=== PATIENT | male | born 1940 | race Caucasian/White ===

== ENCOUNTER 2021-01-20 10:58 | Emergency (ER) | payer MEDICARE, MEDICAID, SELFPAY ==
[2021-01-20] VITALS (10 sets, daily range): BP systolic 150–178; BP diastolic 65–86; PULSE 60–67; RESP 16–24; TEMP 36.8; O2SAT 95–99; BMI 24.4
--- NOTE | 2021-01-20 11:35 | PC.NURSE ---
pt also has rt back pain.
--- NOTE | 2021-01-20 11:38 | PC.NURSE ---
pt has requested me to wait on lab work until the dr sees him.
--- NOTE | 2021-01-20 13:29 | ED.ABDPAIN ---
HPI - Abdominal Pain General Chief Complaint: Abdominal Pain Stated Complaint: Abd pain and back pain Time Seen by Provider: 01/20/21 13:29 Source: patient and old records reviewed Mode of arrival: Ambulatory Limitations: no limitations History of Present Illness HPI narrative: This is a very pleasant 80-year-old male comes emergency department with complaint of back and right groin pain that occurred over night. Patient states he had a sudden onset of pain in the middle the night sort of in his lower back and radiating to his right groin. He states it lasted most the night stopped about an hour ago. Began about 1:00 a.m. and stopped around 11:00 a.m. noon. Patient states that he has not had similar symptoms in the past he did not appreciate any lumps or bumps in his groin. He states he had a left hernia in the groin in the past which was by his description reduced but did not have surgical repair. He denies any fevers or chills. He denies any nausea or vomiting. He denies any chest pain or shortness of breath. He does not been any pain at this time. He states he has normal bowel movements. He is not appreciate any melena or hematochezia. He has had normal urination without any issues. No dysuria, urgency or sense of frequency. He denies any radiation of pain down his legs. Patient states he has had 2 cardiac stents. He states he had his 1st heart attack at age 44, he does have a pacemaker. He states he is not currently following the primary care physician and has not followed up with cardiology in a long time. Patient states he is allergic to sulfa. He used to smoke tobacco but denies any currently. No regular alcohol, no illicit. Related Data Home Medications Medication Instructions Recorded Confirmed amlodipine-olmesartan [Carlos] #0 01/14/17 lisinopril #0 01/14/17 Previous Rx's Medication Instructions Recorded budesonide-formoterol [Symbicort] 2 inh INH BID #1 inh 01/14/17 amlodipine [Norvasc] 5 mg PO QDAY #90 tab 01/21/17 lisinopril 20 mg PO QDAY #90 tab 01/21/17 indapamide 1.25 mg PO QDAY #30 tab 03/04/17 fluoxetine 20 mg capsule 20 mg PO QDAY #30 cap 12/15/17 albuterol sulfate 90 mcg/actuation 1 puff INHALATION QIDP PRN #2 inh 05/17/18 aerosol inhaler Allergies Allergy/AdvReac Type Severity Reaction Status Date / Time Sulfa (Sulfonamide Allergy Unknown Unverified 11/16/17 12:09 Antibiotics) [SULFA (SULFONAMIDE ANTIBIOTICS)] Review of Systems Review of Systems ROS Unobtainable: All systems reviewed & are unremarkable except as noted in HPI and below Patient History Medical History (Updated 01/20/21 @ 13:58 by Ivett Lopez DO) CAD in [place] artery Surgical History (Updated 01/20/21 @ 13:52 by Ivett Lopez DO) H/O heart artery stent Substance Use Type: does not use Exam Narrative Exam Narrative: GENERAL: Alert and oriented x three, well-nourished elderly male in mild distress. HEENT: Head normocephalic, atraumatic, EOMI, pupils reactive, face symmetric, moist mucous membranes NECK: Supple, full range of motion CARDIOVASCULAR: Regular rate and rhythm without murmurs, rubs or gallops. RESPIRATORY: Breath sounds equal bilaterally, no wheezes rales or rhonchi. ABDOMEN: Soft, nontender. Normoactive bowel sounds all 4 quadrants. No guarding or rebound, rigidity, no mass, no palpable hernia in the right or left groin or inguinal area. : No CVA tenderness. Normal male genitalia. BACK: No cervical, thoracic or lumbar vertebral point tenderness. Patient has normal range of motion. Patient's gait is normal. Muscle strength is 5/5 in lower extremities, DTRs are 2/4 and lower extremities. Dorsalis pedis and tibialis pulses are 2+ and lower extremities. Sensation is intact in the lower extremities. EXTREMITIES: Normal range of motion, no clubbing or edema. Neurovascularly intact NEUROLOGICAL: Cranial nerves II through XII grossly intact. Moving all extremities SKIN: Warm, dry, no petechiae, no rashes or lesions. Initial Vital Signs Initial Vital Signs: Vital Signs Temperature 98.2 F 01/20/21 11:05 Pulse Rate 66 01/20/21 11:05 Respiratory Rate 18 01/20/21 11:05 Blood Pressure 178/86 H 01/20/21 11:05 Pulse Oximetry 96 01/20/21 11:05 Course Vital Signs Vital signs: Vital Signs - 8 hr 01/20/21 11:12 01/20/21 11:13 01/20/21 11:30 Pulse Rate 67 65 60 Respiratory Rate 17 Blood Pressure 178/86 H Pulse Oximetry 95 96 99 01/20/21 11:31 01/20/21 12:00 01/20/21 12:30 Pulse Rate 60 60 60 Respiratory Rate 18 24 24 Blood Pressure 165/74 H 172/74 H Pulse Oximetry 97 97 98 01/20/21 12:31 01/20/21 14:00 01/20/21 14:08 Pulse Rate 61 60 60 Respiratory Rate 16 22 22 Blood Pressure 150/65 H 162/83 H Pulse Oximetry 97 98 98 MDM - Abdominal Pain Lab Data Point of care testing: Urine Dip Bedside Urine Glucose Negative Bedside Urine Bilirubin - Negative Bedside Urine Ketone - Negative Urine Specific [place] 1.010 Bedside Urine Occult Blood - Negative Bedside Urine pH 7.5 Bedside Urine Protein - Negative Bedside Urine Urobilinogen - Negative Bedside Urine Nitrite - Negative Bedside Urine Leukocytes - Negative Esterase ECG Data Attestation: I personally reviewed and interpreted this ECG as follows: Prior ECG tracings: not available for review Interpretation: AV dual paced rhythm. Rate of 60, pr 176 QRS of 2-2 and QTC of 536. Patient does no have prior for review. MDM Narrative Medical decision making narrative: 80-year-old male comes in with complaint of significant right lower back pain radiating to the groin, after discussion patient states his symptoms have resolved and he does not wish further workup. He did give a urine sample which is negative making kidney stone less likely. Not able to palpate hernia at this point and patient has not had any obstructive symptoms. We did discuss that this is the correct area for an appendicitis and there is potential for appendix rupture patient we get significantly sick or potentially this was the case. Also colitis or diverticulitis are all possibilities. Patient was offered workup as well as imaging but he defers he states he is happy to return if he needs to. States he is not taking any medications regularly and with our discussion it is unclear if he has chosen not to take these medications or been told not to take them but I suspect the former. Patient is alert, oriented and appears appropriate to make his own decisions. He is interested in establishing with primary care. And we also discussed it would be appropriate from to follow-up with cardiology as he has not had his pacemaker checked in many years, referral was given for this also. Discharge Plan Departure Patient Disposition: Home Clinical Impression: Abdominal pain, Flank pain Instructions: DI for Abdominal Pain-Adult Activity Restrictions/Additional Instructions: I do recommend that you follow up with a primary care physician in the next several weeks for recheck if you are asymptomatic. Also recommend he follow up with Cardiology to have her pacemaker evaluated to check the batteries. These do have to be replaced intermittently. Referral is given below. Your welcome to return at any time for recheck and evaluation. The exact cause of her symptoms today is unknown but includes appendicitis, colitis, diverticulitis, kidney stones, hernia are all potential causes. Please return if you have fevers greater 100.4 F, new chest pain, shortness of breath, lightheadedness or passing out, repair aunt back, flank or abdominal pain, persistent vomiting, inability to have a bowel movement, black or bloody stools or difficulty with urination. Prescriptions: No Action lisinopril 2.5 mg tablet Qty: 0 RF: 0 amlodipine-olmesartan [Carlos] 5-20 mg tablet Qty: 0 RF: 0 budesonide-formoterol [Symbicort] 80 MCG/4.5 MCG HFA aerosol inhaler 2 inh INH BID Qty: 1 RF: 0 lisinopril 20 MG tablet 20 mg PO QDAY Qty: 90 RF: 3 amlodipine [Norvasc] 5 MG tablet 5 mg PO QDAY Qty: 90 RF: 3 indapamide 1.25 MG tablet 1.25 mg PO QDAY Qty: 30 RF: 0 fluoxetine 20 mg capsule 20 mg PO QDAY Qty: 30 RF: 0 albuterol sulfate [Proventil HFA] 90 mcg/actuation HFA aerosol inhaler 1 puff INHALATION QIDP PRN (Reason: shortness of breath) Qty: 2 RF: 0 Referrals: Lay Victoria ARNP [Primary Care Provider] - John Sheppard MD [Physician] - Nilesh Garcia MD [Physician] -
== END 2021-01-20 14:18 | disposition home or self-care (01) ==
PROVIDERS: Emergency Provider Emergency Medicine; PCP Nurse Practitioner Family
DX: R10.9 Unspecified abdominal pain (principal); M54.5 Low back pain; Z95.0 Presence of cardiac pacemaker
CPT/HCPCS: 81003; 93005; 93010; 99282; 99283

== ENCOUNTER 2021-01-21 11:28 | Emergency (ER) | payer MEDICARE, MEDICAID, SELFPAY ==
[2021-01-21] VITALS (26 sets, daily range): BP systolic 130–193; BP diastolic 70–105; PULSE 60–72; RESP 14–35; O2SAT 74–100; BMI 25.7
--- NOTE | 2021-01-21 11:47 | ED.BACK ---
HPI - Back Pain/Injury General Chief Complaint: Abdominal Pain Stated Complaint: Right groin/flank pain Time Seen by Provider: 01/21/21 11:28 Source: patient and EMS Limitations: no limitations History of Present Illness HPI Narrative: 80-year-old male former smoker with a cardiac history including a few stents earlier in the year presents for the 2nd time with a chief complaint of a sudden onset right flank pain with radiation into his right groin. He states the pain started Tuesday night and he was seen and evaluated yesterday and had a workup that suggested an unknown source of flank pain as the patient became asymptomatic and requested discharge. He was given very appropriate and thorough return precautions. Patient states the pain seems to come and go with a mind of its own, he has no obvious provocation or palliation. He states that when present it is very intense, sharp and stabbing. He denies any fever or chills. He has had no chest pain or shortness of breath. He denies any difficulty with bowel movements or urination. MD Complaint: back pain Onset (ago): day(s) Duration: intermittent Similar Symptoms Previously: No Location: right flank and right lower back Severity: severe Quality: sharp Radiation: flank Severity scale (1-10): 8 Relieving factors: none Exacerbating factors: none Associated symptoms: denies other symptoms Related Data Home Medications Medication Instructions Recorded Confirmed amlodipine-olmesartan [Carlos] #0 01/14/17 lisinopril #0 01/14/17 Previous Rx's Medication Instructions Recorded budesonide-formoterol [Symbicort] 2 inh INH BID #1 inh 01/14/17 amlodipine [Norvasc] 5 mg PO QDAY #90 tab 01/21/17 lisinopril 20 mg PO QDAY #90 tab 01/21/17 indapamide 1.25 mg PO QDAY #30 tab 03/04/17 fluoxetine 20 mg capsule 20 mg PO QDAY #30 cap 12/15/17 albuterol sulfate 90 mcg/actuation 1 puff INHALATION QIDP PRN #2 inh 05/17/18 aerosol inhaler amlodipine 5 mg PO DAILY #30 tab 01/21/21 Allergies Allergy/AdvReac Type Severity Reaction Status Date / Time Sulfa (Sulfonamide Allergy Unknown Verified 01/21/21 11:41 Antibiotics) [SULFA (SULFONAMIDE ANTIBIOTICS)] Review of Systems Constitutional Constitutional: Denies chills, Denies fatigue, Denies fever(s), Denies frequent falls, Denies lethargy and Denies weakness Eyes Eyes: Denies change in vision, Denies eye discharge, Denies irritation and Denies loss of vision ENT Ears, Nose, Mouth, and Throat: Denies change in voice, Denies dizziness, Denies neck pain, Denies sore throat and Denies throat swelling Cardiovascular Cardiovascular: Denies chest pain, Denies irregular heart rhythm, Denies lightheadedness, Denies palpitations, Denies dyspnea, Denies dyspnea on exertion and Denies orthopnea Respiratory Respiratory: Denies cough, Denies dyspnea, Denies dyspnea on exertion and Denies wheezing Gastrointestinal Gastrointestinal: Denies abdominal pain, Denies change in bowel habits, Reports constipation, Denies diarrhea, Denies nausea and Denies vomiting Musculoskeletal Musculoskeletal: Reports back pain, Denies neck pain and Denies numbness Integumentary/Breasts Skin/Breast: Denies pruritus, Denies erythema, Denies rash and Denies wounds Neurologic Neurologic: Denies behavioral changes, Denies confusion, Denies dizziness, Denies frequent falls, Denies loss of vision, Denies numbness and Denies weakness Psychiatric Psychiatric: Denies anxiety, Denies behavioral changes, Denies confusion, Denies depression, Denies homicidal ideation and Denies suicidal ideation Endocrine Endocrine: Denies fatigue, Denies flushing and Denies palpitations Hematologic/Lymphatic Hematologic/Lymphatic: Denies easy bruising Allergic/Immunologic Allergic/Immunologic: Denies urticaria, Denies throat swelling and Denies wheezing Patient History Medical History CAD in [place] artery Surgical History H/O heart artery stent Social History Smoking Status: Former smoker Smoking Status: Former smoker alcohol intake frequency: holidays/special occasions only Substance Use Type: does not use Exam Narrative Exam Narrative: GENERAL: [80] year old patient appears stated age. Well-developed patient, in mild distress. HEAD: Atraumatic. Normocephalic. EYES: Pupils equal round and reactive. Extraocular motions intact. No scleral icterus. No injection or drainage. ENT: Nose without bleeding, purulent drainage. Throat without erythema, tonsillar hypertrophy or exudate. Airway patent. NECK: Trachea midline. Non tender CARDIOVASCULAR: Regular rate and rhythm without murmurs, gallops, or rubs. RESPIRATORY: Clear to auscultation. Breath sounds equal bilaterally. No wheezes, rales, or rhonchi. GASTROINTESTINAL: Abdomen soft, non-tender, nondistended. No pulsatile mass. Pain on palpation of R groin, no erythema, warmth or palpable hernia EXTREMITIES: No edema or joint tenderness. BACK: Nontender without deformity or crepitance. No flank tenderness. NEURO: AOx3. SKIN: No rash or erythema of visible areas Initial Vital Signs Initial Vital Signs: Vital Signs Pulse Rate 62 01/21/21 11:30 Respiratory Rate 18 01/21/21 11:30 Blood Pressure 182/81 H 01/21/21 11:30 Pulse Oximetry 98 01/21/21 11:30 Course Orders Ordered: ED Orders 01/21/21 11:47 Complete Blood Count AUTO DIFF Stat Comprehensive Metabolic Panel Stat 01/21/21 11:50 EKG-12 Lead Stat 01/21/21 11:55 CT kidney ureter bladder (KUB) Stat 01/21/21 12:47 CT angio chest abdomen pelvis Stat Discontinued Medications Amlodipine Besylate (Amlodipine 5 Mg Tablet) 5 mg PO NOW ONE Stop: 01/21/21 17:00 Last Admin: 01/21/21 17:02 Dose: 5 mg Documented by: EBONY Hydralazine HCl (Hydralazine 20 Mg/Ml Vial) 10 mg IV NOW ONE Stop: 01/21/21 16:23 Last Admin: 01/21/21 16:42 Dose: 10 mg Documented by: EBONY Sodium Chloride (Normal Saline 0.9%) 1,000 mls @ 125 mls/hr IV CONT TOMA Last Infusion: 01/21/21 17:51 Dose: 0 mls/hr Documented by: Admin: 01/21/21 12:18 Dose: 125 mls/hr Documented by: LIZBETH Nicardipine HCl 25 mg/ Sodium (Chloride) 250 mls @ 50 mls/hr IV TITRATE TOMA; Protocol Last Admin: 01/21/21 17:50 Dose: Not Given Documented by: AUPDIKE Consultations Consultation #1: upon receipt of CTA, images were pushed to Prov and call to Vascular. The PA has reviewed the case and recommends transfer to Prov ED given size of AAA and no other explanation of flank pain. While on hold for ED provider the Vascular attending called back and suggests there was very little chance that the pain was from the AAA and after discussion suggested patient could go home and follow up Consultation #2: discussed hernia with exchange underwriting consultant general surgery here (Natalio). No ongoing pain, no overlying erythema or palpable mass. No indication for intervention today. Recommend follow up. Vital Signs Vital signs: Vital Signs - 8 hr 01/21/21 11:30 01/21/21 11:34 01/21/21 11:48 Pulse Rate 62 69 60 Respiratory Rate 18 14 21 Blood Pressure 182/81 H 161/72 H Pulse Oximetry 98 98 98 01/21/21 12:09 01/21/21 12:10 01/21/21 12:30 Pulse Rate 60 60 60 Respiratory Rate 20 19 21 Blood Pressure 159/74 H 157/75 H Pulse Oximetry 98 98 97 01/21/21 13:00 01/21/21 13:11 01/21/21 13:30 Pulse Rate 60 61 60 Respiratory Rate 20 15 14 Blood Pressure 163/101 H Pulse Oximetry 99 100 100 01/21/21 13:31 01/21/21 14:00 01/21/21 14:48 Pulse Rate 61 61 64 Respiratory Rate 16 21 Blood Pressure 177/85 H 193/83 H Pulse Oximetry 99 99 98 01/21/21 15:00 01/21/21 15:16 01/21/21 15:30 Pulse Rate 60 60 60 Respiratory Rate 21 18 17 Blood Pressure 130/82 Pulse Oximetry 98 98 98 01/21/21 15:31 01/21/21 16:00 01/21/21 16:01 Pulse Rate 60 62 60 Respiratory Rate 24 21 21 Blood Pressure 164/78 H 176/82 H Pulse Oximetry 97 98 98 01/21/21 16:30 01/21/21 16:31 01/21/21 16:42 Pulse Rate 69 66 66 Respiratory Rate 19 35 H Blood Pressure 157/105 H 157/105 H 157/105 H Pulse Oximetry 99 99 01/21/21 16:50 01/21/21 16:55 01/21/21 17:00 Pulse Rate 64 67 67 Respiratory Rate 25 H 26 H 20 Blood Pressure 170/81 H 171/82 H 156/70 H Pulse Oximetry 99 99 99 01/21/21 17:15 01/21/21 17:20 Pulse Rate 72 69 Respiratory Rate Blood Pressure 163/78 H Pulse Oximetry 74 L 99 MDM - Back Pain/Injury Lab Data Result diagrams: 01/21/21 11:47 01/21/21 11:47 Labs: Lab Results 01/21/21 01/21/21 Range/Units 11:47 11:47 WBC 6.4 (4.5-11.0) X10^3/uL RBC 4.41 L (4.5-5.9) X10^6/uL Hgb 13.4 L (13.5-17.5) g/dL Hct 40.9 L (41-53) % MCV 92.8 (80-100) fL MCH 30.4 (26-34) PG MCHC 32.8 (30-36) % RDW 14.9 H (11.6-14.8) % Plt Count 279 (150-400) X10^3/uL Neut % (Auto) 61.8 (50-75) % Lymph % (Auto) 21.5 L (25-40) % [place] % (Auto) 12.3 (3-14) % Eos % (Auto) 3.7 (2-4) % Baso % (Auto) 0.7 (0-2) % Neut # (Auto) 3900 (1243-0914) /uL Lymph # (Auto) 1400 (0004-1508) /uL [place] # (Auto) 800 (0-900) /uL Eos # (Auto) 200 (0-450) /uL Baso # (Auto) 0 (0-100) /uL Sodium 137 (137-145) mmol/L Potassium 4.2 (3.4-5.1) mmol/L Chloride 104 (98-107) mmol/L Carbon Dioxide 24 (22-32) mmol/L BUN 16 (9-20) mg/dL Creatinine 1.09 (0.66-1.25) mg/dL Estimated GFR > 60.0 (>60) mL/min BUN/Creatinine Ratio 14.7 (6-22) Glucose 106 (80-110) mg/dL Calcium 9.5 (8.4-10.2) mg/dL Total Bilirubin 0.9 (0.2-1.3) mg/dL AST 28 (17-59) IU/L ALT 15 (<50) IU/L Alkaline Phosphatase 75 (38-126) U/L Total Protein 7.5 (6.3-8.2) g/dL Albumin 4.3 (3.5-5.0) g/dL Globulin 3.2 (1.7-4.1) g/dL Albumin/Globulin Ratio 1.3 (1.0-2.8) Urine Dip Bedside Urine Glucose Negative Bedside Urine Bilirubin - Negative Bedside Urine Ketone +/- 5 Urine Specific [place] 1.015 Bedside Urine Occult Blood - Negative Bedside Urine pH 7.0 Bedside Urine Protein - Negative Bedside Urine Urobilinogen - Negative Bedside Urine Nitrite - Negative Bedside Urine Leukocytes - Negative Esterase Imaging Data CT scan - abdomen/pelvis: Radiologist's Impression: Nilesh Alexander 80 M [address] Scan ReportSigned Patient: Nilesh Alexander [facility]#: [id number]: 8Acct:[id number]/Sex: 80 / MDate of Service: 01/21/21Loc: EDAccession Number: [id number] Procedure: CT kidney ureter bladder (KUB) Ordering Provider: Lobito Moya D.O. PROCEDURE: CT KIDNEY URETER BLADDER (KUB) INDICATIONS: severe flank pain with radiation to right groin TECHNIQUE: Axial sections were acquired from the lung bases to the pubic symphysis. Coronal and sagittal reformats were performed. For radiation dose reduction, the following was used: automated exposure control, adjustment of mA and/or kV according to patient size. COMPARISON:None. FINDINGS: Image quality: Excellent. Lung bases: Unremarkable. Heart: No significant findings. URINARY: Right Kidney: No stones. Renal atrophy is present. Renal cysts are noted. Punctate nonobstructing renal calculus is present. Renal cysts are noted, largest measuring 2.9 cm. Right Ureter: No hydroureter. Left Kidney: No stones. Renal atrophy is present. Renal cysts are noted. Punctate nonobstructing renal calculus is present. Renal cysts are noted, largest measuring 6.1 cm. Left Ureter: No hydroureter. Bladder: Normal wall thickness. Calcification is present in the dependent bladder. ABDOMEN: Liver: Unremarkable. Gallbladder: Unremarkable. Biliary ducts: Unremarkable. Pancreas: Unremarkable. Spleen: Unremarkable. Adrenal Glands: Unremarkable. Stomach and Bowel: Stomach, small bowel loops, and colon are unremarkable. Prominent colonic diverticula are present without inflammatory change. Peritoneum: No abnormal intraperitoneal fluid. No free air. Ventral Wall: No hernia. Abdominal Nodes: No enlarged retroperitoneal or mesenteric lymph nodes. Vessels: The inferior vena cava are normal in size. Prominent aneurysmal dilation noted in the infrarenal abdominal aorta measuring 5.7 cm. PELVIS: Pelvic Organs: Unremarkable. Pelvic Nodes: Unremarkable. Miscellaneous: Large fat containing right inguinal hernia with fat stranding. Bones: Unremarkable. IMPRESSION: 1. Large fat containing right inguinal hernia with inflammatory change. 2. Significant colonic diverticulosis. 3. Bladder calcification, possibly related to recently passed stone. No obstruction. 4. Renal cysts. 5. Infrarenal abdominal aortic aneurysm. Dictated by: Dionne Lemus M.D. on 01/21/2021 at 12:21 Approved by: Dionne Lemus M.D. on 01/21/2021 at 12:34 CTA Abd/Pelvis: Radiologist's Impression: [address] [id number] Scan ReportSigned Patient: Nilesh Alexander [facility]#: [id number]: 1940cct:[id number]/Sex: 80 / MDate of Service: 01/21/21Loc: EDAccession Number: [id number] Procedure: CT angio chest abdomen pelvis Ordering Provider: Lobito Moya D.O. PROCEDURE: CT ANGIO CHEST ABDOMEN PELVIS INDICATIONS: large newly discovered AAA, severe flank pain TECHNIQUE: Precontrast 5 mm thick sections acquired from the lung apices to the iliac crests. After the administration of intravenous contrast, 2.5 mm thick sections again acquired from the lung apices to the iliac crests. Maximum intensity projection (MIP) oblique sagittal and coronal reformats were then acquired. For radiation dose reduction, the following was used: automated exposure control. COMPARISON: [facility], CT, CT KIDNEY URETER BLADDER (KUB), 01/21/2021, 12:03. FINDINGS: Image quality: Excellent. AORTA and its attachments: The thoracic aorta is unremarkable without aneurysm or stenosis or significant plaque. The great vessel origins are widely patent. The brachiocephalic artery is markedly tortuous. There is large infrarenal abdominal aortic aneurysm, which on image 131/5 measures 5.7 x 5.1 cm. It has mild thrombus.. It has a reasonable neck below the lowest renal artery and the superior aspect of the aneurysm. On image 115/5, a compliance representative dealer image, the short axis dimension is 2.0 cm. The aneurysm ends at the aortic bifurcation. The right common iliac artery measures 1.9 cm. The left common iliac artery measures 1.4 cm. No iliac stenosis is noted. CHEST: Lungs and pleura: No acute airspace opacities. No pleural effusions or pneumothorax. Central and peripheral airways are patent and normal in caliber. Mediastinum: Heart size is normal. No pericardial effusion. Moderately advanced coronary artery calcifications. No mediastinal or hilar adenopathy by size criteria. Central pulmonary arteries are normal in size. Esophagus is normal in caliber. No hiatal hernias. Bones and chest wall: No axillary adenopathy by size criteria. Thyroid gland is unremarkable as visualized. No suspicious bony lesions. No vertebral body compression fractures. A pacemaker is present. ABDOMEN: Vasculature: Celiac trunk and mesenteric arteries are patent. Renal arteries are also patent. Solid organs: Liver is normal in size and enhancement. Gallbladder is unremarkable. Biliary system is non dilated. Pancreas enhances normally. Spleen is normal in size and enhancement. No adrenal nodules. Both kidneys are normal in size and enhancement, without hydronephrosis. Peritoneum and bowel: No free fluid or air. Bowel loops are normal in caliber and wall thickness. Extensive sigmoid diverticulosis without evidence of diverticulitis. Nodes and vessels: No retroperitoneal or mesenteric adenopathy by size criteria. Inferior vena cava is normal in morphology. Miscellaneous: No ventral hernias. PELVIS: Genitourinary: There is a small calcification in the midline posteriorly in the bladder, measuring approximately 3 mm, possibly representing recent passage of a ureteral stone into the bladder. The bladder wall is thin. The prostate is significantly enlarged. Miscellaneous: There is a sizable right inguinal hernia containing fat. No ventral hernias. Bones: No suspicious bony lesions. No vertebral body compression fractures. IMPRESSION: 1. 5.7 cm maximum diameter infrarenal abdominal aortic aneurysm with a reasonable neck below the lowest renal artery, should endovascular repair be considered. 2. If considering endovascular repair, the presence of a large fat containing right inguinal hernia should be accommodated, as this may potentially interact with attempted femoral access. 3. Enlargement of the prostate. 4. Probable recent passage of a stone into the bladder. 5. Extensive sigmoid diverticulosis. Dictated by: Samuel Martino M.D. on 01/21/2021 at 14:47 Approved by: Samuel Martino M.D. on 01/21/2021 at 14:59 MDM Narrative Medical decision making narrative: 80-year-old male, hemodynamically stable with cardiac history returns for evaluation of right flank pain. He denies any obvious provocation or palliation. There are no clear findings on exam. He does admit to decreased bowel movements which is abnormal for him. He had some brief pain in his right groin on exam but no palpable or non reducible hernia noted. CT KUB originally ordered given concern for possible kidney stone and upon its completion we noted a large infrarenal AAA. After extensive discussion with the patient, he was initially quite reluctant, he agreed to performing angiography. This noted a 5.7 cm AAA without any evidence of rupture. Given its size and no other clear etiology I contacted vascular at [facility]. Initially, the PA recommended transfer to their ER but after the attending reviewed the findings he thought it was very unlikely the symptoms were related to a AAA. There is some evidence of a decent large stool burden and a fat containing right inguinal hernia which could certainly presented with a above-stated symptoms. Patient was given extensive return precautions which she understood clearly and was in agreement with. Discharge Plan Departure Patient Disposition: Home Clinical Impression: AAA (abdominal aortic aneurysm) without rupture, Mild HTN Inguinal hernia Qualifiers: Laterality: unilateral Recurrence: non-recurrent Activity Restrictions/Additional Instructions: *You have been diagnosed with [flank and abdominal pain likely relating to inguinal hernia and large stool burden. Vascular surgery at [facility] has reviewed your case and does not think your large aneurysm is contributing to her symptoms today] *What to do: *Please continue to take your regular medications as directed. [ ] New medication prescriptions sent to your pharmacy: [ ] [x ] New medication written as a paper prescription [ ] No new medications given I have included contact information for our on-call surgeon to discuss options regarding your right inguinal hernia. Please contact [facility] for follow-up. *You have been diagnosed with [ abdominal pain due to constipation ] *What to do: *Take over the counter medications as directed: 1. Metamucil - bulk forming laxative adds fiber 2. Colace - softens your stool 3. Dulcolax Suppository - stimulates your bowels from the bottom I have included contact information for vascular surgery at [facility] [phone]. Please call their office tomorrow to arrange for follow-up regarding your 5.7 cm abdominal aortic aneurysm Prescriptions: New amlodipine 5 mg tablet 5 mg PO DAILY Qty: 30 RF: 0 No Action lisinopril 2.5 mg tablet Qty: 0 RF: 0 amlodipine-olmesartan [Carlos] 5-20 mg tablet Qty: 0 RF: 0 budesonide-formoterol [Symbicort] 80 MCG/4.5 MCG HFA aerosol inhaler 2 inh INH BID Qty: 1 RF: 0 lisinopril 20 MG tablet 20 mg PO QDAY Qty: 90 RF: 3 amlodipine [Norvasc] 5 MG tablet 5 mg PO QDAY Qty: 90 RF: 3 indapamide 1.25 MG tablet 1.25 mg PO QDAY Qty: 30 RF: 0 fluoxetine 20 mg capsule 20 mg PO QDAY Qty: 30 RF: 0 albuterol sulfate [Proventil HFA] 90 mcg/actuation HFA aerosol inhaler 1 puff INHALATION QIDP PRN (Reason: shortness of breath) Qty: 2 RF: 0 Referrals: Bree Lance MD [Physician] - Lay Victoria ARNP [Primary Care Provider] -
--- NOTE | 2021-01-21 11:55 | DI.CT.S_ITS ---
PROCEDURE: CT KIDNEY URETER BLADDER (KUB) INDICATIONS: severe flank pain with radiation to right groin TECHNIQUE: Axial sections were acquired from the lung bases to the pubic symphysis. Coronal and sagittal reformats were performed. For radiation dose reduction, the following was used: automated exposure control, adjustment of mA and/or kV according to patient size. COMPARISON:None. FINDINGS: Image quality: Excellent. Lung bases: Unremarkable. Heart: No significant findings. URINARY: Right Kidney: No stones. Renal atrophy is present. Renal cysts are noted. Punctate nonobstructing renal calculus is present. Renal cysts are noted, largest measuring 2.9 cm. Right Ureter: No hydroureter. Left Kidney: No stones. Renal atrophy is present. Renal cysts are noted. Punctate nonobstructing renal calculus is present. Renal cysts are noted, largest measuring 6.1 cm. Left Ureter: No hydroureter. Bladder: Normal wall thickness. Calcification is present in the dependent bladder. ABDOMEN: Liver: Unremarkable. Gallbladder: Unremarkable. Biliary ducts: Unremarkable. Pancreas: Unremarkable. Spleen: Unremarkable. Adrenal Glands: Unremarkable. Stomach and Bowel: Stomach, small bowel loops, and colon are unremarkable. Prominent colonic diverticula are present without inflammatory change. Peritoneum: No abnormal intraperitoneal fluid. No free air. Ventral Wall: No hernia. Abdominal Nodes: No enlarged retroperitoneal or mesenteric lymph nodes. Vessels: The inferior vena cava are normal in size. Prominent aneurysmal dilation noted in the infrarenal abdominal aorta measuring 5.7 cm. PELVIS: Pelvic Organs: Unremarkable. Pelvic Nodes: Unremarkable. Miscellaneous: Large fat containing right inguinal hernia with fat stranding. Bones: Unremarkable. IMPRESSION: 1. Large fat containing right inguinal hernia with inflammatory change. 2. Significant colonic diverticulosis. 3. Bladder calcification, possibly related to recently passed stone. No obstruction. 4. Renal cysts. 5. Infrarenal abdominal aortic aneurysm. Dictated by: Dionne Lemus M.D. on 01/21/2021 at 12:21 Approved by: Dionne Lemus M.D. on 01/21/2021 at 12:34
[2021-01-21 11:57] LABS: Add Manual Diff / Slide Review NO; Basophils Absolute Auto 0 /uL (0-100); Basophils Percent Auto 0.7 % (0-2); Eosinophils Absolute Auto 200 /uL (0-450); Eosinophils Percent Auto 3.7 % (2-4); Hematocrit 40.9 % (41-53); Hemoglobin 13.4 g/dL (13.5-17.5); Lymphocytes Absolute Auto 1400 /uL (1100-4500); Lymphocytes Percent Auto 21.5 % (25-40); Mean Corpuscular HGB Conc 32.8 % (30-36); Mean Corpuscular Hemoglobin 30.4 PG (26-34); Mean Corpuscular Volume 92.8 fL (80-100); Monocytes Absolute Auto 800 /uL (0-900); Monocytes Percent Auto 12.3 % (3-14); Neutrophils Absolute Auto 3900 /uL (1500-7000); Neutrophils Percent Auto 61.8 % (50-75); Platelet Count 279 X10^3/uL (150-400); Red Blood Cell Count 4.41 X10^6/uL (4.5-5.9); Red Cell Distribution Width 14.9 % (11.6-14.8); White Blood Cell Count 6.4 X10^3/uL (4.5-11.0)
[2021-01-21 12:06] LABS: Alanine Aminotransferase 15 IU/L (<50); Albumin 4.3 g/dL (3.5-5.0); Albumin Globulin Ratio 1.3 (1.0-2.8); Alkaline Phosphatase 75 U/L (38-126); Aspartate Aminotransferase 28 IU/L (17-59); BUN Creatinine Ratio 14.7 (6-22); Bilirubin Total 0.9 mg/dL (0.2-1.3); Blood Urea Nitrogen 16 mg/dL (9-20); Calcium 9.5 mg/dL (8.4-10.2); Carbon Dioxide 24 mmol/L (22-32); Chloride 104 mmol/L (98-107); Estimated Glomerular Filt Rate > 60.0 mL/min (>60); Globulin 3.2 g/dL (1.7-4.1); Glucose 106 mg/dL (80-110); HEMOLYSIS < 15 (0-50); Potassium 4.2 mmol/L (3.4-5.1); Sodium 137 mmol/L (137-145); Total Protein 7.5 g/dL (6.3-8.2)
[2021-01-21] MEDS: SODIUM CHLORIDE 0.9% 1,000 ML 125 ML IV (12:18)
--- NOTE | 2021-01-21 12:47 | DI.CT.S_ITS ---
PROCEDURE: CT ANGIO CHEST ABDOMEN PELVIS INDICATIONS: large newly discovered AAA, severe flank pain TECHNIQUE: Precontrast 5 mm thick sections acquired from the lung apices to the iliac crests. After the administration of intravenous contrast, 2.5 mm thick sections again acquired from the lung apices to the iliac crests. Maximum intensity projection (MIP) oblique sagittal and coronal reformats were then acquired. For radiation dose reduction, the following was used: automated exposure control. COMPARISON: [facility], CT, CT KIDNEY URETER BLADDER (KUB), 01/21/2021, 12:03. FINDINGS: Image quality: Excellent. AORTA and its attachments: The thoracic aorta is unremarkable without aneurysm or stenosis or significant plaque. The great vessel origins are widely patent. The brachiocephalic artery is markedly tortuous. There is large infrarenal abdominal aortic aneurysm, which on image 131/5 measures 5.7 x 5.1 cm. It has mild thrombus.. It has a reasonable neck below the lowest renal artery and the superior aspect of the aneurysm. On image 115/5, a hospital sales representative image, the short axis dimension is 2.0 cm. The aneurysm ends at the aortic bifurcation. The right common iliac artery measures 1.9 cm. The left common iliac artery measures 1.4 cm. No iliac stenosis is noted. CHEST: Lungs and pleura: No acute airspace opacities. No pleural effusions or pneumothorax. Central and peripheral airways are patent and normal in caliber. Mediastinum: Heart size is normal. No pericardial effusion. Moderately advanced coronary artery calcifications. No mediastinal or hilar adenopathy by size criteria. Central pulmonary arteries are normal in size. Esophagus is normal in caliber. No hiatal hernias. Bones and chest wall: No axillary adenopathy by size criteria. Thyroid gland is unremarkable as visualized. No suspicious bony lesions. No vertebral body compression fractures. A pacemaker is present. ABDOMEN: Vasculature: Celiac trunk and mesenteric arteries are patent. Renal arteries are also patent. Solid organs: Liver is normal in size and enhancement. Gallbladder is unremarkable. Biliary system is non dilated. Pancreas enhances normally. Spleen is normal in size and enhancement. No adrenal nodules. Both kidneys are normal in size and enhancement, without hydronephrosis. Peritoneum and bowel: No free fluid or air. Bowel loops are normal in caliber and wall thickness. Extensive sigmoid diverticulosis without evidence of diverticulitis. Nodes and vessels: No retroperitoneal or mesenteric adenopathy by size criteria. Inferior vena cava is normal in morphology. Miscellaneous: No ventral hernias. PELVIS: Genitourinary: There is a small calcification in the midline posteriorly in the bladder, measuring approximately 3 mm, possibly representing recent passage of a ureteral stone into the bladder. The bladder wall is thin. The prostate is significantly enlarged. Miscellaneous: There is a sizable right inguinal hernia containing fat. No ventral hernias. Bones: No suspicious bony lesions. No vertebral body compression fractures. IMPRESSION: 1. 5.7 cm maximum diameter infrarenal abdominal aortic aneurysm with a reasonable neck below the lowest renal artery, should endovascular repair be considered. 2. If considering endovascular repair, the presence of a large fat containing right inguinal hernia should be accommodated, as this may potentially interact with attempted femoral access. 3. Enlargement of the prostate. 4. Probable recent passage of a stone into the bladder. 5. Extensive sigmoid diverticulosis. Dictated by: Samuel Martino M.D. on 01/21/2021 at 14:47 Approved by: Samuel Martino M.D. on 01/21/2021 at 14:59
[2021-01-21] MEDS: HYDRALAZINE 20 MG/ML VIAL 10 MG IV (16:42)
[2021-01-21] MEDS: AMLODIPINE 5 MG TABLET PO (17:02)
--- NOTE | 2021-01-21 17:18 | PC.NURSE ---
pt given po amlodipine, rx for bp control at home. pt has clear instructions to follow up with vascular surgeon for repair of aneurysm. MD and RN's explained need in detail to follow up with vascular surgeion. take stool softner and start new rx med amlodipine.
--- NOTE | 2021-01-21 17:39 | PC.NURSE ---
Before d/c I sat down with the pt and thoroughly educated the pt on what an aneurism is why it is so dangerous and why getting it surgically repaired is not something that can be put off. I had the pt reiterate this information but I was concerned that he still did not fully understand the severity of his condition. He gave me permission to contact his grandson Willard ([phone]) and inform him of all medical information. Willard was a great help and assured this RN that the pt would f/u with appropriate surgeon at [place]. Pt's BP was trending down nicely and Dr. Moya reviewed pt's vitals and okayd for pt to be d/c. Pt ambulated with a steady gait and is calling a cab to get back to [facility]
== END 2021-01-21 17:35 | disposition home or self-care (01) ==
PROVIDERS: Emergency Provider Emergency Medicine; PCP Nurse Practitioner Family
DX: I71.4 Abdominal aortic aneurysm, without rupture (principal); I10 Essential (primary) hypertension; K40.90 Unilateral inguinal hernia, without obstruction or gangrene, not specified as recurrent
CPT/HCPCS: 36415; 71275; 74174; 74176; 80053; 81003; 85025; 93005; 93010; 96361; 96374; 99284; J0360; Q9967

== ENCOUNTER 2021-01-24 11:32 | Emergency (ER) | payer MEDICARE, MEDICAID, SELFPAY ==
[2021-01-24] VITALS (10 sets, daily range): BP systolic 148–172; BP diastolic 66–80; PULSE 59–60; RESP 13–24; TEMP 36.3; O2SAT 97–100; BMI 25.7
--- NOTE | 2021-01-24 11:32 | ED_ITS ---
HPI - General Adult General Chief complaint: Abdominal Pain Stated complaint: LRQ pain Time Seen by Provider: 01/24/21 11:35 History of Present Illness HPI narrative: 80-year-old gentleman with a history of Disease with stent placement, hypertension, right inguinal hernia and AAA presents for the 3rd time in 4 days with complaints of right-sided low back pain radiating into the groin. His initial visit on the , his pain resolved in the emergency department and he declined any additional workup aside from urinalysis which was unremarkable. With 2nd visit on the a CT scan of the abdomen and pelvis was done that revealed fat containing right inguinal hernia with inflammatory changes, infrarenal abdominal aortic aneurysm measuring 5.7 cm. No renal stones and no obvious appendicitis. Follow-up CTA confirms the large infrarenal abdominal AAA with mild thrombus, no leaking appreciated. Noted ?reasonable neck below the lowest renal artery and the superior aspect of the aneurysm. Aneurysm findings were reviewed with vascular surgeon at [facility] and he felt that it was very unlikely that the patient's presenting symptoms were related to the AAA and recommended outpatient follow-up. General surgery was contacted with Discussion of the right inguinal hernia. No ongoing pain no overlying erythema or palpable mass and Dr. Lance did not feel that there is any indication for surgical intervention at this time. Related Data Home Medications Medication Instructions Recorded Confirmed amlodipine-olmesartan [Carlos] #0 01/14/17 lisinopril #0 01/14/17 Previous Rx's Medication Instructions Recorded budesonide-formoterol [Symbicort] 2 inh INH BID #1 inh 01/14/17 amlodipine [Norvasc] 5 mg PO QDAY #90 tab 01/21/17 lisinopril 20 mg PO QDAY #90 tab 01/21/17 indapamide 1.25 mg PO QDAY #30 tab 03/04/17 fluoxetine 20 mg capsule 20 mg PO QDAY #30 cap 12/15/17 albuterol sulfate 90 mcg/actuation 1 puff INHALATION QIDP PRN #2 inh 05/17/18 aerosol inhaler amlodipine 5 mg PO DAILY #30 tab 01/21/21 Allergies Allergy/AdvReac Type Severity Reaction Status Date / Time Sulfa (Sulfonamide Allergy Unknown Verified 01/21/21 11:41 Antibiotics) [SULFA (SULFONAMIDE ANTIBIOTICS)] Review of Systems Review of Systems Narrative: Pertinent positive and negative findings as per HPI Remainder of review of systems is otherwise unremarkable for Constitutional: Fevers, chills, weakness ENT: No sore throat, neck pain, ear pain CV: Chest pain, palpitations, Respiratory: Cough, wheeze, dyspnea GI: Nausea, vomiting, diarrhea, : Dysuria, hematuria, Patient History Medical History CAD in [place] artery Surgical History H/O heart artery stent Social History Smoking Status: Former smoker Smoking Status: Former smoker alcohol intake frequency: holidays/special occasions only Substance Use Type: does not use Exam Narrative Exam Narrative: General: Alert appropriate in no acute distress Respiratory: Able to speak in full sentences, no obvious respiratory distress Abdomen: Soft, obese. 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 Intermittent diffuse right-sided tenderness currently resolved. No rebound or guarding. No flank pain Groin: Moderate size right inguinal hernia that is nontender to palpation. No testicular pain normal external genitalia. Skin: No obvious rashes, warm and dry Neurologic: Grossly intact no obvious asymmetries or abnormalities Psych: appropriate insight and affect, cooperative Initial Vital Signs Initial Vital Signs: Vital Signs Blood Pressure 157/75 H 01/24/21 11:34 Course Orders Ordered: Discontinued Medications Magnesium Citrate (Magnesium Citrate 300 Ml Solution) 300 ml PO NOW ONE Stop: 01/24/21 13:02 Last Admin: 01/24/21 13:07 Dose: 300 ml Documented by: TAMMY Vital Signs Vital signs: Vital Signs - 8 hr 01/24/21 12:30 01/24/21 12:31 01/24/21 13:00 Pulse Rate 60 60 60 Respiratory Rate 17 24 18 Blood Pressure 172/77 H Pulse Oximetry 100 100 100 01/24/21 13:01 Pulse Rate 60 Respiratory Rate 13 Blood Pressure 165/80 H Pulse Oximetry 100 Medical Decision Making Medical Records Medical records reviewed: Yes I reviewed the patient's medical records. Lab Data Lab results reviewed: Yes I reviewed the patient's lab results. Labs: Urine Dip Bedside Urine Glucose Negative Bedside Urine Bilirubin - Negative Bedside Urine Ketone - Negative Urine Specific [place] 1.005 Bedside Urine Occult Blood - Negative Bedside Urine pH 6.5 Bedside Urine Protein - Negative Bedside Urine Urobilinogen - Negative Bedside Urine Nitrite - Negative Bedside Urine Leukocytes - Negative Esterase Point of care testing: Urine Dip Bedside Urine Glucose Negative Bedside Urine Bilirubin - Negative Bedside Urine Ketone - Negative Urine Specific [place] 1.005 Bedside Urine Occult Blood - Negative Bedside Urine pH 6.5 Bedside Urine Protein - Negative Bedside Urine Urobilinogen - Negative Bedside Urine Nitrite - Negative Bedside Urine Leukocytes - Negative Esterase MDM Narrative Medical decision making narrative: 80-year-old gentleman returns for the 3rd time to the emergency department complaining of right-sided abdominal pain. With his initial workup he declined any further findings. With his 2nd presentation he was incidentally found to have a greater than 5 cm abdominal aneurysm and a fat containing right inguinal hernia. Neither of these were felt to be responsible for his pain. He did have quite a bit of stool loading. On today's exam he reports intermittent pain that does not seem to be related to position or exertion. He notes he has not had a bowel movement for number of days and he has never had difficulties with constipation. He has been increasing his water intake, using Metamucil and MiraLax and had ?1 tiny turdleday. We had a long discussion regarding his abdominal aneurysm and inguinal hernia. At this point he is not interested in surgical repair of either of these and understands the dramatic morbidity and mortality associated with a ruptured AAA. His most pressing concern is fixing his constipation to alleviate his abdominal pain and finding some connections with people in [place] to try to add some meaning back to his life. He is not currently depressed nor suicidal but he does note that at the age of 80 he has outlived pretty much everyone in his family, his close circles his medical care providers and has only a 40-year-old grandson still left. We talked about using magnesium citrate to deal with his abdominal pain, suggested some other alternatives to try to make connections with people and to be able to get out more the now that the COVID crisis seems to be subsiding slightly. He seemed quite pleased with all suggestions and encouraged him to turn return if he had additional concerns or problems Discharge Plan Departure Patient Disposition: Home Clinical Impression: Abdominal pain Qualifiers: Abdominal location: right lower quadrant Qualified Code(s): R10.31 - Right lower quadrant pain Constipation Qualifiers: Constipation type: unspecified constipation type Qualified Code(s): K59.00 - Constipation, unspecified Instructions: DI for Constipation Activity Restrictions/Additional Instructions: Thank you for coming in today I suspect that the pain that keeps bothering you in the right lower quadrant is in fact your significant constipation. Do continue the water, the walking a, the stool softener, Metamucil. I am sending you home today with a bottle of magnesium citrate. When you home, please drink the whole bottle. This will h opefully get your bowels to move completely and may even cause a bit of diarrhea. We did also talk about the other possibilities that could be causing this pain. You know about the abdominal aneurysm and we briefly reviewed the consequences of that rupturing (relatively rapid and pain-free ). There is always the possibility of appendicitis however workup over the last week certainly has not indicated that. Does not look like you are having kidney stones. The hernia that you do have on the right side does not have any got in it and it is not a life-threatening emergency. We also talked about some general life issues. I talked about looking into the [employer] as a source of not only academic growth and stimulation but some place to meet like minded friends. Website: [email or web address] Email: [email or web address] At some point, I would recommend that you follow-up with the primary care physician. Reviewing options for keeping you as healthy as possible and avoiding hospitalizations surgery and other complications. I wish you the very best Prescriptions: No Action lisinopril 2.5 mg tablet Qty: 0 RF: 0 amlodipine-olmesartan [Carlos] 5-20 mg tablet Qty: 0 RF: 0 budesonide-formoterol [Symbicort] 80 MCG/4.5 MCG HFA aerosol inhaler 2 inh INH BID Qty: 1 RF: 0 lisinopril 20 MG tablet 20 mg PO QDAY Qty: 90 RF: 3 amlodipine [Norvasc] 5 MG tablet 5 mg PO QDAY Qty: 90 RF: 3 indapamide 1.25 MG tablet 1.25 mg PO QDAY Qty: 30 RF: 0 fluoxetine 20 mg capsule 20 mg PO QDAY Qty: 30 RF: 0 albuterol sulfate [Proventil HFA] 90 mcg/actuation HFA aerosol inhaler 1 puff INHALATION QIDP PRN (Reason: shortness of breath) Qty: 2 RF: 0 amlodipine 5 mg tablet 5 mg PO DAILY Qty: 30 RF: 0 Referrals: Miscellaneous,Doctor, MD [Primary Care Provider] -
[2021-01-24] MEDS: MAGNESIUM CITRATE 300 ML SOLUTION PO (13:07)
== END 2021-01-24 13:16 | disposition home or self-care (01) ==
PROVIDERS: Emergency Provider Emergency Medicine
DX: R10.31 Right lower quadrant pain (principal); K59.00 Constipation, unspecified
CPT/HCPCS: 81003; 99282; 99283

== ENCOUNTER 2021-04-13 22:42 | Emergency (ER) | payer MEDICARE, MEDICAID, SELFPAY ==
[2021-04-13 22:42] VITALS: BP 185/85; PULSE 70; RESP 16; TEMP 36.6; O2SAT 97; BMI 24.4
--- NOTE | 2021-04-13 22:54 | ED.DENTAL ---
HPI - Dental/Oral General Chief complaint: Dental/Oral Stated complaint: Gum pain 05/17 Time Seen by Provider: 04/13/21 22:49 Source: patient and EMS Mode of arrival: EMS History of Present Illness HPI Narrative: This is an 80-year-old male comes with complaint of gum pain 05/17. Patient states he has had 1 episode before the lasted for an hour 2 and then resolved. He had recurrent episode today he states it just in improved. He has not taken anything home. He does wear dentures. He points to an area in the soft tissue that he can localize with his finger. He is not appreciate any warmth, redness or swelling. He has not had any pain on the outer face. He denies dental pain. Patient does state that he recent started fluoxetine for depression secondary to only having 1 living family member. He states all his other family members are . Patient denies any other symptoms or concerns. He lives in [place] but spends a lot of time locally [place]. His primary care is Dr. Laughlin. He does note he has a history of pacemaker, he states it has not been checked about 35 years. He is open to referral back to cardiology to have his battery checked. Related Data Previous Rx's Medication Instructions Recorded albuterol sulfate 90 mcg/actuation 1 puff INHALATION QIDP PRN #2 inh 05/17/18 aerosol inhaler (Proventil HFA) fluoxetine 20 mg capsule 20 mg PO QDAY #90 cap 03/02/21 amlodipine 5 mg tablet 5 mg PO DAILY #90 tab 04/01/21 nystatin 100,000 unit/mL oral 1 ml PO QID 7 Days #28 ml 04/14/21 suspension Allergies Allergy/AdvReac Type Severity Reaction Status Date / Time Sulfa (Sulfonamide Allergy Unknown Verified 03/02/21 13:46 Antibiotics) [SULFA (SULFONAMIDE ANTIBIOTICS)] Review of Systems Review of Systems ROS Unobtainable: All systems reviewed & are unremarkable except as noted in HPI and below Patient History Medical History CAD in [place] artery Cataracts, bilateral (~2019) Dementia (~2018) Myocardial infarction Wears glasses Surgical History Anesthesia H/O heart artery stent (~2018) S/P placement of cardiac pacemaker Family History Family/Other Hemophilia Father No problems noted. Grandfather Hypertension Social History Smoking Status: Former smoker Smoking Status: Former smoker alcohol intake frequency: holidays/special occasions only Substance Use Type: does not use Exam Narrative Exam Narrative: GEN: well nourished, well appearing male, alert and oriented, patient appears to be in mild distress. HEENT: Atraumatic, pupils are equal round reactive to light, extraocular movements are intact, nares are clear, TMs are clear with no fluid, there is no conjunctival pallor. Throat is clear without any exudates, erythema, tonsillar enlargement or uvular deviation, patient has a small are of ulceration into the superficial on the soft tissue the inner gum at the crease on the right lower jaw. There is no warmth, swelling or drainage. I am unable to palpate any abscess or swelling, patient is nontender over the salivary gland or opening of the salivary duct. No purulent drainage expressed. Do not appreciate any other lesions in the mouth. Non-tender on external cheek. HEART: Regular rate and rhythm without murmur, clicks, rubs. Patient does have pacemaker present left upper chest LUNGS:Lungs clear to auscultation, no wheezes, rales, crackles, chest moves symmetrically ABD:bowel sounds normal, soft, non-tender, no guarding, rebound, rigidity, no masses noted, no hepatosplenomegaly MSCL: Non-tender, full range of motion. NEURO:CN 2-12 intact, sensation normal, normal gait. Initial Vital Signs Initial Vital Signs: Vital Signs Temperature 97.8 F 04/13/21 22:42 Pulse Rate 70 04/13/21 22:42 Respiratory Rate 16 04/13/21 22:42 Blood Pressure 185/85 H 04/13/21 22:42 Pulse Oximetry 97 04/13/21 22:42 Course Orders Ordered: Hydrocodone Bitart/Acetaminophen (Hydrocodone/Acet 5/325 Tablet) 2 tab PO PRN PRN PRN Reason: pain Discontinued Medications Acetaminophen (Acetaminophen 325 Mg Tablet) 975 mg PO NOW ONE Stop: 04/13/21 23:59 Last Admin: 04/14/21 00:03 Dose: 975 mg Documented by: CORONA Lidocaine HCl (Lidocaine Viscous 2% 15 Ml Solution) 15 ml PO NOW ONE Stop: 04/13/21 22:50 Last Admin: 04/13/21 23:03 Dose: 15 ml Documented by: CORONA Ondansetron HCl (Ondansetron 4 Mg/2 Ml Inj) 4 mg IV NOW ONE Stop: 04/14/21 02:07 Last Admin: 04/14/21 02:13 Dose: Not Given Documented by: MONICO Vital Signs Vital signs: Vital Signs - 8 hr 04/13/21 22:42 Temperature 97.8 F Pulse Rate 70 Respiratory Rate 16 Blood Pressure 185/85 H Pulse Oximetry 97 MDM - Dental/Oral MDM Narrative Medical decision making narrative: Patient complains of gum pain 05/17. He had some improvement with topical lidocaine but his symptoms do return as that wears off. Patient was offered Tylenol. He initially refused potentially took 2 of the 3 tablets of Tylenol 325 mg offered. Patient was boarded here in the department as he did not have anyone to come get him and he had arrived by EMS there is no other options for transportation. While here in the department I spoke with patient multiple times. He does appear quite uncomfortable especially when he drinks liquids and but then seems to be more improved in between. He was asked to take the full dose of Tylenol before giving him additional medication. Have returned to evaluate the patient several times. He has not had any additional changes on his physical exam we have reviewed my suspicion for his current situation several times, patient has not developed any additional or new symptoms while here in the department. He does continually palpate and touch the area and he was asked not to continue to irritated with direct digital touch. Patient was given a prescription for nystatin uses dentures and could have a component fungal infection. We discussed that if he has a viral infection this will not improve his symptoms. Patient boarded in the department until transportation was available. Ambulated without issue all questions answered. Discharge Plan Departure Patient Disposition: Home Clinical Impression: Mouth sore Instructions: Aphthous Ulcers Activity Restrictions/Additional Instructions: Follow-up with your physician if you are not having improvement. I only see a single sore in your mouth. I would recommend making sure you have good hygiene in terms of her dentures and cleaning them regularly to see if this improves her symptoms. You may use a topical to the affected area such as anbelsol. This is available [id number] at the grocery store or local pharmacy. Use as directed. Prescription for nystatin orally was sent to [facility] in [place]. Use this 1 mL by mouth every 6 hours x7 days. This would be helpful for a fungal infection but will not fix a viral infection. I would recommend you follow-up to have your pacemaker checked if you have not had the battery checked in the past 35 years. Below is included referral to Cardiology or you can discuss with her primary care physician who can help set this up for you. Please return for fevers, worsening swelling of the lips, mouth, drainage, swelling of the face, redness, increasing pain, difficulty with breathing, hoarseness or other new or concerning symptoms. Prescriptions: New nystatin 100,000 unit/mL suspension 1 ml PO QID 7 Days Qty: 28 RF: 0 No Action albuterol sulfate [Proventil HFA] 90 mcg/actuation HFA aerosol inhaler 1 puff INHALATION QIDP PRN (Reason: shortness of breath) Qty: 2 RF: 0 amlodipine 5 mg tablet 5 mg PO DAILY Qty: 90 RF: 3 Hold Instructions: Waiting on home BP meds fluoxetine 20 mg capsule 20 mg PO QDAY Qty: 90 RF: 3 Referrals: Dain Laughlin MD [Primary Care Provider] - Kali Hidalgo MD [Physician] -
[2021-04-13] MEDS: LIDOCAINE VISCOUS 2% 15 ML SOLUTION PO (23:03)
--- NOTE | 2021-04-13 23:06 | PC.NURSE ---
Viscous lidocaine applied to pimple inside R lower gum. Pt reports pain is resolving.
[2021-04-14] MEDS: ACETAMINOPHEN 325 MG TABLET 975 MG PO (00:03)
--- NOTE | 2021-04-14 01:16 | PC.NURSE ---
Pt put call light on to ask to speak to the doctor. C/O pain; still has not taken Tylenol. States he has a question for the doctor, it is not something I can address with him. Dr Lopez notified.
[2021-04-14 07:05] VITALS: BP 172/78; PULSE 71; RESP 16; TEMP 36.5; O2SAT 98
== END 2021-04-14 06:48 | disposition home or self-care (01) ==
PROVIDERS: Emergency Provider Emergency Medicine; PCP Student in an Organized Health Care Education/Training Program
DX: K13.79 Other lesions of oral mucosa (principal)
CPT/HCPCS: 99283

== ENCOUNTER → 2022-05-18 13:59 | Outpatient (CLI) | payer MEDICARE, MEDICAID, SELFPAY ==
[2022-05-18 15:51] LABS: BUN Creatinine Ratio 14.2 (6-22); Blood Urea Nitrogen 15 mg/dL (9-20); Carbon Dioxide 25 mmol/L (22-32); Chloride 99 mmol/L (98-107); Estimated Glomerular Filt Rate > 60 mL/min (>60); Glucose 103 mg/dL (80-110); HEMOLYSIS < 15 (0-50); Potassium 4.1 mmol/L (3.4-5.1); Sodium 136 mmol/L (137-145)
== END ==
PROVIDERS: PCP Student in an Organized Health Care Education/Training Program; Referring Provider Student in an Organized Health Care Education/Training Program; Visit Provider Student in an Organized Health Care Education/Training Program
DX: I10 Essential (primary) hypertension (principal)
CPT/HCPCS: 36415; 80048

== ENCOUNTER 2022-07-21 17:19 | Emergency (ER) | payer MEDICARE, MEDICAID, SELFPAY ==
[2022-07-21 17:24] VITALS: BP 133/67; PULSE 66; RESP 18; TEMP 36.2; O2SAT 97; BMI 23.0
--- NOTE | 2022-07-21 17:32 | DI.CT.S_ITS ---
PROCEDURE: CT CERVICAL SPINE WO CON INDICATIONS: fall/head injury TECHNIQUE: Noncontrast 3 mm thick sections acquired from the skull base to the T4 level. Sagittal and coronal reformats were then constructed. For radiation dose reduction, the following was used: automated exposure control, adjustment of mA and/or kV according to patient size. COMPARISON: None. FINDINGS: Degenerative straightening of the usual cervical lordosis. Approximately 5 mm anterolisthesis of C3 on C4 is likely degenerative. Vertebral body heights maintained. Normal configuration of the craniocervical junction. Intervertebral disc spaces are congruent with no abnormal or asymmetric widening. Facet joints also congruent without asymmetric widening. Extensive degenerative changes worst at C4-C5, C5-C6, and C6-C7. No suspicious lytic or blastic osseous lesion. No acute finding of the regional soft tissues. IMPRESSION: No CT evidence of acute traumatic cervical spine injury. Dictated by: Rolando Sampson M.D. on 07/21/2022 at 18:06 Approved by: Rolando Sampson M.D. on 07/21/2022 at 18:08
--- NOTE | 2022-07-21 17:32 | DI.CT.S_ITS ---
PROCEDURE: CT HEAD/BRAIN WO CON INDICATIONS: fall/head injury TECHNIQUE: Noncontrast 4.5 mm thick angled axial sections acquired from the foramen magnum to the vertex, with coronal and sagittal reformats. For radiation dose reduction, the following was used: automated exposure control, adjustment of mA and/or kV according to patient size. COMPARISON: None. FINDINGS: Image quality: Excellent. CSF spaces: Basal cisterns are patent. No extra-axial fluid collections. The ventricles are symmetric in size and shape. Brain: No intracranial bleeds or masses. There is cerebral volume loss for age, with resultant ventricular and sulcal prominence. There are periventricular and deep white matter chronic small vessel ischemic changes. There is intracranial internal carotid artery atherosclerosis. Skull and face: Calvarium and visualized facial bones appear intact, without suspicious lesions. Sinuses: Visualized sinuses and mastoids are clear. IMPRESSION: Anterior left paramidline frontal scalp contusion. No acute intracranial abnormality demonstrated. A Dictated by: Rolando Sampson M.D. on 07/21/2022 at 18:08 Approved by: Rolando Sampson M.D. on 07/21/2022 at 18:08
--- NOTE | 2022-07-21 18:33 | ED_ITS ---
HPI - Fall <RANDI Gregory - Last Filed: 07/21/22 19:32> General Chief Complaint: Trauma Stated Complaint: LACERATION ABOVE LT. EYE/NOSE PT. FELL Time Seen by Provider: 07/21/22 18:31 Source: patient Mode of arrival: Ambulatory History of Present Illness HPI Narrative: This is an 82-year-old male who presents emergency department after a ground level fall, where he tripped on uneven ground falling forward striking his forehead on concrete. He denies loss of consciousness, nausea or emesis, denies neck pain or difficulty moving his neck. Denies vision changes, altered mental status, weakness, incontinence, shortness of breath, vision changes or other. He complains of pain over his left eye where he has an abrasion and blunt laceration which is irregular and bleeding was controlled with a pressure dressing. Patient states his last tetanus vaccination was 2 or 3 years ago. Nursing staff made him a modified trauma but patient does not meet criteria. He is not anticoagulated, he did not have loss of consciousness, severe mechanism, altered mental status, or vomiting episode. Patient is ambulatory, pleasant, alert and oriented x3, denies vision changes, weakness, or other complaint. His primary care provider is Dr. Laughlin Related Data Previous Rx's Medication Instructions Recorded albuterol sulfate 90 mcg/actuation 1 puff inhalation QIDP PRN 05/18/22 aerosol inhaler (Proventil HFA) shortness of breath #2 inhalations amlodipine 5 mg tablet 5 mg PO DAILY #90 tabs 05/18/22 fluoxetine 20 mg capsule 20 mg PO QDAY #90 caps 05/18/22 acetaminophen 325 mg tablet (Aphen) 650 mg PO Q6H PRN fever or pain 07/21/22 #30 tabs mupirocin 2 % topical ointment 1 applic topical DAILY #22 grams 07/21/22 Allergies Allergy/AdvReac Type Severity Reaction Status Date / Time Sulfa (Sulfonamide Allergy Unknown Verified 05/18/22 13:10 Antibiotics) [SULFA (SULFONAMIDE ANTIBIOTICS)] Review of Systems <RANDI Gregory - Last Filed: 07/21/22 19:32> Review of Systems ROS Unobtainable: All systems reviewed & are unremarkable except as noted in HPI and below Patient History <RANDI Gregory - Last Filed: 07/21/22 19:32> Medical History CAD in [place] artery Cataracts, bilateral (~2019) Dementia (~2018) Myocardial infarction Wears glasses Surgical History Anesthesia H/O heart artery stent (~2017) S/P placement of cardiac pacemaker Family History Family/Other Hemophilia Father No problems noted. Grandfather Hypertension Social History Smoking Status: Former smoker Smoking Status: Former smoker alcohol intake frequency: holidays/special occasions only Substance Use Type: does not use Exam <RANDI Gregory - Last Filed: 07/21/22 19:32> Narrative Exam Narrative: Reviewed vitals signs and nursing notes. General: cooperative, comfortable, in no acute distress, well groomed HEENT: symmetrical facial expressions, moist mucous membranes, blunt injury to the left forehead with abrasion, stellate laceration, with debris, small rock and other debris removed, wound edges were revised, without tenderness over his cervical spine, without benjamin sign or ecchymosis surrounding the ear, nontender over orbital bones, facial bones, patient able to open and close jaw without deficit, EOMI, PERRLA bilaterally, speech is clear, normal phonation Skin: brisk capillary refill, without pallor or erythema Neuro: normal speech and cognition, A&O x3, ambulatory, clear speech Psych: mental status is grossly normal, congruent mood, normal affect, pleasant and cooperative Initial Vital Signs Initial Vital Signs: Vital Signs Temperature 97.2 F L 07/21/22 17:24 Pulse Rate 66 07/21/22 17:24 Respiratory Rate 18 07/21/22 17:24 Blood Pressure 133/67 07/21/22 17:24 Pulse Oximetry 97 07/21/22 17:24 Oxygen Delivery Method 07/21/22 17:24 <Lobito Moya DO - Last Filed: 07/21/22 20:04> Initial Vital Signs Initial Vital Signs: Vital Signs Temperature 97.2 F L 07/21/22 17:24 Pulse Rate 66 07/21/22 17:24 Respiratory Rate 18 07/21/22 17:24 Blood Pressure 133/67 07/21/22 17:24 Pulse Oximetry 97 07/21/22 17:24 Oxygen Delivery Method 07/21/22 17:24 Procedures <RANDI Gregory - Last Filed: 07/21/22 19:32> Laceration Repair Laceration 1: Site: face Side (If applicable): left Size (cm): 3 Description: stellate, flap, irregular and contaminated Depth: simple, single layer Local Anesthetic: lidocaine 2% Amount of anesthesia used (mL): 2 Pre-repair: wound explored, irrigated extensively, deep structures intact and wound margins revised Skin layer closed with: nylon Skin layer suture size: 6-0 Number of sutures: 8 Technique: simple, interrupted Scores <RANDI Gregory - Last Filed: 07/21/22 19:32> [place] CT Head Rule Age <16 years old: No Patient on blood thinners: No Seizure after injury: No Exclusion: Patient NOT Excluded, Proceed to next steps GCS < 15 at 2 hr post trauma: No Suspected open or depressed skull fracture: No Any sign of basilar skull fracture (hemotympanum, raccoon eyes, Benjamin's sign, CSF theresa-/rhinorrhea): No Two or more episodes of vomiting: No Age greater or equal to 65 years: Yes Retrograde amnesia to the event greater or equal to 30 min: No Dangerous Mechanism (pedestrian vs. mv, occupant ejected from mv, fall from >3 ft or > 5 stairs): No Recommendation: Consider CT. The [place] Head CT Rule cannot rule out need for Imaging. <Lobito Moya DO - Last Filed: 07/21/22 20:04> [place] CT Head Rule Exclusion: Patient NOT Excluded, Proceed to next steps Recommendation: Consider CT. The [place] Head CT Rule cannot rule out need for Imaging. Course <RANDI Gregory - Last Filed: 07/21/22 19:32> Orders Ordered: ED Orders 07/21/22 17:32 CT cervical spine wo con Stat CT head/brain wo con Stat Discontinued Medications Acetaminophen (Acetaminophen 325 Mg Tablet) 650 mg PO NOW ONE Stop: 07/21/22 19:07 Last Admin: 07/21/22 19:09 Dose: 650 mg Documented By: MATY Bacitracin (Bacitracin Oint 0.9 Gm Pckt) 2 applic TOP NOW ONE Stop: 07/21/22 19:07 Last Admin: 07/21/22 19:10 Dose: 2 applic Documented By: MATY Lidocaine HCl (Lidocaine 2% (Pf) 2 Ml) 2 ml INJ INTRA-OP ONE Stop: 07/21/22 18:32 Last Admin: 07/21/22 18:38 Dose: 2 ml Documented By: MATY Lidocaine HCl (Lidocaine 2% Inj Mdv 10ml) 10 mg INJ INTRA-OP ONE Stop: 07/21/22 18:32 Last Admin: 07/21/22 18:39 Dose: Not Given Documented By: MATY Vital Signs Vital signs: Vital Signs - 8 hr 07/21/22 17:24 07/21/22 19:22 Temperature 97.2 F L Pulse Rate 66 60 Respiratory Rate 18 16 Blood Pressure 133/67 131/61 Pulse Oximetry 97 99 Oxygen Delivery Method Room Air Room Air <Lobito Moya DO - Last Filed: 07/21/22 20:04> Orders Ordered: ED Orders 07/21/22 17:32 CT cervical spine wo con Stat CT head/brain wo con Stat Discontinued Medications Acetaminophen (Acetaminophen 325 Mg Tablet) 650 mg PO NOW ONE Stop: 07/21/22 19:07 Last Admin: 07/21/22 19:09 Dose: 650 mg Documented By: MATY Bacitracin (Bacitracin Oint 0.9 Gm Pckt) 2 applic TOP NOW ONE Stop: 07/21/22 19:07 Last Admin: 07/21/22 19:10 Dose: 2 applic Documented By: MATY Lidocaine HCl (Lidocaine 2% (Pf) 2 Ml) 2 ml INJ INTRA-OP ONE Stop: 07/21/22 18:32 Last Admin: 07/21/22 18:38 Dose: 2 ml Documented By: MATY Lidocaine HCl (Lidocaine 2% Inj Mdv 10ml) 10 mg INJ INTRA-OP ONE Stop: 07/21/22 18:32 Last Admin: 07/21/22 18:39 Dose: Not Given Documented By: MATY Vital Signs Vital signs: Vital Signs - 8 hr 07/21/22 17:24 07/21/22 19:22 Temperature 97.2 F L Pulse Rate 66 60 Respiratory Rate 18 16 Blood Pressure 133/67 131/61 Pulse Oximetry 97 99 Oxygen Delivery Method Room Air Room Air MDM - Fall <Sahra Jimenez Lexusdoreen, [facility] - Last Filed: 07/21/22 19:32> Imaging Data CT scan - head: Radiologist's Impression: PROCEDURE:? CT HEAD/BRAIN WO CON ? INDICATIONS:? fall/head injury ? TECHNIQUE:? Noncontrast 4.5 mm thick angled axial sections acquired from the foramen magnum to the vertex, with coronal and sagittal reformats.? For radiation dose reduction, the following was used:? automated exposure control, adjustment of mA and/or kV according to patient size.? ? COMPARISON:? None. ? FINDINGS:? Image quality:? Excellent.? ? CSF spaces:? Basal cisterns are patent.? No extra-axial fluid collections.? The ventricles are symmetric in size and shape.? ? Brain:? No intracranial bleeds or masses.? There is cerebral volume loss for age, with resultant ventricular and sulcal prominence.? There are periventricular and deep white matter chronic small vessel ischemic changes.? There is intracranial internal carotid artery atherosclerosis.? ? Skull and face:? Calvarium and visualized facial bones appear intact, without suspicious lesions.? ? Sinuses:? Visualized sinuses and mastoids are clear.? ? IMPRESSION:? Anterior left paramidline frontal scalp contusion.? No acute intracranial abnormality demonstrated.? A ? ? Dictated by: Rolando Sampson M.D. on 07/21/2022 at 18:08 ? ? Approved by: Rolando Sampson M.D. on 07/21/2022 at 18:08 ? CT - cervical spine: Radiologist's Impression: PROCEDURE:? CT CERVICAL SPINE WO CON ? INDICATIONS:? fall/head injury ? TECHNIQUE:? Noncontrast 3 mm thick sections acquired from the skull base to the T4 level.? Sagittal and coronal reformats were then constructed.? For radiation dose reduction, the following was used:? automated exposure control, adjustment of mA and/or kV according to patient size.? ? COMPARISON:? None. ? FINDINGS:? Degenerative straightening of the usual cervical lordosis.? Approximately 5 mm anterolisthesis of C3 on C4 is likely degenerative.? Vertebral body heights maintained.? Normal configuration of the craniocervical junction.? Intervertebral disc spaces are congruent with no abnormal or asymmetric widening.? Facet joints also congruent without asymmetric widening.? Extensive degenerative changes worst at C4-C5, C5-C6, and C6-C7.? No suspicious lytic or blastic osseous lesion.? No acute finding of the regional soft tissues. ? ? IMPRESSION:? No CT evidence of acute traumatic cervical spine injury. ? Dictated by: Rolando Sampson M.D. on 07/21/2022 at 18:06 ? ? Approved by: Rolando Sampson M.D. on 07/21/2022 at 18:08 ? [facility] Narrative Medical decision making narrative: This is an 82-year-old gentleman presents emergency department after mechanical fall where he tripped on uneven ground falling forward striking his left forehead on concrete without loss of consciousness, vomiting episodes, weakness, neck pain or other symptom afterwards. Patient denies having a headache, is not anticoagulated, takes amlodipine for his blood pressure, wound was contaminated with dirt and debris, this was irrigated, removed, and wound edges were revised as superficial tissue was macerated. Cervical spine without evidence of acute traumatic cervical spine injury, head CT shows an anterior left paramidline frontal scalp contusion without acute intracranial abnormality. No bleeding or hematoma, no palpable skull depression fracture, EOMI bilaterally without vision changes, headache, neck pain, nausea, vomiting, or weakness. Patient was incorrectly made a modified trauma, he was not anticoagulated, he is A&O x3 and ambulatory without deficit. He is pleasant, making jokes, comfortable, has a friend who will drive him home. He was given Tylenol, mupirocin ointment for topical application, 8 sutures were placed without difficulty or complication, he understands to have his sutures removed in 5-7 days, will return to the emergency department or the walk-in clinic for this. Patient states that his last tetanus vaccination was 3 years ago. He was given strict return precautions for head injury symptoms, discussed concussion symptoms, other abnormal findings, recommend that he follow-up with his PCP and or return to the emergency department for new changes. Patient is appropriate and amenable to discharge home. Vital signs are stable on repeat examination is unremarkable. Patient has been informed of results. Patient has been given strict return to ER precautions for any new or worsening symptoms. Patient understands to follow up closely with outpatient providers as instructed. Patient understands plan and agrees to discharge home. All questions and concerns answered at this time. Discharge Plan Departure Patient Disposition: Home Clinical Impression: Fall Qualifiers: Encounter type: initial encounter Qualified Code(s): W19.XXXA - Unspecified fall, initial encounter Head injury due to trauma Qualifiers: Encounter type: initial encounter Qualified Code(s): S09.90XA - Unspecified injury of head, initial encounter Laceration of face Qualifiers: Encounter type: initial encounter Qualified Code(s): S01.81XA - Laceration without foreign body of other part of head, initial encounter Instructions: DI for Concussion, DI for Laceration Repair -- Complex Suture, DI for Closed Head Injury Activity Restrictions/Additional Instructions: *You have been diagnosed with a fall with a blunt injury to your forehead causing laceration and abrasion. Your CT of your head and cervical spine do not show any acute changes, bleeding, or dangerous findings. Please have your sutures removed in 6-7 days when wound is scabbed and starting to heal. Please wet the wound prior to having sutures removed so that the scabs do not pull out good tissue. Please apply topical antibiotic ointment and dab to clean with a warm washcloth morning and night. Please cover your wounds with a Band-Aid, try to avoid getting your left pinky wet so the Steri-Strips will continue to stick. You may have a concussion, for headache, take 650 mg of Tylenol every 6 hours as needed, apply topical antibiotic ointment once or twice a day after cleaning. You may come back to the emergency department or go to the walk-in clinic as needed for suture removal. It was a pleasure to meet you, please reduce your activity level over the next few days especially if you have a headache, you might have a concussion. Take it easy, schedule follow-up with Dr. Laughlin as needed and return for any new or worsening condition, weakness, tripping and falling at inappropriate times or altered mental status. *What to do: *Please continue to take your regular medications as directed. [ x] New medication prescriptions sent to your pharmacy: [ [facility]] [ ] New medication written as a paper prescription [ ] No new medications given *Please follow up with your primary care provider in 2-3 days, call for an appointment. Let them know you were seen in the Emergency Department and that we asked that you be seen for follow-up. We will electronically transmit a record of today's note if your PCP is in our system *If you do not have a primary care provider please contact [phone] to establish care with one of the [facility] primary care providers. *Return to Emergency Department if you should have any new, worsening, or concerning symptoms, such as [fever greater than 101F, chills, worsening pain, persistent vomiting or other bothersome symptoms]. Prescriptions: New acetaminophen [Aphen] 325 mg tablet 650 mg PO Q6H PRN (Reason: fever or pain) Qty: 30 0RF mupirocin 2 % ointment 1 applic topical DAILY Qty: 22 0RF No Action albuterol sulfate [Proventil HFA] 90 mcg/actuation HFA aerosol inhaler 1 puff INHALATION QIDP PRN (Reason: shortness of breath) Qty: 2 5RF Rx Instructions: Inhale one puff by mouth up to four times as needed for shortness of breath. amlodipine 5 mg tablet 5 mg PO DAILY Qty: 90 3RF Hold Instructions: Waiting on home BP meds fluoxetine 20 mg capsule 20 mg PO QDAY Qty: 90 1RF Referrals: Dain Laughlin MD [Primary Care Provider] - Visit Report Forms: Patient Portal/API <Lobito Moya DO - Last Filed: 07/21/22 20:04> [facility] Att[facility]: I was immediately available in the department for consultation. This documentation has been reviewed and I agree with assessment and plan. Supervised by Lobito Moya DO
[2022-07-21] MEDS: LIDOCAINE 2% INJ (18:38)
[2022-07-21] MEDS: ACETAMINOPHEN 325 MG TABLET 650 MG PO (19:09)
[2022-07-21] MEDS: BACITRACIN OINT 0.9 GM PCKT 2 APPLIC TOP (19:10)
[2022-07-21 19:22] VITALS: BP 131/61; PULSE 60; RESP 16; O2SAT 99
== END 2022-07-21 19:32 | disposition home or self-care (01) ==
PROVIDERS: Emergency Provider Nurse Practitioner Critical Care Medicine; PCP Student in an Organized Health Care Education/Training Program
DX: S09.90XA Unspecified injury of head, initial encounter (principal); S01.81XA Laceration without foreign body of other part of head, initial encounter; W18.30XA Fall on same level, unspecified, initial encounter
CPT/HCPCS: 12013; 70450; 72125; 99284

== ENCOUNTER 2022-07-30 16:39 | Emergency (ER) | payer MEDICARE, MEDICAID, SELFPAY ==
[2022-07-30 16:50] VITALS: BP 146/106; PULSE 67; RESP 15; TEMP 36.6; O2SAT 100
== END 2022-07-30 17:05 | disposition home or self-care (01) ==
PROVIDERS: Emergency Provider Student in an Organized Health Care Education/Training Program; PCP Student in an Organized Health Care Education/Training Program
CPT/HCPCS: 99281

== ENCOUNTER 2022-11-23 00:17 | Inpatient (IN) | payer MEDICARE, MEDICAID, SELFPAY ==
[2022-11-23] VITALS (117 sets, daily range): BP systolic 48–192; BP diastolic 31–96; PULSE 59–100; RESP 12–43; TEMP 34.3–36.9; O2SAT 67–100; BMI 31.7
--- NOTE | 2022-11-23 00:15 | PC.NURSE ---
pt arrived awake, in severe resp distress, pale, cool, clammy diaphoretic, with Cpap in progess and attempting to pull mask off, taken to Rm 1 Dr Sierra, RT, and operations staff specialist security in room
[2022-11-23] MEDS: ROCURONIUM 100 MG/10 ML VIAL IV (00:30)
[2022-11-23] MEDS: KETAMINE 500 MG/10 ML INJ 400 MG IV (00:30)
[2022-11-23] MEDS: NOREPINEPHRINE BITARTRATE/D5W 4 MG/250 ML PLAST..BAG 30 MG IV (00:38)
--- NOTE | 2022-11-23 00:42 | DI.RAD.S_ITS ---
PROCEDURE: XR CHEST 1V INDICATIONS: chest pain/tube placement TECHNIQUE: One view of the chest was acquired. COMPARISON: None. FINDINGS: Surgical changes and devices: Enteric tube terminates in the stomach. ET tube is in the trachea. Right central line terminates in the SVC. Left chest wall pulse generator with electrode leads in place. Lungs and pleura: There is [id number] diffuse lung disease. No pleural effusions. Mediastinum: Heart size is at the upper limit of normal Bones and chest wall: No suspicious bony lesions. Overlying soft tissues appear unremarkable. IMPRESSION: Appropriate positioning of life support lines. Ba[place]-op-[place] diffuse lung disease. Consider future imaging surveillance to assess for resolution. Dictated by: Enoch Haywood M.D. on 11/23/2022 at 1:32 Approved by: Enoch Haywood M.D. on 11/23/2022 at 1:33
--- NOTE | 2022-11-23 00:52 | PC.NURSE ---
0030- ketamine 400mg given] 0030-100 rocuronium given 0031 - intubated with size 8 et tube at 26 at the lip. 0038- norepi started at 8mcg/min 0040-norepi increased per Dr. sierra to 12mcg/min 0049-central line placed by Dr. Sierra 0056- propofol started at 5mcg/kg/min 0100-walters catheter placed. 16french temp sensing
[2022-11-23] MEDS: propofoL 1,000 MG/100 ML VIAL 3.062 MG IV (00:56)
[2022-11-23 01:00] LABS: INR 1.1 (0.9-1.3); Prothrombin Time 12.6 SECONDS (10.1-12.7)
[2022-11-23 01:03] LABS: Add Manual Diff / Slide Review NO; Alanine Aminotransferase 20 IU/L (<50); Albumin 3.9 g/dL (3.5-5.0); Albumin Globulin Ratio 1.2 (1.0-2.8); Alkaline Phosphatase 105 U/L (38-126); Aspartate Aminotransferase 25 IU/L (17-59); BUN Creatinine Ratio 17.3 (6-22); Basophils Absolute Auto 0 /uL (0-100); Basophils Percent Auto 0.4 % (0-2); Bilirubin Total 0.5 mg/dL (0.2-1.3); Blood Urea Nitrogen 19 mg/dL (9-20); Calcium 8.2 mg/dL (8.4-10.2); Carbon Dioxide 19 mmol/L (22-32); Chloride 102 mmol/L (98-107); Creatine Kinase 86 U/L (55-170); Eosinophils Absolute Auto 300 /uL (0-450); Eosinophils Percent Auto 2.7 % (2-4); Estimated Glomerular Filt Rate > 60 mL/min (>60); Globulin 3.3 g/dL (1.7-4.1); Glucose 196 mg/dL (80-110); HEMOLYSIS < 15 (0-50); Lipase 123 U/L (23-300); Lymphocytes Absolute Auto 1700 /uL (1100-4500); Lymphocytes Percent Auto 14.2 % (25-40); Magnesium 1.9 mg/dL (1.6-2.3); Mean Corpuscular HGB Conc 30.4 % (30-36); Mean Corpuscular Hemoglobin 21.2 PG (26-34); Mean Corpuscular Volume 69.6 fL (80-100); Monocytes Absolute Auto 500 /uL (0-900); Monocytes Percent Auto 4.4 % (3-14); Neutrophils Absolute Auto 9600 /uL (1500-7000); Neutrophils Percent Auto 78.3 % (50-75); PTT Partial Thromboplastin Tim 29 SECONDS (26-36); Platelet Count 329 X10^3/uL (150-400); Potassium 3.6 mmol/L (3.4-5.1); Red Blood Cell Count 3.07 X10^6/uL (4.5-5.9); Red Cell Distribution Width 20.5 % (11.6-14.8); Sodium 135 mmol/L (137-145); Total Protein 7.2 g/dL (6.3-8.2); White Blood Cell Count 12.2 X10^3/uL (4.5-11.0)
[2022-11-23 01:06] LABS: Hematocrit 21.4 % (41-53)
[2022-11-23 01:07] LABS: Hemoglobin 6.5 g/dL (13.5-17.5)
[2022-11-23 01:15] LABS: NT-proBNP (BNP-Adult 18+) 1730 pg/mL (<450); Troponin I 0.015 ng/mL (0.01-0.034)
[2022-11-23] MEDS: FUROSEMIDE 60 MG in SODIUM CHLORIDE 0.9% 50 ML 112 MG IV (01:18)
[2022-11-23] MEDS: PANTOPRAZOLE 40 MG VIAL 80 MG IV (01:19)
--- NOTE | 2022-11-23 01:32 | ED_ITS ---
HPI - General Adult General Chief complaint: Shortness of Breath/Dyspnea Stated complaint: resp. distress. Time Seen by Provider: 11/23/22 00:17 Source: patient and EMS Mode of arrival: EMS History of Present Illness HPI narrative: 82-year-old gentleman presents in acute respiratory distress by ambulance reportedly awoke from sleep severely dyspneic. He is agitated significantly tachypneic having difficulty keeping on the BiPAP. Medics report sats at 80 on initial arrival and in the low 90s on BiPAP with 100% oxygen. Medics state he lives independently in an apartment type facility. Gentleman is pale, significantly tachypneic using accessory muscles to breathe and obviously agitated. As were preparing for intubation he is able to nod yes and no to specific questions. He states that he has not had a fever recently. Has not been vomiting or having diarrhea. Has had a cough. He has chest tightness over his entire chest. He says he is not been sick recently. Related Data Previous Rx's Medication Instructions Recorded albuterol sulfate 90 mcg/actuation 1 puff inhalation QIDP PRN 05/18/22 aerosol inhaler (Proventil HFA) shortness of breath #2 inhalations amlodipine 5 mg tablet 5 mg PO DAILY #90 tabs 05/18/22 acetaminophen 325 mg tablet (Aphen) 650 mg PO Q6H PRN fever or pain 07/21/22 #30 tabs mupirocin 2 % topical ointment 1 applic topical DAILY #22 grams 07/21/22 fluoxetine 20 mg capsule 20 mg PO QDAY #90 caps 11/09/22 Allergies Allergy/AdvReac Type Severity Reaction Status Date / Time Sulfa (Sulfonamide Allergy Unknown Verified 07/30/22 16:50 Antibiotics) [SULFA (SULFONAMIDE ANTIBIOTICS)] Review of Systems Review of Systems Narrative: Pertinent positive and negative findings as per HPI Patient History Medical History CAD in [place] artery Cataracts, bilateral (~2019) Dementia (~2018) Myocardial infarction Wears glasses Surgical History Anesthesia H/O heart artery stent (~2017) S/P placement of cardiac pacemaker Family History Family/Other Hemophilia Father No problems noted. Grandfather Hypertension Social History Smoking Status: Former smoker Smoking Status: Former smoker alcohol intake frequency: holidays/special occasions only Substance Use Type: does not use Exam Initial Vital Signs Initial Vital Signs: Vital Signs Pulse Rate 83 11/23/22 00:17 Respiratory Rate 40 H 11/23/22 00:17 Blood Pressure 192/89 H 11/23/22 00:17 Pulse Oximetry 87 L 11/23/22 00:17 Oxygen Delivery Method CPAP 11/23/22 00:17 General: Severe respiratory distress unable to speak, obviously agitated with his hypoxia pulling out his mask using accessory muscles HEENT: Moist mucous membranes, normal sclera with reactive pupils, Neck: No JVD, supple Respiratory: Lungs with significant wheeze in all lung martinez but air movement in all lung martinez. He is using accessory muscles to maintain his level of tachypnea Cardiac: Tachycardic with overriding pulmonary noises unable to assess for murmurs Abdomen: Soft, no pain behaviors with palpation. Skin: Pale, no obvious breakdown or abnormalities Neurologic: Moving all extremities Extremities: No trauma, well perfused, 1 to 2+ bilateral pitting edema without chronic venous stasis changes Psych: Agitation secondary to hypoxia and acute illness Procedures Central Line Placement Right IJ: Time of procedure: 02:40 Time Out Performed: Yes Patient Placed on Monitor/Pulse Ox: Yes MD Prep: mask, gown and gloves Central Line Prep: Povidone-Iodine 1% Ultrasound Used for Placement: Yes Central Line Lumen Inserted: triple Post Procedure: sutured in place, good blood return, all ports aspirated, flushed, capped, sterile dressing applied and line stabilization device Post Procedure X-Ray: tip of catheter in good position and no pneumothorax seen Patient Tolerated Procedure: Well Complications: none Intubation Time of Intubation: 02:40 Time out performed: Yes sedative: Ketamine Mg Given: 400 paralytic: Rocuronium Mg Given: 100 Assist Device Used: fiber optic device ET Tube Size: 8 ET Tube Uncuffed: No Tube Secured Location: lips Tube Placement Confirmation: Visualized tube passing through cords, Equal breath sounds bilaterally, No breath sounds over epigastrium, Confirmation by capnometry and Chest Xray Patient Tolerated Procedure: Well Intubation Complications: none Course Orders Ordered: ED Orders 11/23/22 00:41 Complete Blood Count AUTO DIFF Stat Comprehensive Metabolic Panel Stat Lipase Stat Magnesium Stat NT-proBNP (BNP-Adult 18+) Stat PTT Partial Thromboplastin Kal Stat Prothrombin Time INR Stat Troponin & CK Cardiac Panel Stat 11/23/22 00:42 XR chest 1V Stat EKG-12 Lead Stat 11/23/22 00:50 Blood Culture Stat 11/23/22 01:08 Respiratory Panel (Film Array) Stat 11/23/22 01:40 Type and Screen Stat transfuse [Packed Cells] Stat 11/23/22 02:58 Hemoglobin and Hematocrit Stat Trop I [Troponin I] Stat Chlorhexidine Gluconate (Chlorhexidine Gluconate 15 Ml Cup) 15 ml PO Q6HR TOMA Last Admin: 11/23/22 06:01 Dose: 15 ml Documented By: KAREN Hydrocortisone (Hydrocortisone 100 Mg/2 Ml Vial) 50 mg IV Q6HR TOMA Last Admin: 11/23/22 06:01 Dose: 50 mg Documented By: KAREN Propofol (Propofol) 1,000 mg in 100 mls @ 3.062 mls/hr IV TITRATE TOMA; Protocol Last Titration: 11/23/22 01:40 Dose: 20 mcg/kg/min, 12.247 mls/hr Documented By: Titration: 11/23/22 01:30 Dose: 15 mcg/kg/min, 9.185 mls/hr Documented By: Titration: 11/23/22 01:20 Dose: 10 mcg/kg/min, 6.123 mls/hr Documented By: Admin: 11/23/22 00:56 Dose: 5 mcg/kg/min, 3.062 mls/hr Documented By: CAROL Fentanyl 1,000 mcg/ Dextrose 250 mls @ 17.86 mls/hr IV TITRATE TOMA; Protocol Last Admin: 11/23/22 04:40 Dose: 0.7 mcg/kg/hr, 17.86 mls/hr Documented By: KAREN NOREPINEPHRINE BITARTRATE/D5W (Levophed) 4 mg in 250 mls @ 30 mls/hr IV TITRATE TOMA; Protocol Last Admin: 11/23/22 05:51 Dose: 11 mcg/min, 41.25 mls/hr Documented By: Titration: 11/23/22 05:51 Dose: 11 mcg/min, 41.25 mls/hr Documented By: Titration: 11/23/22 05:36 Dose: 11 mcg/min, 41.25 mls/hr Documented By: Titration: 11/23/22 04:21 Dose: 12 mcg/min, 45 mls/hr Documented By: Titration: 11/23/22 03:52 Dose: 0 mcg/min, 0 mls/hr Documented By: Titration: 11/23/22 00:40 Dose: 12 mcg/min, 45 mls/hr Documented By: Admin: 11/23/22 00:38 Dose: 8 mcg/min, 30 mls/hr Documented By: CAROL Piperacillin Sod/Tazobactam (Sod 3.375 gm/ Sodium Chloride) 100 mls @ 25 mls/hr IV Q8H TOMA Linezolid (Zyvox) 600 mg in 300 mls @ 600 mls/hr IV Q12H TOMA Last Infusion: 11/23/22 06:41 Dose: 0 mls/hr Documented By: Admin: 11/23/22 06:11 Dose: 600 mls/hr Documented By: KAREN Vasopressin 40 unit/ Sodium (Chloride) 102 mls @ 4.5 mls/hr IV CONT TOMA Last Admin: 11/23/22 06:20 Dose: Not Given Documented By: KAREN Naloxone HCl (Naloxone 0.4 Mg/Ml Vial) 0.2 mg IV Q2MIN PRN PRN Reason: Opiate Reversal Ondansetron HCl (Ondansetron 4 Mg/2 Ml Inj) 4 mg IV Q8HR PRN PRN Reason: Nausea And Vomiting Pantoprazole Sodium (Pantoprazole Dr 40 Mg Tablet) 40 mg PO 0700,2100 [facility] Discontinued Medications Albuterol/Ipratropium (Albuterol/Ipratropium 3 Ml Ampul) 3 ml INH NOW ONE Stop: 11/23/22 01:48 Last Admin: 11/23/22 02:05 Dose: 3 ml Documented By: DUANE Dobutamine HCl/Dextrose (Dobutamine 250 Mg In D5w) 250 mg in 250 mls @ 15.309 mls/hr IV TITRATE TOMA; Protocol Last Admin: 11/23/22 01:55 Dose: Not Given Documented By: ANUSHA Epinephrine HCl 4 mg/ Dextrose 250 mls @ 3.75 mls/hr IV TITRATE TOMA; Protocol Last Admin: 11/23/22 04:56 Dose: Not Given Documented By: KAREN Furosemide 60 mg/ Sodium (Chloride) 56 mls @ 112 mls/hr IV NOW ONE Stop: 11/23/22 00:55 Last Infusion: 11/23/22 01:50 Dose: 0 mls/hr Documented By: Admin: 11/23/22 01:18 Dose: 112 mls/hr Documented By: CAROL Piperacillin Sod/Tazobactam (Sod 4.5 gm/ Sodium Chloride) 100 mls @ 200 mls/hr IV NOW ONE Stop: 11/23/22 04:21 Last Infusion: 11/23/22 05:32 Dose: 0 mls/hr Documented By: Admin: 11/23/22 05:02 Dose: 200 mls/hr Documented By: KAREN Ketamine HCl (Ketamine 500 Mg/10 Ml Inj) 400 mg IV NOW ONE Stop: 11/23/22 00:21 Last Admin: 11/23/22 00:30 Dose: 400 mg Documented By: CAROL Pantoprazole Sodium (Pantoprazole 40 Mg Vial) 80 mg IV NOW ONE Stop: 11/23/22 01:12 Last Admin: 11/23/22 01:19 Dose: 80 mg Documented By: CAROL Rocuronium [place] (Rocuronium 100 Mg/10 Ml Vial) 100 mg IV NOW ONE Stop: 11/23/22 00:31 Last Admin: 11/23/22 00:30 Dose: 100 mg Documented By: CAROL Vital Signs Vital signs: Vital Signs - 8 hr 11/23/22 00:17 11/23/22 00:21 11/23/22 00:22 Temperature Pulse Rate 83 100 H Respiratory Rate 40 H 43 H Blood Pressure 192/89 H 192/89 H Pulse Oximetry 87 L 84 L Oxygen Delivery Method CPAP 11/23/22 00:22 11/23/22 00:29 11/23/22 00:29 Temperature Pulse Rate 100 H 91 H Respiratory Rate 43 H 35 H Blood Pressure 146/71 H Pulse Oximetry 86 L Oxygen Delivery Method 11/23/22 00:30 11/23/22 00:31 11/23/22 00:31 Temperature Pulse Rate 86 62 Respiratory Rate 25 H Blood Pressure 99/49 L Pulse Oximetry 75 L Oxygen Delivery Method 11/23/22 00:32 11/23/22 00:32 11/23/22 00:33 Temperature Pulse Rate 76 80 Respiratory Rate 21 Blood Pressure 63/35 L Pulse Oximetry 67 L 86 L Oxygen Delivery Method 11/23/22 00:33 11/23/22 00:36 11/23/22 00:36 Temperature Pulse Rate 77 Respiratory Rate Blood Pressure 65/37 L 48/31 L Pulse Oximetry 94 Oxygen Delivery Method 11/23/22 00:39 11/23/22 00:39 11/23/22 00:40 Temperature Pulse Rate 79 Respiratory Rate 27 H Blood Pressure 72/43 L 84/49 L Pulse Oximetry 99 Oxygen Delivery Method 11/23/22 00:40 11/23/22 00:44 11/23/22 00:44 Temperature Pulse Rate 78 85 Respiratory Rate 31 H 12 Blood Pressure 122/86 Pulse Oximetry 99 99 Oxygen Delivery Method 11/23/22 00:46 11/23/22 00:46 11/23/22 00:50 Temperature Pulse Rate 84 79 Respiratory Rate 18 27 H Blood Pressure 143/67 H Pulse Oximetry 99 98 Oxygen Delivery Method 11/23/22 00:50 11/23/22 00:55 11/23/22 00:55 Temperature Pulse Rate 75 Respiratory Rate Blood Pressure 145/66 H 143/65 H Pulse Oximetry 98 Oxygen Delivery Method 11/23/22 01:00 11/23/22 01:00 11/23/22 01:05 Temperature 93.9 F L 95.4 F L Pulse Rate 73 71 Respiratory Rate Blood Pressure 141/65 H Pulse Oximetry 99 100 Oxygen Delivery Method 11/23/22 01:05 11/23/22 01:10 11/23/22 01:10 Temperature 95.5 F L Pulse Rate 73 Respiratory Rate 18 Blood Pressure 140/65 138/65 Pulse Oximetry 100 Oxygen Delivery Method 11/23/22 01:15 11/23/22 01:15 11/23/22 01:20 Temperature 95.4 F L 95.0 F L Pulse Rate 66 62 Respiratory Rate 18 19 Blood Pressure 138/65 Pulse Oximetry 100 100 Oxygen Delivery Method 11/23/22 01:20 11/23/22 01:25 11/23/22 01:25 Temperature 94.8 F L Pulse Rate 63 Respiratory Rate 18 Blood Pressure 141/56 H 147/67 H Pulse Oximetry 99 Oxygen Delivery Method 11/23/22 01:30 11/23/22 01:30 11/23/22 01:35 Temperature 94.5 F L 94.3 F L Pulse Rate 68 68 Respiratory Rate 18 18 Blood Pressure 141/69 H Pulse Oximetry 100 100 Oxygen Delivery Method 11/23/22 01:35 11/23/22 01:40 11/23/22 01:40 Temperature 94.1 F L Pulse Rate 64 Respiratory Rate 18 Blood Pressure 150/67 H 150/70 H Pulse Oximetry 100 Oxygen Delivery Method 11/23/22 01:45 11/23/22 01:45 11/23/22 01:50 Temperature 93.9 F L Pulse Rate 60 Respiratory Rate 19 Blood Pressure 135/58 L 139/66 Pulse Oximetry 99 Oxygen Delivery Method 11/23/22 01:50 11/23/22 01:55 11/23/22 01:55 Temperature 93.9 F L 93.9 F L Pulse Rate 60 61 Respiratory Rate 18 18 Blood Pressure 137/64 Pulse Oximetry 99 99 Oxygen Delivery Method 11/23/22 02:00 11/23/22 02:00 11/23/22 02:05 Temperature 93.9 F L 93.7 F L Pulse Rate 60 60 Respiratory Rate 18 18 Blood Pressure 146/67 H Pulse Oximetry 99 100 Oxygen Delivery Method 11/23/22 02:05 11/23/22 02:10 11/23/22 02:10 Temperature 93.7 F L Pulse Rate 60 Respiratory Rate 18 Blood Pressure 143/66 H 129/60 Pulse Oximetry 99 Oxygen Delivery Method 11/23/22 02:15 11/23/22 02:15 11/23/22 02:20 Temperature 93.7 F L Pulse Rate 60 Respiratory Rate 18 Blood Pressure 151/67 H 141/66 H Pulse Oximetry 100 Oxygen Delivery Method 11/23/22 02:20 11/23/22 02:25 11/23/22 02:25 Temperature 93.7 F L 93.7 F L Pulse Rate 60 60 Respiratory Rate 18 18 Blood Pressure 138/65 Pulse Oximetry 100 99 Oxygen Delivery Method 11/23/22 02:30 11/23/22 02:30 11/23/22 02:35 Temperature 93.7 F L 93.7 F L Pulse Rate 60 60 Respiratory Rate 18 18 Blood Pressure 128/60 Pulse Oximetry 100 100 Oxygen Delivery Method 11/23/22 02:35 11/23/22 02:40 11/23/22 02:40 Temperature 93.7 F L Pulse Rate 62 Respiratory Rate 18 Blood Pressure 130/59 L 136/56 L Pulse Oximetry 100 Oxygen Delivery Method Medical Decision Making Lab Data 11/23/22 02:58 11/23/22 00:41 Labs: Lab Results 11/23/22 11/23/22 11/23/22 Range/Units 00:41 00:41 00:41 WBC 12.2 H (4.5-11.0) X10^3/uL RBC 3.07 L (4.5-5.9) X10^6/uL Hgb 6.5 L* (13.5-17.5) g/dL Hct 21.4 L (41-53) % MCV 69.6 L (80-100) fL MCH 21.2 L (26-34) PG MCHC 30.4 (30-36) % RDW 20.5 H (11.6-14.8) % Plt Count 329 (150-400) X10^3/uL Neut % (Auto) 78.3 H (50-75) % Lymph % (Auto) 14.2 L (25-40) % [place] % (Auto) 4.4 (3-14) % Eos % (Auto) 2.7 (2-4) % Baso % (Auto) 0.4 (0-2) % Neut # (Auto) 9600 H (8510-1526) /uL Lymph # (Auto) 1700 (9345-1963) /uL [place] # (Auto) 500 (0-900) /uL Eos # (Auto) 300 (0-450) /uL Baso # (Auto) 0 (0-100) /uL RBC Morphology See below Polychromasia 1+ H Hypochromasia 1+ H Poikilocytosis 1+ H Anisocytosis 2+ H Microcytosis 2+ H PT 12.6 (10.1-12.7) SECONDS INR 1.1 (0.9-1.3) APTT 29 (26-36) SECONDS ABG pH (7.35-7.45) ABG pCO2 (35-45) mmHg ABG pO2 (80-100) mmHg ABG HCO3 (23-27) mmol/L ABG Total CO2 (23-27) mmol/L ABG O2 Saturation (95-100) % ABG Base Excess (-2-3) mmol/L FiO2 Sodium 135 L (137-145) mmol/L Potassium 3.6 (3.4-5.1) mmol/L Chloride 102 (98-107) mmol/L Carbon Dioxide 19 L (22-32) mmol/L BUN 19 (9-20) mg/dL Creatinine 1.10 (0.66-1.25) mg/dL Estimated GFR > 60 (>60) mL/min BUN/Creatinine Ratio 17.3 (6-22) Glucose 196 H (80-110) mg/dL Calcium 8.2 L (8.4-10.2) mg/dL Magnesium 1.9 (1.6-2.3) mg/dL Total Bilirubin 0.5 (0.2-1.3) mg/dL AST 25 (17-59) IU/L ALT 20 (<50) IU/L Alkaline Phosphatase 105 (38-126) U/L Total Creatine Kinase 86 (55-170) U/L CK-MB (CK-2) TNP CK-MB (CK-2) Rel Index TNP Troponin I 0.015 (0.01-0.034) ng/mL NT-Pro-B Natriuret Pep 1730 H (<450) pg/mL Total Protein 7.2 (6.3-8.2) g/dL Albumin 3.9 (3.5-5.0) g/dL Globulin 3.3 (1.7-4.1) g/dL Albumin/Globulin Ratio 1.2 (1.0-2.8) Lipase 123 (23-300) U/L Chlamy pneumoniae PCR (Not Detect) Adenovirus (PCR) (Not Detect) B. pertussis DNA (PCR) (Not Detecte) B.parapertussis DNA PCR (Not Detecte) Coronavirus OC43 (PCR) (Not Detect) Coronavirus HKU1 (PCR) (Not Detect) Coronavirus 229E (PCR) (Not Detect) SARS-CoV-2 (PCR) (Not Detecte) Coronavirus NL63 (PCR) (Not Detect) Human Metapneumovir PCR (Not Detect) Influenza Type A (PCR) (Not Detect) Influenza Type B (PCR) (Not Detect) M. pneumoniae (PCR) (Not Detect) Parainfluenza 1 (PCR) (Not Detect) Parainfluenza 2 (PCR) (Not Detect) Parainfluenza 3 (PCR) (Not Detect) Parainfluenza 4 (PCR) (Not Detect) RSV (PCR) (Not Detect) Entero/Rhino (PCR) (Not Detect) Blood Type Antibody Screen Crossmatch 11/23/22 11/23/22 11/23/22 Range/Units 01:08 01:31 01:40 WBC (4.5-11.0) X10^3/uL RBC (4.5-5.9) X10^6/uL Hgb (13.5-17.5) g/dL Hct (41-53) % MCV (80-100) fL MCH (26-34) PG MCHC (30-36) % RDW (11.6-14.8) % Plt Count (150-400) X10^3/uL Neut % (Auto) (50-75) % Lymph % (Auto) (25-40) % [place] % (Auto) (3-14) % Eos % (Auto) (2-4) % Baso % (Auto) (0-2) % Neut # (Auto) (7059-2287) /uL Lymph # (Auto) (4621-6867) /uL [place] # (Auto) (0-900) /uL Eos # (Auto) (0-450) /uL Baso # (Auto) (0-100) /uL RBC Morphology Polychromasia Hypochromasia Poikilocytosis Anisocytosis Microcytosis PT (10.1-12.7) SECONDS INR (0.9-1.3) APTT (26-36) SECONDS ABG pH 7.33 L (7.35-7.45) ABG pCO2 35.9 (35-45) mmHg ABG pO2 114 H (80-100) mmHg ABG HCO3 19 L (23-27) mmol/L ABG Total CO2 36 H (23-27) mmol/L ABG O2 Saturation 98 (95-100) % ABG Base Excess -7.0 L (-2-3) mmol/L FiO2 100 Sodium (137-145) mmol/L Potassium (3.4-5.1) mmol/L Chloride (98-107) mmol/L Carbon Dioxide (22-32) mmol/L BUN (9-20) mg/dL Creatinine (0.66-1.25) mg/dL Estimated GFR (>60) mL/min BUN/Creatinine Ratio (6-22) Glucose (80-110) mg/dL Calcium (8.4-10.2) mg/dL Magnesium (1.6-2.3) mg/dL Total Bilirubin (0.2-1.3) mg/dL AST (17-59) IU/L ALT (<50) IU/L Alkaline Phosphatase (38-126) U/L Total Creatine Kinase (55-170) U/L CK-MB (CK-2) CK-MB (CK-2) Rel Index Troponin I (0.01-0.034) ng/mL NT-Pro-B Natriuret Pep (<450) pg/mL Total Protein (6.3-8.2) g/dL Albumin (3.5-5.0) g/dL Globulin (1.7-4.1) g/dL Albumin/Globulin Ratio (1.0-2.8) Lipase (23-300) U/L Chlamy pneumoniae PCR Not detected (Not Detect) Adenovirus (PCR) Not detected (Not Detect) B. pertussis DNA (PCR) Not detected (Not Detecte) B.parapertussis DNA PCR Not detected (Not Detecte) Coronavirus OC43 (PCR) Not detected (Not Detect) Coronavirus HKU1 (PCR) Not detected (Not Detect) Coronavirus 229E (PCR) Not detected (Not Detect) SARS-CoV-2 (PCR) Not detected (Not Detecte) Coronavirus NL63 (PCR) Not detected (Not Detect) Human Metapneumovir PCR Not detected (Not Detect) Influenza Type A (PCR) Not detected (Not Detect) Influenza Type B (PCR) Not detected (Not Detect) M. pneumoniae (PCR) Not detected (Not Detect) Parainfluenza 1 (PCR) Not detected (Not Detect) Parainfluenza 2 (PCR) Not detected (Not Detect) Parainfluenza 3 (PCR) Not detected (Not Detect) Parainfluenza 4 (PCR) Not detected (Not Detect) RSV (PCR) Not detected (Not Detect) Entero/Rhino (PCR) Not detected (Not Detect) Blood Type O Positive Antibody Screen Negative Crossmatch See Detail 11/23/22 Range/Units 02:18 WBC (4.5-11.0) X10^3/uL RBC (4.5-5.9) X10^6/uL Hgb (13.5-17.5) g/dL Hct (41-53) % MCV (80-100) fL MCH (26-34) PG MCHC (30-36) % RDW (11.6-14.8) % Plt Count (150-400) X10^3/uL Neut % (Auto) (50-75) % Lymph % (Auto) (25-40) % [place] % (Auto) (3-14) % Eos % (Auto) (2-4) % Baso % (Auto) (0-2) % Neut # (Auto) (9442-2031) /uL Lymph # (Auto) (2770-1815) /uL [place] # (Auto) (0-900) /uL Eos # (Auto) (0-450) /uL Baso # (Auto) (0-100) /uL RBC Morphology Polychromasia Hypochromasia Poikilocytosis Anisocytosis Microcytosis PT (10.1-12.7) SECONDS INR (0.9-1.3) APTT (26-36) SECONDS ABG pH (7.35-7.45) ABG pCO2 (35-45) mmHg ABG pO2 (80-100) mmHg ABG HCO3 (23-27) mmol/L ABG Total CO2 (23-27) mmol/L ABG O2 Saturation (95-100) % ABG Base Excess (-2-3) mmol/L FiO2 Sodium (137-145) mmol/L Potassium (3.4-5.1) mmol/L Chloride (98-107) mmol/L Carbon Dioxide (22-32) mmol/L BUN (9-20) mg/dL Creatinine (0.66-1.25) mg/dL Estimated GFR (>60) mL/min BUN/Creatinine Ratio (6-22) Glucose (80-110) mg/dL Calcium (8.4-10.2) mg/dL Magnesium (1.6-2.3) mg/dL Total Bilirubin (0.2-1.3) mg/dL AST (17-59) IU/L ALT (<50) IU/L Alkaline Phosphatase (38-126) U/L Total Creatine Kinase (55-170) U/L CK-MB (CK-2) CK-MB (CK-2) Rel Index Troponin I (0.01-0.034) ng/mL NT-Pro-B Natriuret Pep (<450) pg/mL Total Protein (6.3-8.2) g/dL Albumin (3.5-5.0) g/dL Globulin (1.7-4.1) g/dL Albumin/Globulin Ratio (1.0-2.8) Lipase (23-300) U/L Chlamy pneumoniae PCR (Not Detect) Adenovirus (PCR) (Not Detect) B. pertussis DNA (PCR) (Not Detecte) B.parapertussis DNA PCR (Not Detecte) Coronavirus OC43 (PCR) (Not Detect) Coronavirus HKU1 (PCR) (Not Detect) Coronavirus 229E (PCR) (Not Detect) SARS-CoV-2 (PCR) Cancelled (Not Detecte) Coronavirus NL63 (PCR) (Not Detect) Human Metapneumovir PCR (Not Detect) Influenza Type A (PCR) (Not Detect) Influenza Type B (PCR) (Not Detect) M. pneumoniae (PCR) (Not Detect) Parainfluenza 1 (PCR) (Not Detect) Parainfluenza 2 (PCR) (Not Detect) Parainfluenza 3 (PCR) (Not Detect) Parainfluenza 4 (PCR) (Not Detect) RSV (PCR) (Not Detect) Entero/Rhino (PCR) (Not Detect) Blood Type Antibody Screen Crossmatch MDM Narrative Medical decision making narrative: CC: Severe acute respiratory distress intubated shortly after arrival Complicating co-morbidities: Difficult to obtain more thorough history, hypertension, prior asthma. Pacemaker with presumed coronary artery disease Data collected from: patient, medics Social determinants of health that may influence the patients condition: Age, independent living, notes in the chart of some mild cognitive deficits. Medical records indicate that he is living in a hotel who is proprietor is allowing him to stay there, eating continental breakfast and otherwise fast food for nutrition with no additional family for help. Medical records reviewed: Primary care note from May of 2022 was reviewed Differential considered: Acute coronary syndrome, he is fully paced so STEMI is difficult to assess, flash pulmonary edema, pneumothorax, pneumonia, pulmonary embolism, Exam documented above, pertinent findings include: Pale, able to nod yes and no to limited questions only. Severe respiratory distress with dramatic wheeze and tachypnea. Lab Test results independently reviewed as above. Pertinent findings: CBC indicates mild leukocytosis with only mild left shift. He has a fairly dramatic anemia with hemoglobin at 6.5 and hematocrit at 21.4. Of note once he was intubated and OG tube was placed he does appear to have coffee-ground emesis coming out. Comparison H&H is from January of 2021 and 13.4 and 40.9 Chemistries show hyperglycemia with normal renal function, potassium of 3.6 Troponin initially is 0.015 BNP is 1730 Independently reviewed EKG ventricular paced rhythm only Imaging studies independently reviewed: Initial chest x-ray suggests flash pulmonary edema without pneumothorax Second chest x-ray shows central line ET tube and OG tube are appropriately placed Consultations: Treatments: BiPAP trial, quickly moving to intubation, significant hypotension following intubation with Levophed immediately started. Ultrasound evaluation of internal jugular suggest that he is volume overloaded so additional large volumes of fluid are not given. He is given a 500 cc bolus. Concern for ongoing upper GI bleed given the dramatic drop in H&H and gastric contents. He is given IV Protonix and will be transfused 2 units of packed red blood cells. Re-evaluations: He is responding nicely to Levophed with propofol drip for sedation while intubated. 145am breathing much more comfortably. ABG is reassuring still moderate wheezing in all lung martinez will add DuoNeb. Beginning to wean oxygen down currently at 80%. Currently comfortable with sedation level. Beginning to put out fluid after the initial Lasix. Discussion: In summary 82-year-old gentleman presents with acute respiratory distress what appears to be GI bleeding with acute anemia flash pulmonary edema without infectious etiology. It is unclear whether there is a significant cardiac component yet. With his paced EKG I am not able to evaluate for acute ischemia, his initial troponin is negative 2nd troponin will be drawn and 30 minutes. He will need a cardiac echo but with a concern for GI bleeding heparin is not going to be an option for this gentleman. At this time without any obvious infectious etiology concerns I have not started any antibiotics. Currently doing well with Levophed for pressure support and propofol for sedation while he is intubated. He is somewhat cold with core temperature at 93?. He is currently under a warming blanket. With his GI blood loss he is given a dose of 80 mg of Protonix and will be transfused 2 units of packed red blood cells with additional Lasix associated with those units. He is responding nicely so far with quite a bit of urine output and decreasing oxygen needs. Care is reviewed with Dr. Murphy, hospitalist and will be admitted to our in tensive care unit. Critical Care Time Critical Care Time Critical Care Time: Yes Total Critical Care Time: 37 Attestation: Critical care time is separate from other billable procedures. There is a high probability of a significant, sudden or life-threatening deterioration that requires my full and direct attention, intervention and personal management. This critical care time includes consultation with family and other consulting doctors, review of records, and interpretation of data from labs, EKGs and imaging as well as managements of acute respiratory failure and circulatory failure along with GI bleeding. Discharge Plan Departure Patient Disposition: Admitted As Inpatient Clinical Impression: Respiratory failure, Flash pulmonary edema, Acute upper gastrointestinal bleeding Acute asthma exacerbation Qualifiers: Asthma severity: unspecified severity Asthma persistence: unspecified Qualified Code(s): J45.901 - Unspecified asthma with (acute) exacerbation Acute CHF (congestive heart failure) Qualifiers: Heart failure type: unspecified Qualified Code(s): I50.9 - Heart failure, unspecified Hypothermia Qualifiers: Encounter type: initial encounter Qualified Code(s): T68.XXXA - Hypothermia, initial encounter Admit Date/Time: 11/23/22 02:40 Admit Provider: Kenan Murphy
[2022-11-23 01:42] LABS: Hypochromasia 1+; Microcytosis 2+; Polychromasia 1+
[2022-11-23 01:44] LABS: Anisocytosis 2+; Poikilocytosis 1+
[2022-11-23 02:00] LABS: Adenovirus Not Detected (Not Detect); B. parapertussis Not Detected (Not Detecte); Bordetella pertussis Not Detected (Not Detecte); Coronavirus 229E Not Detected (Not Detect); Coronavirus HKU1 Not Detected (Not Detect); Coronavirus NL 63 Not Detected (Not Detect); Coronavirus OC43 Not Detected (Not Detect); Human Metapneumovirus Not Detected (Not Detect); Human Rhinovirus/Enterovirus Not Detected (Not Detect); Influenza A Not Detected (Not Detect); Influenza B Not Detected (Not Detect); Parainfluenza Virus 1 Not Detected (Not Detect); Parainfluenza Virus 2 Not Detected (Not Detect); Parainfluenza Virus 3 Not Detected (Not Detect); Parainfluenza Virus 4 Not Detected (Not Detect); Respiratory Syncytial Virus Not Detected (Not Detect); SARS- CoV-2 Not Detected (Not Detecte)
[2022-11-23 02:01] LABS: Chlamydophila pneumoniae Not Detected (Not Detect); Mycoplasma pneumoniae Not Detected (Not Detect)
[2022-11-23] MEDS: ALBUTEROL/IPRATROPIUM 3 ML AMPUL INH (02:05)
--- NOTE | 2022-11-23 02:17 | PC.NURSE ---
Chevy rowan applied d/t core temp of 37.7, attempted warm blankets without success
[2022-11-23 03:11] LABS: Hematocrit 22.4 % (41-53)
[2022-11-23 03:13] LABS: PCO2 ABG 35.9 mmHg (35-45); PO2 ABG 114 mmHg (80-100); pH ABG 7.33 (7.35-7.45)
[2022-11-23 03:14] LABS: Fractionated Inspired Oxygen 100; HCO3 ABG 19 mmol/L (23-27); Oxygen Saturation ABG 98 % (95-100)
[2022-11-23 03:14] LABS: Hemoglobin 6.9 g/dL (13.5-17.5)
--- NOTE | 2022-11-23 03:51 | PC.NURSE ---
pt transferred to ICU Levophed and propofol continue to infuse along with 1st unit of blood
[2022-11-23 04:17] LABS: Procalcitonin 0.11 ng/mL (<0.5)
--- NOTE | 2022-11-23 04:23 | P.HP_ITS ---
History of Present Illness History of Present Illness Date Patient Seen: 11/23/22 Time Patient Seen: 04:00 Chief complaint: resp. distress. Narrative: Mr. Alexander is an 82M with PMH CAD s/p stents, s/p PPM, aortic aneurysm, dementia who presents to the hospital with sudden onset shortness of breath. History is unable to be obtained from patient as he is intubated when I examine him. From previous medical records he has a long period time with no PCP, has been setup only within the last couple years and has had limited visits with the PCP. He has been noted to have dementia, and it appears to be living in a hotel. He has limited family. He has no documented POLST, advanced directive. EMS was called as he woke up severely short of breath. EMS found him with sats in the 80s, tachypneic and agitated. He was not able to provide much history. En route he was placed on NIPPV and continued to have significant work of breathing and low sats in the low 90s. Upon arrival it was decided to intubated him. Prior to intubation per ED physician he was responding by nodding his head to certain questions which included that he felt fever, cough, and had chest tightness. In the ED workup was done, vitals notable for afebrile, respiratory rate in 40s, blood pressure 190s/80s, sats in the 80s on NIPPV. Labs notable for WBC 12.2. hgb 6.5, plts 329. Na 135, cl 19, creatinine 1.10. LFTS normal. Trop 0.01->0.06. BNP 1730. He was intubated and placed on propofol. Once this happened his blood pressure dropped to systolic 80s. Central line right IJ placed and he was st arted on pressors. OG tube placed with return of coffee ground appearing fluid. He was ordered for protonix, and transfusion. He had walters placed, ordered for lasix and was admitted for further treatment. [facility] Medical History CAD in [place] artery Cataracts, bilateral (~2019) Dementia (~2018) Myocardial infarction Wears glasses Surgical History Anesthesia H/O heart artery stent (~2018) S/P placement of cardiac pacemaker Family History Family/Other Hemophilia Father No problems noted. Grandfather Hypertension Social History Smoking Status: Former smoker Meds Home Medications and Allergies Home Medications Medication Instructions Recorded Confirmed Type albuterol sulfate 90 mcg/actuation 1 puff inhalation QIDP PRN 05/18/22 Rx aerosol inhaler (Proventil HFA) shortness of breath #2 inhalations amlodipine 5 mg tablet 5 mg PO DAILY #90 tabs 05/18/22 Rx acetaminophen 325 mg tablet (Aphen) 650 mg PO Q6H PRN fever or pain 07/21/22 Rx #30 tabs mupirocin 2 % topical ointment 1 applic topical DAILY #22 grams 07/21/22 Rx fluoxetine 20 mg capsule 20 mg PO QDAY #90 caps 11/09/22 Rx Allergies Allergy/AdvReac Type Severity Reaction Status Date / Time Sulfa (Sulfonamide Allergy Unknown Verified 07/30/22 16:50 Antibiotics) [SULFA (SULFONAMIDE ANTIBIOTICS)] Review of Systems Review of Systems Narrative: unable to obtain, intubated and sedated Exam Vital Signs (past 8 hours): - 11/23/22 00:17 11/23/22 00:21 11/23/22 00:22 Temperature Pulse Rate 83 100 H Respiratory Rate 40 H 43 H Blood Pressure 192/89 H 192/89 H Pulse Oximetry 87 L 84 L Oxygen Delivery Method CPAP 11/23/22 00:22 11/23/22 00:29 11/23/22 00:29 Temperature Pulse Rate 100 H 91 H Respiratory Rate 43 H 35 H Blood Pressure 146/71 H Pulse Oximetry 86 L Oxygen Delivery Method 11/23/22 00:30 11/23/22 00:31 11/23/22 00:31 Temperature Pulse Rate 86 62 Respiratory Rate 25 H Blood Pressure 99/49 L Pulse Oximetry 75 L Oxygen Delivery Method 11/23/22 00:32 11/23/22 00:32 11/23/22 00:33 Temperature Pulse Rate 76 80 Respiratory Rate 21 Blood Pressure 63/35 L Pulse Oximetry 67 L 86 L Oxygen Delivery Method 11/23/22 00:33 11/23/22 00:36 11/23/22 00:36 Temperature Pulse Rate 77 Respiratory Rate Blood Pressure 65/37 L 48/31 L Pulse Oximetry 94 Oxygen Delivery Method 11/23/22 00:39 11/23/22 00:39 11/23/22 00:40 Temperature Pulse Rate 79 Respiratory Rate 27 H Blood Pressure 72/43 L 84/49 L Pulse Oximetry 99 Oxygen Delivery Method 11/23/22 00:40 11/23/22 00:44 11/23/22 00:44 Temperature Pulse Rate 78 85 Respiratory Rate 31 H 12 Blood Pressure 122/86 Pulse Oximetry 99 99 Oxygen Delivery Method 11/23/22 00:46 11/23/22 00:46 11/23/22 00:50 Temperature Pulse Rate 84 79 Respiratory Rate 18 27 H Blood Pressure 143/67 H Pulse Oximetry 99 98 Oxygen Delivery Method 11/23/22 00:50 11/23/22 00:55 11/23/22 00:55 Temperature Pulse Rate 75 Respiratory Rate Blood Pressure 145/66 H 143/65 H Pulse Oximetry 98 Oxygen Delivery Method 11/23/22 01:00 11/23/22 01:00 11/23/22 01:05 Temperature 93.9 F L 95.4 F L Pulse Rate 73 71 Respiratory Rate Blood Pressure 141/65 H Pulse Oximetry 99 100 Oxygen Delivery Method 11/23/22 01:05 11/23/22 01:10 11/23/22 01:10 Temperature 95.5 F L Pulse Rate 73 Respiratory Rate 18 Blood Pressure 140/65 138/65 Pulse Oximetry 100 Oxygen Delivery Method 11/23/22 01:15 11/23/22 01:15 11/23/22 01:20 Temperature 95.4 F L 95.0 F L Pulse Rate 66 62 Respiratory Rate 18 19 Blood Pressure 138/65 Pulse Oximetry 100 100 Oxygen Delivery Method 11/23/22 01:20 11/23/22 01:25 11/23/22 01:25 Temperature 94.8 F L Pulse Rate 63 Respiratory Rate 18 Blood Pressure 141/56 H 147/67 H Pulse Oximetry 99 Oxygen Delivery Method 11/23/22 01:30 11/23/22 01:30 11/23/22 01:35 Temperature 94.5 F L 94.3 F L Pulse Rate 68 68 Respiratory Rate 18 18 Blood Pressure 141/69 H Pulse Oximetry 100 100 Oxygen Delivery Method 11/23/22 01:35 11/23/22 01:40 11/23/22 01:40 Temperature 94.1 F L Pulse Rate 64 Respiratory Rate 18 Blood Pressure 150/67 H 150/70 H Pulse Oximetry 100 Oxygen Delivery Method 11/23/22 01:45 11/23/22 01:45 11/23/22 02:41 Temperature 93.9 F L 93.7 F L Pulse Rate 60 60 Respiratory Rate 19 18 Blood Pressure 135/58 L 136/56 L Pulse Oximetry 99 Oxygen Delivery Method 11/23/22 01:50 11/23/22 01:50 11/23/22 01:55 Temperature 93.9 F L 93.9 F L Pulse Rate 60 61 Respiratory Rate 18 18 Blood Pressure 139/66 Pulse Oximetry 99 99 Oxygen Delivery Method 11/23/22 01:55 11/23/22 02:00 11/23/22 02:00 Temperature 93.9 F L Pulse Rate 60 Respiratory Rate 18 Blood Pressure 137/64 146/67 H Pulse Oximetry 99 Oxygen Delivery Method 11/23/22 02:05 11/23/22 02:05 11/23/22 02:10 Temperature 93.7 F L 93.7 F L Pulse Rate 60 60 Respiratory Rate 18 18 Blood Pressure 143/66 H Pulse Oximetry 100 99 Oxygen Delivery Method 11/23/22 02:10 11/23/22 02:15 11/23/22 02:15 Temperature 93.7 F L Pulse Rate 60 Respiratory Rate 18 Blood Pressure 129/60 151/67 H Pulse Oximetry 100 Oxygen Delivery Method 11/23/22 02:20 11/23/22 02:20 11/23/22 02:25 Temperature 93.7 F L 93.7 F L Pulse Rate 60 60 Respiratory Rate 18 18 Blood Pressure 141/66 H Pulse Oximetry 100 99 Oxygen Delivery Method 11/23/22 02:25 11/23/22 02:30 11/23/22 02:30 Temperature 93.7 F L Pulse Rate 60 Respiratory Rate 18 Blood Pressure 138/65 128/60 Pulse Oximetry 100 Oxygen Delivery Method 11/23/22 02:35 11/23/22 02:35 11/23/22 02:40 Temperature 93.7 F L 93.7 F L Pulse Rate 60 62 Respiratory Rate 18 18 Blood Pressure 130/59 L Pulse Oximetry 100 100 Oxygen Delivery Method 11/23/22 02:40 11/23/22 02:46 11/23/22 02:46 Temperature 93.7 F L Pulse Rate 60 Respiratory Rate 18 Blood Pressure 136/56 L 141/65 H Pulse Oximetry 100 Oxygen Delivery Method 11/23/22 02:50 11/23/22 02:50 11/23/22 02:55 Temperature 93.7 F L 93.9 F L Pulse Rate 63 59 L Respiratory Rate 18 18 Blood Pressure 142/66 H Pulse Oximetry 99 100 Oxygen Delivery Method 11/23/22 02:55 11/23/22 03:00 11/23/22 03:00 Temperature 93.9 F L Pulse Rate 60 Respiratory Rate 18 Blood Pressure 138/64 126/59 L Pulse Oximetry 100 Oxygen Delivery Method 11/23/22 03:05 11/23/22 03:05 11/23/22 03:10 Temperature 94.1 F L 94.1 F L Pulse Rate 60 60 Respiratory Rate 18 18 Blood Pressure 118/70 Pulse Oximetry 100 100 Oxygen Delivery Method 11/23/22 03:10 11/23/22 03:15 11/23/22 03:15 Temperature 94.3 F L Pulse Rate 60 Respiratory Rate 18 Blood Pressure 119/58 L 117/58 L Pulse Oximetry 100 Oxygen Delivery Method Oxygen Delivery Method CPAP Narrative Exam Narrative: GEN: intubated and sedated HEENT: moist mucous membranes, PERRL NECK: trachea midline, no JVD PULM: intubated, coarse breath sounds CV: regular rate and rhythm, no murmurs ABD: soft, nontender, nondistended, no organomegaly EXT: warm and well perfused with no edema NEURO: intubated, sedated Objective Labs 11/23/22 02:58 11/23/22 00:41 Labs: Laboratory Results - last 24 hr 11/23/22 11/23/22 11/23/22 00:41 00:41 00:41 WBC 12.2 H RBC 3.07 L Hgb 6.5 L* Hct 21.4 L MCV 69.6 L MCH 21.2 L MCHC 30.4 RDW 20.5 H Plt Count 329 Neut % (Auto) 78.3 H Lymph % (Auto) 14.2 L Kimble % (Auto) 4.4 Eos % (Auto) 2.7 Baso % (Auto) 0.4 Neut # (Auto) 9600 H Lymph # (Auto) 1700 Kimble # (Auto) 500 Eos # (Auto) 300 Baso # (Auto) 0 RBC Morphology See below Polychromasia 1+ H Hypochromasia 1+ H Poikilocytosis 1+ H Anisocytosis 2+ H Microcytosis 2+ H PT 12.6 INR 1.1 APTT 29 ABG pH ABG pCO2 ABG pO2 ABG HCO3 ABG Total CO2 ABG O2 Saturation ABG Base Excess FiO2 Sodium 135 L Potassium 3.6 Chloride 102 Carbon Dioxide 19 L BUN 19 Creatinine 1.10 Estimated GFR > 60 BUN/Creatinine Ratio 17.3 Glucose 196 H Calcium 8.2 L Magnesium 1.9 Total Bilirubin 0.5 AST 25 ALT 20 Alkaline Phosphatase 105 Total Creatine Kinase 86 CK-MB (CK-2) TNP CK-MB (CK-2) Rel Index TNP Troponin I 0.015 NT-Pro-B Natriuret Pep 1730 H Total Protein 7.2 Albumin 3.9 Globulin 3.3 Albumin/Globulin Ratio 1.2 Lipase 123 Procalcitonin Chlamy pneumoniae PCR Adenovirus (PCR) B. pertussis DNA (PCR) B.parapertussis DNA PCR Coronavirus OC43 (PCR) Coronavirus HKU1 (PCR) Coronavirus 229E (PCR) SARS-CoV-2 (PCR) Coronavirus NL63 (PCR) Human Metapneumovir PCR Influenza Type A (PCR) Influenza Type B (PCR) M. pneumoniae (PCR) Parainfluenza 1 (PCR) Parainfluenza 2 (PCR) Parainfluenza 3 (PCR) Parainfluenza 4 (PCR) RSV (PCR) Entero/Rhino (PCR) Blood Type Antibody Screen Crossmatch 11/23/22 11/23/22 11/23/22 01:08 01:31 01:40 WBC RBC Hgb Hct MCV MCH MCHC RDW Plt Count Neut % (Auto) Lymph % (Auto) Kimble % (Auto) Eos % (Auto) Baso % (Auto) Neut # (Auto) Lymph # (Auto) Kimble # (Auto) Eos # (Auto) Baso # (Auto) RBC Morphology Polychromasia Hypochromasia Poikilocytosis Anisocytosis Microcytosis PT INR APTT ABG pH 7.33 L ABG pCO2 35.9 ABG pO2 114 H ABG HCO3 19 L ABG Total CO2 36 H ABG O2 Saturation 98 ABG Base Excess -7.0 L FiO2 100 Sodium Potassium Chloride Carbon Dioxide BUN Creatinine Estimated GFR BUN/Creatinine Ratio Glucose Calcium Magnesium Total Bilirubin AST ALT Alkaline Phosphatase Total Creatine Kinase CK-MB (CK-2) CK-MB (CK-2) Rel Index Troponin I NT-Pro-B Natriuret Pep Total Protein Albumin Globulin Albumin/Globulin Ratio Lipase Procalcitonin Chlamy pneumoniae PCR Not detected Adenovirus (PCR) Not detected B. pertussis DNA (PCR) Not detected B.parapertussis DNA PCR Not detected Coronavirus OC43 (PCR) Not detected Coronavirus HKU1 (PCR) Not detected Coronavirus 229E (PCR) Not detected SARS-CoV-2 (PCR) Not detected Coronavirus NL63 (PCR) Not detected Human Metapneumovir PCR Not detected Influenza Type A (PCR) Not detected Influenza Type B (PCR) Not detected M. pneumoniae (PCR) Not detected Parainfluenza 1 (PCR) Not detected Parainfluenza 2 (PCR) Not detected Parainfluenza 3 (PCR) Not detected Parainfluenza 4 (PCR) Not detected RSV (PCR) Not detected Entero/Rhino (PCR) Not detected Blood Type O Positive Antibody Screen Negative Crossmatch See Detail 11/23/22 11/23/22 11/23/22 02:18 02:58 02:58 WBC RBC Hgb 6.9 L* Hct 22.4 L MCV MCH MCHC RDW Plt Count Neut % (Auto) Lymph % (Auto) Kimble % (Auto) Eos % (Auto) Baso % (Auto) Neut # (Auto) Lymph # (Auto) Kimble # (Auto) Eos # (Auto) Baso # (Auto) RBC Morphology Polychromasia Hypochromasia Poikilocytosis Anisocytosis Microcytosis PT INR APTT ABG pH ABG pCO2 ABG pO2 ABG HCO3 ABG Total CO2 ABG O2 Saturation ABG Base Excess FiO2 Sodium Potassium Chloride Carbon Dioxide BUN Creatinine Estimated GFR BUN/Creatinine Ratio Glucose Calcium Magnesium Total Bilirubin AST ALT Alkaline Phosphatase Total Creatine Kinase CK-MB (CK-2) CK-MB (CK-2) Rel Index Troponin I 0.060 H NT-Pro-B Natriuret Pep Total Protein Albumin Globulin Albumin/Globulin Ratio Lipase Procalcitonin Chlamy pneumoniae PCR Adenovirus (PCR) B. pertussis DNA (PCR) B.parapertussis DNA PCR Coronavirus OC43 (PCR) Coronavirus HKU1 (PCR) Coronavirus 229E (PCR) SARS-CoV-2 (PCR) Cancelled Coronavirus NL63 (PCR) Human Metapneumovir PCR Influenza Type A (PCR) Influenza Type B (PCR) M. pneumoniae (PCR) Parainfluenza 1 (PCR) Parainfluenza 2 (PCR) Parainfluenza 3 (PCR) Parainfluenza 4 (PCR) RSV (PCR) Entero/Rhino (PCR) Blood Type Antibody Screen Crossmatch 11/23/22 02:58 WBC RBC Hgb Hct MCV MCH MCHC RDW Plt Count Neut % (Auto) Lymph % (Auto) Kimble % (Auto) Eos % (Auto) Baso % (Auto) Neut # (Auto) Lymph # (Auto) Kimble # (Auto) Eos # (Auto) Baso # (Auto) RBC Morphology Polychromasia Hypochromasia Poikilocytosis Anisocytosis Microcytosis PT INR APTT ABG pH ABG pCO2 ABG pO2 ABG HCO3 ABG Total CO2 ABG O2 Saturation ABG Base Excess FiO2 Sodium Potassium Chloride Carbon Dioxide BUN Creatinine Estimated GFR BUN/Creatinine Ratio Glucose Calcium Magnesium Total Bilirubin AST ALT Alkaline Phosphatase Total Creatine Kinase CK-MB (CK-2) CK-MB (CK-2) Rel Index Troponin I NT-Pro-B Natriuret Pep Total Protein Albumin Globulin Albumin/Globulin Ratio Lipase Procalcitonin 0.11 Chlamy pneumoniae PCR Adenovirus (PCR) B. pertussis DNA (PCR) B.parapertussis DNA PCR Coronavirus OC43 (PCR) Coronavirus HKU1 (PCR) Coronavirus 229E (PCR) SARS-CoV-2 (PCR) Coronavirus NL63 (PCR) Human Metapneumovir PCR Influenza Type A (PCR) Influenza Type B (PCR) M. pneumoniae (PCR) Parainfluenza 1 (PCR) Parainfluenza 2 (PCR) Parainfluenza 3 (PCR) Parainfluenza 4 (PCR) RSV (PCR) Entero/Rhino (PCR) Blood Type Antibody Screen Crossmatch Assessment & Plan Assessment & Plan narrative: 1. Acute hypoxemic respiratory failure -suspect secondary to flash pulmonary edema -also rule out pneumonia -started on lasix in the ED -ordered for zosyn -initial troponins equivocal, continue to trend -ordered echo -sbt daily -security tech consulted 2. Shock -required levophed after intubation and starting propofol -likely combination of medication and anemia -goal MAP >65 -transfusion goal hgb >7 -on antibiotics as above 3. Anemia -suspect secondary to GI bleed -ordered for PPI BID -once stabilized will consider egd/colonoscopy -trend hemoglobin closely 4. CAD s/p stenets s/p pacemaker -no antiplatelets for now given bleed 5. Dementia -will need supplemental information from family/friends if able I have acquired all information from previous medical notes and the ED staff. I have discussed plan of care with ED physician, ICU physician and bedside nurse. I have reviewed labs, EKG, chest xray. I have called a phone number for possible family, but there is no answer and voicemail is stated as full. CODE: unknown Proxy: unknown [facility] - Meds 'Current medications' to include all prescriptions, [id number] products, herbals, cannabis/cannabidiol products, and vitamin/mineral/dietary (nutritional) supplements. I have utilized all available resources to obtain, update, or review the patient?s current medications. [If Yes, STOP here]: Yes
[2022-11-23] MEDS: fentaNYL 1,000 MCG in DEXTROSE 5% IN WATER 230 ML 17.86 MCG IV ×2 (04:40→18:24)
[2022-11-23] MEDS: PIPERACILLIN/TAZO 4.5 GM in SODIUM CHLORIDE 0.9% 100 ML IV (05:02)
--- NOTE | 2022-11-23 05:03 | P.TELICUCN_ITS ---
History of Present Illness Consult details IF CAMERA ACTIVATED, patient seen via real-time interactive audiovisual communication: Camera activated Date Patient Seen: 11/23/22 Chief complaint: resp. distress. Reason for consult: Acute hypoxemia respiratory failure Requesting provider: Kenan Murphy Consent obtained for tele-save all operator care: Yes Patient Location: ICU Provider location (State): [place] Other participants/roles: Bedside RN and Heber Narrative: Patient is a 82 year old male with history of CAD, dementia, and aortic aneyrsym who was brought in by EMS for shortness of breath evaluation. By report patient woke up feeling short of breath and EMS called to the hotel. He was placed on NIVVP but remains hypoxemia on arrival to ER which he was emergently intubated. CXR showed bilateral central hazy opacities. SBP on presentation was in the 190s. Sedated with propofol and fentanyl. Started on lasix and zosyn. Admitted to ICU for further management. [facility] Medical History CAD in [place] artery Cataracts, bilateral (~2019) Dementia (~2018) Myocardial infarction Wears glasses Surgical History Anesthesia H/O heart artery stent (~2017) S/P placement of cardiac pacemaker Family History Family/Other Hemophilia Father No problems noted. Grandfather Hypertension Social History Smoking Status: Former smoker Current Medications Current Medications Medications: Home Medications albuterol sulfate 90 mcg/actuation aerosol inhaler (Proventil HFA) 1 puff inhalation QIDP PRN shortness of breath #2 inhalations 05/18/22 [Rx] amlodipine 5 mg tablet 5 mg PO DAILY #90 tabs 05/18/22 [Rx] acetaminophen 325 mg tablet (Aphen) 650 mg PO Q6H PRN fever or pain #30 tabs 07/21/22 [Rx] mupirocin 2 % topical ointment 1 applic topical DAILY #22 grams 07/21/22 [Rx] fluoxetine 20 mg capsule 20 mg PO QDAY #90 caps 11/09/22 [Rx] Visit Medications (administered) Generic Name Dose Route Start Last Admin Trade Name Donna PRN Reason Stop Dose Admin Propofol 1,000 mg in 100 mls @ 3.062 mls/hr 11/23/22 00:30 11/23/22 01:40 Propofol IV 20 mcg/kg/min TITRATE TOMA 12.247 mls/hr Titration Protocol 5 MCG/KG/MIN Fentanyl 1,000 mcg/ Dextrose 250 mls @ 17.86 mls/hr 11/23/22 01:00 11/23/22 04:40 IV 0.7 mcg/kg/hr TITRATE TOMA 17.86 mls/hr Administration Protocol 0.7 MCG/KG/HR NOREPINEPHRINE BITARTRATE/D5W 4 mg in 250 mls @ 30 mls/hr 11/23/22 00:38 11/23/22 04:21 Levophed IV 12 mcg/min TITRATE TOMA 45 mls/hr Titration Protocol 8 MCG/MIN Exam Vital Signs (past 8 hours): - 11/23/22 00:17 11/23/22 00:21 11/23/22 00:22 Temperature Pulse Rate 83 100 H Respiratory Rate 40 H 43 H Blood Pressure 192/89 H 192/89 H Pulse Oximetry 87 L 84 L Oxygen Delivery Method CPAP 11/23/22 00:22 11/23/22 00:29 11/23/22 00:29 Temperature Pulse Rate 100 H 91 H Respiratory Rate 43 H 35 H Blood Pressure 146/71 H Pulse Oximetry 86 L Oxygen Delivery Method 11/23/22 00:30 11/23/22 00:31 11/23/22 00:31 Temperature Pulse Rate 86 62 Respiratory Rate 25 H Blood Pressure 99/49 L Pulse Oximetry 75 L Oxygen Delivery Method 11/23/22 00:32 11/23/22 00:32 11/23/22 00:33 Temperature Pulse Rate 76 80 Respiratory Rate 21 Blood Pressure 63/35 L Pulse Oximetry 67 L 86 L Oxygen Delivery Method 11/23/22 00:33 11/23/22 00:36 11/23/22 00:36 Temperature Pulse Rate 77 Respiratory Rate Blood Pressure 65/37 L 48/31 L Pulse Oximetry 94 Oxygen Delivery Method 11/23/22 00:39 11/23/22 00:39 11/23/22 00:40 Temperature Pulse Rate 79 Respiratory Rate 27 H Blood Pressure 72/43 L 84/49 L Pulse Oximetry 99 Oxygen Delivery Method 11/23/22 00:40 11/23/22 00:44 11/23/22 00:44 Temperature Pulse Rate 78 85 Respiratory Rate 31 H 12 Blood Pressure 122/86 Pulse Oximetry 99 99 Oxygen Delivery Method 11/23/22 00:46 11/23/22 00:46 11/23/22 00:50 Temperature Pulse Rate 84 79 Respiratory Rate 18 27 H Blood Pressure 143/67 H Pulse Oximetry 99 98 Oxygen Delivery Method 11/23/22 00:50 11/23/22 00:55 11/23/22 00:55 Temperature Pulse Rate 75 Respiratory Rate Blood Pressure 145/66 H 143/65 H Pulse Oximetry 98 Oxygen Delivery Method 11/23/22 01:00 11/23/22 01:00 11/23/22 01:05 Temperature 93.9 F L 95.4 F L Pulse Rate 73 71 Respiratory Rate Blood Pressure 141/65 H Pulse Oximetry 99 100 Oxygen Delivery Method 11/23/22 01:05 11/23/22 01:10 11/23/22 01:10 Temperature 95.5 F L Pulse Rate 73 Respiratory Rate 18 Blood Pressure 140/65 138/65 Pulse Oximetry 100 Oxygen Delivery Method 11/23/22 01:15 11/23/22 01:15 11/23/22 01:20 Temperature 95.4 F L 95.0 F L Pulse Rate 66 62 Respiratory Rate 18 19 Blood Pressure 138/65 Pulse Oximetry 100 100 Oxygen Delivery Method 11/23/22 01:20 11/23/22 01:25 11/23/22 01:25 Temperature 94.8 F L Pulse Rate 63 Respiratory Rate 18 Blood Pressure 141/56 H 147/67 H Pulse Oximetry 99 Oxygen Delivery Method 11/23/22 01:30 11/23/22 01:30 11/23/22 01:35 Temperature 94.5 F L 94.3 F L Pulse Rate 68 68 Respiratory Rate 18 18 Blood Pressure 141/69 H Pulse Oximetry 100 100 Oxygen Delivery Method 11/23/22 01:35 11/23/22 01:40 11/23/22 01:40 Temperature 94.1 F L Pulse Rate 64 Respiratory Rate 18 Blood Pressure 150/67 H 150/70 H Pulse Oximetry 100 Oxygen Delivery Method 11/23/22 01:45 11/23/22 01:45 11/23/22 02:41 Temperature 93.9 F L 93.7 F L Pulse Rate 60 60 Respiratory Rate 19 18 Blood Pressure 135/58 L 136/56 L Pulse Oximetry 99 Oxygen Delivery Method 11/23/22 01:50 11/23/22 01:50 11/23/22 01:55 Temperature 93.9 F L 93.9 F L Pulse Rate 60 61 Respiratory Rate 18 18 Blood Pressure 139/66 Pulse Oximetry 99 99 Oxygen Delivery Method 11/23/22 01:55 11/23/22 02:00 11/23/22 02:00 Temperature 93.9 F L Pulse Rate 60 Respiratory Rate 18 Blood Pressure 137/64 146/67 H Pulse Oximetry 99 Oxygen Delivery Method 11/23/22 02:05 11/23/22 02:05 11/23/22 02:10 Temperature 93.7 F L 93.7 F L Pulse Rate 60 60 Respiratory Rate 18 18 Blood Pressure 143/66 H Pulse Oximetry 100 99 Oxygen Delivery Method 11/23/22 02:10 11/23/22 02:15 11/23/22 02:15 Temperature 93.7 F L Pulse Rate 60 Respiratory Rate 18 Blood Pressure 129/60 151/67 H Pulse Oximetry 100 Oxygen Delivery Method 11/23/22 02:20 11/23/22 02:20 11/23/22 02:25 Temperature 93.7 F L 93.7 F L Pulse Rate 60 60 Respiratory Rate 18 18 Blood Pressure 141/66 H Pulse Oximetry 100 99 Oxygen Delivery Method 11/23/22 02:25 11/23/22 02:30 11/23/22 02:30 Temperature 93.7 F L Pulse Rate 60 Respiratory Rate 18 Blood Pressure 138/65 128/60 Pulse Oximetry 100 Oxygen Delivery Method 11/23/22 02:35 11/23/22 02:35 11/23/22 02:40 Temperature 93.7 F L 93.7 F L Pulse Rate 60 62 Respiratory Rate 18 18 Blood Pressure 130/59 L Pulse Oximetry 100 100 Oxygen Delivery Method 11/23/22 02:40 11/23/22 02:46 11/23/22 02:46 Temperature 93.7 F L Pulse Rate 60 Respiratory Rate 18 Blood Pressure 136/56 L 141/65 H Pulse Oximetry 100 Oxygen Delivery Method 11/23/22 02:50 11/23/22 02:50 11/23/22 02:55 Temperature 93.7 F L 93.9 F L Pulse Rate 63 59 L Respiratory Rate 18 18 Blood Pressure 142/66 H Pulse Oximetry 99 100 Oxygen Delivery Method 11/23/22 02:55 11/23/22 03:00 11/23/22 03:00 Temperature 93.9 F L Pulse Rate 60 Respiratory Rate 18 Blood Pressure 138/64 126/59 L Pulse Oximetry 100 Oxygen Delivery Method 11/23/22 03:05 11/23/22 03:05 11/23/22 03:10 Temperature 94.1 F L 94.1 F L Pulse Rate 60 60 Respiratory Rate 18 18 Blood Pressure 118/70 Pulse Oximetry 100 100 Oxygen Delivery Method 11/23/22 03:10 11/23/22 03:15 11/23/22 03:15 Temperature 94.3 F L Pulse Rate 60 Respiratory Rate 18 Blood Pressure 119/58 L 117/58 L Pulse Oximetry 100 Oxygen Delivery Method 11/23/22 03:20 11/23/22 03:20 11/23/22 03:25 Temperature 94.5 F L 94.6 F L Pulse Rate 60 60 Respiratory Rate 18 18 Blood Pressure 115/56 L Pulse Oximetry 100 100 Oxygen Delivery Method 11/23/22 03:25 11/23/22 03:30 11/23/22 03:30 Temperature 94.6 F L Pulse Rate 60 Respiratory Rate 18 Blood Pressure 115/57 L 117/56 L Pulse Oximetry 100 Oxygen Delivery Method 11/23/22 03:35 11/23/22 03:35 11/23/22 03:40 Temperature 94.8 F L Pulse Rate 61 Respiratory Rate 18 Blood Pressure 131/64 142/66 H Pulse Oximetry 100 Oxygen Delivery Method 11/23/22 03:40 11/23/22 03:45 11/23/22 03:45 Temperature 95.0 F L 95.2 F L Pulse Rate 61 60 Respiratory Rate 18 18 Blood Pressure 127/61 Pulse Oximetry 99 100 Oxygen Delivery Method 11/23/22 03:50 11/23/22 03:50 11/23/22 03:55 Temperature 95.2 F L 95.4 F L Pulse Rate 60 60 Respiratory Rate 18 14 Blood Pressure 121/57 L Pulse Oximetry 100 99 Oxygen Delivery Method 11/23/22 03:55 11/23/22 04:36 11/23/22 04:23 Temperature 95.9 F L 95.7 F L Pulse Rate 64 79 Respiratory Rate 20 26 H Blood Pressure 125/62 154/96 H Pulse Oximetry 99 95 Oxygen Delivery Method 11/23/22 04:30 11/23/22 04:45 11/23/22 04:45 Temperature 95.9 F L 95.9 F L Pulse Rate 69 62 Respiratory Rate 24 20 Blood Pressure 145/86 H 130/60 Pulse Oximetry 100 99 Oxygen Delivery Method 11/23/22 04:54 11/23/22 04:54 11/23/22 05:00 Temperature 95.9 F L Pulse Rate 60 Respiratory Rate 18 Blood Pressure 118/58 L 114/57 L Pulse Oximetry 100 Oxygen Delivery Method 11/23/22 05:00 Temperature 96.1 F L Pulse Rate 60 Respiratory Rate 18 Blood Pressure Pulse Oximetry 99 Oxygen Delivery Method Oxygen Delivery Method CPAP Narrative Exam Narrative: Intubated and sedated Objective Labs 11/23/22 02:58 11/23/22 00:41 Labs: Laboratory Results - last 24 hr 11/23/22 11/23/22 11/23/22 00:41 00:41 00:41 WBC 12.2 H RBC 3.07 L Hgb 6.5 L* Hct 21.4 L MCV 69.6 L MCH 21.2 L MCHC 30.4 RDW 20.5 H Plt Count 329 Neut % (Auto) 78.3 H Lymph % (Auto) 14.2 L [place] % (Auto) 4.4 Eos % (Auto) 2.7 Baso % (Auto) 0.4 Neut # (Auto) 9600 H Lymph # (Auto) 1700 [place] # (Auto) 500 Eos # (Auto) 300 Baso # (Auto) 0 RBC Morphology See below Polychromasia 1+ H Hypochromasia 1+ H Poikilocytosis 1+ H Anisocytosis 2+ H Microcytosis 2+ H PT 12.6 INR 1.1 APTT 29 ABG pH ABG pCO2 ABG pO2 ABG HCO3 ABG Total CO2 ABG O2 Saturation ABG Base Excess FiO2 Sodium 135 L Potassium 3.6 Chloride 102 Carbon Dioxide 19 L BUN 19 Creatinine 1.10 Estimated GFR > 60 BUN/Creatinine Ratio 17.3 Glucose 196 H Calcium 8.2 L Magnesium 1.9 Total Bilirubin 0.5 AST 25 ALT 20 Alkaline Phosphatase 105 Total Creatine Kinase 86 CK-MB (CK-2) TNP CK-MB (CK-2) Rel Index TNP Troponin I 0.015 NT-Pro-B Natriuret Pep 1730 H Total Protein 7.2 Albumin 3.9 Globulin 3.3 Albumin/Globulin Ratio 1.2 Lipase 123 Procalcitonin Chlamy pneumoniae PCR Adenovirus (PCR) B. pertussis DNA (PCR) B.parapertussis DNA PCR Coronavirus OC43 (PCR) Coronavirus HKU1 (PCR) Coronavirus 229E (PCR) SARS-CoV-2 (PCR) Coronavirus NL63 (PCR) Human Metapneumovir PCR Influenza Type A (PCR) Influenza Type B (PCR) M. pneumoniae (PCR) Parainfluenza 1 (PCR) Parainfluenza 2 (PCR) Parainfluenza 3 (PCR) Parainfluenza 4 (PCR) RSV (PCR) Entero/Rhino (PCR) Blood Type Antibody Screen Crossmatch 11/23/22 11/23/22 11/23/22 01:08 01:31 01:40 WBC RBC Hgb Hct MCV MCH MCHC RDW Plt Count Neut % (Auto) Lymph % (Auto) [place] % (Auto) Eos % (Auto) Baso % (Auto) Neut # (Auto) Lymph # (Auto) [place] # (Auto) Eos # (Auto) Baso # (Auto) RBC Morphology Polychromasia Hypochromasia Poikilocytosis Anisocytosis Microcytosis PT INR APTT ABG pH 7.33 L ABG pCO2 35.9 ABG pO2 114 H ABG HCO3 19 L ABG Total CO2 36 H ABG O2 Saturation 98 ABG Base Excess -7.0 L FiO2 100 Sodium Potassium Chloride Carbon Dioxide BUN Creatinine Estimated GFR BUN/Creatinine Ratio Glucose Calcium Magnesium Total Bilirubin AST ALT Alkaline Phosphatase Total Creatine Kinase CK-MB (CK-2) CK-MB (CK-2) Rel Index Troponin I NT-Pro-B Natriuret Pep Total Protein Albumin Globulin Albumin/Globulin Ratio Lipase Procalcitonin Chlamy pneumoniae PCR Not detected Adenovirus (PCR) Not detected B. pertussis DNA (PCR) Not detected B.parapertussis DNA PCR Not detected Coronavirus OC43 (PCR) Not detected Coronavirus HKU1 (PCR) Not detected Coronavirus 229E (PCR) Not detected SARS-CoV-2 (PCR) Not detected Coronavirus NL63 (PCR) Not detected Human Metapneumovir PCR Not detected Influenza Type A (PCR) Not detected Influenza Type B (PCR) Not detected M. pneumoniae (PCR) Not detected Parainfluenza 1 (PCR) Not detected Parainfluenza 2 (PCR) Not detected Parainfluenza 3 (PCR) Not detected Parainfluenza 4 (PCR) Not detected RSV (PCR) Not detected Entero/Rhino (PCR) Not detected Blood Type O Positive Antibody Screen Negative Crossmatch See Detail 11/23/22 11/23/22 11/23/22 02:18 02:58 02:58 WBC RBC Hgb 6.9 L* Hct 22.4 L MCV MCH MCHC RDW Plt Count Neut % (Auto) Lymph % (Auto) [place] % (Auto) Eos % (Auto) Baso % (Auto) Neut # (Auto) Lymph # (Auto) [place] # (Auto) Eos # (Auto) Baso # (Auto) RBC Morphology Polychromasia Hypochromasia Poikilocytosis Anisocytosis Microcytosis PT INR APTT ABG pH ABG pCO2 ABG pO2 ABG HCO3 ABG Total CO2 ABG O2 Saturation ABG Base Excess FiO2 Sodium Potassium Chloride Carbon Dioxide BUN Creatinine Estimated GFR BUN/Creatinine Ratio Glucose Calcium Magnesium Total Bilirubin AST ALT Alkaline Phosphatase Total Creatine Kinase CK-MB (CK-2) CK-MB (CK-2) Rel Index Troponin I 0.060 H NT-Pro-B Natriuret Pep Total Protein Albumin Globulin Albumin/Globulin Ratio Lipase Procalcitonin Chlamy pneumoniae PCR Adenovirus (PCR) B. pertussis DNA (PCR) B.parapertussis DNA PCR Coronavirus OC43 (PCR) Coronavirus HKU1 (PCR) Coronavirus 229E (PCR) SARS-CoV-2 (PCR) Cancelled Coronavirus NL63 (PCR) Human Metapneumovir PCR Influenza Type A (PCR) Influenza Type B (PCR) M. pneumoniae (PCR) Parainfluenza 1 (PCR) Parainfluenza 2 (PCR) Parainfluenza 3 (PCR) Parainfluenza 4 (PCR) RSV (PCR) Entero/Rhino (PCR) Blood Type Antibody Screen Crossmatch 11/23/22 02:58 WBC RBC Hgb Hct MCV MCH MCHC RDW Plt Count Neut % (Auto) Lymph % (Auto) [place] % (Auto) Eos % (Auto) Baso % (Auto) Neut # (Auto) Lymph # (Auto) [place] # (Auto) Eos # (Auto) Baso # (Auto) RBC Morphology Polychromasia Hypochromasia Poikilocytosis Anisocytosis Microcytosis PT INR APTT ABG pH ABG pCO2 ABG pO2 ABG HCO3 ABG Total CO2 ABG O2 Saturation ABG Base Excess FiO2 Sodium Potassium Chloride Carbon Dioxide BUN Creatinine Estimated GFR BUN/Creatinine Ratio Glucose Calcium Magnesium Total Bilirubin AST ALT Alkaline Phosphatase Total Creatine Kinase CK-MB (CK-2) CK-MB (CK-2) Rel Index Troponin I NT-Pro-B Natriuret Pep Total Protein Albumin Globulin Albumin/Globulin Ratio Lipase Procalcitonin 0.11 Chlamy pneumoniae PCR Adenovirus (PCR) B. pertussis DNA (PCR) B.parapertussis DNA PCR Coronavirus OC43 (PCR) Coronavirus HKU1 (PCR) Coronavirus 229E (PCR) SARS-CoV-2 (PCR) Coronavirus NL63 (PCR) Human Metapneumovir PCR Influenza Type A (PCR) Influenza Type B (PCR) M. pneumoniae (PCR) Parainfluenza 1 (PCR) Parainfluenza 2 (PCR) Parainfluenza 3 (PCR) Parainfluenza 4 (PCR) RSV (PCR) Entero/Rhino (PCR) Blood Type Antibody Screen Crossmatch Assessment & Plan Assessment & Plan narrative: NEURO: # Acute encephalopathy -- Secondary to sedation -- On propofol and fentanyl -- RASS goal -1 to 0 -- Daily SAT -- Seek early mobility RESP: # Acute hypoxemia respiratory failure -- Secondary to pulmonary edema w/ possible aspiration. Other ddx includes acute PE given sudden onset. -- Check CTA PE study -- Cont zosyn -- Follow cx -- HOB elevation -- Aspiration precaution -- Goal SpO2 > 88% CVS: # Shock -- Secondary to sepsis vs positive pressure vs sedatives -- Added stress dose steroids -- Sepsis [place] as below -- MAP goal > 65 ID: # SEpsis -- Check blood, UA, and resp cx -- On zosyn -- Added linezolid -- Check MRSA swab -- Follow up cx HEME: # Anemia -- No overt sign of bleed -- Transfuse 1 U PRBC -- Trend CBC -- Goal Hb > 7 ENDO: -- Goal BS < 180 D/w bedside RN Time Spent With Patient Time with patient: 30 to 49 minutes with 50% spent counseling/coordinating care
[2022-11-23] MEDS: NOREPINEPHRINE BITARTRATE/D5W 4 MG/250 ML PLAST..BAG 41.25 MG IV ×2 (05:51→11:14)
[2022-11-23] MEDS: CHLORHEXIDINE GLUCONATE 15 ML CUP PO ×4 (06:01→23:20)
[2022-11-23] MEDS: HYDROCORTISONE 100 MG/2 ML VIAL 50 MG IV ×4 (06:01→23:20)
[2022-11-23] MEDS: LINEZOLID 600 MG/300 ML IV.SOLN IV (06:11)
--- NOTE | 2022-11-23 06:47 | PC.NURSE ---
at 0640 a lady by the name of Maren Carmen came asking to see the patient, Maren stated that the patient had a boat but is unable to live on the boat, and that is why he has been living at the [facility] and a lady name Serena has been letting him stay there. When asked if she knew if he had other family members, she stated he has a son who is a twecker. She stated that he also goes by Calvin, this information was pasted along to MILKA Mar
--- NOTE | 2022-11-23 06:59 | DI.ECHO.S_ITS ---
:Name: JACOBY APONTE Study Date: 11/23/2022 Height: 69 in : :[place] [employer] ReadingLocation: Weight: 225 lb : : Gender: Male BSA: 2.2 m2 : :: 1940 Age: 82 yrs BP: 113/57 mmHg: :Reason For Study: CORONARY ARTERY DISEASE, ELEVATED TROPONIN,, : :CONGESTIVE HEAR FAILURE : :Ordering Physician: DONNA, : :KEENAN Performed By: Charissa Christianson : :Referring: KEENAN THOMPSON : + + Interpretation Summary The left ventricle is mildly dilated. Left ventricular systolic function is mildly reduced. The ejection fraction is estimated to be 45-50%. There is hypokinesis to akinesis along the inferior and inferolaterlal segments. No prior echo for comparison. Diastolic parameters suggest a relaxation abnormality of the left ventricle, consistent with probable normal filling pressures. The right ventricle is normal size. There is a pacemaker lead in the right ventricle. Right ventricular systolic function is at the lower limits of normal. Right ventricular systolic pressure is estimated to be 26 mmHg plus the clinically estimated CVP which cannot be estimated on this exam. The left atrium is mildly dilated. Right atrial size is normal. There is mild to moderate mitral regurgitation. There is mild to moderate tricuspid regurgitation. There is no other significant valvular heart disease. The aortic root is borderline dilated. The ascending aorta is mildly enlarged. Procedure: A two-dimensional transthoracic echocardiogram with color flow and Doppler was performed. The study quality was technically adequate. There is no prior echocardiogram noted for this patient. Patient was scanned and a mostly supine and slightly tilted left sided position. Patient was on vent for exam. The heart rate ranged between 64-71 bpm during the study. Left Ventricle: The left ventricle is mildly dilated. The estimated left ventricular end diastolic volume is 142 ml. Left ventricular systolic function is mildly reduced. The ejection fraction is estimated to be 45-50%. There is hypokinesis to akinesis along the inferior and inferolaterlal segments. No prior echo for comparison. Diastolic parameters suggest a relaxation abnormality of the left ventricle, consistent with probable normal filling pressures. Right Ventricle: The right ventricle is normal size. There is a pacemaker lead in the right ventricle. Right ventricular systolic function is at the lower limits of normal. Atria: The left atrium is mildly dilated. Right atrial size is normal. There is a catheter/pacemaker lead seen in the right atrium. There is no Doppler evidence for an interatrial shunt. Mitral Valve: There is mild mitral annular calcification. There is mild to moderate mitral regurgitation. Aortic Valve: The aortic valve is mildly calcified. There is no aortic valve stenosis. There is trace aortic regurgitation. Tricuspid Valve: The tricuspid valve leaflets are thin and pliable. There is mild to moderate tricuspid regurgitation. Right ventricular systolic pressure is estimated to be 26 mmHg plus the clinically estimated CVP which cannot be estimated on this exam. Pulmonic Valve: The pulmonic valve is not well seen, but is grossly normal. There is mild pulmonic regurgitation. There is no other significant valvular heart disease. Great Vessels: The aortic root is borderline dilated. The ascending aorta is mildly enlarged. Inspiratory collapse cannot be assessed because of mechanical ventilation, thus CVP cannot be estimated.. Pericardium/ Pleura There is no pericardial effusion. There is no pleural effusion. MMode/2D Measurements & Calculations LVIDd: 6.3 cm LVOT diam: 2.3 cm LVIDs: 4.8 cm Ao root diam: 4.1 cm FS: 23.2 % asc Aorta Diam: 4.0 cm EPSS: 1.4 cm IVSd: 1.0 cm LVPWd: 0.81 cm LV osman. diameter/BSA (cm/m^2): 2.9 LV sys. diameter/BSA (cm/m^2): 2.2 LA A2 area: 23.3 cm2 RA long axis: 5.3 cm LA A4 area: 26.1 cm2 RA area: 15.4 cm2 LA length (vol): 5.7 cm RA vol: 37.8 ml LA vol: 90.0 ml RA : 17.4 ml/m2 LA vol index: 41.4 ml/m2 IVC diam: 2.1 cm RVD1 (basal): 3.5 cm RVD2 (mid): 2.7 cm TAPSE: 1.6 cm Doppler Measurements & Calculations Ao V2 max: 151.1 cm/sec LVOT Max Valentín: 107.9 cm/sec Ao V2 mean: 106.3 cm/sec LV V1 max P.7 mmHg Ao max P.1 mmHg LV V1 VTI: 23.2 cm Ao mean P.0 mmHg ABBEY(I,D): 3.4 cm2 Ao V2 VTI: 28.7 cm ABBEY(V,D): 3.0 cm2 sev ratio: 0.81 ABBEY indexed to BSA (cm^2/m^2): 1.6 MV E max valentín: 70.9 cm/sec TR max valentín: 259.2 cm/sec MV A max valentín: 82.0 cm/sec TR max P.9 mmHg MV E/A: 0.86 PA V2 max: 110.2 cm/sec Med Peak E' Valentín: 3.5 cm/sec PA V2 mean: 77.4 cm/sec E/E' med: 20.4 PA mean P.6 mmHg Lat Peak E' Valentín: 11.7 cm/sec PA pr(Accel): 39.6 mmHg E/E' lat: 6.0 E/e' average: 13.2 MV dec time: 0.24 sec SV(LVOT): 98.6 ml Reading Physician:08:39 AM
[2022-11-23] MEDS: propofoL 1,000 MG/100 ML VIAL 12.247 MG IV ×3 (07:53→23:19)
[2022-11-23] MEDS: PIPERACILLIN/TAZO 3.375 GM in SODIUM CHLORIDE 0.9% 100 ML IV ×3 (08:21→23:42)
[2022-11-23] MEDS: PANTOPRAZOLE 40 MG VIAL IV ×2 (08:33→20:47)
[2022-11-23 09:25] LABS: Basophils Absolute Auto 0 /uL (0-100); Basophils Percent Auto 0.1 % (0-2); Eosinophils Absolute Auto 100 /uL (0-450); Eosinophils Percent Auto 0.5 % (2-4); Hematocrit 26.3 % (41-53); Hemoglobin 8.3 g/dL (13.5-17.5); Lymphocytes Absolute Auto 600 /uL (1100-4500); Lymphocytes Percent Auto 3.4 % (25-40); Mean Corpuscular HGB Conc 31.6 % (30-36); Mean Corpuscular Hemoglobin 22.6 PG (26-34); Mean Corpuscular Volume 71.6 fL (80-100); Monocytes Absolute Auto 1200 /uL (0-900); Monocytes Percent Auto 6.7 % (3-14); Neutrophils Absolute Auto 16600 /uL (1500-7000); Neutrophils Percent Auto 89.3 % (50-75); Platelet Count 306 X10^3/uL (150-400); Red Blood Cell Count 3.67 X10^6/uL (4.5-5.9); Red Cell Distribution Width 21.3 % (11.6-14.8); White Blood Cell Count 18.6 X10^3/uL (4.5-11.0)
[2022-11-23 09:26] LABS: Add Manual Diff / Slide Review SLIDE REVIEW
--- NOTE | 2022-11-23 09:41 | DI.US.S_ITS ---
PROCEDURE: US PERIPH VENOUS LOW EXTREM BI INDICATIONS: LE swelling, r/o DVT TECHNIQUE: Real-time imaging, as well as color and pulse Doppler interrogation, were performed of the deep veins of both legs from the inguinal ligament to the popliteal fossa. COMPARISON: None. FINDINGS: Right: The common femoral, femoral and popliteal veins are normally compressible, and free of intraluminal thrombus. Color and pulse Doppler demonstrate normal phasic intravascular flow. There is normal augmentation response to distal compression maneuver. Left: The common femoral, femoral and popliteal veins are normally compressible, and free of intraluminal thrombus. Color and pulse Doppler demonstrate normal phasic intravascular flow. There is normal augmentation response to distal compression maneuver. IMPRESSION: No evidence of DVT in visualized bilateral lower extremity veins. Dictated by: Frank Barnes M.D. on 11/23/2022 at 11:22 Approved by: Frank Barnes M.D. on 11/23/2022 at 11:23
[2022-11-23 09:42] LABS: Anisocytosis 2+; Hypochromasia 2+; Microcytosis 1+; Poikilocytosis 1+; RBC Morphology See
[2022-11-23 09:45] LABS: BUN Creatinine Ratio 16.5 (6-22); Blood Urea Nitrogen 18 mg/dL (9-20); Carbon Dioxide 20 mmol/L (22-32); Chloride 101 mmol/L (98-107); Estimated Glomerular Filt Rate > 60 mL/min (>60); Glucose 199 mg/dL (80-110); HEMOLYSIS < 15 (0-50); Potassium 3.7 mmol/L (3.4-5.1); Sodium 132 mmol/L (137-145)
[2022-11-23 09:45] LABS: HCO3 ABG 19 mmol/L (23-27); Oxygen Saturation ABG 98 % (95-100); PCO2 ABG 25.3 mmHg (35-45); PO2 ABG 92 mmHg (80-100); TCO2 ABG 20 mmol/L (23-27); pH ABG 7.49 (7.35-7.45)
[2022-11-23 09:46] LABS: Fractionated Inspired Oxygen 35
--- NOTE | 2022-11-23 09:57 | PM.PN.EICU ---
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 Initial CXR notable for bilateral hazy opacities.?Labs notable for WBC 12.2. hgb 6.5, plts 329. Na 135, cl 19, creatinine 1.10. LFTS normal. Trop 0.01->0.06. BNP 1730. He was intubated and placed on propofol and Fentanyl gtt and admitted to ICU for further management. Course complicated by?hypotension,?required to be initiated on vasopressors to maintain MAP >65, started on empiric IV antibiotics due to concern for sepsis 2/2 to presumed aspiration PNA, received total 2 unit of PRBC for drop in Hb of 6.3. This morning, still remains intubated, sedated with Propofol gtt and Fentanyl gtt. During SAT, mental status intact, follows commands. On FiO2 35%, PEEP of 5. Afebrile. SBT on hold since still requiring significant amount of vasopressors and some concern re: GI bleed. Current Medications Current Medications Medications: Home Medications albuterol sulfate 90 mcg/actuation aerosol inhaler (Proventil HFA) 1 puff inhalation QIDP PRN shortness of breath #2 inhalations 05/18/22 [Rx Confirmed 11/23/22] amlodipine 5 mg tablet 5 mg PO DAILY #90 tabs 05/18/22 [Rx Confirmed 11/23/22] acetaminophen 325 mg tablet (Aphen) 650 mg PO Q6H PRN fever or pain #30 tabs 07/21/22 [Rx Confirmed 11/23/22] mupirocin 2 % topical ointment 1 applic topical DAILY #22 grams 07/21/22 [Rx Confirmed 11/23/22] fluoxetine 20 mg capsule 20 mg PO QDAY #90 caps 11/09/22 [Rx Confirmed 11/23/22] latanoprost 0.005 % eye drops 1 drp EYE-BOTH ONCE HS 11/23/22 [History Confirmed 11/23/22] lidocaine HCl 2 % mucosal solution (Lidocaine Viscous) 1 applic mucous membrane DAILY 11/23/22 [History Confirmed 11/23/22] Visit Medications (administered) Generic Name Dose Route Start Last Admin Trade Name Freq PRN Reason Stop Dose Admin Chlorhexidine Gluconate 15 ml 11/23/22 06:00 11/23/22 06:01 Chlorhexidine Gluconate 15 Ml Cup PO 15 ml Q6HR TOMA Administration Hydrocortisone 50 mg 11/23/22 06:00 11/23/22 06:01 Hydrocortisone 100 Mg/2 Ml Vial IV 50 mg Q6HR TOMA Administration Propofol 1,000 mg in 100 mls @ 3.062 mls/hr 11/23/22 00:30 11/23/22 07:53 Propofol IV 20 mcg/kg/min TITRATE TOMA 12.247 mls/hr Administration Protocol 5 MCG/KG/MIN Fentanyl 1,000 mcg/ Dextrose 250 mls @ 17.86 mls/hr 11/23/22 01:00 11/23/22 04:40 IV 0.7 mcg/kg/hr TITRATE TOMA 17.86 mls/hr Administration Protocol 0.7 MCG/KG/HR NOREPINEPHRINE BITARTRATE/D5W 4 mg in 250 mls @ 30 mls/hr 11/23/22 00:38 11/23/22 05:51 Levophed IV 11 mcg/min TITRATE TOMA 41.25 mls/hr Administration Protocol 8 MCG/MIN Piperacillin Sod/Tazobactam 100 mls @ 25 mls/hr 11/23/22 08:30 11/23/22 08:21 Sod 3.375 gm/ Sodium Chloride IV 25 mls/hr Q8H TOMA Administration Linezolid 600 mg in 300 mls @ 600 mls/hr 11/23/22 05:19 11/23/22 06:41 Zyvox IV Infused Q12H TOMA Infusion Vasopressin 40 unit/ Sodium 102 mls @ 4.5 mls/hr 11/23/22 05:22 11/23/22 06:20 Chloride IV Not Given CONT TOMA Pantoprazole Sodium 40 mg 11/23/22 09:00 11/23/22 08:33 Pantoprazole 40 Mg Vial IV 40 mg BID TOMA Administration Objective Ventilator Parameters: Ventilator Settings FiO2 40 RT Vent Frequency 18 Ventilator Tidal Volume 500 Exhaled Positive End Expiratory 5 Pressure Inspiratory Phase Time 0.9 Patient Position HOB >= 30 degrees Labs 11/23/22 09:13 11/23/22 09:13 Labs: Laboratory Results - last 24 hr 11/23/22 11/23/22 11/23/22 00:41 00:41 00:41 WBC 12.2 H RBC 3.07 L Hgb 6.5 L* Hct 21.4 L MCV 69.6 L MCH 21.2 L MCHC 30.4 RDW 20.5 H Plt Count 329 Neut % (Auto) 78.3 H Lymph % (Auto) 14.2 L [place] % (Auto) 4.4 Eos % (Auto) 2.7 Baso % (Auto) 0.4 Neut # (Auto) 9600 H Lymph # (Auto) 1700 [place] # (Auto) 500 Eos # (Auto) 300 Baso # (Auto) 0 RBC Morphology See below Polychromasia 1+ H Hypochromasia 1+ H Poikilocytosis 1+ H Anisocytosis 2+ H Microcytosis 2+ H PT 12.6 INR 1.1 APTT 29 ABG pH ABG pCO2 ABG pO2 ABG HCO3 ABG Total CO2 ABG O2 Saturation ABG Base Excess FiO2 Sodium 135 L Potassium 3.6 Chloride 102 Carbon Dioxide 19 L BUN 19 Creatinine 1.10 Estimated GFR > 60 BUN/Creatinine Ratio 17.3 Glucose 196 H Calcium 8.2 L Magnesium 1.9 Total Bilirubin 0.5 AST 25 ALT 20 Alkaline Phosphatase 105 Total Creatine Kinase 86 CK-MB (CK-2) TNP CK-MB (CK-2) Rel Index TNP Troponin I 0.015 NT-Pro-B Natriuret Pep 1730 H Total Protein 7.2 Albumin 3.9 Globulin 3.3 Albumin/Globulin Ratio 1.2 Lipase 123 Procalcitonin Chlamy pneumoniae PCR Adenovirus (PCR) B. pertussis DNA (PCR) B.parapertussis DNA PCR Coronavirus OC43 (PCR) Coronavirus HKU1 (PCR) Coronavirus 229E (PCR) SARS-CoV-2 (PCR) Coronavirus NL63 (PCR) Human Metapneumovir PCR Influenza Type A (PCR) Influenza Type B (PCR) M. pneumoniae (PCR) Parainfluenza 1 (PCR) Parainfluenza 2 (PCR) Parainfluenza 3 (PCR) Parainfluenza 4 (PCR) RSV (PCR) Entero/Rhino (PCR) Blood Type Antibody Screen Crossmatch 11/23/22 11/23/22 11/23/22 01:08 01:31 01:40 WBC RBC Hgb Hct MCV MCH MCHC RDW Plt Count Neut % (Auto) Lymph % (Auto) [place] % (Auto) Eos % (Auto) Baso % (Auto) Neut # (Auto) Lymph # (Auto) [place] # (Auto) Eos # (Auto) Baso # (Auto) RBC Morphology Polychromasia Hypochromasia Poikilocytosis Anisocytosis Microcytosis PT INR APTT ABG pH 7.33 L ABG pCO2 35.9 ABG pO2 114 H ABG HCO3 19 L ABG Total CO2 36 H ABG O2 Saturation 98 ABG Base Excess -7.0 L FiO2 100 Sodium Potassium Chloride Carbon Dioxide BUN Creatinine Estimated GFR BUN/Creatinine Ratio Glucose Calcium Magnesium Total Bilirubin AST ALT Alkaline Phosphatase Total Creatine Kinase CK-MB (CK-2) CK-MB (CK-2) Rel Index Troponin I NT-Pro-B Natriuret Pep Total Protein Albumin Globulin Albumin/Globulin Ratio Lipase Procalcitonin Chlamy pneumoniae PCR Not detected Adenovirus (PCR) Not detected B. pertussis DNA (PCR) Not detected B.parapertussis DNA PCR Not detected Coronavirus OC43 (PCR) Not detected Coronavirus HKU1 (PCR) Not detected Coronavirus 229E (PCR) Not detected SARS-CoV-2 (PCR) Not detected Coronavirus NL63 (PCR) Not detected Human Metapneumovir PCR Not detected Influenza Type A (PCR) Not detected Influenza Type B (PCR) Not detected M. pneumoniae (PCR) Not detected Parainfluenza 1 (PCR) Not detected Parainfluenza 2 (PCR) Not detected Parainfluenza 3 (PCR) Not detected Parainfluenza 4 (PCR) Not detected RSV (PCR) Not detected Entero/Rhino (PCR) Not detected Blood Type O Positive Antibody Screen Negative Crossmatch See Detail 11/23/22 11/23/22 11/23/22 02:18 02:58 02:58 WBC RBC Hgb 6.9 L* Hct 22.4 L MCV MCH MCHC RDW Plt Count Neut % (Auto) Lymph % (Auto) [place] % (Auto) Eos % (Auto) Baso % (Auto) Neut # (Auto) Lymph # (Auto) [place] # (Auto) Eos # (Auto) Baso # (Auto) RBC Morphology Polychromasia Hypochromasia Poikilocytosis Anisocytosis Microcytosis PT INR APTT ABG pH ABG pCO2 ABG pO2 ABG HCO3 ABG Total CO2 ABG O2 Saturation ABG Base Excess FiO2 Sodium Potassium Chloride Carbon Dioxide BUN Creatinine Estimated GFR BUN/Creatinine Ratio Glucose Calcium Magnesium Total Bilirubin AST ALT Alkaline Phosphatase Total Creatine Kinase CK-MB (CK-2) CK-MB (CK-2) Rel Index Troponin I 0.060 H NT-Pro-B Natriuret Pep Total Protein Albumin Globulin Albumin/Globulin Ratio Lipase Procalcitonin Chlamy pneumoniae PCR Adenovirus (PCR) B. pertussis DNA (PCR) B.parapertussis DNA PCR Coronavirus OC43 (PCR) Coronavirus HKU1 (PCR) Coronavirus 229E (PCR) SARS-CoV-2 (PCR) Cancelled Coronavirus NL63 (PCR) Human Metapneumovir PCR Influenza Type A (PCR) Influenza Type B (PCR) M. pneumoniae (PCR) Parainfluenza 1 (PCR) Parainfluenza 2 (PCR) Parainfluenza 3 (PCR) Parainfluenza 4 (PCR) RSV (PCR) Entero/Rhino (PCR) Blood Type Antibody Screen Crossmatch 11/23/22 11/23/22 11/23/22 02:58 09:13 09:13 WBC 18.6 H D RBC 3.67 L Hgb 8.3 L Hct 26.3 L MCV 71.6 L MCH 22.6 L MCHC 31.6 RDW 21.3 H Plt Count 306 Neut % (Auto) 89.3 H Lymph % (Auto) 3.4 L [place] % (Auto) 6.7 Eos % (Auto) 0.5 L Baso % (Auto) 0.1 Neut # (Auto) 76267 H Lymph # (Auto) 600 L [place] # (Auto) 1200 H Eos # (Auto) 100 Baso # (Auto) 0 RBC Morphology See Polychromasia Hypochromasia 2+ H Poikilocytosis 1+ H Anisocytosis 2+ H Microcytosis 1+ H PT INR APTT ABG pH ABG pCO2 ABG pO2 ABG HCO3 ABG Total CO2 ABG O2 Saturation ABG Base Excess FiO2 Sodium 132 L Potassium 3.7 Chloride 101 Carbon Dioxide 20 L BUN 18 Creatinine 1.09 Estimated GFR > 60 BUN/Creatinine Ratio 16.5 Glucose 199 H Calcium 8.0 L Magnesium Total Bilirubin AST ALT Alkaline Phosphatase Total Creatine Kinase CK-MB (CK-2) CK-MB (CK-2) Rel Index Troponin I NT-Pro-B Natriuret Pep Total Protein Albumin Globulin Albumin/Globulin Ratio Lipase Procalcitonin 0.11 Chlamy pneumoniae PCR Adenovirus (PCR) B. pertussis DNA (PCR) B.parapertussis DNA PCR Coronavirus OC43 (PCR) Coronavirus HKU1 (PCR) Coronavirus 229E (PCR) SARS-CoV-2 (PCR) Coronavirus NL63 (PCR) Human Metapneumovir PCR Influenza Type A (PCR) Influenza Type B (PCR) M. pneumoniae (PCR) Parainfluenza 1 (PCR) Parainfluenza 2 (PCR) Parainfluenza 3 (PCR) Parainfluenza 4 (PCR) RSV (PCR) Entero/Rhino (PCR) Blood Type Antibody Screen Crossmatch 11/23/22 09:25 WBC RBC Hgb Hct MCV MCH MCHC RDW Plt Count Neut % (Auto) Lymph % (Auto) [place] % (Auto) Eos % (Auto) Baso % (Auto) Neut # (Auto) Lymph # (Auto) [place] # (Auto) Eos # (Auto) Baso # (Auto) RBC Morphology Polychromasia Hypochromasia Poikilocytosis Anisocytosis Microcytosis PT INR APTT ABG pH 7.49 H ABG pCO2 25.3 L ABG pO2 92 ABG HCO3 19 L ABG Total CO2 20 L ABG O2 Saturation 98 ABG Base Excess -4.0 L FiO2 35 Sodium Potassium Chloride Carbon Dioxide BUN Creatinine Estimated GFR BUN/Creatinine Ratio Glucose Calcium Magnesium Total Bilirubin AST ALT Alkaline Phosphatase Total Creatine Kinase CK-MB (CK-2) CK-MB (CK-2) Rel Index Troponin I NT-Pro-B Natriuret Pep Total Protein Albumin Globulin Albumin/Globulin Ratio Lipase Procalcitonin Chlamy pneumoniae PCR Adenovirus (PCR) B. pertussis DNA (PCR) B.parapertussis DNA PCR Coronavirus OC43 (PCR) Coronavirus HKU1 (PCR) Coronavirus 229E (PCR) SARS-CoV-2 (PCR) Coronavirus NL63 (PCR) Human Metapneumovir PCR Influenza Type A (PCR) Influenza Type B (PCR) M. pneumoniae (PCR) Parainfluenza 1 (PCR) Parainfluenza 2 (PCR) Parainfluenza 3 (PCR) Parainfluenza 4 (PCR) RSV (PCR) Entero/Rhino (PCR) Blood Type Antibody Screen Crossmatch Exam Vital Signs (past 8 hours): - 11/23/22 02:41 11/23/22 02:00 11/23/22 02:00 Temperature 93.7 F L 93.9 F L Pulse Rate 60 60 Respiratory Rate 18 18 Blood Pressure 136/56 L 146/67 H Pulse Oximetry 99 Oxygen Delivery Method 11/23/22 02:05 11/23/22 02:05 11/23/22 02:10 Temperature 93.7 F L 93.7 F L Pulse Rate 60 60 Respiratory Rate 18 18 Blood Pressure 143/66 H Pulse Oximetry 100 99 Oxygen Delivery Method 11/23/22 02:10 11/23/22 02:15 11/23/22 02:15 Temperature 93.7 F L Pulse Rate 60 Respiratory Rate 18 Blood Pressure 129/60 151/67 H Pulse Oximetry 100 Oxygen Delivery Method 11/23/22 02:20 11/23/22 02:20 11/23/22 02:25 Temperature 93.7 F L 93.7 F L Pulse Rate 60 60 Respiratory Rate 18 18 Blood Pressure 141/66 H Pulse Oximetry 100 99 Oxygen Delivery Method 11/23/22 02:25 11/23/22 02:30 11/23/22 02:30 Temperature 93.7 F L Pulse Rate 60 Respiratory Rate 18 Blood Pressure 138/65 128/60 Pulse Oximetry 100 Oxygen Delivery Method 11/23/22 02:35 11/23/22 02:35 11/23/22 02:40 Temperature 93.7 F L 93.7 F L Pulse Rate 60 62 Respiratory Rate 18 18 Blood Pressure 130/59 L Pulse Oximetry 100 100 Oxygen Delivery Method 11/23/22 02:40 11/23/22 02:46 11/23/22 02:46 Temperature 93.7 F L Pulse Rate 60 Respiratory Rate 18 Blood Pressure 136/56 L 141/65 H Pulse Oximetry 100 Oxygen Delivery Method 11/23/22 02:50 11/23/22 02:50 11/23/22 02:55 Temperature 93.7 F L 93.9 F L Pulse Rate 63 59 L Respiratory Rate 18 18 Blood Pressure 142/66 H Pulse Oximetry 99 100 Oxygen Delivery Method 11/23/22 02:55 11/23/22 03:00 11/23/22 03:00 Temperature 93.9 F L Pulse Rate 60 Respiratory Rate 18 Blood Pressure 138/64 126/59 L Pulse Oximetry 100 Oxygen Delivery Method 11/23/22 03:05 11/23/22 03:05 11/23/22 03:10 Temperature 94.1 F L 94.1 F L Pulse Rate 60 60 Respiratory Rate 18 18 Blood Pressure 118/70 Pulse Oximetry 100 100 Oxygen Delivery Method 11/23/22 03:10 11/23/22 03:15 11/23/22 03:15 Temperature 94.3 F L Pulse Rate 60 Respiratory Rate 18 Blood Pressure 119/58 L 117/58 L Pulse Oximetry 100 Oxygen Delivery Method 11/23/22 03:20 11/23/22 03:20 11/23/22 03:25 Temperature 94.5 F L 94.6 F L Pulse Rate 60 60 Respiratory Rate 18 18 Blood Pressure 115/56 L Pulse Oximetry 100 100 Oxygen Delivery Method 11/23/22 03:25 11/23/22 03:30 11/23/22 03:30 Temperature 94.6 F L Pulse Rate 60 Respiratory Rate 18 Blood Pressure 115/57 L 117/56 L Pulse Oximetry 100 Oxygen Delivery Method 11/23/22 03:35 11/23/22 03:35 11/23/22 03:40 Temperature 94.8 F L Pulse Rate 61 Respiratory Rate 18 Blood Pressure 131/64 142/66 H Pulse Oximetry 100 Oxygen Delivery Method 11/23/22 03:40 11/23/22 03:45 11/23/22 03:45 Temperature 95.0 F L 95.2 F L Pulse Rate 61 60 Respiratory Rate 18 18 Blood Pressure 127/61 Pulse Oximetry 99 100 Oxygen Delivery Method 11/23/22 03:50 11/23/22 03:50 11/23/22 03:55 Temperature 95.2 F L 95.4 F L Pulse Rate 60 60 Respiratory Rate 18 14 Blood Pressure 121/57 L Pulse Oximetry 100 99 Oxygen Delivery Method 11/23/22 03:55 11/23/22 04:36 11/23/22 04:23 Temperature 95.9 F L 95.7 F L Pulse Rate 64 79 Respiratory Rate 20 26 H Blood Pressure 125/62 154/96 H Pulse Oximetry 99 95 Oxygen Delivery Method 11/23/22 04:30 11/23/22 04:45 11/23/22 04:45 Temperature 95.9 F L 95.9 F L Pulse Rate 69 62 Respiratory Rate 24 20 Blood Pressure 145/86 H 130/60 Pulse Oximetry 100 99 Oxygen Delivery Method 11/23/22 04:54 11/23/22 04:54 11/23/22 05:00 Temperature 95.9 F L Pulse Rate 60 Respiratory Rate 18 Blood Pressure 118/58 L 114/57 L Pulse Oximetry 100 Oxygen Delivery Method 11/23/22 05:00 11/23/22 05:00 11/23/22 05:30 Temperature 96.1 F L 96.4 F L Pulse Rate 60 62 Respiratory Rate 18 17 Blood Pressure 110/54 L Pulse Oximetry 99 Oxygen Delivery Method Mechanical Ventilation 11/23/22 05:43 11/23/22 05:15 11/23/22 05:15 Temperature 96.4 F L 96.1 F L Pulse Rate 60 62 Respiratory Rate 19 18 Blood Pressure 113/57 L 123/60 Pulse Oximetry 99 Oxygen Delivery Method 11/23/22 05:30 11/23/22 05:30 11/23/22 05:37 Temperature 96.3 F L Pulse Rate 66 Respiratory Rate 17 Blood Pressure 126/60 110/54 L Pulse Oximetry 98 Oxygen Delivery Method 11/23/22 05:37 11/23/22 05:44 11/23/22 05:44 Temperature 96.4 F L 96.4 F L Pulse Rate 60 60 Respiratory Rate 16 18 Blood Pressure 113/57 L Pulse Oximetry 98 99 Oxygen Delivery Method 11/23/22 05:45 11/23/22 05:45 11/23/22 06:00 Temperature 96.4 F L Pulse Rate 60 Respiratory Rate 17 Blood Pressure 112/56 L 121/59 L Pulse Oximetry 98 Oxygen Delivery Method 11/23/22 06:00 11/23/22 05:59 11/23/22 08:21 Temperature 96.6 F L 96.6 F L 98.1 F Pulse Rate 63 63 62 Respiratory Rate 22 22 23 Blood Pressure 121/59 L 126/61 Pulse Oximetry 98 Oxygen Delivery Method 11/23/22 06:15 11/23/22 06:15 11/23/22 06:30 Temperature 97.0 F L Pulse Rate 61 Respiratory Rate 18 Blood Pressure 109/53 L 107/53 L Pulse Oximetry 98 Oxygen Delivery Method 11/23/22 06:30 11/23/22 06:45 11/23/22 06:45 Temperature 97.2 F L 97.3 F L Pulse Rate 60 60 Respiratory Rate 24 29 H Blood Pressure 112/56 L Pulse Oximetry 97 98 Oxygen Delivery Method 11/23/22 07:00 11/23/22 07:00 11/23/22 07:15 Temperature 97.5 F L 97.7 F Pulse Rate 67 64 Respiratory Rate 19 19 Blood Pressure 143/64 H Pulse Oximetry 97 98 Oxygen Delivery Method 11/23/22 07:15 11/23/22 07:30 11/23/22 07:30 Temperature 97.7 F Pulse Rate 63 Respiratory Rate 18 Blood Pressure 128/62 125/60 Pulse Oximetry 97 Oxygen Delivery Method 11/23/22 07:45 11/23/22 07:45 11/23/22 08:00 Temperature 97.9 F Pulse Rate 66 Respiratory Rate 19 Blood Pressure 139/68 130/63 Pulse Oximetry 97 Oxygen Delivery Method 11/23/22 08:00 11/23/22 08:15 11/23/22 08:15 Temperature 97.9 F 98.1 F Pulse Rate 65 63 Respiratory Rate 18 18 Blood Pressure 126/61 Pulse Oximetry 96 96 Oxygen Delivery Method 11/23/22 08:30 11/23/22 08:30 11/23/22 08:45 Temperature 98.1 F Pulse Rate 61 Respiratory Rate 18 Blood Pressure 128/66 125/62 Pulse Oximetry 96 Oxygen Delivery Method 11/23/22 08:45 11/23/22 08:00 11/23/22 09:00 Temperature 98.1 F Pulse Rate 60 Respiratory Rate 19 Blood Pressure 124/61 Pulse Oximetry 97 Oxygen Delivery Method Mechanical Ventilation 11/23/22 09:00 Temperature 98.2 F Pulse Rate 60 Respiratory Rate 18 Blood Pressure Pulse Oximetry 97 Oxygen Delivery Method Oxygen Delivery Method Mechanical Ventilation Narrative Exam Narrative: Intubated, sedated, comfortable on the vent. CHEST: equal rise of chest.? HEART: Sinus tachycardia on tele ABD: Non distended CN: Moving all extremities spontaneously Quality TeleICU VTE Deep Vein Thrombosis/Pulmonary Embolism Present on Admission: No Stress Ulcer Stress ulcer prophylaxis: yes and on full treatment dose Assessment & Plan Assessment & Plan narrative: # Acute Hypoxic Respiratory failure / CHF exacerbation / ?Aspiration PNA: - Most likely from CHF exacerbation/pulmonary edema (BNP 1730, CXR with B/L diffuse opacities) but can't rule out early PNA (WBC 18, concern for aspiration per clinical history). - PE is less likely given significant improvement in oxygenation (FiO2 down to 35% in the absence of anticoagulation). Per nursing staff, the patient is not stable enough to go for CT. Will hold off on CT chest for now. F/up on venous duplex of both legs to r/o DVT - Continue to wean the vent as tolerated. Passed SAT. SBT is on hold currently as a patient still requiring a significant amount of vasopressors and has concern for GI bleed. - Continue to diurese as hydrodynamics allow. Goal to seek net negative daily fluid balance of -500cc to -1 L/day.??F/up on TTE. F/up progress with repeat CXR.? - Reviewed vent settings and most recent ABG (pH 7.48, PCO2 25, PaO2 90, bicarb 19) on FiO2 35%, PEEP 5, tv 500 (too high), RR 18. Adjust settings, decrease tv to 6cc/kg IBW (450cc).?F/up with ABG in a couple of hours. - C/w vent support per lung protective strategy (TV 6cc/kg by IBW, plat pressure < 30, PaO2 60-80 mm Hg, SaO2 > 92%) and c/w ABCDE bundle while intubated. - On Propofol gtt and Fentanyl gtt for sedation/pain control. Goal to keep RAAS 0 to -1. - C/w daily sedation vacation (SAT) and vent weaning as tolerated. - Evaluate tomorrow with SAT and SBT. When hemodynamically more stable, passed SBT with good mentation, and has adequate airway protective reflexes - will consider extubation. Shock / Aspiration PNA: - Can't rule out sepsis due to uptrending WBC, and concern for aspiration PNA on presentation. - Afebrile but has worsening leukocytosis (could be contributed by steroids started on admission). F/up on blood cultures X 2, UA with urine culture, sputum cultures. Add Procalcitonin. - Monitor markers of tissue perfusion (lactate clearance, base deficit, ScvO2, mental status, urine out). - Cover with empiric antibiotics (Linezolid Zosyn) pending cultures. D/c linezolid if MRSA screen negative. - Titrate?pressors (Norepinephrine) to keep MAP > 65. Add vasopressin if necessary. On stress dose steroids. - De-escalate?antibiotics in the next 24-48 hours if cultures remain negative and Procalcitonin wnl. Acute on chronic anemia / GI bleed: - Per RN, still has intermittent coffee ground output from OG. Required 2 units of PRBC overnight. F/up on post-transfusion CBC, transfuse for Hb <7.0. - C/w PPI BID. Recommend formal GI consultation to evaluate for EGD prior to extubation. ICU Core bundle / Best practices: # FEN: NPO due to concern for GI bleed. Minimize IVF since has CHF exacerbation. # Glucose: fairly controlled. C/w accu checks q6 hours and SSI. BG goal 140-180 # Prophylaxis: SCDs for DVT prophylaxis, PPI for stress ulcer prophylaxis # Lines/tubes: PIV, Damian, ET tube, OG tube, RI IJ CVC # CODE STATUS: Full code # Disposition: Remains in ICU Above plan was discussed with rounding team including hospitalist, bedside RN, respiratory therapist, and pharmacist during tele-ICU multidisciplinary rounds this morning. We will continue to follow. Please call us if any additional questions
[2022-11-23 10:01] LABS: Procalcitonin 0.43 ng/mL (<0.5)
[2022-11-23 10:23] LABS: Troponin I 0.249 ng/mL (0.01-0.034)
[2022-11-23 10:52] LABS: MRSA (Nasal) PCR Not Detected (Not Detect)
--- NOTE | 2022-11-23 11:57 | DIET.CONS2 ---
Dietary Inpatient Consultation Note Admission Date: 11/23/2022 02:40 RD consulted for NPO on vent status. Pt with coffee ground fluids returning from OG. Pt with hgb 6.8 receiving 2U prbc's. Pt on pressors to maintain MAP >65. Pt not appropriate for artificial nutrition today. Will review with medical team tomorrow. Diet: 11/23/22 00:42 NPO Diet Diet Modifications: NPO Type: NPO except for Meds Electronically Signed by: Lara Dixon 11/23/22 11:57 Clinical Dietitian [address] [id number]
--- NOTE | 2022-11-23 12:40 | CM.DANOTE ---
Patient is an 82 yo male who was admitted on 11/23/22 for SOB/Resp Distress. Pt has [facility] M[facility] and [facility] for insurance and his PCP is Dr. Dain Laughlin. EMR was reviewed. Per MD, pt with hx of dementia, aneurysm, SOB and was admitted for acute resp failure, shock, anemia with poss GI Bleed. Pt currently intubated and no plan for extubation today at this time. SW met bedside with pt's grandson Willard ([phone]) and pt's ex-Dtr claudy (Willard's mom) Lakeisha and pt's friend/community support person Pedro Joy ([phone]). They confirm they are not aware of any formal DPOA as pt had previously assigned his son (pt only has one child and not ) but then went to court and revoked as pt and son are estranged and per family and friend they hate each other and son reportedly has hx of BARBARA. They confirm that pt has dementia with some memory issues but is fairly independent with ADLs. Pt uses a walking stick for ambulation, feeds himself, does not drive and relies on others, completes his own hygiene care and can use the microwave for other meals. Pt has been residing at [facility] in [place] for the past 9 months and the End Frazer Serena ([phone]) and Pedro have been pt's primary supports and pt has breakfast provided by [facility] and Pedro transports pt to his appointments and to eat sometimes. Pt has started being somewhat more forgetful. Bri and ex-Dtr claudy state that they have worked with [facility] multiple times in attempts to get pt into Assisted Living or Adult Family Home but at the last min pt would refuse. Grandreilly and Lakeisha confirm they have not had much contact with the pt in the past few months but that Grandson is his closest relative and they historically have had a great relationship together. Grandreilly has a disability of some kind as he has a Service Dog but is supportive and willing to be involved. Plan: SW to follow closely for eventual attempts at weaning trials and extubation towards determining d/c planning needs of return to [facility] with local community supports vs SNF. Pt's [facility] auth would be needed if SNF. RILEY Munoz Discharge Planning/Care Management CM Discharge Assessment Start: 11/23/22 12:38 Freq: Status: Active Protocol: Document 11/23/22 12:38 BF (Rec: 11/23/22 12:40 BF [id number]) Discharge Planning Assessment Assigned Slurry Control Tender RILEY Manning DPOA/Assigned Designee Name none Advance Directives? No Advance Directives on File No History Provided By Family Member,Friend,Medical Record Has Patient been admitted in last 30 No days? Prior Living Arrangements Other Comment Living at [facility] Household Members none Type of transporation used prior to Relies on Others admit Comment local community members provide transport Independent with ADL's Yes: somewhat, friends keep an eye on him Is patient alert and oriented? No: some dementia memory issues Needs Assistance With Meal Prep,Managing Medications ,Home Chores / Shopping Caregiver for Another No DME Already Rented / Owned Cane Patient/Family Preference Nursing Home Facility,Home with Home Health Comment Pending pt's progress after extubation Barriers to Discharge Yes Discharge Plan Nursing Home Facility Transportation Arrangement Pending progress, local friends can transport or SNF facility van Additional Comment Pending exutbation and needs Whiteboard Updated in Patient Room with Yes name and ext. # of Slurry Control Tender Review Status In Process Please Provide Date Initial DC 11/23/22 Assessment Was Performed Next Review Type Continued Stay Review
--- NOTE | 2022-11-23 17:22 | P.PN_ITS ---
Subjective Subjective Interval history: 82 M admitted early this morning with shock, respiratory failure. Remains intubated and sedated this morning, unable to add history. Patient's grandson and daughter in law at bedside today, along with a friend of the patient whom has more recent contact. Please see social work note for more in-depth details. Over the course of the day, his pressor requirements are a bit improved. He was started on stress dose steroids by tele-conference translator. H/h responded to 2 U PRBC. Troponin did bump to 0.249 but improved on repeat. TTE pending. CTA deferred given low probability for PE, DVT study was negative. Exam Vital Signs (past 8 hours): - 11/23/22 09:30 11/23/22 09:47 11/23/22 09:47 Temperature 98.2 F 98.2 F Pulse Rate 60 60 Respiratory Rate 18 19 Blood Pressure 130/60 Pulse Oximetry 98 98 Oxygen Delivery Method 11/23/22 10:00 11/23/22 10:00 11/23/22 10:30 Temperature 98.2 F Pulse Rate 60 Respiratory Rate 18 Blood Pressure 119/56 L 124/58 L Pulse Oximetry 97 Oxygen Delivery Method 11/23/22 10:30 11/23/22 11:00 11/23/22 11:00 Temperature 98.4 F 98.4 F Pulse Rate 60 60 Respiratory Rate 18 18 Blood Pressure 123/57 L Pulse Oximetry 97 97 Oxygen Delivery Method 11/23/22 11:30 11/23/22 11:30 11/23/22 12:00 Temperature 98.4 F Pulse Rate 65 Respiratory Rate 23 Blood Pressure 138/66 124/58 L Pulse Oximetry 96 Oxygen Delivery Method 11/23/22 12:00 11/23/22 12:08 11/23/22 12:30 Temperature 98.4 F Pulse Rate 60 Respiratory Rate 18 Blood Pressure 136/60 Pulse Oximetry 95 Oxygen Delivery Method Mechanical Ventilation 11/23/22 12:30 11/23/22 13:00 11/23/22 13:00 Temperature 98.2 F 98.2 F Pulse Rate 60 66 Respiratory Rate 18 18 Blood Pressure 127/70 Pulse Oximetry 95 95 Oxygen Delivery Method 11/23/22 13:30 11/23/22 13:30 11/23/22 14:00 Temperature 98.2 F Pulse Rate 64 Respiratory Rate 18 Blood Pressure 135/62 133/63 Pulse Oximetry 95 Oxygen Delivery Method 11/23/22 14:00 11/23/22 14:30 11/23/22 14:30 Temperature 98.2 F 98.2 F Pulse Rate 69 71 Respiratory Rate 18 18 Blood Pressure 132/64 Pulse Oximetry 95 95 Oxygen Delivery Method 11/23/22 15:00 11/23/22 15:00 11/23/22 16:00 Temperature 98.2 F Pulse Rate 67 Respiratory Rate 18 Blood Pressure 127/62 Pulse Oximetry 95 Oxygen Delivery Method Mechanical Ventilation 11/23/22 15:30 11/23/22 15:30 11/23/22 16:00 Temperature 98.2 F Pulse Rate 61 Respiratory Rate 18 Blood Pressure 127/64 133/63 Pulse Oximetry 96 Oxygen Delivery Method 11/23/22 16:00 11/23/22 16:30 11/23/22 16:30 Temperature 98.2 F 98.1 F Pulse Rate 60 61 Respiratory Rate 18 18 Blood Pressure 130/62 Pulse Oximetry 95 95 Oxygen Delivery Method 11/23/22 17:00 11/23/22 17:00 Temperature 98.1 F Pulse Rate 60 Respiratory Rate 18 Blood Pressure 117/58 L Pulse Oximetry 96 Oxygen Delivery Method Oxygen Delivery Method Mechanical Ventilation Narrative Exam Narrative: GEN: intubated and sedated HEENT: moist mucous membranes, PERRL NECK: trachea midline, no JVD PULM: intubated, coarse breath sounds CV: regular rate and rhythm, no murmurs ABD: soft, nontender, nondistended, no organomegaly EXT: warm and well perfused with no edema NEURO: intubated, sedated Objective Labs 11/23/22 09:13 11/23/22 09:13 Labs: Laboratory Results - last 24 hr 11/23/22 11/23/22 11/23/22 00:41 00:41 00:41 WBC 12.2 H RBC 3.07 L Hgb 6.5 L* Hct 21.4 L MCV 69.6 L MCH 21.2 L MCHC 30.4 RDW 20.5 H Plt Count 329 Neut % (Auto) 78.3 H Lymph % (Auto) 14.2 L Mclean % (Auto) 4.4 Eos % (Auto) 2.7 Baso % (Auto) 0.4 Neut # (Auto) 9600 H Lymph # (Auto) 1700 Mclean # (Auto) 500 Eos # (Auto) 300 Baso # (Auto) 0 RBC Morphology See below Polychromasia 1+ H Hypochromasia 1+ H Poikilocytosis 1+ H Anisocytosis 2+ H Microcytosis 2+ H PT 12.6 INR 1.1 APTT 29 ABG pH ABG pCO2 ABG pO2 ABG HCO3 ABG Total CO2 ABG O2 Saturation ABG Base Excess FiO2 Sodium 135 L Potassium 3.6 Chloride 102 Carbon Dioxide 19 L BUN 19 Creatinine 1.10 Estimated GFR > 60 BUN/Creatinine Ratio 17.3 Glucose 196 H Calcium 8.2 L Magnesium 1.9 Total Bilirubin 0.5 AST 25 ALT 20 Alkaline Phosphatase 105 Total Creatine Kinase 86 CK-MB (CK-2) TNP CK-MB (CK-2) Rel Index TNP Troponin I 0.015 NT-Pro-B Natriuret Pep 1730 H Total Protein 7.2 Albumin 3.9 Globulin 3.3 Albumin/Globulin Ratio 1.2 Lipase 123 Procalcitonin Nasal Screen MRSA (PCR) Chlamy pneumoniae PCR Adenovirus (PCR) B. pertussis DNA (PCR) B.parapertussis DNA PCR Coronavirus OC43 (PCR) Coronavirus HKU1 (PCR) Coronavirus 229E (PCR) SARS-CoV-2 (PCR) Coronavirus NL63 (PCR) Human Metapneumovir PCR Influenza Type A (PCR) Influenza Type B (PCR) M. pneumoniae (PCR) Parainfluenza 1 (PCR) Parainfluenza 2 (PCR) Parainfluenza 3 (PCR) Parainfluenza 4 (PCR) RSV (PCR) Entero/Rhino (PCR) Blood Type Antibody Screen Crossmatch 11/23/22 11/23/22 11/23/22 01:08 01:31 01:40 WBC RBC Hgb Hct MCV MCH MCHC RDW Plt Count Neut % (Auto) Lymph % (Auto) Mclean % (Auto) Eos % (Auto) Baso % (Auto) Neut # (Auto) Lymph # (Auto) Mclean # (Auto) Eos # (Auto) Baso # (Auto) RBC Morphology Polychromasia Hypochromasia Poikilocytosis Anisocytosis Microcytosis PT INR APTT ABG pH 7.33 L ABG pCO2 35.9 ABG pO2 114 H ABG HCO3 19 L ABG Total CO2 36 H ABG O2 Saturation 98 ABG Base Excess -7.0 L FiO2 100 Sodium Potassium Chloride Carbon Dioxide BUN Creatinine Estimated GFR BUN/Creatinine Ratio Glucose Calcium Magnesium Total Bilirubin AST ALT Alkaline Phosphatase Total Creatine Kinase CK-MB (CK-2) CK-MB (CK-2) Rel Index Troponin I NT-Pro-B Natriuret Pep Total Protein Albumin Globulin Albumin/Globulin Ratio Lipase Procalcitonin Nasal Screen MRSA (PCR) Chlamy pneumoniae PCR Not detected Adenovirus (PCR) Not detected B. pertussis DNA (PCR) Not detected B.parapertussis DNA PCR Not detected Coronavirus OC43 (PCR) Not detected Coronavirus HKU1 (PCR) Not detected Coronavirus 229E (PCR) Not detected SARS-CoV-2 (PCR) Not detected Coronavirus NL63 (PCR) Not detected Human Metapneumovir PCR Not detected Influenza Type A (PCR) Not detected Influenza Type B (PCR) Not detected M. pneumoniae (PCR) Not detected Parainfluenza 1 (PCR) Not detected Parainfluenza 2 (PCR) Not detected Parainfluenza 3 (PCR) Not detected Parainfluenza 4 (PCR) Not detected RSV (PCR) Not detected Entero/Rhino (PCR) Not detected Blood Type O Positive Antibody Screen Negative Crossmatch See Detail 11/23/22 11/23/22 11/23/22 02:18 02:58 02:58 WBC RBC Hgb 6.9 L* Hct 22.4 L MCV MCH MCHC RDW Plt Count Neut % (Auto) Lymph % (Auto) Mclean % (Auto) Eos % (Auto) Baso % (Auto) Neut # (Auto) Lymph # (Auto) Mclean # (Auto) Eos # (Auto) Baso # (Auto) RBC Morphology Polychromasia Hypochromasia Poikilocytosis Anisocytosis Microcytosis PT INR APTT ABG pH ABG pCO2 ABG pO2 ABG HCO3 ABG Total CO2 ABG O2 Saturation ABG Base Excess FiO2 Sodium Potassium Chloride Carbon Dioxide BUN Creatinine Estimated GFR BUN/Creatinine Ratio Glucose Calcium Magnesium Total Bilirubin AST ALT Alkaline Phosphatase Total Creatine Kinase CK-MB (CK-2) CK-MB (CK-2) Rel Index Troponin I 0.060 H NT-Pro-B Natriuret Pep Total Protein Albumin Globulin Albumin/Globulin Ratio Lipase Procalcitonin Nasal Screen MRSA (PCR) Chlamy pneumoniae PCR Adenovirus (PCR) B. pertussis DNA (PCR) B.parapertussis DNA PCR Coronavirus OC43 (PCR) Coronavirus HKU1 (PCR) Coronavirus 229E (PCR) SARS-CoV-2 (PCR) Cancelled Coronavirus NL63 (PCR) Human Metapneumovir PCR Influenza Type A (PCR) Influenza Type B (PCR) M. pneumoniae (PCR) Parainfluenza 1 (PCR) Parainfluenza 2 (PCR) Parainfluenza 3 (PCR) Parainfluenza 4 (PCR) RSV (PCR) Entero/Rhino (PCR) Blood Type Antibody Screen Crossmatch 11/23/22 11/23/22 11/23/22 02:58 08:49 09:13 WBC 18.6 H D RBC 3.67 L Hgb 8.3 L Hct 26.3 L MCV 71.6 L MCH 22.6 L MCHC 31.6 RDW 21.3 H Plt Count 306 Neut % (Auto) 89.3 H Lymph % (Auto) 3.4 L Mclean % (Auto) 6.7 Eos % (Auto) 0.5 L Baso % (Auto) 0.1 Neut # (Auto) 36150 H Lymph # (Auto) 600 L Mclean # (Auto) 1200 H Eos # (Auto) 100 Baso # (Auto) 0 RBC Morphology See Polychromasia Hypochromasia 2+ H Poikilocytosis 1+ H Anisocytosis 2+ H Microcytosis 1+ H PT INR APTT ABG pH ABG pCO2 ABG pO2 ABG HCO3 ABG Total CO2 ABG O2 Saturation ABG Base Excess FiO2 Sodium Potassium Chloride Carbon Dioxide BUN Creatinine Estimated GFR BUN/Creatinine Ratio Glucose Calcium Magnesium Total Bilirubin AST ALT Alkaline Phosphatase Total Creatine Kinase CK-MB (CK-2) CK-MB (CK-2) Rel Index Troponin I NT-Pro-B Natriuret Pep Total Protein Albumin Globulin Albumin/Globulin Ratio Lipase Procalcitonin 0.11 Nasal Screen MRSA (PCR) Not detected Chlamy pneumoniae PCR Adenovirus (PCR) B. pertussis DNA (PCR) B.parapertussis DNA PCR Coronavirus OC43 (PCR) Coronavirus HKU1 (PCR) Coronavirus 229E (PCR) SARS-CoV-2 (PCR) Coronavirus NL63 (PCR) Human Metapneumovir PCR Influenza Type A (PCR) Influenza Type B (PCR) M. pneumoniae (PCR) Parainfluenza 1 (PCR) Parainfluenza 2 (PCR) Parainfluenza 3 (PCR) Parainfluenza 4 (PCR) RSV (PCR) Entero/Rhino (PCR) Blood Type Antibody Screen Crossmatch 11/23/22 11/23/22 11/23/22 09:13 09:13 09:25 WBC RBC Hgb Hct MCV MCH MCHC RDW Plt Count Neut % (Auto) Lymph % (Auto) Mclean % (Auto) Eos % (Auto) Baso % (Auto) Neut # (Auto) Lymph # (Auto) Mclean # (Auto) Eos # (Auto) Baso # (Auto) RBC Morphology Polychromasia Hypochromasia Poikilocytosis Anisocytosis Microcytosis PT INR APTT ABG pH 7.49 H ABG pCO2 25.3 L ABG pO2 92 ABG HCO3 19 L ABG Total CO2 20 L ABG O2 Saturation 98 ABG Base Excess -4.0 L FiO2 35 Sodium 132 L Potassium 3.7 Chloride 101 Carbon Dioxide 20 L BUN 18 Creatinine 1.09 Estimated GFR > 60 BUN/Creatinine Ratio 16.5 Glucose 199 H Calcium 8.0 L Magnesium Total Bilirubin AST ALT Alkaline Phosphatase Total Creatine Kinase CK-MB (CK-2) CK-MB (CK-2) Rel Index Troponin I 0.249 H* NT-Pro-B Natriuret Pep Total Protein Albumin Globulin Albumin/Globulin Ratio Lipase Procalcitonin 0.43 Nasal Screen MRSA (PCR) Chlamy pneumoniae PCR Adenovirus (PCR) B. pertussis DNA (PCR) B.parapertussis DNA PCR Coronavirus OC43 (PCR) Coronavirus HKU1 (PCR) Coronavirus 229E (PCR) SARS-CoV-2 (PCR) Coronavirus NL63 (PCR) Human Metapneumovir PCR Influenza Type A (PCR) Influenza Type B (PCR) M. pneumoniae (PCR) Parainfluenza 1 (PCR) Parainfluenza 2 (PCR) Parainfluenza 3 (PCR) Parainfluenza 4 (PCR) RSV (PCR) Entero/Rhino (PCR) Blood Type Antibody Screen Crossmatch [facility] Medical History CAD in [place] artery Cataracts, bilateral (~2019) Dementia (~2019) Myocardial infarction Wears glasses Surgical History Anesthesia H/O heart artery stent (~2018) S/P placement of cardiac pacemaker Family History Family/Other Hemophilia Father No problems noted. Grandfather Hypertension Social History household members: none Smoking Status: Former smoker Assessment & Plan Assessment & Plan narrative: 1. Acute hypoxemic respiratory failure - likely secondary to acute on chronic diastolic heart failure with flash pulmonary edema - low suspicion for PE, DVT study negative today. - continue diuretic therapy. TTE performed, pending read. - continue empiric antibiotics for possible pneumonia, MRSA swab negative can stop linezolid but continue zosyn. 2. Shock, likely hypovolemic - likely hypovolemia with anemia along with sedation - continue to wean from levophed as tolerated, improved from 11 to 8 this afternoon - continue antibiotics, follow up cultures. - appreciate tele-conference translator consultation - s/p 2 U PRBC transfusion, continue to trend h/h. - hold home antihypertensives. 3. Anemia, micorcytic, unknown chronicity, probable acute blood loss anemia -suspect secondary to GI bleed, unknown chronicity -ordered for PPI BID -once stabilized will consider egd/colonoscopy -trend hemoglobin closely 4. CAD s/p stents and s/p pacemaker -no antiplatelets for now given bleed 5. Dementia -patient has been declining cognitively for quite some time. He has moved into a house of his son's but then moved. He does have some paranoid behavior or beliefs based on discussion with family. Per grandson he was admitted to [facility] about 4 years ago, unclear circumstances but was there for ? 1 month. Will obtain formal cognitive testing after extubation. 6. Myocardial injury, improved - troponin increased to 0.249, then downtrended this afternoon. EKG without acute ischemia. Likely in setting of respiratory failure and shock. Discussed and obtained further history from patient's grandson at bedside. Discussed with tele-conference translator, bedside RN. Code: Full, surrogate is patient's Grandson at this time. Patient's son is reportedly not involved with patient's care per grandson. I spent 35 minutes providing critical care management this patient. This excludes time spent in performing separately billed procedures. Quality VTE Deep Vein Thrombosis/Pulmonary Embolism Present on Admission: No
[2022-11-23 17:24] LABS: Troponin I 0.233 ng/mL (0.01-0.034)
--- NOTE | 2022-11-23 17:30 | PC.NURSE ---
Addendum entered by Lena Paul R.N. 11/23/22 18:32: Troponin trending down from 0.249 to 0.233 provider aware, will continue to monitor Original Note: Pt resting in bed, sedated and vented, currently on propofol, fentanyl, norepi, and abx (see emar for rates) vent settings: TV 420, FiO2 30%, RR 18, PEEP 5, sat 97%. Norepi titrated to MAP <65. Q2H turns pt bridged with pillows using bed to turn pt , restraints in place with no signs of injury. Bed low and locked, bed rails up for safety, will continue to monitor
[2022-11-23] MEDS: NOREPINEPHRINE BITARTRATE/D5W 4 MG/250 ML PLAST..BAG 26.25 MG IV (18:22)
--- NOTE | 2022-11-23 20:22 | PM.ICURNDS ---
- Date Patient Seen: 11/23/22 Time Patient Seen: 20:22 :: This patient was seen via real time interactive two-way audiovisual telecommunication. Note: No acute issues during the day. On propofol 20 mcg and fentanyl 0.7. Levophed down to 12 mcg. Venous duplex negative for DVT. Patient is awake and follow simple commands. ABG reviewed and will decrease RR to 14. Repeat ABG in the morning. D/w RN at bedside.
[2022-11-23 20:45] LABS: TCO2 ABG 20 mmol/L (23-27)
[2022-11-23] MEDS: LATANOPROST 0.005% OPHTH 2.5 ML 1 DROPS EYE-BOTH (20:47)
[2022-11-23 22:02] LABS: Acinetobacter calcoa-baumannii Not Detected (Not Detect); Bacteroides fragilis Not Detected (Not Detect); Candida albicans Not Detected (Not Detect); Candida auris Not Detected (Not Detect); Candida glabrata Not Detected (Not Detect); Candida krusei Not Detected (Not Detect); Candida parapsilosis Not Detected (Not Detect); Candida tropicalis Not Detected (Not Detect); Cryptococcus neoformans/gatti Not Detected (Not Detect); Enterobacter cloacae complex Not Detected (Not Detect); Enterobacterales Not Detected (Not Detect); Enterococcus faecalis Not Detected (Not Detect); Enterococcus faecium Not Detected (Not Detect); Haemophilus influenzae Not Detected (Not Detect); Klebsiella aerogenes Not Detected (Not Detect); Listeria monocytogenes Not Detected (Not Detect); Neisseria meningitidis Not Detected (Not Detect); Proteus species Not Detected (Not Detect); Pseudomonas aeruginosa Not Detected (Not Detect); Salmonella species Not Detected (Not Detect); Serratia marcescens Not Detected (Not Detect); Staphylococcus epidermidis DETECTED (Not Detect); Staphylococcus lugdunensis Not Detected (Not Detect); Staphylococcus species DETECTED (Not Detect); Stenotrophomonas maltophilia Not Detected (Not Detect); Streptococcus agalactiae (Gr B Not Detected (Not Detect); Streptococcus pneumonia Not Detected (Not Detect); Streptococcus pyogenes (Gr A) Not Detected (Not Detect); Streptococcus species Not Detected (Not Detect)
[2022-11-24] VITALS (125 sets, daily range): BP systolic 78–151; BP diastolic 38–77; PULSE 60–76; RESP 9–22; TEMP 36–36.9; O2SAT 90–100
[2022-11-24 04:42] LABS: Add Manual Diff / Slide Review NO; Basophils Absolute Auto 100 /uL (0-100); Basophils Percent Auto 0.6 % (0-2); Eosinophils Absolute Auto 0 /uL (0-450); Hematocrit 24.3 % (41-53); Hemoglobin 7.7 g/dL (13.5-17.5); Lymphocytes Absolute Auto 700 /uL (1100-4500); Lymphocytes Percent Auto 3.8 % (25-40); Mean Corpuscular HGB Conc 31.9 % (30-36); Mean Corpuscular Hemoglobin 22.5 PG (26-34); Mean Corpuscular Volume 70.7 fL (80-100); Monocytes Absolute Auto 1300 /uL (0-900); Monocytes Percent Auto 6.6 % (3-14); Neutrophils Absolute Auto 17200 /uL (1500-7000); Platelet Count 281 X10^3/uL (150-400); Red Blood Cell Count 3.43 X10^6/uL (4.5-5.9); Red Cell Distribution Width 21.4 % (11.6-14.8); White Blood Cell Count 19.4 X10^3/uL (4.5-11.0)
[2022-11-24 04:56] LABS: Alanine Aminotransferase 16 IU/L (<50); Albumin 3.4 g/dL (3.5-5.0); Albumin Globulin Ratio 1.2 (1.0-2.8); Alkaline Phosphatase 76 U/L (38-126); Aspartate Aminotransferase 17 IU/L (17-59); BUN Creatinine Ratio 13.8 (6-22); Bilirubin Total 0.9 mg/dL (0.2-1.3); Blood Urea Nitrogen 15 mg/dL (9-20); Calcium 7.9 mg/dL (8.4-10.2); Carbon Dioxide 22 mmol/L (22-32); Chloride 103 mmol/L (98-107); Estimated Glomerular Filt Rate > 60 mL/min (>60); Globulin 2.9 g/dL (1.7-4.1); Glucose 141 mg/dL (80-110); HEMOLYSIS < 15 (0-50); Potassium 3.6 mmol/L (3.4-5.1); Sodium 133 mmol/L (137-145); Total Protein 6.3 g/dL (6.3-8.2)
[2022-11-24 05:22] LABS: HCO3 ABG 23 mmol/L (23-27); Oxygen Saturation ABG 94 % (95-100); PCO2 ABG 38.5 mmHg (35-45); PO2 ABG 71 mmHg (80-100); TCO2 ABG 24 mmol/L (23-27); pH ABG 7.38 (7.35-7.45)
[2022-11-24 05:23] LABS: Fractionated Inspired Oxygen 25
[2022-11-24] MEDS: CHLORHEXIDINE GLUCONATE 15 ML CUP PO ×3 (05:36→17:44)
[2022-11-24] MEDS: HYDROCORTISONE 100 MG/2 ML VIAL 50 MG IV (05:37)
[2022-11-24] MEDS: propofoL 1,000 MG/100 ML VIAL 12.247 MG IV ×3 (05:38→23:38)
[2022-11-24 05:41] LABS: Anisocytosis 2+; Hypochromasia 1+; Microcytosis 2+; Poikilocytosis 1+
[2022-11-24] MEDS: PIPERACILLIN/TAZO 3.375 GM in SODIUM CHLORIDE 0.9% 100 ML IV (07:41)
[2022-11-24] MEDS: NOREPINEPHRINE BITARTRATE/D5W 4 MG/250 ML PLAST..BAG 11.25 MG IV (07:42)
[2022-11-24] MEDS: fentaNYL 1,000 MCG in DEXTROSE 5% IN WATER 230 ML 17.86 MCG IV ×2 (07:42→23:55)
[2022-11-24] MEDS: PANTOPRAZOLE 40 MG VIAL IV ×2 (08:17→21:20)
--- NOTE | 2022-11-24 08:22 | PC.NURSE ---
Addendum entered by Lena Paul R.N. 11/24/22 18:48: Pt remains sedated and on vent with settings TV 420 FiO2 25% PEEP 5 RR 14, scant to moderate amounts of thick/wahl sputum suctioned from ET. O2 sat 99%, Q2H turns with arms and legs bridged on pillows, using bed to turn pt. Will attempt SBT again tomorrow. Bed low and locked, will continue to monitor. Addendum entered by Lena Paul R.N. 11/24/22 12:22: 1145 Pt became extremely agitated, removed R hand IV, kept trying to remove ETT, Dr Carlson notified, recommended to restart sedation at previous settings for Propofol and Fentanyl, discontinuing Precedex. Pt is currently sedated with Norepi infusing at 2mcg. Will continue to monitor Addendum entered by Lena Paul R.N. 11/24/22 08:32: 0830 sedation meds put on hold Original Note: 0816 turned down sedation medications by 1/2 to begin SBT Prop at 10mcg, Fent at 0.3 mcg. Pt is awake and responsive, able to nod head, indicating that he understands the plan.
--- NOTE | 2022-11-24 08:24 | P.TELICUPN_ITS ---
Subjective Subjective IF CAMERA ACTIVATED, patient seen via real-time interactive audiovisual communication: Camera activated Consent obtained for tele-commanding officer homicide squad care: Yes Patient Location: ICU Provider location (State): [place] Other participants/roles: RN, Pharmacist, Respiratory therapist, Hospitalist Interval history: Briefly, is an 82 y/o male with h/o CAD s/p stents, s/p PPM, aortic aneurysm, dementia who presented with acute SOB and hypoxia, noted to have increased work of breathing, failed NIPPV, and required endotracheal intubation on arrival to ED.? Initial CXR notable for bilateral hazy opacities.?Labs notable for WBC 12.2. hgb 6.5, plts 329. Na 135, cl 19, creatinine 1.10. LFTS normal. Trop 0.01->0.06. BNP 1730. He was intubated and placed on propofol and Fentanyl gtt and admitted to ICU for further management. Course complicated by?hypotension,?required to be initiated on vasopressors to maintain MAP >65, started on empiric IV antibiotics due to concern for sepsis 2/2 to presumed aspiration PNA, received total 2 unit of PRBC for drop in Hb of 6.3. This morning, still remains intubated, currently off sedation for SAT, mental status intact, follows commands. Currently tolerating PS trial on minimal vent settings with FiO2 25%, PS of 8, PEEP of 5. Afebrile. Hemodynamically more stable, now norepi down to 3 mcg/min and off vasopressin. Per RN, still has i ntermittent coffee ground output from OG tube. Most recent Hb 7.7, and has not required blood transfusion last night. Current Medications Current Medications Medications: Home Medications albuterol sulfate 90 mcg/actuation aerosol inhaler (Proventil HFA) 1 puff inhalation QIDP PRN shortness of breath #2 inhalations 05/18/22 [Rx Confirmed 11/23/22] amlodipine 5 mg tablet 5 mg PO DAILY #90 tabs 05/18/22 [Rx Confirmed 11/23/22] acetaminophen 325 mg tablet (Aphen) 650 mg PO Q6H PRN fever or pain #30 tabs 07/21/22 [Rx Confirmed 11/23/22] mupirocin 2 % topical ointment 1 applic topical DAILY #22 grams 07/21/22 [Rx Confirmed 11/23/22] fluoxetine 20 mg capsule 20 mg PO QDAY #90 caps 11/09/22 [Rx Confirmed 11/23/22] latanoprost 0.005 % eye drops 1 drp EYE-BOTH ONCE HS 11/23/22 [History Confirmed 11/23/22] lidocaine HCl 2 % mucosal solution (Lidocaine Viscous) 1 applic mucous membrane DAILY 11/23/22 [History Confirmed 11/23/22] Visit Medications (administered) Generic Name Dose Route Start Last Admin Trade Name Juliánq PRN Reason Stop Dose Admin Chlorhexidine Gluconate 15 ml 11/23/22 06:00 11/24/22 05:36 Chlorhexidine Gluconate 15 Ml Cup PO 15 ml Q6HR TOMA Administration Hydrocortisone 50 mg 11/23/22 06:00 11/24/22 05:37 Hydrocortisone 100 Mg/2 Ml Vial IV 50 mg Q6HR TOMA Administration Propofol 1,000 mg in 100 mls @ 3.062 mls/hr 11/23/22 00:30 11/24/22 05:38 Propofol IV 20 mcg/kg/min TITRATE TOMA 12.247 mls/hr Administration Protocol 5 MCG/KG/MIN Fentanyl 1,000 mcg/ Dextrose 250 mls @ 17.86 mls/hr 11/23/22 01:00 11/24/22 07:42 IV 0.7 mcg/kg/hr TITRATE TOMA 17.86 mls/hr Administration Protocol 0.7 MCG/KG/HR NOREPINEPHRINE BITARTRATE/D5W 4 mg in 250 mls @ 30 mls/hr 11/23/22 00:38 11/24/22 07:42 Levophed IV 3 mcg/min TITRATE TOMA 11.25 mls/hr Administration Protocol 8 MCG/MIN Piperacillin Sod/Tazobactam 100 mls @ 25 mls/hr 11/23/22 08:30 11/24/22 07:41 Sod 3.375 gm/ Sodium Chloride IV 25 mls/hr Q8H TOMA Administration Vasopressin 40 unit/ Sodium 102 mls @ 4.5 mls/hr 11/23/22 05:22 11/23/22 06 :20 Chloride IV Not Given CONT TOMA Insulin Human Lispro 0 unit 11/23/22 12:00 11/24/22 05:37 Insulin Lispro 100 Unit/Ml 3ml Vial SUBCUT Not Given Q6H [facility] Protocol Latanoprost 1 drops 11/23/22 21:00 11/23/22 20:47 Latanoprost 0.005% Ophth 2.5 Ml EYE-BOTH 1 drops BEDTIME TOMA Administration Pantoprazole Sodium 40 mg 11/23/22 09:00 11/24/22 08:17 Pantoprazole 40 Mg Vial IV 40 mg BID TOMA Administration Objective Ventilator Parameters: Ventilator Settings FiO2 25 RT Vent Frequency 14 Ventilator Tidal Volume 420 Exhaled Positive End Expiratory 5 Pressure Inspiratory Phase Time 0.9 Patient Position HOB >= 30 degrees Labs 11/24/22 04:25 11/24/22 04:25 Labs: Laboratory Results - last 24 hr 11/23/22 11/23/22 11/23/22 00:50 01:31 08:49 WBC RBC Hgb Hct MCV MCH MCHC RDW Plt Count Neut % (Auto) Lymph % (Auto) Yates % (Auto) Eos % (Auto) Baso % (Auto) Neut # (Auto) Lymph # (Auto) Yates # (Auto) Eos # (Auto) Baso # (Auto) RBC Morphology Hypochromasia Poikilocytosis Anisocytosis Microcytosis ABG pH ABG pCO2 ABG pO2 ABG HCO3 ABG Total CO2 20 L ABG O2 Saturation ABG Base Excess FiO2 Sodium Potassium Chloride Carbon Dioxide BUN Creatinine Estimated GFR BUN/Creatinine Ratio Glucose Hemoglobin A1c Calcium Total Bilirubin AST ALT Alkaline Phosphatase Troponin I Total Protein Albumin Globulin Albumin/Globulin Ratio Procalcitonin Nasal Screen MRSA (PCR) Not detected A.calcoaceticus-baumannii cmplx PCR Not detected Bacteroides fragilis Not detected Violeta albicans (PCR) Not detected Violeta auris (PCR) Not detected C. glabrata (PCR) Not detected C. krusei (PCR) Not detected C. parapsilosis (PCR) Not detected C. tropicalis (PCR) Not detected C. neoform/gattii (PCR) Not detected Enterobacterales (PCR) Not detected E. cloacae complex PCR Not detected Enterococc faecalis PCR Not detected Enterococc faecium PCR Not detected E. coli (PCR) Not detected H. influenzae (PCR) Not detected Klebsiella aerogenes (PCR) Not detected Klebsiella oxytoca PCR Not detected Klebsiella pneumoniae Not detected List. monocytogenes PCR Not detected N. meningitidis (PCR) Not detected Proteus species (PCR) Not detected Salmonella spp. (PCR) Not detected Serratia marcescens PCR Not detected Staphylococcus sp PCR Detected H Staph aureus (PCR) Not detected Staph epidermidis (PCR) Detected H Staph lugdunensis PCR Not detected S. maltophilia (PCR) Not detected Streptococcus sp PCR Not detected Group A Strep (PCR) Not detected Strep agalactiae (PCR) Not detected Strep pneumoniae (PCR) Not detected P. aeruginosa (PCR) Not detected 11/23/22 11/23/22 11/23/22 09:13 09:13 09:13 WBC 18.6 H D RBC 3.67 L Hgb 8.3 L Hct 26.3 L MCV 71.6 L MCH 22.6 L MCHC 31.6 RDW 21.3 H Plt Count 306 Neut % (Auto) 89.3 H Lymph % (Auto) 3.4 L Yates % (Auto) 6.7 Eos % (Auto) 0.5 L Baso % (Auto) 0.1 Neut # (Auto) 38247 H Lymph # (Auto) 600 L Yates # (Auto) 1200 H Eos # (Auto) 100 Baso # (Auto) 0 RBC Morphology See Hypochromasia 2+ H Poikilocytosis 1+ H Anisocytosis 2+ H Microcytosis 1+ H ABG pH ABG pCO2 ABG pO2 ABG HCO3 ABG Total CO2 ABG O2 Saturation ABG Base Excess FiO2 Sodium 132 L Potassium 3.7 Chloride 101 Carbon Dioxide 20 L BUN 18 Creatinine 1.09 Estimated GFR > 60 BUN/Creatinine Ratio 16.5 Glucose 199 H Hemoglobin A1c Calcium 8.0 L Total Bilirubin AST ALT Alkaline Phosphatase Troponin I 0.249 H* Total Protein Albumin Globulin Albumin/Globulin Ratio Procalcitonin 0.43 Nasal Screen MRSA (PCR) A.calcoaceticus-baumannii cmplx PCR Bacteroides fragilis Violeta albicans (PCR) Violeta auris (PCR) C. glabrata (PCR) C. krusei (PCR) C. parapsilosis (PCR) C. tropicalis (PCR) C. neoform/gattii (PCR) Enterobacterales (PCR) E. cloacae complex PCR Enterococc faecalis PCR Enterococc faecium PCR E. coli (PCR) H. influenzae (PCR) Klebsiella aerogenes (PCR) Klebsiella oxytoca PCR Klebsiella pneumoniae List. monocytogenes PCR N. meningitidis (PCR) Proteus species (PCR) Salmonella spp. (PCR) Serratia marcescens PCR Staphylococcus sp PCR Staph aureus (PCR) Staph epidermidis (PCR) Staph lugdunensis PCR S. maltophilia (PCR) Streptococcus sp PCR Group A Strep (PCR) Strep agalactiae (PCR) Strep pneumoniae (PCR) P. aeruginosa (PCR) 11/23/22 11/23/22 11/24/22 09:25 16:45 04:25 WBC 19.4 H RBC 3.43 L Hgb 7.7 L Hct 24.3 L MCV 70.7 L MCH 22.5 L MCHC 31.9 RDW 21.4 H Plt Count 281 Neut % (Auto) 89.0 H Lymph % (Auto) 3.8 L Yates % (Auto) 6.6 Eos % (Auto) 0.0 L Baso % (Auto) 0.6 Neut # (Auto) 92370 H Lymph # (Auto) 700 L Yates # (Auto) 1300 H Eos # (Auto) 0 Baso # (Auto) 100 RBC Morphology See below Hypochromasia 1+ H Poikilocytosis 1+ H Anisocytosis 2+ H Microcytosis 2+ H ABG pH 7.49 H ABG pCO2 25.3 L ABG pO2 92 ABG HCO3 19 L ABG Total CO2 20 L ABG O2 Saturation 98 ABG Base Excess -4.0 L FiO2 35 Sodium Potassium Chloride Carbon Dioxide BUN Creatinine Estimated GFR BUN/Creatinine Ratio Glucose Hemoglobin A1c Calcium Total Bilirubin AST ALT Alkaline Phosphatase Troponin I 0.233 H* Total Protein Albumin Globulin Albumin/Globulin Ratio Procalcitonin Nasal Screen MRSA (PCR) A.calcoaceticus-baumannii cmplx PCR Bacteroides fragilis Violeta albicans (PCR) Violeta auris (PCR) C. glabrata (PCR) C. krusei (PCR) C. parapsilosis (PCR) C. tropicalis (PCR) C. neoform/gattii (PCR) Enterobacterales (PCR) E. cloacae complex PCR Enterococc faecalis PCR Enterococc faecium PCR E. coli (PCR) H. influenzae (PCR) Klebsiella aerogenes (PCR) Klebsiella oxytoca PCR Klebsiella pneumoniae List. monocytogenes PCR N. meningitidis (PCR) Proteus species (PCR) Salmonella spp. (PCR) Serratia marcescens PCR Staphylococcus sp PCR Staph aureus (PCR) Staph epidermidis (PCR) Staph lugdunensis PCR S. maltophilia (PCR) Streptococcus sp PCR Group A Strep (PCR) Strep agalactiae (PCR) Strep pneumoniae (PCR) P. aeruginosa (PCR) 11/24/22 11/24/22 11/24/22 04:25 04:25 04:52 WBC RBC Hgb Hct MCV MCH MCHC RDW Plt Count Neut % (Auto) Lymph % (Auto) Yates % (Auto) Eos % (Auto) Baso % (Auto) Neut # (Auto) Lymph # (Auto) Yates # (Auto) Eos # (Auto) Baso # (Auto) RBC Morphology Hypochromasia Poikilocytosis Anisocytosis Microcytosis ABG pH 7.38 ABG pCO2 38.5 ABG pO2 71 L ABG HCO3 23 ABG Total CO2 24 ABG O2 Saturation 94 L ABG Base Excess -2.0 FiO2 25 Sodium 133 L Potassium 3.6 Chloride 103 Carbon Dioxide 22 BUN 15 Creatinine 1.09 Estimated GFR > 60 BUN/Creatinine Ratio 13.8 Glucose 141 H Hemoglobin A1c Cancelled Calcium 7.9 L Total Bilirubin 0.9 AST 17 ALT 16 Alkaline Phosphatase 76 Troponin I Total Protein 6.3 Albumin 3.4 L Globulin 2.9 Albumin/Globulin Ratio 1.2 Procalcitonin Nasal Screen MRSA (PCR) A.calcoaceticus-baumannii cmplx PCR Bacteroides fragilis Violeta albicans (PCR) Violeta auris (PCR) C. glabrata (PCR) C. krusei (PCR) C. parapsilosis (PCR) C. tropicalis (PCR) C. neoform/gattii (PCR) Enterobacterales (PCR) E. cloacae complex PCR Enterococc faecalis PCR Enterococc faecium PCR E. coli (PCR) H. influenzae (PCR) Klebsiella aerogenes (PCR) Klebsiella oxytoca PCR Klebsiella pneumoniae List. monocytogenes PCR N. meningitidis (PCR) Proteus species (PCR) Salmonella spp. (PCR) Serratia marcescens PCR Staphylococcus sp PCR Staph aureus (PCR) Staph epidermidis (PCR) Staph lugdunensis PCR S. maltophilia (PCR) Streptococcus sp PCR Group A Strep (PCR) Strep agalactiae (PCR) Strep pneumoniae (PCR) P. aeruginosa (PCR) Exam Vital Signs (past 8 hours): - 11/24/22 00:30 11/24/22 00:30 11/24/22 01:00 Temperature 97.2 F L Pulse Rate 61 Respiratory Rate 14 Blood Pressure 115/58 L 107/58 L Pulse Oximetry 95 Oxygen Delivery Method 11/24/22 01:00 11/24/22 01:30 11/24/22 01:30 Temperature 97.0 F L 96.8 F L Pulse Rate 61 60 Respiratory Rate 14 14 Blood Pressure 113/56 L Pulse Oximetry 95 95 Oxygen Delivery Method 11/24/22 02:00 11/24/22 02:00 11/24/22 02:30 Temperature 96.8 F L Pulse Rate 61 Respiratory Rate 14 Blood Pressure 116/56 L 107/55 L Pulse Oximetry 95 Oxygen Delivery Method 11/24/22 02:30 11/24/22 03:00 11/24/22 03:00 Temperature 97.0 F L 97.2 F L Pulse Rate 60 60 Respiratory Rate 14 14 Blood Pressure 106/58 L Pulse Oximetry 95 95 Oxygen Delivery Method 11/24/22 03:30 11/24/22 03:30 11/24/22 04:00 Temperature 97.3 F L Pulse Rate 60 Respiratory Rate 14 Blood Pressure 104/55 L Pulse Oximetry 95 Oxygen Delivery Method Mechanical Ventilation 11/24/22 04:00 11/24/22 04:00 11/24/22 04:30 Temperature 97.7 F Pulse Rate 60 Respiratory Rate 14 Blood Pressure 102/52 L 103/55 L Pulse Oximetry 94 Oxygen Delivery Method 11/24/22 04:30 11/24/22 05:00 11/24/22 05:00 Temperature 97.7 F 97.9 F Pulse Rate 60 61 Respiratory Rate 18 14 Blood Pressure 103/57 L Pulse Oximetry 94 95 Oxygen Delivery Method 11/24/22 05:30 11/24/22 05:30 11/24/22 06:00 Temperature 97.9 F Pulse Rate 62 Respiratory Rate 14 Blood Pressure 106/55 L 103/54 L Pulse Oximetry 95 Oxygen Delivery Method 11/24/22 06:00 Temperature 97.7 F Pulse Rate 60 Respiratory Rate 14 Blood Pressure Pulse Oximetry 96 Oxygen Delivery Method Oxygen Delivery Method Mechanical Ventilation Narrative Exam Narrative: GEN: Intubated, currently off sedation, on SBT, in no acute distress. HEENT: Endotracheal tube in place. PULM: No use of accessory muscles. Bilaterally symmetrical chest rise. CV: Sinus tachycardia on monitor ABD: Nondistended. NEURO: intubated, moving all 4 extremities spontaneously Quality TeleICU VTE Deep Vein Thrombosis/Pulmonary Embolism Present on Admission: No Stress Ulcer Stress ulcer prophylaxis: yes and on full treatment dose Assessment & Plan Assessment & Plan narrative: # Acute Hypoxic Respiratory failure / CHF exacerbation / ?Aspiration PNA: - Most likely from CHF exacerbation/pulmonary edema (BNP 1730, CXR with B/L diffuse opacities). Pneumonia less likely at this point. CXR with no focal infiltrates to suggest Pneumonia clinically. Leukocytosis likely steroid- induced. - Low probability of PE given significant improvement in oxygenation (FiO2 down to 25% in the absence of anticoagulation). Venous duplex of both legs negative for DVT. Will hold off on CT chest for now. - Continue to wean the vent as tolerated. Evaluate today with SAT/SBT. When hemodynamically more stable, passed SBT with good mentation, and has adequate airway protective reflexes - will consider extubation. - Continue to diurese as hydrodynamics allow. Goal to seek net negative daily fluid balance of -500cc to -1 L/day.??F/up on TTE. F/up progress with repeat CXR.? - Reviewed vent settings and most recent ABG (pH 7.38, PCO2 38, PaO2 71, bicarb 23). Continue with current vent settings. - C/w vent support per lung protective strategy (TV 6cc/kg by IBW, plat pressure < 30, PaO2 60-80 mm Hg, SaO2 > 92%) and c/w ABCDE bundle while intubated. - On Propofol gtt and Fentanyl gtt for sedation/pain control. Goal to keep RAAS 0 to -1. Switch to Precedex gtt to prepare for extubation. - C/w daily sedation vacation (SAT) and vent weaning as tolerated. ?# Shock / Aspiration PNA: - Sepsis less likely at this point. One bottle of blood culture + for staph epidermidis, likely contamination. Leukocytosis likely steroid induced - Initially concern for aspiration PNA on presentation. However remains afebrile, oxygenation improved. CXR with no focal infiltrates. - F/up on final blood cultures X 2, UA with urine culture, sputum cultures. F/up on Procalcitonin. - Monitor markers of tissue perfusion (lactate clearance, base deficit, ScvO2, mental status, urine out). - On empiric antibiotics (Zosyn) pending cultures. D/kylie linezolid since MRSA screen negative. - Titrate?pressors (Norepinephrine) to keep MAP > 65. Add vasopressin if necessary. On stress dose steroids, would d/c now given improvement in vasopressors requirement. - De-escalate?antibiotics in the next 24 hours if cultures remain negative and Procalcitonin wnl. # Acute on chronic anemia / GI bleed: - Per RN, Noted to have coffee ground output from OG tube on admission. Required 2 units of PRBC since admission. Most recent post-transfusion CBC with Hb of 7.7, Transfuse for Hb <7.0. - C/w PPI BID. Given continued coffee ground output from OG tube, consider GI consultation to evaluate for EGD prior to extubating him. ICU Core bundle / Best practices: ?# FEN: NPO due to GI bleed. Minimize IVF since has CHF exacerbation. ?# Glucose: fairly controlled. C/w accu checks q6 hours and SSI. BG goal 140-180 ?# Prophylaxis: SCDs for DVT prophylaxis, PPI for stress ulcer prophylaxis ?# Lines/tubes: PIV, Damian, ET tube, OG tube, RI IJ CVC ?# CODE STATUS: Full code ?# Disposition: Remains in ICU Above plan was discussed with rounding team including hospitalist, bedside RN, respiratory therapist, and pharmacist during tele-ICU multidisciplinary rounds this morning. We will continue to follow. Please call us if any additional questions
[2022-11-24 10:19] LABS: mecA/C Resistance DETECTED (Not Detect)
[2022-11-24] MEDS: dexmedeTOMIDine in 0.9 % NaCL 400 MCG/100 ML PLAST..BAG IV (10:31)
--- NOTE | 2022-11-24 11:17 | CM.DPC ---
Addendum entered by RILEY Munoz 11/24/22 13:13: ADD: Per RN, pt became agitated and pulling on lines with reduced sedation and not yet appropriate for extubation at this time. [facility] Doctor Of Naprapathic Medicine Dio arrived bedside to check in on pt and also updated SW that he checked on pt's financial coverage at the hotel and he is paid up until December and then has motel voucher to cover until the end of December. Unclear if pt goes to SNF at d/c if his hotel payment could be held until pt discharges from SNF. BF Original Note: DCP Cont: Per , pt with heart failure and still seems to have an ongoing GI bleed and will consult Surgeon about possible EGD while pt intubated. Pt making some slight improvements but now some tremors after reducing his sedation and unclear if pt will be able to tolerate extubation attempts today. SW called Dio Rosario, [facility] Doctor Of Naprapathic Medicine [phone], and he is aware of pt and met with him last in October 2022 this year and knew that pt was admitted to the hospital. Dio confirms that pt has been safely supported in the community by Serena and Pedro at [facility] and a few amish members who have helped to pay for pt's room at [facility]. Dio confirms that he has attempted to make referrals for [facility] for assistance with housing and support and completed housing applications and pt currently has only been interested in an apartment but not Assistance of any formal kind like Assisted living. Dio will continue to follow and help however he can. Plan: SW to follow for likely need of scope to determine if any active GI bleed and attempts at sedation vacation to see if pt can be successfully extubated today or tomorrow. PT/OT likely needed when pt more medically appropriate to determine if SNF needed and then would need insurance auth for SNF. RILEY Munoz
--- NOTE | 2022-11-24 16:17 | P.PN_ITS ---
Subjective Subjective Interval history: 82 M admitted with initial flash pulmonary edema, likely hypovolemic shock. He is slowly improving today, with sedation vacation he was on minimal pressor requirements and did quite well with breathing trials though he did fall asleep easily. Attempted precedex, however patient became more agitated, pulling at lines and more confused. He was also noted to have a resting tremor on his Left side. He would follow commands and tremor improved with motion. With his agitation he was placed back on fentanyl and propfol. His WBC slightly worsened today to 19.4, probably due to steroids. H/h downtrended slightly to 7.7 though no active bleeding. Surgery defers endoscopy until patient is off pressors and off the ventilator after discussion with them today. Antibiotics were stopped, along with stress dose steroids. Main issue at this time continues to be his anemia and encephalopathy. Exam Vital Signs (past 8 hours): - 11/24/22 08:30 11/24/22 08:30 11/24/22 08:40 Temperature 97.5 F L Pulse Rate 61 Respiratory Rate 15 Blood Pressure 116/58 L 116/60 Pulse Oximetry 94 Oxygen Delivery Method 11/24/22 08:40 11/24/22 08:50 11/24/22 08:50 Temperature 97.7 F 97.9 F Pulse Rate 60 60 Respiratory Rate 9 L 9 L Blood Pressure 128/67 Pulse Oximetry 94 94 Oxygen Delivery Method 11/24/22 08:33 11/24/22 09:00 11/24/22 09:00 Temperature 97.9 F Pulse Rate 60 Respiratory Rate 9 L Blood Pressure 134/73 Pulse Oximetry 93 93 Oxygen Delivery Method 11/24/22 09:10 11/24/22 09:10 11/24/22 09:39 Temperature 98.1 F Pulse Rate 60 Respiratory Rate 10 L Blood Pressure 135/71 Pulse Oximetry 93 93 Oxygen Delivery Method 11/24/22 09:20 11/24/22 09:20 11/24/22 09:30 Temperature 98.1 F Pulse Rate 69 Respiratory Rate 11 L Blood Pressure 133/63 132/68 Pulse Oximetry 93 Oxygen Delivery Method 11/24/22 09:30 11/24/22 09:41 11/24/22 09:41 Temperature 98.1 F 98.1 F Pulse Rate 61 63 Respiratory Rate 11 L 16 Blood Pressure 141/63 H Pulse Oximetry 93 93 Oxygen Delivery Method 11/24/22 09:50 11/24/22 09:50 11/24/22 10:00 Temperature 98.2 F Pulse Rate 62 Respiratory Rate 13 Blood Pressure 138/62 127/61 Pulse Oximetry 96 Oxygen Delivery Method 11/24/22 10:00 11/24/22 10:10 11/24/22 10:10 Temperature 98.2 F 98.2 F Pulse Rate 61 60 Respiratory Rate 12 16 Blood Pressure 127/62 Pulse Oximetry 90 L 92 Oxygen Delivery Method 11/24/22 10:20 11/24/22 10:20 11/24/22 10:30 Temperature 98.2 F Pulse Rate 61 Respiratory Rate 15 Blood Pressure 121/57 L 127/61 Pulse Oximetry 92 Oxygen Delivery Method 11/24/22 10:30 11/24/22 10:40 11/24/22 10:40 Temperature 98.2 F 98.1 F Pulse Rate 61 66 Respiratory Rate 16 22 Blood Pressure 128/62 Pulse Oximetry 91 93 Oxygen Delivery Method 11/24/22 10:50 11/24/22 10:50 11/24/22 11:00 Temperature 98.2 F Pulse Rate 61 Respiratory Rate 16 Blood Pressure 123/58 L 114/60 Pulse Oximetry 93 Oxygen Delivery Method 11/24/22 11:00 11/24/22 12:00 11/24/22 11:10 Temperature 98.2 F Pulse Rate 62 Respiratory Rate 15 Blood Pressure 120/62 Pulse Oximetry 91 Oxygen Delivery Method Mechanical Ventilation 11/24/22 11:10 11/24/22 11:20 11/24/22 11:20 Temperature 98.2 F 98.2 F Pulse Rate 74 60 Respiratory Rate 18 12 Blood Pressure 119/58 L Pulse Oximetry 100 95 Oxygen Delivery Method 11/24/22 11:30 11/24/22 11:30 11/24/22 11:40 Temperature 98.2 F 98.2 F Pulse Rate 60 60 Respiratory Rate 14 17 Blood Pressure 109/57 L Pulse Oximetry 94 94 Oxygen Delivery Method 11/24/22 11:40 11/24/22 11:51 11/24/22 11:51 Temperature 98.2 F Pulse Rate 76 Respiratory Rate 21 Blood Pressure 107/59 L 151/77 H Pulse Oximetry 95 Oxygen Delivery Method 11/24/22 12:00 11/24/22 12:01 11/24/22 12:01 Temperature 98.4 F 98.4 F Pulse Rate 67 65 Respiratory Rate 15 18 Blood Pressure 151/67 H Pulse Oximetry 93 93 Oxygen Delivery Method 11/24/22 12:11 11/24/22 12:11 11/24/22 12:20 Temperature 98.2 F Pulse Rate 60 Respiratory Rate 17 Blood Pressure 118/56 L 104/53 L Pulse Oximetry 91 Oxygen Delivery Method 11/24/22 12:20 11/24/22 12:30 11/24/22 12:30 Temperature 98.2 F 98.1 F Pulse Rate 62 60 Respiratory Rate 15 14 Blood Pressure 102/54 L Pulse Oximetry 91 92 Oxygen Delivery Method 11/24/22 12:40 11/24/22 12:40 11/24/22 12:50 Temperature 97.9 F Pulse Rate 60 Respiratory Rate 15 Blood Pressure 101/54 L 101/54 L Pulse Oximetry 93 Oxygen Delivery Method 11/24/22 12:50 11/24/22 13:00 11/24/22 13:00 Temperature 97.9 F 97.7 F Pulse Rate 60 60 Respiratory Rate 14 14 Blood Pressure 104/56 L Pulse Oximetry 93 94 Oxygen Delivery Method 11/24/22 13:09 11/24/22 13:10 11/24/22 13:10 Temperature 97.7 F 97.7 F Pulse Rate 60 60 Respiratory Rate 14 15 Blood Pressure 102/55 L Pulse Oximetry 94 94 Oxygen Delivery Method 11/24/22 13:20 11/24/22 13:20 11/24/22 13:30 Temperature 97.7 F Pulse Rate 60 Respiratory Rate 15 Blood Pressure 112/56 L 101/55 L Pulse Oximetry 100 Oxygen Delivery Method 11/24/22 13:30 11/24/22 13:40 11/24/22 13:40 Temperature 97.5 F L 97.5 F L Pulse Rate 60 60 Respiratory Rate 14 14 Blood Pressure 102/59 L Pulse Oximetry 94 95 Oxygen Delivery Method 11/24/22 13:50 11/24/22 13:50 11/24/22 14:00 Temperature 97.5 F L Pulse Rate 60 Respiratory Rate 14 Blood Pressure 103/58 L 106/58 L Pulse Oximetry 95 Oxygen Delivery Method 11/24/22 14:00 11/24/22 14:10 11/24/22 14:10 Temperature 97.5 F L 97.3 F L Pulse Rate 60 60 Respiratory Rate 14 14 Blood Pressure 107/55 L Pulse Oximetry 95 95 Oxygen Delivery Method Oxygen Delivery Method Mechanical Ventilation Narrative Exam Narrative: GEN: intubated and sedated, during sedation vacation patient was alert in no acute distress initially and followed commands, but more agitated later on. HEENT: moist mucous membranes, PERRL NECK: trachea midline, no JVD PULM: intubated, no wheezing rhonchi or obvious rales. CV: regular rate and rhythm, no murmurs ABD: soft, nontender, nondistended, no organomegaly EXT: warm and well perfused with no edema NEURO: as noted above in general. Moves all extremities, left sided resting tremor during sedation vacation. Objective Labs 11/24/22 04:25 11/24/22 04:25 Labs: Laboratory Results - last 24 hr 11/23/22 11/23/22 11/23/22 00:50 01:31 16:45 WBC RBC Hgb Hct MCV MCH MCHC RDW Plt Count Neut % (Auto) Lymph % (Auto) [place] % (Auto) Eos % (Auto) Baso % (Auto) Neut # (Auto) Lymph # (Auto) [place] # (Auto) Eos # (Auto) Baso # (Auto) RBC Morphology Hypochromasia Poikilocytosis Anisocytosis Microcytosis ABG pH ABG pCO2 ABG pO2 ABG HCO3 ABG Total CO2 20 L ABG O2 Saturation ABG Base Excess FiO2 Sodium Potassium Chloride Carbon Dioxide BUN Creatinine Estimated GFR BUN/Creatinine Ratio Glucose Hemoglobin A1c Calcium Total Bilirubin AST ALT Alkaline Phosphatase Troponin I 0.233 H* Total Protein Albumin Globulin Albumin/Globulin Ratio A.calcoaceticus-baumannii cmplx PCR Not detected Bacteroides fragilis Not detected Violeta albicans (PCR) Not detected Violeta auris (PCR) Not detected C. glabrata (PCR) Not detected C. krusei (PCR) Not detected C. parapsilosis (PCR) Not detected C. tropicalis (PCR) Not detected C. neoform/gattii (PCR) Not detected Enterobacterales (PCR) Not detected E. cloacae complex PCR Not detected Enterococc faecalis PCR Not detected Enterococc faecium PCR Not detected E. coli (PCR) Not detected H. influenzae (PCR) Not detected Klebsiella aerogenes (PCR) Not detected Klebsiella oxytoca PCR Not detected Klebsiella pneumoniae Not detected List. monocytogenes PCR Not detected N. meningitidis (PCR) Not detected Proteus species (PCR) Not detected Salmonella spp. (PCR) Not detected Serratia marcescens PCR Not detected Staphylococcus sp PCR Detected H Staph aureus (PCR) Not detected mecA/C-Methicil Resis Gene Detected H Staph epidermidis (PCR) Detected H Staph lugdunensis PCR Not detected S. maltophilia (PCR) Not detected Streptococcus sp PCR Not detected Group A Strep (PCR) Not detected Strep agalactiae (PCR) Not detected Strep pneumoniae (PCR) Not detected P. aeruginosa (PCR) Not detected 11/24/22 11/24/22 11/24/22 04:25 04:25 04:25 WBC 19.4 H RBC 3.43 L Hgb 7.7 L Hct 24.3 L MCV 70.7 L MCH 22.5 L MCHC 31.9 RDW 21.4 H Plt Count 281 Neut % (Auto) 89.0 H Lymph % (Auto) 3.8 L [place] % (Auto) 6.6 Eos % (Auto) 0.0 L Baso % (Auto) 0.6 Neut # (Auto) 36287 H Lymph # (Auto) 700 L [place] # (Auto) 1300 H Eos # (Auto) 0 Baso # (Auto) 100 RBC Morphology See below Hypochromasia 1+ H Poikilocytosis 1+ H Anisocytosis 2+ H Microcytosis 2+ H ABG pH ABG pCO2 ABG pO2 ABG HCO3 ABG Total CO2 ABG O2 Saturation ABG Base Excess FiO2 Sodium 133 L Potassium 3.6 Chloride 103 Carbon Dioxide 22 BUN 15 Creatinine 1.09 Estimated GFR > 60 BUN/Creatinine Ratio 13.8 Glucose 141 H Hemoglobin A1c Cancelled Calcium 7.9 L Total Bilirubin 0.9 AST 17 ALT 16 Alkaline Phosphatase 76 Troponin I Total Protein 6.3 Albumin 3.4 L Globulin 2.9 Albumin/Globulin Ratio 1.2 A.calcoaceticus-baumannii cmplx PCR Bacteroides fragilis Violeta albicans (PCR) Violeta auris (PCR) C. glabrata (PCR) C. krusei (PCR) C. parapsilosis (PCR) C. tropicalis (PCR) C. neoform/gattii (PCR) Enterobacterales (PCR) E. cloacae complex PCR Enterococc faecalis PCR Enterococc faecium PCR E. coli (PCR) H. influenzae (PCR) Klebsiella aerogenes (PCR) Klebsiella oxytoca PCR Klebsiella pneumoniae List. monocytogenes PCR N. meningitidis (PCR) Proteus species (PCR) Salmonella spp. (PCR) Serratia marcescens PCR Staphylococcus sp PCR Staph aureus (PCR) mecA/C-Methicil Resis Gene Staph epidermidis (PCR) Staph lugdunensis PCR S. maltophilia (PCR) Streptococcus sp PCR Group A Strep (PCR) Strep agalactiae (PCR) Strep pneumoniae (PCR) P. aeruginosa (PCR) 11/24/22 04:52 WBC RBC Hgb Hct MCV MCH MCHC RDW Plt Count Neut % (Auto) Lymph % (Auto) [place] % (Auto) Eos % (Auto) Baso % (Auto) Neut # (Auto) Lymph # (Auto) [place] # (Auto) Eos # (Auto) Baso # (Auto) RBC Morphology Hypochromasia Poikilocytosis Anisocytosis Microcytosis ABG pH 7.38 ABG pCO2 38.5 ABG pO2 71 L ABG HCO3 23 ABG Total CO2 24 ABG O2 Saturation 94 L ABG Base Excess -2.0 FiO2 25 Sodium Potassium Chloride Carbon Dioxide BUN Creatinine Estimated GFR BUN/Creatinine Ratio Glucose Hemoglobin A1c Calcium Total Bilirubin AST ALT Alkaline Phosphatase Troponin I Total Protein Albumin Globulin Albumin/Globulin Ratio A.calcoaceticus-baumannii cmplx PCR Bacteroides fragilis Violeta albicans (PCR) Violeta auris (PCR) C. glabrata (PCR) C. krusei (PCR) C. parapsilosis (PCR) C. tropicalis (PCR) C. neoform/gattii (PCR) Enterobacterales (PCR) E. cloacae complex PCR Enterococc faecalis PCR Enterococc faecium PCR E. coli (PCR) H. influenzae (PCR) Klebsiella aerogenes (PCR) Klebsiella oxytoca PCR Klebsiella pneumoniae List. monocytogenes PCR N. meningitidis (PCR) Proteus species (PCR) Salmonella spp. (PCR) Serratia marcescens PCR Staphylococcus sp PCR Staph aureus (PCR) mecA/C-Methicil Resis Gene Staph epidermidis (PCR) Staph lugdunensis PCR S. maltophilia (PCR) Streptococcus sp PCR Group A Strep (PCR) Strep agalactiae (PCR) Strep pneumoniae (PCR) P. aeruginosa (PCR) [facility] Medical History CAD in [place] artery Cataracts, bilateral (~2019) Dementia (~2019) Myocardial infarction Wears glasses Surgical History Anesthesia H/O heart artery stent (~2017) S/P placement of cardiac pacemaker Family History Family/Other Hemophilia Father No problems noted. Grandfather Hypertension Social History household members: none Smoking Status: Former smoker Assessment & Plan Assessment & Plan narrative: 1. Acute hypoxemic respiratory failure - likely secondary to acute on chronic diastolic heart failure with flash pulmonary edema, hypoxia has resolved essential given vent settings currently but not extubated today given encephalopathy and agitation. - low suspicion for PE, DVT study negative - echocardiogram with EF of 50-55%, with hypokinesis of anterobasilar and basilar eldr[place]. - continued empiric antibiotics for possible pneumonia, stopped all today. Blood culture positive but only 1/4 bottles and likely contaminant. 2. Shock, likely hypovolemic - likely hypovolemia with anemia along with sedation - continue to wean from levophed as tolerated - appreciate tele-framing machine tender consultation - s/p 2 U PRBC transfusion, continue to trend h/h. Hg 7.7 today slight decrease from 8 yesterday. - hold home antihypertensives. - discussed with general surgery, reconsult after extubation and off pressor support. 3. Anemia, micorcytic, unknown chronicity, probable acute blood loss anemia -suspect secondary to GI bleed, unknown chronicity -ordered for PPI BID -once stabilized consult general surgery as noted above, unless anemia precludes extubation -trend hemoglobin closely 4. CAD s/p stents and s/p pacemaker -no antiplatelets for now given bleed 5. Dementia -patient has been declining cognitively for quite some time. He has moved into a house of his son's but then moved. He does have some paranoid behavior or beliefs based on discussion with family, but circumstances are not entirely clear. Per grandson he was admitted to [facility] about 4 years ago, unclear circumstances but was there for ? 1 month. Consider formal cognitive testing after extubation. According to friends near to the patient, he has been decisional and functioning quite well recently. 6. Possible NSTEMI, improved - troponin increased to 0.249, then downtrended. EKG without acute ischemia. Suspect this was related to demand given his prior CAD history, likely in setting of respiratory failure and shock. - However, given wall motion abnormalities on TTE, may represent NSTEMI, yet unable to anticoagulate at this time given GI bleeding. 7. Acute metabolic or toxic encephalopathy with underlying chronic dementia - unclear if agitation is due to withdrawal from sedatives today, abnormal reac tion to precedex, possible ischemic infarct, or hypovolemic shock. Suspect medication related at this time, CVA much less likely as he had no focal deficits when alert today. - will continue to monitor, placed back on fentanyl and propofol with good response. Code: Full, surrogate is patient's Grandson at this time. Patient's son is reportedly not involved with patient's care per grandson. I spent 45 minutes providing critical care management this patient. This excludes time spent in performing separately billed procedures. Quality VTE Deep Vein Thrombosis/Pulmonary Embolism Present on Admission: No
[2022-11-24] MEDS: LATANOPROST 0.005% OPHTH 2.5 ML 1 DROPS EYE-BOTH (21:15)
[2022-11-24 22:09] LABS: Hematocrit 22.8 % (41-53); Hemoglobin 7.3 g/dL (13.5-17.5); Mean Corpuscular HGB Conc 32.2 % (30-36); Mean Corpuscular Hemoglobin 22.9 PG (26-34); Mean Corpuscular Volume 71.2 fL (80-100); Platelet Count 252 X10^3/uL (150-400); Red Blood Cell Count 3.21 X10^6/uL (4.5-5.9); Red Cell Distribution Width 22.2 % (11.6-14.8); White Blood Cell Count 13.1 X10^3/uL (4.5-11.0)
--- NOTE | 2022-11-24 23:03 | PC.NURSE ---
2300- Attempted to wean norepinepherine but patient did not tolerate having the gtt off. Restarted per orders.
[2022-11-25] VITALS (108 sets, daily range): BP systolic 92–150; BP diastolic 50–70; PULSE 53–75; RESP 12–24; TEMP 36.4–37.9; O2SAT 88–100; BMI 31.7
[2022-11-25] MEDS: CHLORHEXIDINE GLUCONATE 15 ML CUP PO ×4 (01:27→18:43)
[2022-11-25 04:57] LABS: Add Manual Diff / Slide Review NO; Basophils Absolute Auto 100 /uL (0-100); Basophils Percent Auto 0.5 % (0-2); Eosinophils Absolute Auto 100 /uL (0-450); Eosinophils Percent Auto 0.5 % (2-4); Hematocrit 23.4 % (41-53); Hemoglobin 7.4 g/dL (13.5-17.5); Lymphocytes Absolute Auto 1200 /uL (1100-4500); Lymphocytes Percent Auto 10.2 % (25-40); Mean Corpuscular HGB Conc 31.8 % (30-36); Mean Corpuscular Hemoglobin 22.7 PG (26-34); Mean Corpuscular Volume 71.3 fL (80-100); Monocytes Absolute Auto 1500 /uL (0-900); Monocytes Percent Auto 12.9 % (3-14); Neutrophils Absolute Auto 8900 /uL (1500-7000); Neutrophils Percent Auto 75.9 % (50-75); Platelet Count 247 X10^3/uL (150-400); Red Blood Cell Count 3.28 X10^6/uL (4.5-5.9); Red Cell Distribution Width 21.6 % (11.6-14.8); White Blood Cell Count 11.7 X10^3/uL (4.5-11.0)
[2022-11-25 04:59] LABS: Alanine Aminotransferase 14 IU/L (<50); Albumin 3.2 g/dL (3.5-5.0); Albumin Globulin Ratio 1.1 (1.0-2.8); Alkaline Phosphatase 71 U/L (38-126); Aspartate Aminotransferase 15 IU/L (17-59); BUN Creatinine Ratio 16.5 (6-22); Bilirubin Total 0.3 mg/dL (0.2-1.3); Blood Urea Nitrogen 20 mg/dL (9-20); Calcium 7.8 mg/dL (8.4-10.2); Carbon Dioxide 26 mmol/L (22-32); Chloride 102 mmol/L (98-107); Estimated Glomerular Filt Rate 59 mL/min (>60); Globulin 2.8 g/dL (1.7-4.1); Glucose 97 mg/dL (80-110); HEMOLYSIS < 15 (0-50); Potassium 3.2 mmol/L (3.4-5.1); Sodium 133 mmol/L (137-145)
[2022-11-25 05:35] LABS: Anisocytosis 2+; Hypochromasia 1+; Microcytosis 2+
[2022-11-25] MEDS: propofoL 1,000 MG/100 ML VIAL 12.247 MG IV ×2 (07:01→15:30)
--- NOTE | 2022-11-25 08:07 | PC.NURSE ---
Addendum entered by Lena Paul R.N. 11/25/22 18:23: Sourav Lamar arrived and met with Dr Carlson (please refer to his event note), request was made for a chief digital media officer by the grandson, line dancer came to provide bedside prayers, sourav left satisfied with care, asked to be updated on pt progress. Will continue to treat and monitor as ordered. Addendum entered by Lena Paul R.N. 11/25/22 13:59: medication off at 0830, pt not rousing to sternal rub, or other noxious stimulation, unable to squeeze hands, open eyes or move extremities. Dr Carlson and tele molded candles wicker notified, CT of head, chest and abdomen ordered. Vent setting TV 420 FiO2 35% PEEP 5 RR 14, sedation turned back on with Propofol, Fentanyl infusing as documented in emar. Pt received an additional unit of PRBC (for a total of 3 during this hospitalization). Pt started on Rocephin abx and K+ replacement (40meq) as ordered. Friends Serena and Gavino at bedside, concerned that pt would not have wanted any of these interventions, commented that they would contact DPOA grandreilly Alexander to discuss pt wishes and their concerns. Willard Alexander called this nurse asking for an update on his grandfather, I explained that pt is not rousing when sedation is turned off and is less responsive than yesterday. He remains intubated with no improvement at this time. Willard stated that he would like to come to see his grandfather and at that time withdraw care making the pt as comfortable as possible. Updated Dr Carlson on family wishes, he will be available for when the family arrives at approximately 1530. Pt is resting quietly at this time, will continue to monitor Original Note: 0800 Pt resting in bed with eyes closed, sedation halved in anticipation of the SBT at 0900. Will titrate medication off at 0845
[2022-11-25] MEDS: PANTOPRAZOLE 40 MG VIAL IV ×2 (08:19→20:54)
[2022-11-25] MEDS: cefTRIAXone 2,000 MG in SODIUM CHLORIDE 0.9% 100 ML 200 MG IV (08:19)
--- NOTE | 2022-11-25 08:32 | DI.RAD.S_ITS ---
PROCEDURE: XR CHEST 1V INDICATIONS: increasing secretions from ETT TECHNIQUE: One view of the chest was acquired. COMPARISON: [facility], , XR CHEST 1V, 11/23/2022, 0:15. FINDINGS: Surgical changes and devices: Endotracheal tube, nasogastric tube, and left chest wall pacer are well position. A right IJ catheter is well positioned. Lungs and pleura: Lung volumes are low. No focal consolidation, mass, pneumothorax, or pleural effusion is identified. Mediastinum: Mediastinal contours appear normal. Heart size is normal. Bones and chest wall: No suspicious bony lesions. Overlying soft tissues appear unremarkable. IMPRESSION: 1. Endotracheal tube, nasogastric tube, and right IJ central line are well position. 2. No acute lung disease is seen, however lung volumes are low. Dictated by: Wesly Murdock M.D. on 11/25/2022 at 8:47 Approved by: Wesly Murdock M.D. on 11/25/2022 at 8:48
[2022-11-25 08:36] LABS: Fractionated Inspired Oxygen 25; HCO3 ABG 24 mmol/L (23-27); Oxygen Saturation ABG 88 % (95-100); PCO2 ABG 38.5 mmHg (35-45); PO2 ABG 55 mmHg (80-100); TCO2 ABG 25 mmol/L (23-27)
--- NOTE | 2022-11-25 09:06 | PM.PN.1 ---
Subjective Subjective Interval history: worsening secretions this morning, cultures with Branhamella catarrhalis (Moraxella). Started on ceftriaxone this AM after discontinuing antibiotics yesterday given clinical picture. Did not arouse with sedation vacation even after 1 hour. Will transfuse 1 U PRBC, antibiotics started as noted above, jason CT for possible septic source or evidence of cause of GI bleeding, also head CT given mental status change from yesterday. Exam Vital Signs (past 8 hours): - 11/25/22 01:10 11/25/22 01:10 11/25/22 01:21 Temperature Pulse Rate 60 Respiratory Rate Blood Pressure 119/67 96/55 L Pulse Oximetry 96 Oxygen Delivery Method 11/25/22 01:21 11/25/22 01:31 11/25/22 01:31 Temperature 97.9 F Pulse Rate 60 61 Respiratory Rate 18 16 Blood Pressure 113/58 L Pulse Oximetry 88 L 90 L Oxygen Delivery Method 11/25/22 01:40 11/25/22 01:40 11/25/22 01:50 Temperature 98.1 F Pulse Rate 60 Respiratory Rate 16 Blood Pressure 103/54 L 100/54 L Pulse Oximetry 90 L Oxygen Delivery Method 11/25/22 01:50 11/25/22 02:00 11/25/22 02:00 Temperature 98.1 F 98.1 F Pulse Rate 60 60 Respiratory Rate 14 16 Blood Pressure 100/54 L Pulse Oximetry 91 92 Oxygen Delivery Method 11/25/22 02:10 11/25/22 02:10 11/25/22 02:20 Temperature 98.1 F 98.1 F Pulse Rate 61 62 Respiratory Rate 14 15 Blood Pressure 101/54 L Pulse Oximetry 93 92 Oxygen Delivery Method 11/25/22 02:20 11/25/22 02:30 11/25/22 02:30 Temperature 98.1 F Pulse Rate 60 Respiratory Rate 14 Blood Pressure 102/53 L 101/55 L Pulse Oximetry 91 Oxygen Delivery Method 11/25/22 02:40 11/25/22 02:40 11/25/22 02:50 Temperature 98.1 F Pulse Rate 61 Respiratory Rate 15 Blood Pressure 101/54 L 102/55 L Pulse Oximetry 92 Oxygen Delivery Method 11/25/22 02:50 11/25/22 03:00 11/25/22 03:00 Temperature 98.1 F 98.1 F Pulse Rate 60 60 Respiratory Rate 14 14 Blood Pressure 100/54 L Pulse Oximetry 92 92 Oxygen Delivery Method 11/25/22 04:00 11/25/22 03:10 11/25/22 03:10 Temperature 98.1 F Pulse Rate 60 Respiratory Rate 14 Blood Pressure 101/54 L Pulse Oximetry 92 Oxygen Delivery Method Mechanical Ventilation 11/25/22 03:20 11/25/22 03:20 11/25/22 03:31 Temperature 98.1 F Pulse Rate 60 Respiratory Rate 14 Blood Pressure 102/53 L 100/50 L Pulse Oximetry 94 Oxygen Delivery Method 11/25/22 03:31 11/25/22 03:40 11/25/22 03:40 Temperature 98.1 F 98.1 F Pulse Rate 60 60 Respiratory Rate 14 14 Blood Pressure 105/52 L Pulse Oximetry 94 95 Oxygen Delivery Method 11/25/22 03:50 11/25/22 03:50 11/25/22 04:00 Temperature 98.2 F Pulse Rate 60 Respiratory Rate 14 Blood Pressure 102/55 L 98/52 L Pulse Oximetry 94 Oxygen Delivery Method 11/25/22 04:00 11/25/22 04:10 11/25/22 04:10 Temperature 98.2 F 98.2 F Pulse Rate 60 60 Respiratory Rate 14 14 Blood Pressure 100/52 L Pulse Oximetry 95 95 Oxygen Delivery Method 11/25/22 04:20 11/25/22 04:20 11/25/22 04:30 Temperature 98.2 F 98.2 F Pulse Rate 60 60 Respiratory Rate 14 14 Blood Pressure 93/50 L Pulse Oximetry 95 95 Oxygen Delivery Method 11/25/22 04:30 11/25/22 04:40 11/25/22 04:40 Temperature 98.4 F Pulse Rate 60 Respiratory Rate 14 Blood Pressure 104/59 L 103/55 L Pulse Oximetry 95 Oxygen Delivery Method 11/25/22 04:50 11/25/22 04:50 11/25/22 05:00 Temperature 98.4 F Pulse Rate 60 Respiratory Rate 14 Blood Pressure 100/53 L 104/54 L Pulse Oximetry 95 Oxygen Delivery Method 11/25/22 05:00 11/25/22 05:10 11/25/22 05:10 Temperature 98.6 F 98.6 F Pulse Rate 60 60 Respiratory Rate 14 14 Blood Pressure 104/54 L Pulse Oximetry 95 94 Oxygen Delivery Method 11/25/22 05:20 11/25/22 05:20 11/25/22 05:30 Temperature 98.6 F 98.6 F Pulse Rate 60 60 Respiratory Rate 14 15 Blood Pressure 108/58 L Pulse Oximetry 94 93 Oxygen Delivery Method 11/25/22 05:30 11/25/22 05:40 11/25/22 05:40 Temperature 98.8 F Pulse Rate 60 Respiratory Rate 14 Blood Pressure 111/58 L 103/54 L Pulse Oximetry 93 Oxygen Delivery Method 11/25/22 05:50 11/25/22 05:50 11/25/22 06:00 Temperature 98.8 F Pulse Rate 60 Respiratory Rate 14 Blood Pressure 100/51 L 100/54 L Pulse Oximetry 92 Oxygen Delivery Method 11/25/22 06:00 11/25/22 06:10 11/25/22 06:10 Temperature 98.8 F 99.0 F Pulse Rate 60 60 Respiratory Rate 14 14 Blood Pressure 103/52 L Pulse Oximetry 94 93 Oxygen Delivery Method 11/25/22 06:20 11/25/22 06:20 11/25/22 06:30 Temperature 99.0 F 99.0 F Pulse Rate 60 60 Respiratory Rate 14 14 Blood Pressure 102/53 L Pulse Oximetry 93 94 Oxygen Delivery Method 11/25/22 06:30 11/25/22 06:40 11/25/22 06:40 Temperature 99.0 F Pulse Rate 60 Respiratory Rate 14 Blood Pressure 104/54 L 103/54 L Pulse Oximetry 93 Oxygen Delivery Method 11/25/22 06:50 11/25/22 06:50 11/25/22 07:00 Temperature 99.1 F 99.1 F Pulse Rate 60 60 Respiratory Rate 14 14 Blood Pressure 102/53 L Pulse Oximetry 94 92 Oxygen Delivery Method 11/25/22 07:00 11/25/22 07:10 11/25/22 07:10 Temperature 99.1 F Pulse Rate 60 Respiratory Rate 14 Blood Pressure 92/55 L 99/51 L Pulse Oximetry 93 Oxygen Delivery Method 11/25/22 07:20 11/25/22 07:20 11/25/22 07:30 Temperature 99.1 F 99.1 F Pulse Rate 60 60 Respiratory Rate 14 14 Blood Pressure 104/56 L Pulse Oximetry 93 94 Oxygen Delivery Method 11/25/22 07:30 11/25/22 07:40 11/25/22 07:40 Temperature 99.1 F Pulse Rate 60 Respiratory Rate 14 Blood Pressure 108/56 L 103/54 L Pulse Oximetry 94 Oxygen Delivery Method 11/25/22 07:50 11/25/22 07:50 11/25/22 08:00 Temperature 99.1 F Pulse Rate 60 Respiratory Rate 14 Blood Pressure 104/54 L 103/53 L Pulse Oximetry 94 Oxygen Delivery Method 11/25/22 08:00 11/25/22 08:10 11/25/22 08:10 Temperature 99.1 F 99.1 F Pulse Rate 60 60 Respiratory Rate 14 14 Blood Pressure 104/54 L Pulse Oximetry 94 93 Oxygen Delivery Method 11/25/22 08:20 11/25/22 08:20 11/25/22 08:30 Temperature 99.3 F Pulse Rate 60 Respiratory Rate 14 Blood Pressure 112/57 L 110/56 L Pulse Oximetry 94 Oxygen Delivery Method 11/25/22 08:30 11/25/22 08:31 Temperature 99.3 F 99.3 F Pulse Rate 61 60 Respiratory Rate 14 14 Blood Pressure Pulse Oximetry 98 96 Oxygen Delivery Method Oxygen Delivery Method Mechanical Ventilation Narrative Exam Narrative: GEN: intubated and sedated, HEENT: moist mucous membranes, PERRL NECK: trachea midline, no JVD PULM: intubated, no wheezing rhonchi or obvious rales. CV: regular rate and rhythm, no murmurs ABD: soft, nontender, nondistended, no organomegaly EXT: warm and well perfused with no edema NEURO: sedated Objective Labs 11/25/22 04:30 11/25/22 04:30 Labs: Laboratory Results - last 24 hr 11/23/22 11/24/22 11/24/22 00:50 04:25 21:45 WBC 13.1 H RBC 3.21 L Hgb 7.3 L Hct 22.8 L MCV 71.2 L MCH 22.9 L MCHC 32.2 RDW 22.2 H Plt Count 252 Neut % (Auto) Lymph % (Auto) [place] % (Auto) Eos % (Auto) Baso % (Auto) Neut # (Auto) Lymph # (Auto) [place] # (Auto) Eos # (Auto) Baso # (Auto) RBC Morphology Hypochromasia Anisocytosis Microcytosis ABG pH ABG pCO2 ABG pO2 ABG HCO3 ABG Total CO2 ABG O2 Saturation ABG Base Excess FiO2 Sodium Potassium Chloride Carbon Dioxide BUN Creatinine Estimated GFR BUN/Creatinine Ratio Glucose Hgb A1c (Ref Lab) 6.0 H Calcium Total Bilirubin AST ALT Alkaline Phosphatase Total Protein Albumin Globulin Albumin/Globulin Ratio mecA/C-Methicil Resis Gene Detected H 11/25/22 11/25/22 11/25/22 04:30 04:30 08:21 WBC 11.7 H RBC 3.28 L Hgb 7.4 L Hct 23.4 L MCV 71.3 L MCH 22.7 L MCHC 31.8 RDW 21.6 H Plt Count 247 Neut % (Auto) 75.9 H Lymph % (Auto) 10.2 L [place]once % (Auto) 12.9 Eos % (Auto) 0.5 L Baso % (Auto) 0.5 Neut # (Auto) 8900 H Lymph # (Auto) 1200 Ponce # (Auto) 1500 H Eos # (Auto) 100 Baso # (Auto) 100 RBC Morphology See below Hypochromasia 1+ H Anisocytosis 2+ H Microcytosis 2+ H ABG pH 7.40 ABG pCO2 38.5 ABG pO2 55 L ABG HCO3 24 ABG Total CO2 25 ABG O2 Saturation 88 L ABG Base Excess -1.0 FiO2 25 Sodium 133 L Potassium 3.2 L Chloride 102 Carbon Dioxide 26 BUN 20 Creatinine 1.21 Estimated GFR 59 L BUN/Creatinine Ratio 16.5 Glucose 97 Hgb A1c (Ref Lab) Calcium 7.8 L Total Bilirubin 0.3 AST 15 L ALT 14 Alkaline Phosphatase 71 Total Protein 6.0 L Albumin 3.2 L Globulin 2.8 Albumin/Globulin Ratio 1.1 mecA/C-Methicil Resis Gene [facility] Medical History CAD in [place] artery Cataracts, bilateral (~2019) Dementia (~2018) Myocardial infarction Wears glasses Surgical History Anesthesia H/O heart artery stent (~2017) S/P placement of cardiac pacemaker Family History Family/Other Hemophilia Father No problems noted. Grandfather Hypertension Social History household members: none Smoking Status: Former smoker Assessment & Plan Assessment & Plan narrative: 1. Acute hypoxemic respiratory failure with pneumonia secondary to Branhamella catarrhalis - likely secondary to acute on chronic diastolic heart failure with flash pulmonary edema, hypoxia has resolved essentialy given vent settings currently but not extubated yesterday given encephalopathy. He was worse today, did not arouse despite sedation vacation of >1 hour. - low suspicion for PE, DVT study negative - echocardiogram with EF of 50-55%, with hypokinesis of anterobasilar and basilar eldridge. - continued empiric antibiotics for possible pneumonia, stopped all on 11/25. Blood culture positive but only 1/4 bottles and likely contaminant. However sputum cultures with Branhamella (Moraxella) catarrhalis and worsening secretions from ETT on 11/24PM, 11/25 AM. Started on ceftriaxone for presumed pnuemonia given cultures. - CT chest ordered today, suspect pneumonia. 2. Shock, likely hypovolemic, possibly septic - likely hypovolemia with anemia along with sedation, possibly septic given pneumonia noted above. - continue to wean from levophed as tolerated, requirements slowly improving. 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 Hg 7.3 today with continued slow decline. Will transfuse 1U PRBC, goal will now be 8 given concern for possible NSTEMI. - hold home antihypertensives. - discussed with general surgery, reconsult after extubation and off pressor support. 3. Anemia, micorcytic, unknown chronicity, probable acute blood loss anemia -suspect secondary to GI bleed, unknown chronicity -ordered for PPI BID -once stabilized consult general surgery as noted above, unless anemia precludes extubation -trend hemoglobin closely, goal >8 -CT abdomen ordered today. 4. CAD s/p stents and s/p pacemaker -no antiplatelets for now given bleed 5. Dementia -patient has been declining cognitively for quite some time. He has moved into a house of his son's but then moved. He does have some paranoid behavior or beliefs based on discussion with family, but circumstances are not entirely clear. Per grandson he was admitted to [facility] about 4 years ago, unclear circumstances but was there for ? 1 month. Consider formal cognitive testing after extubation. According to friends near to the patient, he has been decisional and functioning quite well recently. 6. Possible NSTEMI, improved - troponin increased to 0.249, then downtrended. EKG without acute ischemia. Suspect this was related to demand given his prior CAD history, likely in setting of respiratory failure and shock. - However, given wall motion abnormalities on TTE, may represent NSTEMI, yet unable to anticoagulate at this time given GI bleeding. Will increase Hg goal to 8. 7. Acute metabolic or toxic encephalopathy with underlying chronic dementia - unclear if agitation is due to withdrawal from sedatives today, abnormal reaction to precedex, possible ischemic infarct, or hypovolemic shock. Suspect medication related at this time, CVA much less likely as he had no focal deficits when alert today. - will continue to monitor, placed back on fentanyl and propofol with good response. - CT head, chest, abdomen ordered today. Code: Full, surrogate is patient's Grandson at this time. Patient's son is reportedly not involved with patient's care per grandson. I spent 40 minutes providing critical care management this patient. This excludes time spent in performing separately billed procedures. Quality VTE Deep Vein Thrombosis/Pulmonary Embolism Present on Admission: No
--- NOTE | 2022-11-25 09:45 | DI.CT.S_ITS ---
PROCEDURE: CT HEAD/BRAIN WO CON INDICATIONS: mental status change, not responsive TECHNIQUE: Noncontrast 4.5 mm thick angled axial sections acquired from the foramen magnum to the vertex, with coronal and sagittal reformats. For radiation dose reduction, the following was used: automated exposure control, adjustment of mA and/or kV according to patient size. COMPARISON: [facility], CT, CT HEAD/BRAIN WO CON, 07/21/2022, 17:42. FINDINGS: Image quality: Excellent. CSF spaces: Basal cisterns are patent. No extra-axial fluid collections. The ventricles are symmetric in size and shape. Brain: No intracranial bleeds or masses. There is cerebral volume loss for age, with resultant ventricular and sulcal prominence. There are periventricular and deep white matter chronic small vessel ischemic changes. There is intracranial internal carotid artery atherosclerosis. Skull and face: Calvarium and visualized facial bones appear intact, without suspicious lesions. Sinuses: Visualized sinuses and mastoids are clear. IMPRESSION: 1. No acute intracranial abnormality. 2. Cerebral volume loss and small vessel ischemic changes. Dictated by: Wesly Murdock M.D. on 11/25/2022 at 11:09 Approved by: Wesly Murdock M.D. on 11/25/2022 at 11:11
--- NOTE | 2022-11-25 09:45 | DI.CT.S_ITS ---
PROCEDURE: CT CHEST ABD PEL W CON INDICATIONS: septic shock, unclear source, GI bleeding TECHNIQUE: After the administration of intravenous contrast, 5 mm thick sections acquired from the lung apices to the symphysis. 2.5 mm thick coronal and sagittal reformats were acquired. Additional 7 mm thick coronal maximum intensity projection (MIP) reformats acquired through the lungs. Optional 10-minute delayed imaging may be performed from the kidneys to the bladder. For radiation dose reduction, the following was used: automated exposure control, adjustment of mA and/or kV according to patient size. COMPARISON: None. FINDINGS: Image quality: Excellent. CHEST: Lungs and pleura: Bibasilar consolidative atelectasis and small pleural effusions. No pneumothorax. Endotracheal tube is well positioned above the adrianne. Nasogastric tube extends to the stomach. Mediastinum: Heart size is normal. The coronary arteries have atherosclerotic calcifications. No pericardial effusion. No mediastinal adenopathy by size criteria. The aorta has atherosclerosis with no aneurysmal dilatation. Esophagus is normal in caliber. No hiatal hernia. Chest wall: No axillary or supraclavicular adenopathy by size criteria. Thyroid gland is normal . ABDOMEN: Liver: The liver has no mass or intrahepatic biliary ductal dilatation. Biliary: The gallbladder has no gallstones, pericholecystic fluid, gallbladder wall thickening, or surrounding inflammatory change. Pancreas: The pancreas has no mass or ductal dilatation. There is no surrounding inflammation. Spleen: Normal size. There are no masses. Adrenals: No hypertrophy or nodules. Kidneys: No obstructive calculus or hydronephrosis. No solid mass. Simple cysts of both kidneys. Bowel: The distal esophagus and stomach are normal. The small bowel has a normal caliber and appearance. The terminal ileum is normal. The large bowel has diverticulosis. No free fluid or air. Nodes and vessels: No retroperitoneal or mesenteric adenopathy by size criteria. The aorta has an infrarenal aneurysm which extends to the bifurcation and measures 5.9 x 5.5 cm in maximal axial dimension and measures 7.9 cm in length. The aneurysm begins approximately 2 cm below the left renal artery. Abdominal wall: No abdominal wall mass or hernia. PELVIS: Genitourinary: The bladder has no wall thickening or mass. The bladder is decompressed with a Damian catheter peer Bone: No suspicious bony lesions. Multilevel degenerative changes. No vertebral body compression fractures. IMPRESSION: 1. Bibasilar consolidative atelectasis and small pleural effusions. 2. No acute abnormality of the chest, abdomen, or pelvis. 3. Infrarenal abdominal aortic aneurysm as detailed above. 4. Diverticulosis without evidence of diverticulitis 5. Large right inguinal hernia containing fat. Dictated by: Wesly Murdock M.D. on 11/25/2022 at 11:17 Approved by: Wesly Murdock M.D. on 11/25/2022 at 11:26
--- NOTE | 2022-11-25 10:00 | PM.PN.EICU ---
Subjective Subjective IF CAMERA ACTIVATED, patient seen via real-time interactive audiovisual communication: Camera activated Consent obtained for tele-occupational health nursing director care: Yes Patient Location: ICU Provider location (State): [place] Other participants/roles: RN, RT, Pharmacy, Hospitalist Interval history: Continues on Levophed, down to 2. On Sedation holiday (off Prop/Fent) but not waking up this morning. Continues to have some coffee ground output from OGT. Moraxella growing from tracheal aspirates, started on Ceftriaxone. Current Medications Current Medications Medications: Home Medications albuterol sulfate 90 mcg/actuation aerosol inhaler (Proventil HFA) 1 puff inhalation QIDP PRN shortness of breath #2 inhalations 05/18/22 [Rx Confirmed 11/23/22] amlodipine 5 mg tablet 5 mg PO DAILY #90 tabs 05/18/22 [Rx Confirmed 11/23/22] acetaminophen 325 mg tablet (Aphen) 650 mg PO Q6H PRN fever or pain #30 tabs 07/21/22 [Rx Confirmed 11/23/22] mupirocin 2 % topical ointment 1 applic topical DAILY #22 grams 07/21/22 [Rx Confirmed 11/23/22] fluoxetine 20 mg capsule 20 mg PO QDAY #90 caps 11/09/22 [Rx Confirmed 11/23/22] latanoprost 0.005 % eye drops 1 drp EYE-BOTH ONCE HS 11/23/22 [History Confirmed 11/23/22] lidocaine HCl 2 % mucosal solution (Lidocaine Viscous) 1 applic mucous membrane DAILY 11/23/22 [History Confirmed 11/23/22] Visit Medications (administered) Generic Name Dose Route Start Last Admin Trade Name Freq PRN Reason Stop Dose Admin Chlorhexidine Gluconate 15 ml 11/23/22 06:00 11/25/22 06:04 Chlorhexidine Gluconate 15 Ml Cup PO 15 ml Q6HR TOMA Administration Propofol 1,000 mg in 100 mls @ 3.062 mls/hr 11/23/22 00:30 11/25/22 08:33 Propofol IV 0 mcg/kg/min TITRATE TOMA 0 mls/hr Titration Protocol 5 MCG/KG/MIN Fentanyl 1,000 mcg/ Dextrose 250 mls @ 17.86 mls/hr 11/23/22 01:00 11/25/22 08:30 IV 0 mcg/kg/hr TITRATE TOMA 0 mls/hr Titration Protocol 0.7 MCG/KG/HR NOREPINEPHRINE BITARTRATE/D5W 4 mg in 250 mls @ 30 mls/hr 11/23/22 00:38 11/24/22 23:15 Levophed IV 2 mcg/min TITRATE TOMA 7.5 mls/hr Titration Protocol 8 MCG/MIN Vasopressin 40 unit/ Sodium 102 mls @ 4.5 mls/hr 11/23/22 05:22 11/23/22 06:20 Chloride IV Not Given CONT TOMA dexmedeTOMIDine in 0.9 % NaCL 400 mcg in 100 mls @ 4.87 mls/hr 11/24/22 09:45 11/24/22 12:03 Precedex IV 0 mcg/kg/hr TITRATE TOMA 0 mls/hr Titration Protocol 0.2 MCG/KG/HR Ceftriaxone Sodium 2,000 mg/ 100 mls @ 200 mls/hr 11/25/22 08:15 11/25/22 08:19 Sodium Chloride IV 200 mls/hr Q24H TOMA Administration Insulin Human Lispro 0 unit 11/23/22 12:00 11/25/22 06:04 Insulin Lispro 100 Unit/Ml 3ml Vial SUBCUT Not Given Q6H TOMA Protocol Latanoprost 1 drops 11/23/22 21:00 11/24/22 21:15 Latanoprost 0.005% Ophth 2.5 Ml EYE-BOTH 1 drops BEDTIME TOMA Administration Pantoprazole Sodium 40 mg 11/23/22 09:00 11/25/22 08:19 Pantoprazole 40 Mg Vial IV 40 mg BID TOMA Administration Objective Ventilator Parameters: Ventilator Settings FiO2 0.25 RT Vent Frequency 14 Ventilator Tidal Volume 420 Exhaled Vt/kg IBW 6 Positive End Expiratory 5 Pressure Ventilator Pressure Support 8 Inspiratory Phase Time 0.9 I:E Ratio 1:3.8 Patient Position HOB >= 30 degrees Labs 11/25/22 04:30 11/25/22 04:30 Labs: Laboratory Results - last 24 hr 11/23/22 11/24/22 11/24/22 00:50 04:25 21:45 WBC 13.1 H RBC 3.21 L Hgb 7.3 L Hct 22.8 L MCV 71.2 L MCH 22.9 L MCHC 32.2 RDW 22.2 H Plt Count 252 Neut % (Auto) Lymph % (Auto) [place] % (Auto) Eos % (Auto) Baso % (Auto) Neut # (Auto) Lymph # (Auto) [place] # (Auto) Eos # (Auto) Baso # (Auto) RBC Morphology Hypochromasia Anisocytosis Microcytosis ABG pH ABG pCO2 ABG pO2 ABG HCO3 ABG Total CO2 ABG O2 Saturation ABG Base Excess FiO2 Sodium Potassium Chloride Carbon Dioxide BUN Creatinine Estimated GFR BUN/Creatinine Ratio Glucose Hgb A1c (Ref Lab) 6.0 H Calcium Total Bilirubin AST ALT Alkaline Phosphatase Total Protein Albumin Globulin Albumin/Globulin Ratio mecA/C-Methicil Resis Gene Detected H 11/25/22 11/25/22 11/25/22 04:30 04:30 08:21 WBC 11.7 H RBC 3.28 L Hgb 7.4 L Hct 23.4 L MCV 71.3 L MCH 22.7 L MCHC 31.8 RDW 21.6 H Plt Count 247 Neut % (Auto) 75.9 H Lymph % (Auto) 10.2 L [place] % (Auto) 12.9 Eos % (Auto) 0.5 L Baso % (Auto) 0.5 Neut # (Auto) 8900 H Lymph # (Auto) 1200 [place] # (Auto) 1500 H Eos # (Auto) 100 Baso # (Auto) 100 RBC Morphology See below Hypochromasia 1+ H Anisocytosis 2+ H Microcytosis 2+ H ABG pH 7.40 ABG pCO2 38.5 ABG pO2 55 L ABG HCO3 24 ABG Total CO2 25 ABG O2 Saturation 88 L ABG Base Excess -1.0 FiO2 25 Sodium 133 L Potassium 3.2 L Chloride 102 Carbon Dioxide 26 BUN 20 Creatinine 1.21 Estimated GFR 59 L BUN/Creatinine Ratio 16.5 Glucose 97 Hgb A1c (Ref Lab) Calcium 7.8 L Total Bilirubin 0.3 AST 15 L ALT 14 Alkaline Phosphatase 71 Total Protein 6.0 L Albumin 3.2 L Globulin 2.8 Albumin/Globulin Ratio 1.1 mecA/C-Methicil Resis Gene Exam Vital Signs (past 8 hours): - 11/25/22 02:10 11/25/22 02:10 11/25/22 02:20 Temperature 98.1 F 98.1 F Pulse Rate 61 62 Respiratory Rate 14 15 Blood Pressure 101/54 L Pulse Oximetry 93 92 Oxygen Delivery Method 11/25/22 02:20 11/25/22 02:30 11/25/22 02:30 Temperature 98.1 F Pulse Rate 60 Respiratory Rate 14 Blood Pressure 102/53 L 101/55 L Pulse Oximetry 91 Oxygen Delivery Method 11/25/22 02:40 11/25/22 02:40 11/25/22 02:50 Temperature 98.1 F Pulse Rate 61 Respiratory Rate 15 Blood Pressure 101/54 L 102/55 L Pulse Oximetry 92 Oxygen Delivery Method 11/25/22 02:50 11/25/22 03:00 11/25/22 03:00 Temperature 98.1 F 98.1 F Pulse Rate 60 60 Respiratory Rate 14 14 Blood Pressure 100/54 L Pulse Oximetry 92 92 Oxygen Delivery Method 11/25/22 04:00 11/25/22 03:10 11/25/22 03:10 Temperature 98.1 F Pulse Rate 60 Respiratory Rate 14 Blood Pressure 101/54 L Pulse Oximetry 92 Oxygen Delivery Method Mechanical Ventilation 11/25/22 03:20 11/25/22 03:20 11/25/22 03:31 Temperature 98.1 F Pulse Rate 60 Respiratory Rate 14 Blood Pressure 102/53 L 100/50 L Pulse Oximetry 94 Oxygen Delivery Method 11/25/22 03:31 11/25/22 03:40 11/25/22 03:40 Temperature 98.1 F 98.1 F Pulse Rate 60 60 Respiratory Rate 14 14 Blood Pressure 105/52 L Pulse Oximetry 94 95 Oxygen Delivery Method 11/25/22 03:50 11/25/22 03:50 11/25/22 04:00 Temperature 98.2 F Pulse Rate 60 Respiratory Rate 14 Blood Pressure 102/55 L 98/52 L Pulse Oximetry 94 Oxygen Delivery Method 11/25/22 04:00 11/25/22 04:10 11/25/22 04:10 Temperature 98.2 F 98.2 F Pulse Rate 60 60 Respiratory Rate 14 14 Blood Pressure 100/52 L Pulse Oximetry 95 95 Oxygen Delivery Method 11/25/22 04:20 11/25/22 04:20 11/25/22 04:30 Temperature 98.2 F 98.2 F Pulse Rate 60 60 Respiratory Rate 14 14 Blood Pressure 93/50 L Pulse Oximetry 95 95 Oxygen Delivery Method 11/25/22 04:30 11/25/22 04:40 11/25/22 04:40 Temperature 98.4 F Pulse Rate 60 Respiratory Rate 14 Blood Pressure 104/59 L 103/55 L Pulse Oximetry 95 Oxygen Delivery Method 11/25/22 04:50 11/25/22 04:50 11/25/22 05:00 Temperature 98.4 F Pulse Rate 60 Respiratory Rate 14 Blood Pressure 100/53 L 104/54 L Pulse Oximetry 95 Oxygen Delivery Method 11/25/22 05:00 11/25/22 05:10 11/25/22 05:10 Temperature 98.6 F 98.6 F Pulse Rate 60 60 Respiratory Rate 14 14 Blood Pressure 104/54 L Pulse Oximetry 95 94 Oxygen Delivery Method 11/25/22 05:20 11/25/22 05:20 11/25/22 05:30 Temperature 98.6 F 98.6 F Pulse Rate 60 60 Respiratory Rate 14 15 Blood Pressure 108/58 L Pulse Oximetry 94 93 Oxygen Delivery Method 11/25/22 05:30 11/25/22 05:40 11/25/22 05:40 Temperature 98.8 F Pulse Rate 60 Respiratory Rate 14 Blood Pressure 111/58 L 103/54 L Pulse Oximetry 93 Oxygen Delivery Method 11/25/22 05:50 11/25/22 05:50 11/25/22 06:00 Temperature 98.8 F Pulse Rate 60 Respiratory Rate 14 Blood Pressure 100/51 L 100/54 L Pulse Oximetry 92 Oxygen Delivery Method 11/25/22 06:00 11/25/22 06:10 11/25/22 06:10 Temperature 98.8 F 99.0 F Pulse Rate 60 60 Respiratory Rate 14 14 Blood Pressure 103/52 L Pulse Oximetry 94 93 Oxygen Delivery Method 11/25/22 06:20 11/25/22 06:20 11/25/22 06:30 Temperature 99.0 F 99.0 F Pulse Rate 60 60 Respiratory Rate 14 14 Blood Pressure 102/53 L Pulse Oximetry 93 94 Oxygen Delivery Method 11/25/22 06:30 11/25/22 06:40 11/25/22 06:40 Temperature 99.0 F Pulse Rate 60 Respiratory Rate 14 Blood Pressure 104/54 L 103/54 L Pulse Oximetry 93 Oxygen Delivery Method 11/25/22 06:50 11/25/22 06:50 11/25/22 07:00 Temperature 99.1 F 99.1 F Pulse Rate 60 60 Respiratory Rate 14 14 Blood Pressure 102/53 L Pulse Oximetry 94 92 Oxygen Delivery Method 11/25/22 07:00 11/25/22 07:10 11/25/22 07:10 Temperature 99.1 F Pulse Rate 60 Respiratory Rate 14 Blood Pressure 92/55 L 99/51 L Pulse Oximetry 93 Oxygen Delivery Method 11/25/22 07:20 11/25/22 07:20 11/25/22 07:30 Temperature 99.1 F 99.1 F Pulse Rate 60 60 Respiratory Rate 14 14 Blood Pressure 104/56 L Pulse Oximetry 93 94 Oxygen Delivery Method 11/25/22 07:30 11/25/22 07:40 11/25/22 07:40 Temperature 99.1 F Pulse Rate 60 Respiratory Rate 14 Blood Pressure 108/56 L 103/54 L Pulse Oximetry 94 Oxygen Delivery Method 11/25/22 07:50 11/25/22 07:50 11/25/22 08:00 Temperature 99.1 F Pulse Rate 60 Respiratory Rate 14 Blood Pressure 104/54 L 103/53 L Pulse Oximetry 94 Oxygen Delivery Method 11/25/22 08:00 11/25/22 08:10 11/25/22 08:10 Temperature 99.1 F 99.1 F Pulse Rate 60 60 Respiratory Rate 14 14 Blood Pressure 104/54 L Pulse Oximetry 94 93 Oxygen Delivery Method 11/25/22 08:20 11/25/22 08:20 11/25/22 08:30 Temperature 99.3 F Pulse Rate 60 Respiratory Rate 14 Blood Pressure 112/57 L 110/56 L Pulse Oximetry 94 Oxygen Delivery Method 11/25/22 08:30 11/25/22 08:31 11/25/22 08:40 Temperature 99.3 F 99.3 F Pulse Rate 61 60 Respiratory Rate 14 14 Blood Pressure 121/67 Pulse Oximetry 98 96 Oxygen Delivery Method 11/25/22 08:40 11/25/22 08:51 11/25/22 08:51 Temperature 99.3 F 99.5 F Pulse Rate 70 71 Respiratory Rate 15 20 Blood Pressure 148/68 H Pulse Oximetry 100 92 Oxygen Delivery Method 11/25/22 09:00 11/25/22 09:00 11/25/22 09:11 Temperature 99.5 F 99.7 F H Pulse Rate 68 66 Respiratory Rate 16 17 Blood Pressure 150/63 H Pulse Oximetry 93 92 Oxygen Delivery Method 11/25/22 09:11 11/25/22 09:20 11/25/22 09:20 Temperature 99.9 F H Pulse Rate 65 Respiratory Rate 16 Blood Pressure 148/70 H 148/63 H Pulse Oximetry 92 Oxygen Delivery Method 11/25/22 09:30 11/25/22 09:30 11/25/22 09:40 Temperature 99.9 F H 99.9 F H Pulse Rate 68 63 Respiratory Rate 16 16 Blood Pressure 150/69 H Pulse Oximetry 91 89 L Oxygen Delivery Method 11/25/22 09:40 11/25/22 09:50 11/25/22 09:50 Temperature 99.1 F Pulse Rate 69 Respiratory Rate 24 Blood Pressure 135/61 125/57 L Pulse Oximetry 99 Oxygen Delivery Method Oxygen Delivery Method Mechanical Ventilation Narrative Exam Narrative: Intubated, not currently sedated. Not arousable. On Levop 2, otherwise VS are WNL. Quality TeleICU VTE Deep Vein Thrombosis/Pulmonary Embolism Present on Admission: No Assessment & Plan Assessment & Plan narrative: # Acute Hypoxic Respiratory failure - on ETT. Failed SAT this morning, increased secretions. Plan for jason scan for further evaluation. # Shock - Suspect due to sepsis v hypovolemia # Acute Blood Loss Anemia - suspect due to GI bleeding # GI Bleed, unclear source # Pneumonia - Moraxella growing # AMS - not awakening during sedation holidays as expected. # NSTEMI suspected, EKG w/o acute changes per bedside team N: Hold Prop/Fentanyl for sedation holiday. Stat CT Head. If CT negative and not awakening, will need to broaden AMS workup C: Continue Levophed, goal MAP > 65. Hold DAPT given acute GI bleed P: Continue current vent settings, target SpO2 is 88-92%. If falling, increase FiO2 (only at 25%) and we can repeat ABG. Follow up CT GI: Continue PPI BID, OGT to LIS. CT A/P to be performed to evaluate for possible source of bleed. If negative, start trickle tube feeds. Scope when patient extubated and off pressors per surgery consultation. R: Avoid nephrotoxins. Monitor UOP, goal >0.5 cc/kg/hour H/O: 1u RBC now for a goal Hgb >8 in setting of NSTEMI. Hold VTE PPx ID: Continue Ceftriaxone - follow up sensitivities on Moraxella. If worsening secretions, e/o infection may need to extend for VAP coverage E: SSI. BG goal is 120-180 VTE: SCDs Lines: RIJ CVC, PIV, Damian, OGT
--- NOTE | 2022-11-25 11:51 | DIET.CONS2 ---
Dietary Inpatient Consultation Note Admission Date: 11/23/2022 02:40 Pt remains intubated. Refuse Collector Supervisor requests initiation of trickle feeds if CT A/P negative. Recc initiation of enteral nutrition trickle feed via OG tube of Pivot 1.5 running at 10mL/h. Will revisit feeding rate depending on tolerance and MAP. Diet: 11/23/22 00:42 NPO Diet Diet Modifications: NPO Type: NPO except for Meds Electronically Signed by: Lara Dixon 11/25/22 11:51 Clinical Dietitian [address] [address]
--- NOTE | 2022-11-25 12:06 | CM.DPC ---
DCP Cont: Dio Rosario, community fish hatchery assistant, came by the office. Serena, patient's friend, who has the motel that patient has been staying at is at bedside. Nurse, Lena, had indicated that grandson has been continuing to be updated on condition. Today, there was difficulty arousing patient. Grandson has continued to state, 'all should be done for patient, to continue to have him be a full code. Concerns are also grandson is autistic, unclear as to how much he understands. Dio was in patient's room, and indicated that patient's friend, will contact grandson, for she feels that patient would not want CPR, was difficult even getting him into an assisted living facility. If patient does improve, the barrier to discharge will be securing a skilled facility, should patient consent to go, but patient is technically homeless, as his room expires on 12-06, and would need motel voucher after that. P: DCP to continue to follow closely for needs. Shani Mayer RN/Spike Machine Operator
[2022-11-25] MEDS: POTASSIUM CHLORIDE IN WATER 10 MEQ/100 ML PIGGYBACK 100 MEQ IV ×4 (12:45→15:30)
[2022-11-25] MEDS: fentaNYL 1,000 MCG in DEXTROSE 5% IN WATER 230 ML 17.86 MCG IV (15:30)
--- NOTE | 2022-11-25 15:30 | PM.EVENT ---
Event Note Date Patient Seen: 11/25/22 Event Note (Rapid Response, Code, or fall): Had discussion with patient's grandson at bedside. I discussed the patient's current situation and updated him on the results of the patient's imaging today, which was largely unremarkable. Also that the patient is being treated for a pneumonia but remains stable, though he did not really wake up during the sedation vacation this morning. He wished to make the patient fully comfortable at this time. In trying to discuss the intricacies of this case, and the possible outcome he again reiterated the desire to make him comfortable. Friends whom have known the patient more recently have also expressed that he would not want any support at all. There have also been some issues with paranoia with his dementia recently, and distrust of the medical system and it is not entirely clear that he would have the capacity to make that informed decision at the time. There is also additional difficulty and confusion as noted below from the care management team from today. Dio Ponce, community director network development, came by the office. Serena, patient's friend, who has the motel that patient has been staying at is at bedside. Nurse, Lena, had indicated that grandson has been continuing to be updated on condition. Today, there was difficulty arousing patient. Grandson has continued to state, 'all should be done for patient, to continue to have him be a full code. Concerns are also grandson is autistic, unclear as to how much he understands. Dio was in patient's room, and indicated that patient's friend, will contact grandson, for she feels that patient would not want CPR, was difficult even getting him into an assisted living facility. If patient does improve, the barrier to discharge will be securing a skilled facility, should patient consent to go, but patient is technically homeless, as his room expires on 12-06, and would need motel voucher after that. Will try to seek recommendations from the ethics committee. Will continue with full care for now. I do anticipate he may be able to be extubated in the next 1-2 days, if mental status improves. I spent an additional 25 minutes involved in the advanced care planning of this patient summarized above.
[2022-11-25 16:46] LABS: Hemoglobin 8.3 g/dL (13.5-17.5)
--- NOTE | 2022-11-25 20:39 | PM.ICURNDS ---
- Date Patient Seen: 11/25/22 Time Patient Seen: 20:39 :: This patient was seen via real time interactive two-way audiovisual telecommunication. Note: No acute issues during the day. Patient failed SAT today. CTH negative. FiO2 up to 35%. Will continue supportive and titrate propofol and fentany to seek RASS goal -1 to 0. D/w bedside RN.
[2022-11-25] MEDS: NOREPINEPHRINE BITARTRATE/D5W 4 MG/250 ML PLAST..BAG 7.5 MG IV (20:53)
[2022-11-25] MEDS: LATANOPROST 0.005% OPHTH 2.5 ML 1 DROPS EYE-BOTH (20:55)
--- NOTE | 2022-11-25 23:13 | PC.NURSE ---
2300- Patient propofol titrated to 15mcg/kg/min. Patient nodding to questions appropriately but does not open his eyes or track. Levophed off to see if BP will remain at target with less propofol. Will monitor.
[2022-11-26] VITALS (67 sets, daily range): BP systolic 99–174; BP diastolic 53–84; PULSE 59–80; RESP 13–23; TEMP 36.3–37.8; O2SAT 91–100
[2022-11-26] MEDS: propofoL 1,000 MG/100 ML VIAL 12.247 MG IV (00:41)
[2022-11-26 05:14] LABS: Add Manual Diff / Slide Review NO; Basophils Absolute Auto 0 /uL (0-100); Basophils Percent Auto 0.6 % (0-2); Eosinophils Absolute Auto 100 /uL (0-450); Eosinophils Percent Auto 1.1 % (2-4); Hematocrit 25.5 % (41-53); Hemoglobin 8.2 g/dL (13.5-17.5); Lymphocytes Absolute Auto 1000 /uL (1100-4500); Lymphocytes Percent Auto 13.1 % (25-40); Mean Corpuscular Hemoglobin 23.4 PG (26-34); Mean Corpuscular Volume 73.3 fL (80-100); Monocytes Absolute Auto 1200 /uL (0-900); Monocytes Percent Auto 15.4 % (3-14); Neutrophils Absolute Auto 5300 /uL (1500-7000); Neutrophils Percent Auto 69.8 % (50-75); Platelet Count 240 X10^3/uL (150-400); Red Blood Cell Count 3.48 X10^6/uL (4.5-5.9); Red Cell Distribution Width 22.5 % (11.6-14.8); White Blood Cell Count 7.6 X10^3/uL (4.5-11.0)
[2022-11-26 05:23] LABS: INR 1.2 (0.9-1.3); Prothrombin Time 13.6 SECONDS (10.1-12.7)
[2022-11-26 05:26] LABS: Alanine Aminotransferase 13 IU/L (<50); Albumin Globulin Ratio 1.1 (1.0-2.8); Alkaline Phosphatase 70 U/L (38-126); Aspartate Aminotransferase 16 IU/L (17-59); BUN Creatinine Ratio 16.7 (6-22); Bilirubin Total 0.3 mg/dL (0.2-1.3); Blood Urea Nitrogen 21 mg/dL (9-20); Calcium 7.6 mg/dL (8.4-10.2); Carbon Dioxide 25 mmol/L (22-32); Chloride 101 mmol/L (98-107); Estimated Glomerular Filt Rate 56 mL/min (>60); Globulin 2.7 g/dL (1.7-4.1); Glucose 90 mg/dL (80-110); HEMOLYSIS < 15 (0-50); Potassium 3.9 mmol/L (3.4-5.1); Sodium 131 mmol/L (137-145); Total Protein 5.7 g/dL (6.3-8.2)
[2022-11-26] MEDS: fentaNYL 1,000 MCG in DEXTROSE 5% IN WATER 230 ML 17.86 MCG IV (05:50)
[2022-11-26] MEDS: CHLORHEXIDINE GLUCONATE 15 ML CUP PO ×4 (05:59→18:21)
[2022-11-26 06:01] LABS: Anisocytosis 3+; Hypochromasia 1+
[2022-11-26 06:02] LABS: Microcytosis 2+
[2022-11-26] MEDS: cefTRIAXone 2,000 MG in SODIUM CHLORIDE 0.9% 100 ML 200 MG IV (07:30)
[2022-11-26] MEDS: PANTOPRAZOLE 40 MG VIAL IV ×2 (08:00→20:57)
[2022-11-26] MEDS: propofoL 1,000 MG/100 ML VIAL 6.123 MG IV (08:18)
--- NOTE | 2022-11-26 08:31 | CM.DPC ---
Addendum entered by Shani Mayer R.N. 11/26/22 10:06: Discussed patient during team rounds. Patient could be extubated today. DC planning will follow closely to see how he does once extubated. Addendum entered by Shani Mayer R.N. 11/26/22 08:35: Will discuss with patient's outpatient case manager, and discuss application with home and community services. Shani Mayer RN/Object Oriented Developer Original Note: DCP Cont: Called [facility], Found out that patient has a outpatient case manager assigned, from [facility], named Lit Starks. The phone number is: [phone]. Left him a message on his voice mail to call this DC Early Childhood Special Educator back, did not leave patient's name, due to uncertainity if this is a secure voice mail, but in the message let him know that he has a client that is here, most likely will have barrier at discharge. Would like to find out if patient has any type of SNF benefit as well. P: DCP to continue to follow. Will await response from patient's high school social studies tutor, Lit. Patient is still currently intubated. Will discuss with soc
[2022-11-26 10:19] LABS: D Dimer 2592 ng/ml (<500)
[2022-11-26 10:39] LABS: Procalcitonin 0.25 ng/mL (<0.5)
[2022-11-26 10:40] LABS: Fractionated Inspired Oxygen 35; HCO3 ABG 24 mmol/L (23-27); Oxygen Saturation ABG 93 % (95-100); PCO2 ABG 41.6 mmHg (35-45); PO2 ABG 71 mmHg (80-100); TCO2 ABG 25 mmol/L (23-27); pH ABG 7.37 (7.35-7.45)
--- NOTE | 2022-11-26 10:46 | P.TELICUPN_ITS ---
Subjective Subjective IF CAMERA ACTIVATED, patient seen via real-time interactive audiovisual communication: Camera activated Consent obtained for tele-tiger machine operator care: Yes Patient Location: ICU Provider location (State): [place] Other participants/roles: RN, RT, Pharmacist Interval history: Briefly, is an 82 y/o male with h/o CAD s/p stents, s/p PPM, aortic aneurysm, dementia who presented with acute SOB and hypoxia, noted to have increased work of breathing, failed NIPPV, and required endotracheal intubation on arrival to ED.? Initial CXR notable for bilateral hazy opacities.?Labs notable for WBC 12.2. hgb 6.5, plts 329. Na 135, cl 19, creatinine 1.10. LFTS normal. Trop 0.01->0.06. BNP 1730. He was intubated and placed on propofol and Fentanyl gtt and admitted to ICU for further management. Course complicated by?hypotension,?required to be initiated on vasopressors to maintain MAP >65, started on empiric IV antibiotics due to concern for sepsis 2/2 to presumed aspiration PNA, received total 2 unit of PRBC for drop in Hb of 6.3. This morning, still remains intubated, overnight on Propofol gtt and Fentanyl gtt, currently off sedation for SAT but mental status remains poor. Not a candidate for SBT. CTH wo contrast neg for acute intracranial process. Hemodynamically stable, not on pressors. No more coffee ground output from OG per nursing staff. H&H remains stable. Current Medications Current Medications Medications: Home Medications albuterol sulfate 90 mcg/actuation aerosol inhaler (Proventil HFA) 1 puff inhalation QIDP PRN shortness of breath #2 inhalations 05/18/22 [Rx Confirmed 11/23/22] amlodipine 5 mg tablet 5 mg PO DAILY #90 tabs 05/18/22 [Rx Confirmed 11/23/22] acetaminophen 325 mg tablet (Aphen) 650 mg PO Q6H PRN fever or pain #30 tabs 07/21/22 [Rx Confirmed 11/23/22] mupirocin 2 % topical ointment 1 applic topical DAILY #22 grams 07/21/22 [Rx Confirmed 11/23/22] fluoxetine 20 mg capsule 20 mg PO QDAY #90 caps 11/09/22 [Rx Confirmed 11/23/22] latanoprost 0.005 % eye drops 1 drp EYE-BOTH ONCE HS 11/23/22 [History Confirmed 11/23/22] lidocaine HCl 2 % mucosal solution (Lidocaine Viscous) 1 applic mucous membrane DAILY 11/23/22 [History Confirmed 11/23/22] Visit Medications (administered) Generic Name Dose Route Start Last Admin Trade Name Donna PRN Reason Stop Dose Admin Chlorhexidine Gluconate 15 ml 11/23/22 06:00 11/26/22 05:59 Chlorhexidine Gluconate 15 Ml Cup PO 15 ml Q6HR TOMA Administration Propofol 1,000 mg in 100 mls @ 3.062 mls/hr 11/23/22 00:30 11/26/22 09:28 Propofol IV 0 mcg/kg/min TITRATE TOMA 0 mls/hr Titration Protocol 5 MCG/KG/MIN Fentanyl 1,000 mcg/ Dextrose 250 mls @ 17.86 mls/hr 11/23/22 01:00 11/26/22 10:45 IV 0 mcg/kg/hr TITRATE TOMA 0 mls/hr Titration Protocol 0.7 MCG/KG/HR NOREPINEPHRINE BITARTRATE/D5W 4 mg in 250 mls @ 30 mls/hr 11/23/22 00:38 11/25/22 23:00 Levophed IV 0 mcg/min TITRATE TOMA 0 mls/hr Titration Protocol 8 MCG/MIN Vasopressin 40 unit/ Sodium 102 mls @ 4.5 mls/hr 11/23/22 05:22 11/23/22 06:20 Chloride IV Not Given CONT TOMA dexmedeTOMIDine in 0.9 % NaCL 400 mcg in 100 mls @ 4.87 mls/hr 11/24/22 09:45 11/24/22 12:03 Precedex IV 0 mcg/kg/hr TITRATE TOMA 0 mls/hr Titration Protocol 0.2 MCG/KG/HR Ceftriaxone Sodium 2,000 mg/ 100 mls @ 200 mls/hr 11/25/22 08:15 11/26/22 10:45 Sodium Chloride IV 11/30/22 08:44 Infused Q24H TOMA Infusion Insulin Human Lispro 0 unit 11/23/22 12:00 11/26/22 06:00 Insulin Lispro 100 Unit/Ml 3ml Vial SUBCUT Not Given Q6H TOMA Protocol Latanoprost 1 drops 11/23/22 21:00 11/25/22 20:55 Latanoprost 0.005% Ophth 2.5 Ml EYE-BOTH 1 drops BEDTIME TOMA Administration Pantoprazole Sodium 40 mg 11/23/22 09:00 11/26/22 08:00 Pantoprazole 40 Mg Vial IV 40 mg BID TOMA Administration Objective Ventilator Parameters: Ventilator Settings FiO2 35 RT Vent Frequency 14 Ventilator Tidal Volume 420 Exhaled Vt/kg IBW 6 Positive End Expiratory 5 Pressure Ventilator Pressure Support 8 Inspiratory Phase Time 0.9 I:E Ratio 1:3.8 Patient Position HOB >= 30 degrees Labs 11/26/22 04:30 11/26/22 04:30 Labs: Laboratory Results - last 24 hr 11/23/22 11/25/22 11/26/22 01:40 16:39 04:30 WBC 7.6 RBC 3.48 L Hgb 8.3 L 8.2 L Hct 26.0 L 25.5 L MCV 73.3 L MCH 23.4 L MCHC 32.0 RDW 22.5 H Plt Count 240 Neut % (Auto) 69.8 Lymph % (Auto) 13.1 L [place] % (Auto) 15.4 H Eos % (Auto) 1.1 L Baso % (Auto) 0.6 Neut # (Auto) 5300 Lymph # (Auto) 1000 L [place] # (Auto) 1200 H Eos # (Auto) 100 Baso # (Auto) 0 RBC Morphology See below Hypochromasia 1+ H Anisocytosis 3+ H Microcytosis 2+ H PT INR D-Dimer ABG pH ABG pCO2 ABG pO2 ABG HCO3 ABG Total CO2 ABG O2 Saturation ABG Base Excess FiO2 Sodium Potassium Chloride Carbon Dioxide BUN Creatinine Estimated GFR BUN/Creatinine Ratio Glucose Calcium Total Bilirubin AST ALT Alkaline Phosphatase Total Protein Albumin Globulin Albumin/Globulin Ratio Procalcitonin Blood Type O Positive Antibody Screen Negative Crossmatch See Detail 11/26/22 11/26/22 11/26/22 04:30 04:30 04:30 WBC RBC Hgb Hct MCV MCH MCHC RDW Plt Count Neut % (Auto) Lymph % (Auto) [place] % (Auto) Eos % (Auto) Baso % (Auto) Neut # (Auto) Lymph # (Auto) [place] # (Auto) Eos # (Auto) Baso # (Auto) RBC Morphology Hypochromasia Anisocytosis Microcytosis PT 13.6 H INR 1.2 D-Dimer 2592 H ABG pH ABG pCO2 ABG pO2 ABG HCO3 ABG Total CO2 ABG O2 Saturation ABG Base Excess FiO2 Sodium 131 L Potassium 3.9 Chloride 101 Carbon Dioxide 25 BUN 21 H Creatinine 1.26 H Estimated GFR 56 L BUN/Creatinine Ratio 16.7 Glucose 90 Calcium 7.6 L Total Bilirubin 0.3 AST 16 L ALT 13 Alkaline Phosphatase 70 Total Protein 5.7 L Albumin 3.0 L Globulin 2.7 Albumin/Globulin Ratio 1.1 Procalcitonin Blood Type Antibody Screen Crossmatch 11/26/22 11/26/22 04:30 10:25 WBC RBC Hgb Hct MCV MCH MCHC RDW Plt Count Neut % (Auto) Lymph % (Auto) [place] % (Auto) Eos % (Auto) Baso % (Auto) Neut # (Auto) Lymph # (Auto) [place] # (Auto) Eos # (Auto) Baso # (Auto) RBC Morphology Hypochromasia Anisocytosis Microcytosis PT INR D-Dimer ABG pH 7.37 ABG pCO2 41.6 ABG pO2 71 L ABG HCO3 24 ABG Total CO2 25 ABG O2 Saturation 93 L ABG Base Excess -1.0 FiO2 35 Sodium Potassium Chloride Carbon Dioxide BUN Creatinine Estimated GFR BUN/Creatinine Ratio Glucose Calcium Total Bilirubin AST ALT Alkaline Phosphatase Total Protein Albumin Globulin Albumin/Globulin Ratio Procalcitonin 0.25 Blood Type Antibody Screen Crossmatch Exam Vital Signs (past 8 hours): - 11/26/22 04:00 11/26/22 04:32 11/26/22 03:00 Temperature 99.1 F Pulse Rate Respiratory Rate Blood Pressure 105/58 L Pulse Oximetry Oxygen Delivery Method Mechanical Ventilation 11/26/22 03:00 11/26/22 03:30 11/26/22 03:30 Temperature 99.1 F 99.3 F Pulse Rate 61 60 Respiratory Rate 14 14 Blood Pressure 109/58 L Pulse Oximetry 96 95 Oxygen Delivery Method 11/26/22 04:00 11/26/22 04:00 11/26/22 04:30 Temperature 99.3 F Pulse Rate 60 Respiratory Rate 14 Blood Pressure 105/55 L 101/55 L Pulse Oximetry 95 Oxygen Delivery Method 11/26/22 04:30 11/26/22 05:00 11/26/22 05:00 Temperature 99.1 F 99.1 F Pulse Rate 60 62 Respiratory Rate 14 14 Blood Pressure 99/57 L Pulse Oximetry 95 95 Oxygen Delivery Method 11/26/22 05:30 11/26/22 05:30 11/26/22 06:00 Temperature 99.1 F Pulse Rate 60 Respiratory Rate 14 Blood Pressure 108/56 L 110/54 L Pulse Oximetry 95 Oxygen Delivery Method 11/26/22 06:00 11/26/22 06:30 11/26/22 06:30 Temperature 99.1 F 99.1 F Pulse Rate 60 61 Respiratory Rate 14 14 Blood Pressure 102/53 L Pulse Oximetry 95 94 Oxygen Delivery Method 11/26/22 07:00 11/26/22 07:00 11/26/22 07:30 Temperature 99.1 F Pulse Rate 60 Respiratory Rate 14 Blood Pressure 105/55 L 106/57 L Pulse Oximetry 94 Oxygen Delivery Method 11/26/22 07:30 11/26/22 08:00 11/26/22 08:00 Temperature 99.1 F 99.1 F Pulse Rate 60 61 Respiratory Rate 14 14 Blood Pressure 116/58 L Pulse Oximetry 95 96 Oxygen Delivery Method 11/26/22 08:22 11/26/22 08:30 11/26/22 08:30 Temperature 97.4 F L 99.3 F Pulse Rate 60 Respiratory Rate 14 Blood Pressure 114/58 L Pulse Oximetry 96 Oxygen Delivery Method 11/26/22 08:00 Temperature Pulse Rate Respiratory Rate Blood Pressure Pulse Oximetry Oxygen Delivery Method Mechanical Ventilation Oxygen Delivery Method Mechanical Ventilation Narrative Exam Narrative: GEN: Intubated, currently off sedation, but minimally responsive, not following commands, in no acute distress. HEENT: Endotracheal tube in place. PULM: No use of accessory muscles. Bilaterally symmetrical chest rise. CV: Sinus tachycardia on monitor ABD: Nondistended. NEURO: intubated, moving all 4 extremities spontaneously Quality TeleICU VTE Deep Vein Thrombosis/Pulmonary Embolism Present on Admission: No Stress Ulcer Stress ulcer prophylaxis: yes and on full treatment dose Assessment & Plan Assessment & Plan narrative: # Acute Hypoxic Respiratory failure / CHF exacerbation / ?Aspiration PNA: - Most likely from CHF exacerbation/pulmonary edema? (BNP 1730, CXR with B/L diffuse opacities). Pneumonia less likely at this point. CXR with no focal infiltrates to suggest Pneumonia clinically. Leukocytosis likely steroid- induced. - Low probability of PE given significant improvement in oxygenation (FiO2 down to 25% in the absence of anticoagulation). Venous duplex of both legs negative for DVT. - Has been failing SAT/SBT for past two days. Mental status remains poor. CTH wo contast with no acute intracranial process. - Continue to wean the vent as tolerated. Reevaluate today with SAT/SBT. If no improvement in mentation/neuro exam, may need to consider MRI brain and EEG for further workup. - Continue to diurese as hydrodynamics allow. Goal to seek net negative daily f luid balance of -500cc to -1 L/day.??F/up on TTE. F/up progress with repeat CXR.? - Reviewed vent settings and most recent ABG. Continue with current vent settings. - C/w vent support per lung protective strategy (TV 6cc/kg by IBW, plat pressure < 30, PaO2 60-80 mm Hg, SaO2 > 92%) and c/w ABCDE bundle while intubated. - On Propofol gtt and Fentanyl gtt for sedation/pain control. Goal to keep RAAS 0 to -1. Switch to Precedex gtt to prepare for extubation. - C/w daily sedation vacation (SAT) and vent weaning as tolerated. ?# Shock / Aspiration PNA: - One bottle of blood culture + for staph epidermidis, likely contamination. Sputum culture with growth of Branhamella, currently on Ceftriaxone. - Initially concern for aspiration PNA on presentation. However remains afebrile, oxygenation improved. CXR with no focal infiltrates. - F/up on final blood cultures X 2, UA with urine culture, sputum cultures.? Trend Procalcitonin. - Monitor markers of tissue perfusion (lactate clearance, base deficit, ScvO2, mental status, urine out). - On empiric antibiotics (Ceftriaxone) pending final cultures. D/kylie linezolid since MRSA screen negative. - Currently off pressors. Use?pressors (Norepinephrine) as needed to keep MAP > 65. D/c stress dose steroids. - De-escalate?antibiotics in the next 24 hours if cultures remain negative and Procalcitonin wnl. # Acute on chronic anemia / GI bleed: - Per RN, Noted to have coffee ground output from OG tube on admission. Required 2 units of PRBC since admission.? Most recent post-transfusion CBC with Hb of 7.7, Transfuse for Hb <8.0 due to suspected NSTEMI. - C/w PPI BID. No more coffee ground output from OG tube per RN. Cconsider GI consultation (once extubated), to evaluate for EGD. ICU Core bundle / Best practices: ?# FEN: NPO due to GI bleed. Start trickle feeds. Minimize IVF since has CHF exacerbation. ?# Glucose: fairly controlled. C/w accu checks q6 hours and SSI. BG goal 140-180 ?# Prophylaxis: SCDs for DVT prophylaxis, PPI for stress ulcer prophylaxis ?# Lines/tubes: PIV, Damian, ET tube, OG tube, RI IJ CVC ?# CODE STATUS: Full code ?# Disposition: Remains in ICU Above plan was discussed with rounding team including hospitalist, bedside RN, respiratory therapist, and pharmacist during tele-ICU multidisciplinary rounds this morning. We will continue to follow. Please call us if any additional questions
--- NOTE | 2022-11-26 10:53 | PM.PN.1 ---
Subjective Subjective Interval history: improving secretions this morning. Off of levophed today. More arousable today. Goal to extubate today if mental status continues to improve. Exam Vital Signs (past 8 hours): - 11/26/22 04:00 11/26/22 04:32 11/26/22 03:00 Temperature 99.1 F Pulse Rate Respiratory Rate Blood Pressure 105/58 L Pulse Oximetry Oxygen Delivery Method Mechanical Ventilation 11/26/22 03:00 11/26/22 03:30 11/26/22 03:30 Temperature 99.1 F 99.3 F Pulse Rate 61 60 Respiratory Rate 14 14 Blood Pressure 109/58 L Pulse Oximetry 96 95 Oxygen Delivery Method 11/26/22 04:00 11/26/22 04:00 11/26/22 04:30 Temperature 99.3 F Pulse Rate 60 Respiratory Rate 14 Blood Pressure 105/55 L 101/55 L Pulse Oximetry 95 Oxygen Delivery Method 11/26/22 04:30 11/26/22 05:00 11/26/22 05:00 Temperature 99.1 F 99.1 F Pulse Rate 60 62 Respiratory Rate 14 14 Blood Pressure 99/57 L Pulse Oximetry 95 95 Oxygen Delivery Method 11/26/22 05:30 11/26/22 05:30 11/26/22 06:00 Temperature 99.1 F Pulse Rate 60 Respiratory Rate 14 Blood Pressure 108/56 L 110/54 L Pulse Oximetry 95 Oxygen Delivery Method 11/26/22 06:00 11/26/22 06:30 11/26/22 06:30 Temperature 99.1 F 99.1 F Pulse Rate 60 61 Respiratory Rate 14 14 Blood Pressure 102/53 L Pulse Oximetry 95 94 Oxygen Delivery Method 11/26/22 07:00 11/26/22 07:00 11/26/22 07:30 Temperature 99.1 F Pulse Rate 60 Respiratory Rate 14 Blood Pressure 105/55 L 106/57 L Pulse Oximetry 94 Oxygen Delivery Method 11/26/22 07:30 11/26/22 08:00 11/26/22 08:00 Temperature 99.1 F 99.1 F Pulse Rate 60 61 Respiratory Rate 14 14 Blood Pressure 116/58 L Pulse Oximetry 95 96 Oxygen Delivery Method 11/26/22 08:22 11/26/22 08:30 11/26/22 08:30 Temperature 97.4 F L 99.3 F Pulse Rate 60 Respiratory Rate 14 Blood Pressure 114/58 L Pulse Oximetry 96 Oxygen Delivery Method 11/26/22 08:00 Temperature Pulse Rate Respiratory Rate Blood Pressure Pulse Oximetry Oxygen Delivery Method Mechanical Ventilation Oxygen Delivery Method Mechanical Ventilation Narrative Exam Narrative: GEN: intubated and sedated, HEENT: moist mucous membranes, PERRL NECK: trachea midline, no JVD PULM: intubated, no wheezing rhonchi or obvious rales. CV: regular rate and rhythm, no murmurs ABD: soft, nontender, nondistended, no organomegaly EXT: warm and well perfused with no edema NEURO: sedated Objective Labs 11/26/22 04:30 11/26/22 04:30 Labs: Laboratory Results - last 24 hr 11/23/22 11/25/22 11/26/22 01:40 16:39 04:30 WBC 7.6 RBC 3.48 L Hgb 8.3 L 8.2 L Hct 26.0 L 25.5 L MCV 73.3 L MCH 23.4 L MCHC 32.0 RDW 22.5 H Plt Count 240 Neut % (Auto) 69.8 Lymph % (Auto) 13.1 L [place] % (Auto) 15.4 H Eos % (Auto) 1.1 L Baso % (Auto) 0.6 Neut # (Auto) 5300 Lymph # (Auto) 1000 L [place] # (Auto) 1200 H Eos # (Auto) 100 Baso # (Auto) 0 RBC Morphology See below Hypochromasia 1+ H Anisocytosis 3+ H Microcytosis 2+ H PT INR D-Dimer ABG pH ABG pCO2 ABG pO2 ABG HCO3 ABG Total CO2 ABG O2 Saturation ABG Base Excess FiO2 Sodium Potassium Chloride Carbon Dioxide BUN Creatinine Estimated GFR BUN/Creatinine Ratio Glucose Calcium Total Bilirubin AST ALT Alkaline Phosphatase Total Protein Albumin Globulin Albumin/Globulin Ratio Procalcitonin Blood Type O Positive Antibody Screen Negative Crossmatch See Detail 11/26/22 11/26/22 11/26/22 04:30 04:30 04:30 WBC RBC Hgb Hct MCV MCH MCHC RDW Plt Count Neut % (Auto) Lymph % (Auto) [place] % (Auto) Eos % (Auto) Baso % (Auto) Neut # (Auto) Lymph # (Auto) [place] # (Auto) Eos # (Auto) Baso # (Auto) RBC Morphology Hypochromasia Anisocytosis Microcytosis PT 13.6 H INR 1.2 D-Dimer 2592 H ABG pH ABG pCO2 ABG pO2 ABG HCO3 ABG Total CO2 ABG O2 Saturation ABG Base Excess FiO2 Sodium 131 L Potassium 3.9 Chloride 101 Carbon Dioxide 25 BUN 21 H Creatinine 1.26 H Estimated GFR 56 L BUN/Creatinine Ratio 16.7 Glucose 90 Calcium 7.6 L Total Bilirubin 0.3 AST 16 L ALT 13 Alkaline Phosphatase 70 Total Protein 5.7 L Albumin 3.0 L Globulin 2.7 Albumin/Globulin Ratio 1.1 Procalcitonin Blood Type Antibody Screen Crossmatch 11/26/22 11/26/22 04:30 10:25 WBC RBC Hgb Hct MCV MCH MCHC RDW Plt Count Neut % (Auto) Lymph % (Auto) [place] % (Auto) Eos % (Auto) Baso % (Auto) Neut # (Auto) Lymph # (Auto) [place] # (Auto) Eos # (Auto) Baso # (Auto) RBC Morphology Hypochromasia Anisocytosis Microcytosis PT INR D-Dimer ABG pH 7.37 ABG pCO2 41.6 ABG pO2 71 L ABG HCO3 24 ABG Total CO2 25 ABG O2 Saturation 93 L ABG Base Excess -1.0 FiO2 35 Sodium Potassium Chloride Carbon Dioxide BUN Creatinine Estimated GFR BUN/Creatinine Ratio Glucose Calcium Total Bilirubin AST ALT Alkaline Phosphatase Total Protein Albumin Globulin Albumin/Globulin Ratio Procalcitonin 0.25 Blood Type Antibody Screen Crossmatch [facility] Medical History CAD in [place] artery Cataracts, bilateral (~2019) Dementia (~2018) Myocardial infarction Wears glasses Surgical History Anesthesia H/O heart artery stent (~2017) S/P placement of cardiac pacemaker Family History Family/Other Hemophilia Father No problems noted. Grandfather Hypertension Social History household members: none Smoking Status: Former smoker Assessment & Plan Assessment & Plan narrative: 1. Acute hypoxemic respiratory failure with pneumonia secondary to Branhamella catarrhalis - likely secondary to acute on chronic diastolic heart failure with flash pulmonary edema, combined with bullous disease and pneumonia due to Branhamella given ETT culture. - low suspicion for PE, DVT study negative - echocardiogram with EF of 50-55%, with hypokinesis, possible NSTEMI contributing to pulmonary edema initially. - continued empiric antibiotics for possible pneumonia, stopped all on 11/25. Blood culture positive but only 1/4 bottles and likely contaminant. However sputum cultures with Branhamella (Moraxella) catarrhalis and worsening secretions from ETT on 11/24PM, 11/25 AM. Started on ceftriaxone for presumed pnuemonia given cultures with improvement. Continue for 6 additional days for 7 day course. - CT chest with no pneumonia or acute pathologies. 2. Shock, likely hypovolemic, possibly septic - likely hypovolemia with anemia along with sedation, possibly septic given pneumonia noted above. - Levophed now weaned off. - appreciate tele-buffing and polishing wheel repairer consultation - s/p 3 U PRBC transfusion, continue to trend h/h. Hg 8.2 today with continued slow decline. .Goal will now be 8 given concern for possible NSTEMI. - hold home antihypertensives. - discussed with general surgery, reconsult after extubation and off pressor support. 3. Anemia, micorcytic, unknown chronicity, probable acute blood loss anemia -suspect secondary to GI bleed, unknown chronicity -ordered for PPI BID -once stabilized consult general surgery as noted above, unless anemia precludes extubation -trend hemoglobin closely, goal >8 -CT abdomen showed no obvious mass, chronic infrarenal aortic anerysm. 4. CAD s/p stents and s/p pacemaker -no antiplatelets for now given bleed 5. Dementia -patient has been declining cognitively for quite some time. He has moved into a house of his son's but then moved. He does have some paranoid behavior or beliefs based on discussion with family, but circumstances are not entirely clear. Per grandson he was admitted to [facility] about 4 years ago, unclear circumstances but was there for ? 1 month. Consider formal cognitive testing after extubation. According to friends near to the patient, he has been decisional and functioning quite well recently. 6. Possible NSTEMI, improved - troponin increased to 0.249, then downtrended. EKG without acute ischemia. Suspect this was related to demand given his prior CAD history, likely in setting of respiratory failure and shock. - However, given wall motion abnormalities on TTE, may represent NSTEMI, yet unable to anticoagulate at this time given GI bleeding. Increased Hg goal to 8. 7. Acute metabolic or toxic encephalopathy with underlying chronic dementia - Suspect medication related at this time, CVA much less likely as he had no focal deficits when alert previously. CT head negative. - continue sedation vacation today, can switch back to precedex though hopeful for extubation today. - CT head, chest, abdomen showed no evidence of acute infectious etiology. Code: Full, surrogate is patient's Grandson at this time (though patient expressed that he wished to be intubated while in the ER). Patient's son is reportedly not involved with patient's care per grandson. (please see event note regarding ethics committee consultation) I spent 35 minutes providing critical care management this patient. This excludes time spent in performing separately billed procedures. Quality VTE Deep Vein Thrombosis/Pulmonary Embolism Present on Admission: No
--- NOTE | 2022-11-26 11:18 | DIET.PN1 ---
Dietary Progress Note Assessment: Pt continues on trickle feeds. MAP of 92 per nursing. Plan is to try to extubate today. Will continue to evaluate TF needs. Ht: 175.2 cm Wt: 97.4 kg BMI: 31.7 Last BM: () MNA: Shekhar Score: 12 Diet: 11/25/22 Lunch Tube Feeding Diet Diet Modifications: TF Supplement type: Pivot 1.5 TF mode of delivery: Continuous Starting flow rate mL/hr: 10 Flow rate goal mL/hr: 10 Titration Schedule to reach Goal Rate: NA Max total daily volume in mL: 1,700 Free fluid: 250 Free Water Frequency: Q4H Comment: per hospitalist/tap out operator Nutrition Patient receiving TPN/PPN/TF Yes 11/25/22 12:05 Type of Feeding Tube NG/OG 11/25/22 12:05 Labs: RBC 3.48 X10^6/uL (4.5-5.9) L 11/26/22 04:30 Hgb 8.2 g/dL (13.5-17.5) L 11/26/22 04:30 Hct 25.5 % (41-53) L 11/26/22 04:30 Creatinine 1.26 mg/dL (0.66-1.25) H 11/26/22 04:30 Hemoglobin A1c Cancelled 11/24/22 04:25 NT-Pro-B Natriuret Pep 1730 pg/mL (<450) H 11/23/22 00:41 Monitoring/Evaluations: RD f/u in 3 days Electronically Signed by: Isabela Connors 11/26/22 11:18 Clinical Dietitian [address] [id number]
[2022-11-26] MEDS: dexmedeTOMIDine in 0.9 % NaCL 400 MCG/100 ML PLAST..BAG IV (13:59)
--- NOTE | 2022-11-26 20:22 | PM.ICURNDS ---
- Date Patient Seen: 11/26/22 Time Patient Seen: 20:22 :: This patient was seen via real time interactive two-way audiovisual telecommunication. Note: Patient is on precedex 0.2 and not following commands. Will continue to minimize sedatives and continue daily SAT. D/w bedside.
[2022-11-26] MEDS: LATANOPROST 0.005% OPHTH 2.5 ML 1 DROPS EYE-BOTH (20:57)
[2022-11-26] MEDS: SODIUM CHLORIDE 0.9% 100 ML 10 ML (20:57)
[2022-11-27] VITALS (67 sets, daily range): BP systolic 124–199; BP diastolic 60–103; PULSE 59–97; RESP 13–33; TEMP 36.5–37.2; O2SAT 89–100
[2022-11-27] MEDS: CHLORHEXIDINE GLUCONATE 15 ML CUP PO ×3 (00:04→12:01)
--- NOTE | 2022-11-27 01:23 | PC.NURSE ---
Patient opening eyes spontaneously and biting on ET tube. Pt. reassured and precedex increased to 0.4 and awaiting results.
--- NOTE | 2022-11-27 04:17 | PC.NURSE ---
Patient awakening to voice. Patient reassured and told time and place. Patient relaxing and going back to sleep.
[2022-11-27 04:25] LABS: Basophils Absolute Auto 100 /uL (0-100); Basophils Percent Auto 0.5 % (0-2); Eosinophils Absolute Auto 0 /uL (0-450); Eosinophils Percent Auto 0.2 % (2-4); Hematocrit 28.1 % (41-53); Lymphocytes Absolute Auto 700 /uL (1100-4500); Lymphocytes Percent Auto 6.7 % (25-40); Mean Corpuscular HGB Conc 31.9 % (30-36); Mean Corpuscular Hemoglobin 23.3 PG (26-34); Monocytes Absolute Auto 800 /uL (0-900); Monocytes Percent Auto 7.7 % (3-14); Neutrophils Absolute Auto 8700 /uL (1500-7000); Neutrophils Percent Auto 84.9 % (50-75); Platelet Count 263 X10^3/uL (150-400); Red Blood Cell Count 3.86 X10^6/uL (4.5-5.9); Red Cell Distribution Width 22.3 % (11.6-14.8); White Blood Cell Count 10.2 X10^3/uL (4.5-11.0)
[2022-11-27 04:28] LABS: INR 1.2 (0.9-1.3); Prothrombin Time 13.4 SECONDS (10.1-12.7)
[2022-11-27 04:31] LABS: Add Manual Diff / Slide Review SLIDE REVIEW
[2022-11-27 04:33] LABS: Alanine Aminotransferase 15 IU/L (<50); Albumin 3.2 g/dL (3.5-5.0); Albumin Globulin Ratio 1.1 (1.0-2.8); Alkaline Phosphatase 90 U/L (38-126); Aspartate Aminotransferase 18 IU/L (17-59); BUN Creatinine Ratio 21.4 (6-22); Bilirubin Total 0.4 mg/dL (0.2-1.3); Blood Urea Nitrogen 21 mg/dL (9-20); Calcium 8.1 mg/dL (8.4-10.2); Carbon Dioxide 24 mmol/L (22-32); Chloride 102 mmol/L (98-107); Estimated Glomerular Filt Rate > 60 mL/min (>60); Glucose 118 mg/dL (80-110); HEMOLYSIS < 15 (0-50); Sodium 134 mmol/L (137-145); Total Protein 6.2 g/dL (6.3-8.2)
[2022-11-27] MEDS: dexmedeTOMIDine in 0.9 % NaCL 400 MCG/100 ML PLAST..BAG 9.74 MCG IV (04:37)
[2022-11-27 07:03] LABS: Anisocytosis 2+; Hypochromasia 1+; Microcytosis 2+; Platelet Estimate Adequate on smear
[2022-11-27] MEDS: cefTRIAXone 2,000 MG in SODIUM CHLORIDE 0.9% 100 ML 200 MG IV (07:25)
[2022-11-27 07:34] LABS: HCO3 ABG 24 mmol/L (23-27); PCO2 ABG 36.7 mmHg (35-45); PO2 ABG 83 mmHg (80-100); TCO2 ABG 25 mmol/L (23-27); pH ABG 7.41 (7.35-7.45)
[2022-11-27 07:35] LABS: Fractionated Inspired Oxygen 35; Oxygen Saturation ABG 96 % (95-100)
[2022-11-27] MEDS: PANTOPRAZOLE 40 MG VIAL IV ×2 (08:24→20:47)
--- NOTE | 2022-11-27 09:39 | DIET.CONS2 ---
Dietary Inpatient Consultation Note Admission Date: 11/23/2022 02:40 Pt remains on ventilator. Recommend increasing tube feed to better meet pts nutrition needs as he has been on trickle feeds x2d. Recc titrating TF up by 10mL q4h to goal of 45mL/h of formula Pivot 1.5, continuing with 250mL free water flushes q4h. Diet: 11/25/22 Lunch Tube Feeding Diet Diet Modifications: TF Supplement type: Pivot 1.5 TF mode of delivery: Continuous Starting flow rate mL/hr: 10 Flow rate goal mL/hr: 45 Titration Schedule to reach Goal Rate: increase by 10mL q4h as tolerated Max total daily volume in mL: 2,300 Free fluid: 250 Free Water Frequency: Q4H Comment: per hospitalist/pharmacy scheduler Nutrition Patient receiving TPN/PPN/TF Yes 11/25/22 12:05 Type of Feeding Tube NG/OG 11/26/22 12:00 Type of Feeding Tube NG/OG 11/25/22 12:05 General Nutrition Dietary Nutrition Intervention Start: 11/25/22 12:05 Freq: Status: Active Protocol: Document 11/25/22 12:05 AP (Rec: 11/25/22 12:08 AP [id number]) Nutritional Needs Nutrition Patient receiving TPN/PPN/TF Yes TF Supplement type Pivot 1.5 Type of Feeding Tube NG/OG Nutritional Calculations Patient Data Protocol: NUTR.AMPUT Height 175.2 cm Weight 97.4 kg Weight Calculations Protocol: NUTR.WC [place] Body Weight (lbs) 159.88 [place] Body Weight (kgs) 72.52 Percent of [place] Body Weight (%) 134 Adjusted Body Weight (lbs) 173.59 Adjusted Body Weight (kgs) 78.74 BMI Protocol: NUTR.BMI Body Mass Index (BMI) 31.7 Body Mass Index (BMI) Classification Obese Obesity Class I BEE - [place] Equation Protocol: NUTR.BEE Basal Energy Expenditure (BEE) (kcal) 1713.18 Total Energy Requirement Activity Factor Confined to Bed Total Kilocalorie/Energy Requirements ( 2055.816 kcal) RMR - [place] Equation Protocol: NUTR.RMR Resting Metabolic Rate (kcal) 1659.75 Calculated Activity Level Sedentary Calories Needed to Maintain Weight 1990. [place] Equation Protocol: NUTR.IJE Ventilator Dependent Yes Obese - BMI > 27 Yes Estimated Energy Expenditure (kcal) 1591.00 Estimated Protein Requirements Based on Protein Factor Protocol: NUTR.EPR Protein Factor (grams/kg/day) 1 Estimated Protein Needs (grams/day) 97.4 Estimated Protein Requirements Based on Age and Weight Protocol: NUTR.EPR1 Estimated Protein Needs (grams/day) 77.9 Fluid Requirements - Method 1 Protocol: NUTR.FLUID Fluid Factor (Method 1) 25 mL/kg for CHF or RD Fluid Requirements (Method 1) (mL/day) 2435 Fluid Requirements - Method 2 Fluid Requirements (Method 2) (mL/day) 2661.00 Fluid Requirements - Method 4 Fluid Requirements (Method 4) (mL/day) 2661.00 Fluid Requirements - Method 5 Fluid Requirements (Method 5) (mL/day) 2100.00 Electronically Signed by: Lara Dixon 11/27/22 09:39 Clinical Dietitian [address] [address]
[2022-11-27 10:52] LABS: Fractionated Inspired Oxygen 35; HCO3 ABG 24 mmol/L (23-27); Oxygen Saturation ABG 98 % (95-100); PO2 ABG 105 mmHg (80-100); TCO2 ABG 25 mmol/L (23-27); pH ABG 7.44 (7.35-7.45)
--- NOTE | 2022-11-27 12:20 | P.TELICUPN_ITS ---
Subjective Subjective IF CAMERA ACTIVATED, patient seen via real-time interactive audiovisual communication: Camera activated Consent obtained for tele-water carter care: Yes Patient Location: ICU Provider location (State): [place] Other participants/roles: RN Interval history: Patient Summary: 82 yo man with PMH of CAD s/p stents, s/p PPM, aortic aneurysm, dementia admitted 11/23 with acute respiratory failure requiring intubation, Septic Shock, Moraxella PNA, ? pulm edema, and hgb of 6.5 with coffee ground aspiration from NGT. Pt. presentedv with acute SOB and hypoxia, noted to have increased work of breathing, failed NIPPV, and required endotracheal intubation on arrival to ED.? Initial CXR notable for bilateral hazy opacities.?Labs notable for WBC 12.2. hgb 6.5, plts 329. Na 135, cl 19, creatinine 1.10. LFTS normal. Trop 0.01- >0.06. BNP 1730. He was intubated, started on pressors and antibiotics, and given 2 u of pRBC. CTH wo contrast neg for acute intracranial process 11/25: Hgb stable. Off pressors. Sputum culture grew Branhamella (Moraxella) Catarrhallis 11/26: Patient not extubated because he was too lethargic Recent events. Pt. passed SBT and got extubated. SBP >160 Current Medications Current Medications Medications: Home Medications albuterol sulfate 90 mcg/actuation aerosol inhaler (Proventil HFA) 1 puff inhalation QIDP PRN shortness of breath #2 inhalations 05/18/22 [Rx Confirmed 11/23/22] amlodipine 5 mg tablet 5 mg PO DAILY #90 tabs 05/18/22 [Rx Confirmed 11/23/22] acetaminophen 325 mg tablet (Aphen) 650 mg PO Q6H PRN fever or pain #30 tabs 07/21/22 [Rx Confirmed 11/23/22] mupirocin 2 % topical ointment 1 applic topical DAILY #22 grams 07/21/22 [Rx Confirmed 11/23/22] fluoxetine 20 mg capsule 20 mg PO QDAY #90 caps 11/09/22 [Rx Confirmed 11/23/22] latanoprost 0.005 % eye drops 1 drp EYE-BOTH ONCE HS 11/23/22 [History Confirmed 11/23/22] lidocaine HCl 2 % mucosal solution (Lidocaine Viscous) 1 applic mucous membrane DAILY 11/23/22 [History Confirmed 11/23/22] Visit Medications (administered) Generic Name Dose Route Start Last Admin Trade Name Donna PRN Reason Stop Dose Admin Chlorhexidine Gluconate 15 ml 11/23/22 06:00 11/27/22 12:01 Chlorhexidine Gluconate 15 Ml Cup PO 15 ml Q6HR TOMA Administration Propofol 1,000 mg in 100 mls @ 3.062 mls/hr 11/23/22 00:30 11/26/22 09:28 Propofol IV 0 mcg/kg/min TITRATE TOMA 0 mls/hr Titration Protocol 5 MCG/KG/MIN Fentanyl 1,000 mcg/ Dextrose 250 mls @ 17.86 mls/hr 11/23/22 01:00 11/26/22 10:45 IV 0 mcg/kg/hr TITRATE TOMA 0 mls/hr Titration Protocol 0.7 MCG/KG/HR NOREPINEPHRINE BITARTRATE/D5W 4 mg in 250 mls @ 30 mls/hr 11/23/22 00:38 11/25/22 23:00 Levophed IV 0 mcg/min TITRATE TOMA 0 mls/hr Titration Protocol 8 MCG/MIN Vasopressin 40 unit/ Sodium 102 mls @ 4.5 mls/hr 11/23/22 05:22 11/23/22 06:20 Chloride IV Not Given CONT TOMA dexmedeTOMIDine in 0.9 % NaCL 400 mcg in 100 mls @ 4.87 mls/hr 11/24/22 09:45 11/27/22 09:05 Precedex IV 0 mcg/kg/hr TITRATE TOMA 0 mls/hr Titration Protocol 0.2 MCG/KG/HR Ceftriaxone Sodium 2,000 mg/ 100 mls @ 200 mls/hr 11/25/22 08:15 11/27/22 07:25 Sodium Chloride IV 11/30/22 08:44 200 mls/hr Q24H TOMA Administration Insulin Human Lispro 0 unit 11/23/22 12:00 11/27/22 12:01 Insulin Lispro 100 Unit/Ml 3ml Vial SUBCUT Not Given Q6H TOMA Protocol Latanoprost 1 drops 11/23/22 21:00 11/26/22 20:57 Latanoprost 0.005% Ophth 2.5 Ml EYE-BOTH 1 drops BEDTIME TOMA Administration Pantoprazole Sodium 40 mg 11/23/22 09:00 11/27/22 08:24 Pantoprazole 40 Mg Vial IV 40 mg BID TOMA Administration Objective Ventilator Parameters: Ventilator Settings FiO2 35 RT Vent Frequency 14 Ventilator Tidal Volume 420 Exhaled Vt/kg IBW 6 Positive End Expiratory 5 Pressure Ventilator Pressure Support 5 Inspiratory Phase Time 0.9 I:E Ratio 1:2.7 Patient Position HOB >= 30 degrees Labs 11/27/22 04:06 11/27/22 04:06 Labs: Laboratory Results - last 24 hr 11/27/22 11/27/22 11/27/22 04:06 04:06 04:06 WBC 10.2 RBC 3.86 L Hgb 9.0 L Hct 28.1 L MCV 73.0 L MCH 23.3 L MCHC 31.9 RDW 22.3 H Plt Count 263 Neut % (Auto) 84.9 H Lymph % (Auto) 6.7 L [place] % (Auto) 7.7 Eos % (Auto) 0.2 L Baso % (Auto) 0.5 Neut # (Auto) 8700 H Lymph # (Auto) 700 L [place] # (Auto) 800 Eos # (Auto) 0 Baso # (Auto) 100 Platelet Estimate Adequate on smear RBC Morphology See below Hypochromasia 1+ H Anisocytosis 2+ H Microcytosis 2+ H PT 13.4 H INR 1.2 ABG pH ABG pCO2 ABG pO2 ABG HCO3 ABG Total CO2 ABG O2 Saturation ABG Base Excess FiO2 Sodium 134 L Potassium 4.0 Chloride 102 Carbon Dioxide 24 BUN 21 H Creatinine 0.98 Estimated GFR > 60 BUN/Creatinine Ratio 21.4 Glucose 118 H Calcium 8.1 L Total Bilirubin 0.4 AST 18 ALT 15 Alkaline Phosphatase 90 Total Protein 6.2 L Albumin 3.2 L Globulin 3.0 Albumin/Globulin Ratio 1.1 11/27/22 11/27/22 07:22 10:25 WBC RBC Hgb Hct MCV MCH MCHC RDW Plt Count Neut % (Auto) Lymph % (Auto) [place] % (Auto) Eos % (Auto) Baso % (Auto) Neut # (Auto) Lymph # (Auto) [place] # (Auto) Eos # (Auto) Baso # (Auto) Platelet Estimate RBC Morphology Hypochromasia Anisocytosis Microcytosis PT INR ABG pH 7.41 7.44 ABG pCO2 36.7 35.0 ABG pO2 83 105 H ABG HCO3 24 24 ABG Total CO2 25 25 ABG O2 Saturation 96 98 ABG Base Excess -1.0 0.0 FiO2 35 35 Sodium Potassium Chloride Carbon Dioxide BUN Creatinine Estimated GFR BUN/Creatinine Ratio Glucose Calcium Total Bilirubin AST ALT Alkaline Phosphatase Total Protein Albumin Globulin Albumin/Globulin Ratio Exam Vital Signs (past 8 hours): - 11/27/22 04:34 11/27/22 04:34 11/27/22 04:35 Temperature 97.9 F 97.9 F Pulse Rate 60 60 Respiratory Rate 15 15 Blood Pressure 155/72 H Pulse Oximetry 98 98 Oxygen Delivery Method 11/27/22 05:00 11/27/22 05:01 11/27/22 05:01 Temperature 98.1 F 98.1 F Pulse Rate 60 60 Respiratory Rate 16 15 Blood Pressure 137/64 Pulse Oximetry 98 98 Oxygen Delivery Method 11/27/22 05:02 11/27/22 06:00 11/27/22 06:00 Temperature 98.1 F 98.1 F Pulse Rate 60 60 Respiratory Rate 15 16 Blood Pressure 133/99 H Pulse Oximetry 98 98 Oxygen Delivery Method 11/27/22 06:30 11/27/22 06:30 11/27/22 07:00 Temperature 97.9 F Pulse Rate 60 Respiratory Rate 15 Blood Pressure 145/70 H 138/66 Pulse Oximetry 98 Oxygen Delivery Method 11/27/22 07:00 11/27/22 08:21 11/27/22 07:30 Temperature 97.9 F Pulse Rate 60 Respiratory Rate 16 Blood Pressure 152/72 H Pulse Oximetry 97 97 Oxygen Delivery Method 11/27/22 07:30 11/27/22 08:00 11/27/22 08:00 Temperature 97.9 F 97.9 F Pulse Rate 59 L 60 Respiratory Rate 16 15 Blood Pressure 161/76 H Pulse Oximetry 98 97 Oxygen Delivery Method 11/27/22 08:31 11/27/22 08:31 11/27/22 09:00 Temperature 98.1 F Pulse Rate 60 Respiratory Rate 16 Blood Pressure 152/72 H 142/67 H Pulse Oximetry 97 Oxygen Delivery Method 11/27/22 09:00 11/27/22 08:00 11/27/22 10:00 Temperature 98.1 F Pulse Rate 60 Respiratory Rate 17 Blood Pressure 145/68 H Pulse Oximetry 96 Oxygen Delivery Method Room Air 11/27/22 10:00 11/27/22 10:30 11/27/22 10:30 Temperature 98.1 F 98.2 F Pulse Rate 60 62 Respiratory Rate 16 15 Blood Pressure 157/72 H Pulse Oximetry 97 97 Oxygen Delivery Method 11/27/22 11:00 11/27/22 11:00 11/27/22 11:01 Temperature 98.2 F Pulse Rate 60 Respiratory Rate 17 Blood Pressure 140/68 140/65 Pulse Oximetry 97 Oxygen Delivery Method 11/27/22 11:01 11/27/22 11:30 11/27/22 11:30 Temperature 98.2 F 98.2 F Pulse Rate 60 77 Respiratory Rate 15 29 H Blood Pressure 160/89 H Pulse Oximetry 97 99 Oxygen Delivery Method 11/27/22 12:00 11/27/22 12:00 Temperature 98.4 F Pulse Rate 60 Respiratory Rate 16 Blood Pressure 165/74 H Pulse Oximetry 97 Oxygen Delivery Method Oxygen Delivery Method Room Air Narrative Exam Narrative: Patient extubated, awake, breathing comfortably on nasal cannula Quality TeleICU VTE Deep Vein Thrombosis/Pulmonary Embolism Present on Admission: No Assessment & Plan Assessment & Plan narrative: Assessment Acute respiratory failure-extubated Septic shock-resolvefd Moraxella PNA -? 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
--- NOTE | 2022-11-27 12:33 | RT ---
After approximately 3 hrs of PS/CPAP patient was extubated secondary to MD decision. Pt is now on 2L NC and saturations are around 95%. No complaints at this time.
[2022-11-27] MEDS: HYDRALAZINE 20 MG/ML VIAL 5 MG IV (13:28)
[2022-11-27] MEDS: AMLODIPINE 5 MG TABLET PO (14:19)
[2022-11-27] MEDS: ONDANSETRON 4 MG/2 ML INJ IV (14:19)
--- NOTE | 2022-11-27 14:39 | CM.DPC ---
DCP Cont: Patient was extubated this morning. He is sitting up in bed, friend, Gavino, is at bedside. Introduced self and role. Patient's throat irritated from tube placement, difficult to speak. Asked patient if he would be willing to go to a senior care facility to get stronger, and stated he would. This DC Butcher had mentioned this patient to Ludmila at [facility] yesterday while patient was still intubated to ask if she was contracted with patient's insurance. Confimed that they are. Did mention the possibility of patient needling [facility] care with his Medicaid as well, she indicated that they may have Medicaid beds in the near future. There have been family dynamics, with one estranged son, and the grandson, who is autistic, had visited at one time. At this time, friend, Gavino, has been at bedside, Serena, the processing manager at [facility], has assisted patient while living there. Dio Ponce, [facility] computer forensic examiner, has also been involved helping get housing for patient, but he had refused. Serena had indicated, she may be interested in becoming patient's POA, they had talked about it before. Faxed over clinical information to [facility]. Do not have any P.T. notes as of yet, will need them in order for authorization to a skilled facility. If Serena comes in tomorrow, can discuss further, regarding home plan after skilled, as it is noted that he is covered at the [facility] until early December. 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 Did leave a message for patient's case planner through Medicaid in [place]. Just spoke to Ludmila at [facility], she will review, and see if he could make a good candidate to switch over to [facility] Medicaid bed. P: DCP to continue to follow. Will see about getting therapy orders from hospitalist so they can be sent over to [facility], for Ludmila will need this to submit insurance auth. Shani Mayer RN/Terminal Operator
--- NOTE | 2022-11-27 15:06 | P.PN_ITS ---
Exam Vital Signs (past 8 hours): - 11/27/22 08:21 11/27/22 07:30 11/27/22 07:30 Temperature 97.9 F Pulse Rate 59 L Respiratory Rate 16 Blood Pressure 152/72 H Pulse Oximetry 97 98 Oxygen Delivery Method 11/27/22 08:00 11/27/22 08:00 11/27/22 08:31 Temperature 97.9 F Pulse Rate 60 Respiratory Rate 15 Blood Pressure 161/76 H 152/72 H Pulse Oximetry 97 Oxygen Delivery Method 11/27/22 08:31 11/27/22 09:00 11/27/22 09:00 Temperature 98.1 F 98.1 F Pulse Rate 60 60 Respiratory Rate 16 17 Blood Pressure 142/67 H Pulse Oximetry 97 96 Oxygen Delivery Method 11/27/22 08:00 11/27/22 10:00 11/27/22 10:00 Temperature 98.1 F Pulse Rate 60 Respiratory Rate 16 Blood Pressure 145/68 H Pulse Oximetry 97 Oxygen Delivery Method Mechanical Ventilation 11/27/22 10:30 11/27/22 10:30 11/27/22 11:00 Temperature 98.2 F 98.2 F Pulse Rate 62 60 Respiratory Rate 15 17 Blood Pressure 157/72 H Pulse Oximetry 97 97 Oxygen Delivery Method 11/27/22 11:00 11/27/22 11:01 11/27/22 11:01 Temperature 98.2 F Pulse Rate 60 Respiratory Rate 15 Blood Pressure 140/68 140/65 Pulse Oximetry 97 Oxygen Delivery Method 11/27/22 11:30 11/27/22 11:30 11/27/22 12:00 Temperature 98.2 F Pulse Rate 77 Respiratory Rate 29 H Blood Pressure 160/89 H 165/74 H Pulse Oximetry 99 Oxygen Delivery Method 11/27/22 12:00 11/27/22 12:00 11/27/22 13:28 Temperature 98.4 F Pulse Rate 60 60 Respiratory Rate 16 Blood Pressure 176/82 H Pulse Oximetry 97 Oxygen Delivery Method Nasal Cannula 11/27/22 12:30 11/27/22 12:30 11/27/22 13:00 Temperature 98.4 F 98.4 F Pulse Rate 64 71 Respiratory Rate 19 24 Blood Pressure 176/83 H Pulse Oximetry 95 95 Oxygen Delivery Method 11/27/22 13:52 11/27/22 13:01 11/27/22 13:01 Temperature 98.6 F Pulse Rate 77 72 Respiratory Rate 27 H Blood Pressure 176/86 H 172/82 H Pulse Oximetry 95 Oxygen Delivery Method 11/27/22 13:31 11/27/22 13:31 11/27/22 13:33 Temperature 98.4 F Pulse Rate 69 Respiratory Rate 18 Blood Pressure 158/70 H 169/77 H Pulse Oximetry 95 Oxygen Delivery Method 11/27/22 13:33 11/27/22 13:45 11/27/22 13:45 Temperature 98.4 F 98.4 F Pulse Rate 68 79 Respiratory Rate 18 23 Blood Pressure 183/90 H Pulse Oximetry 95 95 Oxygen Delivery Method 11/27/22 13:50 11/27/22 13:50 11/27/22 14:00 Temperature 98.2 F 98.4 F Pulse Rate 79 97 H Respiratory Rate 19 29 H Blood Pressure 176/86 H Pulse Oximetry 100 95 Oxygen Delivery Method Oxygen Delivery Method Nasal Cannula Narrative Exam Narrative: GEN: extubated and alert and talking HEENT: moist mucous membranes, PERRL NECK: trachea midline, no JVD PULM: chest clear, no wheezing rhonchi or obvious rales. CV: regular rate and rhythm, no murmurs ABD: soft, nontender, nondistended, no organomegaly EXT: warm and well perfused with no edema NEURO: Alert and extremities have normal sensation Objective Labs 11/27/22 04:06 11/27/22 04:06 Labs: Laboratory Results - last 24 hr 11/27/22 11/27/22 11/27/22 04:06 04:06 04:06 WBC 10.2 RBC 3.86 L Hgb 9.0 L Hct 28.1 L MCV 73.0 L MCH 23.3 L MCHC 31.9 RDW 22.3 H Plt Count 263 Neut % (Auto) 84.9 H Lymph % (Auto) 6.[address] [place] % (Auto) 7.7 Eos % (Auto) 0.2 L Baso % (Auto) 0.5 Neut # (Auto) 8700 H Lymph # (Auto) [address] [place] # (Auto) 800 Eos # (Auto) 0 Baso # (Auto) 100 Platelet Estimate Adequate on smear RBC Morphology See below Hypochromasia 1+ H Anisocytosis 2+ H Microcytosis 2+ H PT 13.4 H INR 1.2 ABG pH ABG pCO2 ABG pO2 ABG HCO3 ABG Total CO2 ABG O2 Saturation ABG Base Excess FiO2 Sodium 134 L Potassium 4.0 Chloride 102 Carbon Dioxide 24 BUN 21 H Creatinine 0.98 Estimated GFR > 60 BUN/Creatinine Ratio 21.4 Glucose 118 H Calcium 8.1 L Total Bilirubin 0.4 AST 18 ALT 15 Alkaline Phosphatase 90 Total Protein 6.2 L Albumin 3.2 L Globulin 3.0 Albumin/Globulin Ratio 1.1 11/27/22 11/27/22 07:22 10:25 WBC RBC Hgb Hct MCV MCH MCHC RDW Plt Count Neut % (Auto) Lymph % (Auto) [place] % (Auto) Eos % (Auto) Baso % (Auto) Neut # (Auto) Lymph # (Auto) [place] # (Auto) Eos # (Auto) Baso # (Auto) Platelet Estimate RBC Morphology Hypochromasia Anisocytosis Microcytosis PT INR ABG pH 7.41 7.44 ABG pCO2 36.7 35.0 ABG pO2 83 105 H ABG HCO3 24 24 ABG Total CO2 25 25 ABG O2 Saturation 96 98 ABG Base Excess -1.0 0.0 FiO2 35 35 Sodium Potassium Chloride Carbon Dioxide BUN Creatinine Estimated GFR BUN/Creatinine Ratio Glucose Calcium Total Bilirubin AST ALT Alkaline Phosphatase Total Protein Albumin Globulin Albumin/Globulin Ratio [facility] Medical History CAD in [place] artery Cataracts, bilateral (~2019) Dementia (~2018) Myocardial infarction Wears glasses Surgical History Anesthesia H/O heart artery stent (~2017) S/P placement of cardiac pacemaker Family History Family/Other Hemophilia Father No problems noted. Grandfather Hypertension Social History household members: none Smoking Status: Former smoker Assessment & Plan Assessment & Plan narrative: 1. Acute hypoxemic respiratory failure with pneumonia secondary to Branhamella catarrhalis ?- likely secondary to acute on chronic diastolic heart failure with flash pulmonary edema, combined with bullous disease and pneumonia due to Branhamella given ETT culture. ?- low suspicion for PE, DVT study negative ?- echocardiogram with EF of 50-55%, with hypokinesis, possible NSTEMI contributing to pulmonary edema initially. ?- continued empiric antibiotics for possible pneumonia, stopped all on 11/25. Blood culture positive but only 1/4 bottles and likely contaminant. However sputum cultures with Branhamella (Moraxella) catarrhalis and worsening secretions from ETT on 11/24PM, 11/25 AM. Started on ceftriaxone for presumed pnuemonia given cultures with improvement. Continue for 6 additional days for 7 day course. -on ceftriaxone daily, we will repeat blood cultures to ensure cleared. If blood cultures are positive will assess duration of antibiotics. ?- CT chest with no pneumonia or acute pathologies. 2. Shock, likely hypovolemic, possibly septic ?- likely hypovolemia with anemia along with sedation, possibly septic given pneumonia noted above. ?- Levophed now weaned off. ?- appreciate tele-superintendent service consultation ?- s/p 3 U PRBC transfusion, continue to trend h/h. Hg 8.2 today with continued slow decline. .Goal will now be 8 given concern for possible NSTEMI. ?- hold home antihypertensives -oral antihypertensives reinitiate this today and due to delay ineffectiveness, patient given a dose of Lopressor 5 mg IV stat now. ?- discussed with general surgery, reconsult after extubation and off pressor support we will reassess with general surgery tomorrow morning. 3. Anemia, micorcytic, unknown chronicity, probable acute blood loss anemia -suspect secondary to GI bleed, unknown chronicity -ordered for PPI BID -once stabilized consult general surgery as noted above, unless anemia precludes extubation -trend hemoglobin closely, goal >8 -hemoglobin stable today at 9.0 -CT abdomen showed no obvious mass, chronic infrarenal aortic anerysm. 4. CAD s/p stents and s/p pacemaker -no antiplatelets for now given bleed -on discussion with General surgery tomorrow we will discuss the re-initiation of DVT prophylaxis. 5. Dementia -patient has been declining cognitively for quite some time. He has moved into a house of his son's but then moved. He does have some paranoid behavior or beliefs based on discussion with family, but circumstances are not entirely clear. Per grandson he was admitted to [facility] about 4 years ago, unclear circumstances but was there for ? 1 month. Consider formal cognitive testing after extubation. According to friends near to the patient, he has been decisional and functioning quite well recently. -we will order SLUMS test with OT 6. Possible NSTEMI, improved ?- troponin increased to 0.249, then downtrended. EKG without acute ischemia. Suspect this was related to demand given his prior CAD history, likely in setting of respiratory failure and shock. ?- However, given wall motion abnormalities on TTE, may represent NSTEMI, yet unable to anticoagulate at this time given GI bleeding. Increased Hg goal to 8. 7. Acute metabolic or toxic encephalopathy with underlying chronic dementia ?- Suspect medication related at this time, CVA much less likely as he had no focal deficits when alert previously. CT head negative. ?- continue sedation vacation today, can switch back to precedex though hopeful for extubation today. ?- CT head, chest, abdomen showed no evidence of acute infectious etiology. Follow labs and clinically. DVT prophylaxis: None at this time due to recent be and low hemoglobin coming stabilized now. Code: Full, surrogate is patient's Grandson at this time (though patient expressed that he wished to be intubated while in the ER). Patient's son is reportedly not involved with patient's care per grandson. (please see event note regarding ethics committee consultation) Quality VTE Deep Vein Thrombosis/Pulmonary Embolism Present on Admission: No
[2022-11-27] MEDS: METOPROLOL TARTRATE 5 MG/5 ML INJ IV (15:22)
--- NOTE | 2022-11-27 20:43 | PM.ICURNDS ---
- Date Patient Seen: 11/27/22 Time Patient Seen: 20:44 :: This patient was seen via real time interactive two-way audiovisual telecommunication. Note: extubated today doing well continue current care
[2022-11-27] MEDS: LATANOPROST 0.005% OPHTH 2.5 ML 1 DROPS EYE-BOTH (20:47)
[2022-11-28] VITALS (36 sets, daily range): BP systolic 130–171; BP diastolic 60–79; PULSE 43–78; RESP 14–34; TEMP 36.4–37.3; O2SAT 90–98
[2022-11-28 04:42] LABS: Add Manual Diff / Slide Review NO; Basophils Absolute Auto 0 /uL (0-100); Basophils Percent Auto 0.4 % (0-2); Eosinophils Absolute Auto 200 /uL (0-450); Hematocrit 28.4 % (41-53); Hemoglobin 9.1 g/dL (13.5-17.5); Lymphocytes Absolute Auto 1000 /uL (1100-4500); Lymphocytes Percent Auto 9.1 % (25-40); Mean Corpuscular HGB Conc 32.2 % (30-36); Mean Corpuscular Hemoglobin 23.4 PG (26-34); Mean Corpuscular Volume 72.7 fL (80-100); Monocytes Absolute Auto 1300 /uL (0-900); Monocytes Percent Auto 12.4 % (3-14); Neutrophils Absolute Auto 8100 /uL (1500-7000); Neutrophils Percent Auto 76.1 % (50-75); Platelet Count 294 X10^3/uL (150-400); Red Blood Cell Count 3.91 X10^6/uL (4.5-5.9); Red Cell Distribution Width 22.8 % (11.6-14.8); White Blood Cell Count 10.6 X10^3/uL (4.5-11.0)
[2022-11-28 04:44] LABS: INR 1.2 (0.9-1.3); Prothrombin Time 13.6 SECONDS (10.1-12.7)
[2022-11-28 04:48] LABS: Alanine Aminotransferase 20 IU/L (<50); Albumin 3.3 g/dL (3.5-5.0); Albumin Globulin Ratio 1.1 (1.0-2.8); Alkaline Phosphatase 105 U/L (38-126); Aspartate Aminotransferase 25 IU/L (17-59); BUN Creatinine Ratio 25.3 (6-22); Bilirubin Total 0.5 mg/dL (0.2-1.3); Blood Urea Nitrogen 23 mg/dL (9-20); Calcium 8.1 mg/dL (8.4-10.2); Carbon Dioxide 25 mmol/L (22-32); Chloride 104 mmol/L (98-107); Estimated Glomerular Filt Rate > 60 mL/min (>60); Glucose 100 mg/dL (80-110); HEMOLYSIS < 15 (0-50); Potassium 3.6 mmol/L (3.4-5.1); Sodium 136 mmol/L (137-145); Total Protein 6.3 g/dL (6.3-8.2)
--- NOTE | 2022-11-28 07:06 | PM.PN.EICU ---
Subjective Subjective IF CAMERA ACTIVATED, patient seen via real-time interactive audiovisual communication: Camera activated Consent obtained for tele-senior corporate strategy manager care: Yes Patient Location: ICU Provider location (State): [place] Other participants/roles: RN Interval history: Patient Summary:? 82 yo man with PMH of? CAD s/p stents, s/p PPM, aortic aneurysm, dementia admitted 11/23 with acute respiratory failure requiring intubation, Septic Shock, Moraxella PNA, ? pulm edema, and hgb of 6.5 with coffee ground aspiration from NGT.? Pt. presentedv with acute SOB and hypoxia, noted to have increased work of breathing, failed NIPPV, and required endotracheal intubation on arrival to ED.? Initial CXR notable for bilateral hazy opacities.?Labs notable for WBC 12.2. hgb 6.5, plts 329. Na 135, cl 19, creatinine 1.10. LFTS normal. Trop 0.01->0.06. BNP 1730. He was intubated, started on pressors and antibiotics, and given 2 u of pRBC.? CTH wo contrast neg for acute intracranial process 11/25: Hgb stable. Off pressors.? Sputum culture grew Branhamella (Moraxella) Catarrhallis 11/26:? Patient not extubated because he was too lethargic 11/27: Pt. passed SBT and got extubated Recent events: Patient doing well on Room Air. BP a little high at times. Current Medications Current Medications Medications: Home Medications albuterol sulfate 90 mcg/actuation aerosol inhaler (Proventil HFA) 1 puff inhalation QIDP PRN shortness of breath #2 inhalations 05/18/22 [Rx Confirmed 11/23/22] amlodipine 5 mg tablet 5 mg PO DAILY #90 tabs 05/18/22 [Rx Confirmed 11/23/22] acetaminophen 325 mg tablet (Aphen) 650 mg PO Q6H PRN fever or pain #30 tabs 07/21/22 [Rx Confirmed 11/23/22] mupirocin 2 % topical ointment 1 applic topical DAILY #22 grams 07/21/22 [Rx Confirmed 11/23/22] fluoxetine 20 mg capsule 20 mg PO QDAY #90 caps 11/09/22 [Rx Confirmed 11/23/22] latanoprost 0.005 % eye drops 1 drp EYE-BOTH ONCE HS 11/23/22 [History Confirmed 11/23/22] lidocaine HCl 2 % mucosal solution (Lidocaine Viscous) 1 applic mucous membrane DAILY 11/23/22 [History Confirmed 11/23/22] Visit Medications (administered) Generic Name Dose Route Start Last Admin Trade Name Freq PRN Reason Stop Dose Admin Amlodipine Besylate 5 mg 11/27/22 13:45 11/27/22 14:19 Amlodipine 5 Mg Tablet PO 5 mg DAILY TOMA Administration Hydralazine HCl 5 mg 11/27/22 13:06 11/27/22 13:28 Hydralazine 20 Mg/Ml Vial IV 5 mg Q6HR PRN Administration SBP >160 dexmedeTOMIDine in 0.9 % NaCL 400 mcg in 100 mls @ 4.87 mls/hr 11/24/22 09:45 11/27/22 09:05 Precedex IV 0 mcg/kg/hr TITRATE TOMA 0 mls/hr Titration Protocol 0.2 MCG/KG/HR Ceftriaxone Sodium 2,000 mg/ 100 mls @ 200 mls/hr 11/25/22 08:15 11/27/22 14:21 Sodium Chloride IV 11/30/22 08:44 Infused Q24H TOMA Infusion Latanoprost 1 drops 11/23/22 21:00 11/27/22 20:47 Latanoprost 0.005% Ophth 2.5 Ml EYE-BOTH 1 drops BEDTIME TOMA Administration Ondansetron HCl 4 mg 11/23/22 03:59 11/27/22 14:19 Ondansetron 4 Mg/2 Ml Inj IV 4 mg Q8HR PRN Administration Nausea And Vomiting Pantoprazole Sodium 40 mg 11/23/22 09:00 11/27/22 20:47 Pantoprazole 40 Mg Vial IV 40 mg BID TOMA Administration Objective Ventilator Parameters: Ventilator Settings FiO2 35 RT Vent Frequency 14 Ventilator Tidal Volume 420 Exhaled Vt/kg IBW 6 Positive End Expiratory 5 Pressure Ventilator Pressure Support 5 Inspiratory Phase Time 0.9 I:E Ratio 1:2.7 Patient Position HOB >= 30 degrees Labs 11/28/22 04:30 11/28/22 04:30 Labs: Laboratory Results - last 24 hr 11/27/22 11/27/22 11/27/22 04:06 04:06 07:22 WBC 10.2 RBC 3.86 L Hgb 9.0 L Hct 28.1 L MCV 73.0 L MCH 23.3 L MCHC 31.9 RDW 22.3 H Plt Count 263 Neut % (Auto) 84.9 H Lymph % (Auto) 6.7 L [place] % (Auto) 7.7 Eos % (Auto) 0.2 L Baso % (Auto) 0.5 Neut # (Auto) 8700 H Lymph # (Auto) 700 L [place] # (Auto) 800 Eos # (Auto) 0 Baso # (Auto) 100 Platelet Estimate Adequate on smear RBC Morphology See below Hypochromasia 1+ H Anisocytosis 2+ H Microcytosis 2+ H PT INR ABG pH 7.41 ABG pCO2 36.7 ABG pO2 83 ABG HCO3 24 ABG Total CO2 25 ABG O2 Saturation 96 ABG Base Excess -1.0 FiO2 35 Sodium 134 L Potassium 4.0 Chloride 102 Carbon Dioxide 24 BUN 21 H Creatinine 0.98 Estimated GFR > 60 BUN/Creatinine Ratio 21.4 Glucose 118 H Calcium 8.1 L Total Bilirubin 0.4 AST 18 ALT 15 Alkaline Phosphatase 90 Total Protein 6.2 L Albumin 3.2 L Globulin 3.0 Albumin/Globulin Ratio 1.1 11/27/22 11/28/22 11/28/22 10:25 04:30 04:30 WBC 10.6 RBC 3.91 L Hgb 9.1 L Hct 28.4 L MCV 72.7 L MCH 23.4 L MCHC 32.2 RDW 22.8 H Plt Count 294 Neut % (Auto) 76.1 H Lymph % (Auto) 9.1 L [place] % (Auto) 12.4 Eos % (Auto) 2.0 Baso % (Auto) 0.4 Neut # (Auto) 8100 H Lymph # (Auto) 1000 L [place] # (Auto) 1300 H Eos # (Auto) 200 Baso # (Auto) 0 Platelet Estimate RBC Morphology Hypochromasia Anisocytosis Microcytosis PT INR ABG pH 7.44 ABG pCO2 35.0 ABG pO2 105 H ABG HCO3 24 ABG Total CO2 25 ABG O2 Saturation 98 ABG Base Excess 0.0 FiO2 35 Sodium 136 L Potassium 3.6 Chloride 104 Carbon Dioxide 25 BUN 23 H Creatinine 0.91 Estimated GFR > 60 BUN/Creatinine Ratio 25.3 H Glucose 100 Calcium 8.1 L Total Bilirubin 0.5 AST 25 ALT 20 Alkaline Phosphatase 105 Total Protein 6.3 Albumin 3.3 L Globulin 3.0 Albumin/Globulin Ratio 1.1 11/28/22 04:30 WBC RBC Hgb Hct MCV MCH MCHC RDW Plt Count Neut % (Auto) Lymph % (Auto) [place] % (Auto) Eos % (Auto) Baso % (Auto) Neut # (Auto) Lymph # (Auto) [place] # (Auto) Eos # (Auto) Baso # (Auto) Platelet Estimate RBC Morphology Hypochromasia Anisocytosis Microcytosis PT 13.6 H INR 1.2 ABG pH ABG pCO2 ABG pO2 ABG HCO3 ABG Total CO2 ABG O2 Saturation ABG Base Excess FiO2 Sodium Potassium Chloride Carbon Dioxide BUN Creatinine Estimated GFR BUN/Creatinine Ratio Glucose Calcium Total Bilirubin AST ALT Alkaline Phosphatase Total Protein Albumin Globulin Albumin/Globulin Ratio Exam Vital Signs (past 8 hours): - 11/28/22 00:01 11/28/22 00:01 11/28/22 00:28 Temperature 99.0 F 98.8 F Pulse Rate 65 61 Respiratory Rate 16 16 Blood Pressure 150/67 H Pulse Oximetry 95 93 Oxygen Delivery Method Oxygen Flow Rate 2 2 2 11/28/22 00:00 11/28/22 04:00 11/28/22 01:01 Temperature 98.4 F Pulse Rate 60 Respiratory Rate 17 Blood Pressure Pulse Oximetry 95 Oxygen Delivery Method Nasal Cannula Room Air Oxygen Flow Rate 2 11/28/22 01:01 11/28/22 01:02 11/28/22 02:00 Temperature 98.4 F Pulse Rate 60 Respiratory Rate 19 Blood Pressure 138/63 130/60 Pulse Oximetry 94 Oxygen Delivery Method Oxygen Flow Rate 2 2 2 11/28/22 02:00 11/28/22 02:03 11/28/22 03:00 Temperature 98.2 F 98.2 F Pulse Rate 60 60 Respiratory Rate 16 16 Blood Pressure 149/69 H Pulse Oximetry 94 94 Oxygen Delivery Method Oxygen Flow Rate 2 2 2 11/28/22 03:00 11/28/22 04:01 11/28/22 04:01 Temperature 98.2 F 98.4 F Pulse Rate 64 60 Respiratory Rate 17 17 Blood Pressure 170/69 H Pulse Oximetry 95 97 Oxygen Delivery Method Oxygen Flow Rate 2 11/28/22 04:25 11/28/22 04:25 11/28/22 05:01 Temperature 98.4 F 98.6 F Pulse Rate 60 63 Respiratory Rate 20 18 Blood Pressure 158/67 H Pulse Oximetry 98 93 Oxygen Delivery Method Oxygen Flow Rate 11/28/22 05:01 11/28/22 05:14 11/28/22 06:18 Temperature 98.6 F Pulse Rate 60 Respiratory Rate 19 Blood Pressure 165/72 H 154/72 H Pulse Oximetry 94 Oxygen Delivery Method Oxygen Flow Rate Oxygen Delivery Method Room Air Oxygen Flow Rate 2 Narrative Exam Narrative: Patient seen over two way audio visual system to be breathing comfortably on room air while laying in bed Quality TeleICU VTE Deep Vein Thrombosis/Pulmonary Embolism Present on Admission: No Assessment & Plan Assessment & Plan narrative: Assessment Acute respiratory failure-extubated Septic shock-resolvefd Moraxella PNA -? 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
[2022-11-28 07:19] LABS: Anisocytosis 3+; Microcytosis 2+
[2022-11-28 07:20] LABS: Hypochromasia 1+; Poikilocytosis 1+
[2022-11-28] MEDS: cefTRIAXone 2,000 MG in SODIUM CHLORIDE 0.9% 100 ML 200 MG IV (07:25)
[2022-11-28] MEDS: AMLODIPINE 5 MG TABLET PO (08:02)
[2022-11-28] MEDS: FUROSEMIDE 20 MG/2 ML VIAL IV (08:02)
[2022-11-28] MEDS: PANTOPRAZOLE 40 MG VIAL IV (08:02)
--- NOTE | 2022-11-28 13:53 | CM.DPC ---
DCP Cont: Patient is up in his chair, asked hospitalist if P.T. would be appropriate, is noted that he has O.T. and Speech, which are pending. Patient would need these disciplines to qualify for fdc. Spoke to [facility], patient is between a two to three person transfer, so will need to work with therapy. Did [facility] for either adult family home or assisted living. P: DCP to work on discharge plan. Ludmila at [facility] can't submit the auth until therapy works with patient, but did send her the referral. Shani Mayer, MILKA/Spacecraft Systems Engineer
--- NOTE | 2022-11-28 16:17 | P.PN_ITS ---
Subjective Subjective Interval history: No new complaints. Eager to proceed with mobility. Exam Vital Signs (past 8 hours): - 11/28/22 09:00 11/28/22 09:01 11/28/22 09:01 Temperature 98.8 F 98.8 F Pulse Rate 64 61 Respiratory Rate 18 19 Blood Pressure 154/70 H Pulse Oximetry 95 95 Oxygen Delivery Method 11/28/22 12:00 11/28/22 10:00 11/28/22 10:01 Temperature 99.1 F Pulse Rate 65 Respiratory Rate 14 Blood Pressure 142/65 H Pulse Oximetry 92 Oxygen Delivery Method Nasal Cannula 11/28/22 10:01 11/28/22 11:00 11/28/22 12:00 Temperature 99.1 F Pulse Rate 62 62 62 Respiratory Rate 21 26 H 17 Blood Pressure Pulse Oximetry 93 98 96 Oxygen Delivery Method 11/28/22 13:00 11/28/22 14:00 11/28/22 15:00 Temperature Pulse Rate 61 62 60 Respiratory Rate 18 16 24 Blood Pressure Pulse Oximetry 96 Oxygen Delivery Method 11/28/22 16:00 11/28/22 16:07 11/28/22 16:07 Temperature Pulse Rate 62 64 Respiratory Rate 20 26 H Blood Pressure 163/71 H Pulse Oximetry Oxygen Delivery Method Oxygen Delivery Method Nasal Cannula Oxygen Flow Rate 2 Narrative Exam Narrative: GEN: alert and talking, in no acute medical distress HEENT: moist mucous membranes, PERRL NECK: trachea midline, no JVD PULM: chest clear, no wheezing rhonchi or obvious rales. CV: regular rate and rhythm, no murmurs ABD: soft, nontender, nondistended, no organomegaly EXT: warm and well perfused with no edema NEURO:? Alert and extremities have normal sensation Objective Labs 11/28/22 04:30 11/28/22 04:30 Labs: Laboratory Results - last 24 hr 11/28/22 11/28/22 11/28/22 04:30 04:30 04:30 WBC 10.6 RBC 3.91 L Hgb 9.1 L Hct 28.4 L MCV 72.7 L MCH 23.4 L MCHC 32.2 RDW 22.8 H Plt Count 294 Neut % (Auto) 76.1 H Lymph % (Auto) 9.1 L [place] % (Auto) 12.4 Eos % (Auto) 2.0 Baso % (Auto) 0.4 Neut # (Auto) 8100 H Lymph # (Auto) 1000 L [place] # (Auto) 1300 H Eos # (Auto) 200 Baso # (Auto) 0 RBC Morphology See below Hypochromasia 1+ H Poikilocytosis 1+ H Anisocytosis 3+ H Microcytosis 2+ H PT 13.6 H INR 1.2 Sodium 136 L Potassium 3.6 Chloride 104 Carbon Dioxide 25 BUN 23 H Creatinine 0.91 Estimated GFR > 60 BUN/Creatinine Ratio 25.3 H Glucose 100 Calcium 8.1 L Total Bilirubin 0.5 AST 25 ALT 20 Alkaline Phosphatase 105 Total Protein 6.3 Albumin 3.3 L Globulin 3.0 Albumin/Globulin Ratio 1.1 PFSH Medical History CAD in [place] artery Cataracts, bilateral (~2019) Dementia (~2018) Myocardial infarction Wears glasses Surgical History Anesthesia H/O heart artery stent (~2017) S/P placement of cardiac pacemaker Family History Family/Other Hemophilia Father No problems noted. Grandfather Hypertension Social History household members: none Smoking Status: Former smoker Assessment & Plan Assessment & Plan narrative: 1. Acute hypoxemic respiratory failure with pneumonia secondary to Branhamella catarrhalis ?- likely secondary to acute on chronic diastolic heart failure with flash pulmonary edema, combined with bullous disease and pneumonia due to Branhamella given ETT culture. ?- low suspicion for PE, DVT study negative ?- echocardiogram with EF of 50-55%, with hypokinesis, possible NSTEMI contributing to pulmonary edema initially. ?- continued empiric antibiotics for possible pneumonia, stopped all on 11/25. Blood culture positive but only 1/4 bottles and likely contaminant. However sputum cultures with Branhamella (Moraxella) catarrhalis and worsening secretions from ETT on 11/24PM, 11/25 AM. Started on ceftriaxone for presumed pnuemonia given cultures with improvement. Continue for 6 additional days for 7 day course. -on ceftriaxone daily, we will repeat blood cultures to ensure cleared.? If blood cultures are positive will assess duration of antibiotics. ?- CT chest with no pneumonia or acute pathologies. -currently stable on 2 L by nasal prongs 2. Shock, likely hypovolemic, possibly septic ?- likely hypovolemia with anemia along with sedation, possibly septic given pneumonia noted above. ?- Levophed now weaned off. ?- appreciate tele-door to door salesperson consultation ?- s/p 3 U PRBC transfusion, continue to trend h/h. Hg 8.2 today with continued slow decline. .Goal will now be 8 given concern for possible NSTEMI. ?- hold home antihypertensives -oral antihypertensives reinitiate this today and due to delay ineffectiveness, patient given a dose of Lopressor 5 mg IV stat now. ?- discussed with general surgery, reconsult after extubation and off pressor support we will reassess with general surgery.. 3. Anemia, micorcytic, unknown chronicity, probable acute blood loss anemia -suspect secondary to GI bleed, unknown chronicity -ordered for PPI BID -once stabilized consult general surgery as noted above, unless anemia precludes extubation -trend hemoglobin closely, goal >8 -hemoglobin stable today at 9.0 -CT abdomen showed no obvious mass, chronic infrarenal aortic anerysm. 4. CAD s/p stents and s/p pacemaker -no antiplatelets for now given bleed -on discussion with General surgery will discuss the re-initiation of DVT prophylaxis. 5. Dementia -patient has been declining cognitively for quite some time. He has moved into a house of his son's but then moved. He does have some paranoid behavior or beliefs based on discussion with family, but circumstances are not entirely clear. Per grandson he was admitted to [facility] about 4 years ago, unclear circumstances but was there for ? 1 month. Consider formal cognitive testing after extubation. According to friends near to the patient, he has been decisional and functioning quite well recently. -we will order SLUMS test with OT 6. Possible NSTEMI, improved ?- troponin increased to 0.249, then downtrended. EKG without acute ischemia. Suspect this was related to demand given his prior CAD history, likely in setting of respiratory failure and shock. ?- However, given wall motion abnormalities on TTE, may represent NSTEMI, yet unable to anticoagulate at this time given GI bleeding. Increased Hg goal to 8. 7. Acute metabolic or toxic encephalopathy with underlying chronic dementia ?- Suspect medication related at this time, CVA much less likely as he had no focal deficits when alert previously. CT head negative. ?- continue sedation vacation today, can switch back to precedex though hopeful for extubation today. ?- CT head, chest, abdomen showed no evidence of acute infectious etiology. 8. Mobility. Damian to help with mobility. Order physical therapy for assessment and treatment. Follow labs and clinically. DVT prophylaxis:? None at this time due to recent bleeding and low hemoglobin becoming stabilized now. Code: Full, surrogate is patient's Grandson at this time (though patient expressed that he wished to be intubated while in the ER). Patient's son is reportedly not involved with patient's care per grandson. (please see event note regarding ethics committee consultation) Quality VTE Deep Vein Thrombosis/Pulmonary Embolism Present on Admission: No
[2022-11-28] MEDS: QUETIAPINE 25 MG TABLET 12.5 MG PO (18:26)
[2022-11-28] MEDS: LATANOPROST 0.005% OPHTH 2.5 ML 1 DROPS EYE-BOTH (21:12)
[2022-11-28] MEDS: PANTOPRAZOLE DR 40 MG TABLET PO (21:12)
[2022-11-29] VITALS (7 sets, daily range): BP systolic 133–164; BP diastolic 63–87; PULSE 61–95; RESP 18–26; TEMP 36.3–36.8; O2SAT 95–98
[2022-11-29 04:49] LABS: Add Manual Diff / Slide Review SLIDE REVIEW; Basophils Absolute Auto 100 /uL (0-100); Basophils Percent Auto 0.6 % (0-2); Eosinophils Absolute Auto 600 /uL (0-450); Eosinophils Percent Auto 6.2 % (2-4); Hematocrit 29.3 % (41-53); Hemoglobin 9.4 g/dL (13.5-17.5); Lymphocytes Absolute Auto 1200 /uL (1100-4500); Lymphocytes Percent Auto 12.1 % (25-40); Mean Corpuscular HGB Conc 32.1 % (30-36); Mean Corpuscular Hemoglobin 23.3 PG (26-34); Mean Corpuscular Volume 72.6 fL (80-100); Monocytes Absolute Auto 1600 /uL (0-900); Monocytes Percent Auto 15.5 % (3-14); Neutrophils Absolute Auto 6600 /uL (1500-7000); Neutrophils Percent Auto 65.6 % (50-75); Platelet Count 294 X10^3/uL (150-400); Red Blood Cell Count 4.04 X10^6/uL (4.5-5.9); Red Cell Distribution Width 23.5 % (11.6-14.8)
[2022-11-29 05:02] LABS: Alanine Aminotransferase 32 IU/L (<50); Albumin 3.5 g/dL (3.5-5.0); Albumin Globulin Ratio 1.2 (1.0-2.8); Alkaline Phosphatase 112 U/L (38-126); Aspartate Aminotransferase 35 IU/L (17-59); BUN Creatinine Ratio 18.9 (6-22); Bilirubin Total 0.4 mg/dL (0.2-1.3); Blood Urea Nitrogen 17 mg/dL (9-20); Calcium 8.4 mg/dL (8.4-10.2); Carbon Dioxide 27 mmol/L (22-32); Chloride 100 mmol/L (98-107); Estimated Glomerular Filt Rate > 60 mL/min (>60); Glucose 110 mg/dL (80-110); HEMOLYSIS < 15 (0-50); Potassium 3.1 mmol/L (3.4-5.1); Sodium 134 mmol/L (137-145); Total Protein 6.5 g/dL (6.3-8.2)
[2022-11-29 05:16] LABS: Anisocytosis 3+; Hypochromasia 1+; Microcytosis 2+
[2022-11-29] MEDS: POTASSIUM CHLORIDE 20 MEQ TAB 40 MEQ PO (05:29)
[2022-11-29] MEDS: cefTRIAXone 2,000 MG in SODIUM CHLORIDE 0.9% 100 ML 200 MG IV (08:18)
[2022-11-29] MEDS: FUROSEMIDE 20 MG/2 ML VIAL IV (08:19)
[2022-11-29] MEDS: PANTOPRAZOLE DR 40 MG TABLET PO ×2 (08:19→21:12)
[2022-11-29] MEDS: AMLODIPINE 5 MG TABLET PO (08:19)
--- NOTE | 2022-11-29 11:09 | SLP.IPNOTE ---
Attempted speech therapy evaluation at 11:03. Pt was unavailable as he was having a bathroom event. Will attempt later this morning.
--- NOTE | 2022-11-29 11:47 | DI.CT.S_ITS ---
PROCEDURE: CT HEAD/BRAIN WO CON INDICATIONS: Assess for any acute changes/right arm right leg weakness TECHNIQUE: Noncontrast 4.5 mm thick angled axial sections acquired from the foramen magnum to the vertex, with coronal and sagittal reformats. For radiation dose reduction, the following was used: automated exposure control, adjustment of mA and/or kV according to patient size. COMPARISON: [facility], CT, CT HEAD/BRAIN WO CON, 07/21/2022, 17:42. [facility], CT, CT HEAD/BRAIN WO CON, 11/25/2022, 9:54. FINDINGS: Image quality: Excellent. CSF spaces: Basal cisterns are patent. No extra-axial fluid collections. Ventricles are normal in size and shape. Brain: No midline shift. No intracranial masses or hemorrhage. No area of hypodensity in a large vascular distribution to suggest acute infarction. Periventricular hypodensity consistent with chronic microvascular ischemic change. Age-related parenchymal loss. Skull and face: Calvarium and visualized facial bones are intact, without suspicious lesions. Sinuses: Visualized sinuses and mastoids are clear. IMPRESSION: No interval change. No acute intracranial abnormality. Dictated by: Agustin Love M.D. on 11/29/2022 at 13:53 Approved by: Agustin Love M.D. on 11/29/2022 at 13:55
--- NOTE | 2022-11-29 11:55 | SLP.IPNOTE ---
Attempted speech therapy evaluation with pt at 11:30. Provided education regarding purpose of oral motor assessment and PO trials to test for swallow safety. Pt refused services at this time, stating I don't think I need you. I swallow safely. NSG reported pt is confused today and fixated on being able to stand to pee. Will attempt evaluation tomorrow.
--- NOTE | 2022-11-29 12:37 | PT.IIE ---
Current Diagnoses Unspecified dementia, unspecified severity, without behavioral disturbance, psychotic disturbance, mood disturbance, and anxiety (11/23/22) Atherosclerotic heart disease of nikolai coronary artery without angina pectoris (11/23/22) Abdominal aortic aneurysm, without rupture (11/23/22) Acute respiratory failure with hypoxia (11/23/22) Respiratory failure, unspecified, unspecified whether with hypoxia or hypercapnia (11/23/22) Surgical History (Last Reviewed 11/23/22 @ 04:31 by Kenan Murphy MD) Anesthesia H/O heart artery stent (~2018) S/P placement of cardiac pacemaker Medical History (Last Reviewed 11/23/22 @ 04:31 by Kenan Murphy MD) CAD in nikolai artery Cataracts, bilateral (~2019) Dementia (~2018) Myocardial infarction Wears glasses Physical Therapy Inpatient Evaluation/Re-Eval M1 PT/OT-IP Prior Functional Status Start: 11/29/22 09:27 Freq: NEEDED Status: Active Protocol: Document 11/29/22 13:27 CGR (Rec: 11/29/22 13:54 CGR [id number]) Medical Review Prior Functional Status Medical History Reviewed Yes Communication Pt is an effective verbal communicator. He appears CAHTO. Mobility and Gait Pt was IND in all mobility with use of a SPC per nursing. Activities of Daily Living and IADL's Pt appears to be IND in all ADLs at baseline but pt was unable/unwilling to discuss PLOF. Prior Functional Level (Other details) Per notes, pt was living in a hotel. Social History Household Members none Living Arrangements Other M2 PT-IP Current Condition Start: 11/29/22 09:27 Freq: NEEDED Status: Active Protocol: Document 11/29/22 12:37 AW (Rec: 11/29/22 15:15 AW [id number]) Physical Therapy Current Condition Current Condition Evaluation Date 11/29/22 Treatment Diagnosis acute respiratory failure, generalized weakness; impaired mobility Onset Date 11/23/22 M3 PT-IP Subjective Start: 11/29/22 09:27 Freq: NEEDED Status: Active Protocol: Document 11/29/22 12:37 AW (Rec: 11/29/22 15:15 AW [id number]) Subjective Physical Therapy Visit Type Type Initial Evaluation Visit Start Time 12:16 Visit Stop Time 12:37 Total Visit Minutes 21 Notes Co-eval with OT due to need for 2-person assist and pt's low activity tolerance Physical Therapy Visit Comments Patient Comments Pt is willing to work with PT. He appears confused and uses humor to deflect from any cognitive deficits. Therapy Pain Assessment Pain When Pain Assessed During Mobility Pain Present Pain Present Denied Pain M4 PT-IP Mobility and Gait Start: 11/29/22 09:27 Freq: NEEDED Status: Active Protocol: Document 11/29/22 12:37 AW (Rec: 11/29/22 15:15 AW [id number]) PT-Bed Mobility Assessment Supine to Sit Supine to Sit Maximum Assistance,2 Person Assistance,Head of Bed Elevated,Bedrails Scooting Scooting to Edge of Bed Contact Guard Assistance PT-Transfer Assessment Sit to and From Stand Sit to and from Stand Minimal Assistance,2 Person Assistance,Use of Upper Extremities Equipment Transfer Assistive Device Gait Belt,Front Wheeled Walker Transfers Transfer Destination Chair Transfer Technique Stand Step Pivot Transfer Ability Level of Assist Minimal Assistance,2 Person Assistance,Use of Upper Extremities Comments Mobility Comments Pt was sitting up in bed as PT and OT arrived. He appeared to understand instruction to move toward the right side of the bed and to make the effort but he was unable to effectively move his right leg . PT and OT ultimately provided max assist for pt to sit up and pt was able to maintain decent midline sitting with UE support. He needed assist to scoot forward . He stood with min assist x 2 with assist needed due to impulsivity and poorly coordinated movement particularly on his right side . Pt used FWW to support himself as he attempted to transfer to the chair. Lower extremity elevation was extremely limited with right more affected than left. Pt essentially slid his right foot forward. Min A x 2 to transfer with FWW including assist for walker management and directional changes. Care was transitioned to nursing. Gait Assessment Gait Gait Assistance Required: Minimum Assistance,2 Person Assist Distance (Feet) 3 Assistive Devices Assistive Device Gait Belt,Front Wheeled Walker Gait Deviations General Gait Pattern Decreased Stride Length, Decreased Feet Clearance, Flexed Trunk,Wide Based Gait Factors Limiting Gait Function Factors Limiting Gait Function Decreased Activity Tolerance, Decreased Strength,Difficulty Following Directions, Incoordination,Poor Balance, Poor Safety Awareness Comments Gait Comments Steps taken during transfers only. See mobility comments for details. Stair Climbing Assessment Comments Stair Climbing Comments Not assessed. Unclear whether pt has stairs in his environment at the hotel. PT-Balance Assessment Sitting Balance and Reactions Static Sitting Balance Ability Fair Dynamic Sitting Balance Ability Fair Standing Balance and Reactions Static Standing Balance Ability Poor Dynamic Standing Balance Ability Poor Device Used FWW M5 PT-IP Objective Assessments Start: 11/29/22 09:27 Freq: NEEDED Status: Active Protocol: Document 11/29/22 12:37 AW (Rec: 11/29/22 15:15 AW [id number]) Orientation Orientation/Cognition Level of Alertness Confusional State Orientation Name Safety Awareness Decreased Safety Awareness Gross Range of Motion Upper Extremity ROM Assessment Within Functional Limits Lower Extremity ROM Assessment Within Functional Limits Strength Lower Extremity Strength Hip B flexion 4-/5 Knee B ext 5/5; B flex 4-/5 Ankle R DF 3-/5; L DF 4+/5 Comments Strength Comments Pt states he lacks ankle DF strength chronically Coordination Assessment Assessment Finger to Nose Test Minimal Impairment Foot Tapping Test no active DF RLE Sensation Assessment Comments Sensation Comments Pt denies sensation disturbance on exam Muscle Tone Muscle Tone WNL No Comments Muscle Tone Comments Clonus >4 beats at bilateral ankles M6 PT-IP Treatment Start: 11/29/22 09:27 Freq: NEEDED Status: Active Protocol: Document 11/29/22 12:37 AW (Rec: 11/29/22 15:15 AW [id number]) Physical Therapy Treatment Education Education Provided Safety M7 PT-IP Assessment and Plan Start: 11/29/22 09:27 Freq: NEEDED Status: Active Protocol: Document 11/29/22 12:37 AW (Rec: 11/29/22 15:15 AW [id number]) PT Summary Assessment and Plan Potential Rehabilitation Potential Good Status of Condition at Evaluation Evolving Summary Impairments Strength,Balance,Cognition,Bed Mobility,Transfers,Gait, Activity Tolerance Assessment Summary Calvin is an 82 yo man admitted with hypoxic respiratory failure and flash pulmonary edema who was intubated and then successfully extubated on 11/27. He lives at a local hotel (per chart notes) but is unwilling to discuss his social situation at this encounter. Per nursing, pt has stated he was independent with use of a cane prior to admission. Pt is requiring extra time and 2-person assist for mobility with FWW due to changes in cognition and inconsistent response to instructions. He has apparent deficits in motor planning which seem to affect his right side more significantly than his left. Pt should benefit from continued acute PT services and will require SNF rehab at discharge. Will continue to assess. Goals Bed Mobility Goal Independent Transfer Goal Standby Assistance,Front Wheeled Walker Gait Goal Standby Assistance,Front Wheel Walker Gait Distance 75 Other Goals - progress transfers and gait to SBA with SPC Days to Meet Goals 10 Frequency of Treatment Frequency Of Treatment Once a Day Treatment Plan Physical Therapy Treatment Plan Bed Mobility Training,Transfer Training,Gait Training, Therapeutic Exercise,Balance Retraining,Discharge Planning, Hot or Cold Pack,Neuromuscular Re-ed,Coordination Retraining Other Recommendations and Next Treatment transfers, gait with FWW as Focus able Precautions Other Precautions falls risk Recommendations To Nursing Amount of Assist Needed 2 Person Assist Discharge Recommendations PT Discharge Recommendations SNF Rehab Transportation Needs at Discharge Wheelchair/Cabulance
--- NOTE | 2022-11-29 12:40 | OT.IP.EVAL ---
Current Diagnoses Unspecified dementia, unspecified severity, without behavioral disturbance, psychotic disturbance, mood disturbance, and anxiety (11/23/22) Atherosclerotic heart disease of ruby coronary artery without angina pectoris (11/23/22) Abdominal aortic aneurysm, without rupture (11/23/22) Acute respiratory failure with hypoxia (11/23/22) Respiratory failure, unspecified, unspecified whether with hypoxia or hypercapnia (11/23/22) Past Medical History (Last Reviewed 11/23/22 @ 04:31 by Kenan Murphy MD) CAD in ruby artery Cataracts, bilateral (~2019) Dementia (~2018) Myocardial infarction Wears glasses Surgical History (Last Reviewed 11/23/22 @ 04:31 by Kenan Murphy MD) Anesthesia H/O heart artery stent (~2017) S/P placement of cardiac pacemaker Occupational Therapy Inpatient Evaluation/Re-Eval M1 PT/OT-IP Prior Functional Status Start: 11/29/22 09:27 Freq: NEEDED Status: Active Protocol: Document 11/29/22 13:27 CGR (Rec: 11/29/22 13:54 CGR [id number]) Medical Review Prior Functional Status Medical History Reviewed Yes Communication Pt is an effective verbal communicator. He appears [place]. Mobility and Gait Pt was IND in all mobility with use of a SPC per nursing. Activities of Daily Living and IADL's Pt appears to be IND in all ADLs at baseline but pt was unable/unwilling to discuss PLOF. Prior Functional Level (Other details) Per notes, pt was living in a hotel. Social History Household Members none Living Arrangements Other M2 OT-IP Current Condition Start: 11/29/22 13:27 Freq: Status: Active Protocol: Document 11/29/22 13:27 CGR (Rec: 11/29/22 13:54 CGR [id number]) Occupational Therapy Current Condition Current Condition Evaluation Date 11/29/22 Treatment Diagnosis PNA with flash pulmonary edema Diagnosis Onset Date 11/23/22 M3 OT- IP Subjective and Pain Start: 11/29/22 13:27 Freq: Status: Active Protocol: Document 11/29/22 13:27 CGR (Rec: 11/29/22 13:54 CGR [id number]) OT- Subjective Occupational Therapy Visit Type Type Initial Evaluation Visit Start Time 12:16 Visit Stop Time 12:40 Total Visit Minutes 24 Notes co-eval with P.T. OT Pain Assessment Pain When Pain Assessed At Rest Pain Present Pain Present Denied Pain M4 OT- IP ADL's Start: 11/29/22 13:27 Freq: Status: Active Protocol: Document 11/29/22 13:27 CGR (Rec: 11/29/22 13:54 CGR [id number]) OT [facility] General Evaluation Self-Feeding Ability Standby Assistance Comments OT Self-Feeding Comments with chopped foods. Pt was able to get food to mouth but brings head down closer to food. OT ADL-Grooming Comments OT Grooming Comments not performed OT ADL-Oral Care Comments Oral Care Comments not performed OT ADL-Dressing General Eval Lower Body Dressing Ability Total Assistance Areas Needing Assistance Underpants/Brief,Socks Comments OT Dressing Comments nusing donned clean brief over feet and pt needed assist with pulling up brief once standing. No initiation on the part of the pt to pull pants up. OT ADL-Toileting General Evaluation Toileting Ability Total Assistance Areas Needing Assistance Manage Clothing Devices Toileting Assistive Devices Urinal Comments OT Toileting Comments Urinal standing then sitting. OT ADL-Bathing Comments OT Bathing Comments not performed M5 OT- IP IADL's Start: 11/29/22 13:27 Freq: Status: Active Protocol: Document 11/29/22 13:27 CGR (Rec: 11/29/22 13:54 CGR [id number]) OT-Instrumental Activities of Daily Living Deficits IADL Deficits Identified Deficits Home Safety Awareness Awareness of Need for Assistance at Home Decreased Awareness Ability to Problem Solve Emergency Unable to Problem Solve Situations Medication Management Medication Management Comments concerns regarding pt's ability to perform Money Management Money Management Comments concerns regarding pt's ability to perform Meal Preparation Meal Preparation Comments concerns regarding pt's ability to perform Disability Insurance Claim Examiner Disability Insurance Claim Examiner Comments concerns regarding pt's ability to perform Driving Driving Comments concerns regarding pt's ability to perform M6 OT- IP Functional Cognition Start: 11/29/22 13:27 Freq: Status: Active Protocol: Document 11/29/22 13:27 CGR (Rec: 11/29/22 13:54 CGR [id number]) Cognitive Factors Limiting Selfcare Function Cognitive Ability Level of Alertness Alert,Confusional State Patient Orientation Name Attention Span Ability Unable to Focus,Unable to Sustain Attention Cognitive Comments Cognitive Assessment Comments Pt attemtps humor/jokes throughout session that apear to be attempts to deflect OT- Vision and Hearing OT- Hearing Assessment OT- Hearing Assessment Hearing Impaired OT- Vision Assessment Visual Attentiveness Impaired Visual Convergence WFL Vision Assessment Comments occular pursuits slow M7 OT- IP Mobility and Balance Start: 11/29/22 13:27 Freq: Status: Active Protocol: Document 11/29/22 13:27 CGR (Rec: 11/29/22 13:54 CGR [id number]) OT- Bed Mobility Assessment Supine to Sit Supine to Sit Assist Maximum Assistance,2 Person Assistance,Head of Bed Elevated,Bedrails Scooting Scooting to Edge of Bed Standby Assistance OT-Transfer Assessment Sit to and From Stand Sit to and from Stand Minimal Assistance,2 Person Assistance Transfers Transfer Ability Contact Guard Assistance,2 Person Assistance Technique Transfer Destination Bed,Chair Transfer Technique Stand Step Pivot Devices Transfer Assistive Devices Gait Belt,Front Wheeled Walker Comments Mobility Comments Pt needed lots of extra time for mobilizing and assist out of the bed. Pt is inconsistent with following commands therefore making him a 2 person assist with transfer. Slow controled decent it to chair with VC for hand placement. OT- Balance Assessment Sitting Balance and Reactions Static Sitting Balance Ability Good Dynamic Sitting Balance Ability Good M8 OT- IP Objective Assessments Start: 11/29/22 13:27 Freq: Status: Active Protocol: Document 11/29/22 13:27 CGR (Rec: 11/29/22 13:54 CGR [id number]) OT Gross Range of Motion Upper Extremity Range of Motion Assessment Within Functional Limits OT Strength Upper Extremity Strength Assessment Within Functional Limits Comments Strength Comments 4-/5 OT- Coordination Assessment Upper Extremity Finger to Nose Test Right UE Impaired Finger Tapping Test Right UE Impaired Comments Coordination Comments Noted RUE coordination not consistent with LUE but still able to use hand effectively, however,movements delayed. OT-Muscle Tone Assessment Muscle Tone WNL Yes OT Sensation Assessment Edema Edema Absent M9 OT- IP Assessment and Plan Start: 11/29/22 13:27 Freq: Status: Active Protocol: Document 11/29/22 13:27 CGR (Rec: 11/29/22 13:54 CGR [id number]) OT Summary Assessment and Plan Potential Rehabilitation Potential Good Analytic Complexity at Evaluation High Summary OT Impairments Strength,Balance,Coordination, Functional Cognition, Functional Mobility,Self- Feeding,Grooming,Dressing, Toileting,Bathing,Toilet Transfers,Shower Transfers, Activity Tolerance Progress Towards Goals Slow Progress due to Medical Issues,Slow Progress due to Cognition Assessment Summary Pt presents as a high complexity evaluation s/p admit for PNA with flash pulmonary edema. Pts poor cognition at this time is his biggest challenge with returning to his baseline. 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 Noted RUE and RLE coordination deficits/delayed responses. Pt is left handed at baseline. Pt will continue to benefit from OT services. Recommend d/ c to SNF at this time. Goals Self-Feeding Goal Independent Grooming Goal Independent Dressing Goal Independent Toileting Goal Independent Bathing Goal Independent Toilet Transfer Goal Independent Shower Transfer Goal Independent Days to Meet Goals 20 Frequency of Treatment Frequency Of Treatment Once a Day Treatment Plan OT Treatment Plan ADL Training,Functional Cognition Training,Functional Mobility,Therapeutic Exercises ,Patient/Family Education, Discharge Planning Other Treatment Recommendations and Next ADLs seated Treatment Focus Discharge Recommendations OT Discharge Recommendations SNF Rehab Transportation Needs at Discharge Wheelchair/Cabulance
--- NOTE | 2022-11-29 13:32 | PC.NURSE ---
Pt having to urinate every 5-10 minutes, wanting to get out of bed, non redirectable, complaining that his penis is hurting and needing to urinate- able to pass 50-100ml of urine each time. Order received to place walters cath. 800cc drained immediately and pt states instant relief.
--- NOTE | 2022-11-29 13:34 | PM.PN.1 ---
Subjective Subjective Interval history: Nursing reporting weakness on the right upper extremity and right lower extremity. This was noted when trying to mobilize the patient. Also problems with frequent urination and difficulty to empty bladder. Patient himself has no new complaints. Exam Vital Signs (past 8 hours): - 11/29/22 08:00 11/29/22 07:00 Temperature 97.7 F Pulse Rate 67 Respiratory Rate 23 Blood Pressure 164/74 H Pulse Oximetry 96 Oxygen Delivery Method Room Air Oxygen Flow Rate 0 Oxygen Delivery Method Room Air Oxygen Flow Rate 0 Narrative Exam Narrative: GEN:? alert and talking, in no acute medical distress HEENT: moist mucous membranes, PERRL NECK: trachea midline, no JVD PULM: chest clear, no wheezing rhonchi or obvious rales. CV: regular rate and rhythm, no murmurs ABD: soft, nontender, nondistended, no organomegaly EXT: warm and well perfused with no edema NEURO:? Alert and extremities have normal sensation Objective Labs 11/29/22 04:31 11/29/22 04:31 Labs: Laboratory Results - last 24 hr 11/29/22 11/29/22 04:31 04:31 WBC 10.0 RBC 4.04 L Hgb 9.4 L Hct 29.3 L MCV 72.6 L MCH 23.3 L MCHC 32.1 RDW 23.5 H Plt Count 294 Neut % (Auto) 65.6 Lymph % (Auto) 12.1 L [place] % (Auto) 15.5 H Eos % (Auto) 6.2 H Baso % (Auto) 0.6 Neut # (Auto) 6600 Lymph # (Auto) 1200 [place] # (Auto) 1600 H Eos # (Auto) 600 H Baso # (Auto) 100 RBC Morphology See below Hypochromasia 1+ H Anisocytosis 3+ H Microcytosis 2+ H Sodium 134 L Potassium 3.1 L Chloride 100 Carbon Dioxide 27 BUN 17 Creatinine 0.90 Estimated GFR > 60 BUN/Creatinine Ratio 18.9 Glucose 110 Calcium 8.4 Total Bilirubin 0.4 AST 35 ALT 32 Alkaline Phosphatase 112 Total Protein 6.5 Albumin 3.5 Globulin 3.0 Albumin/Globulin Ratio 1.2 PFSH Medical History CAD in hopi artery Cataracts, bilateral (~2019) Dementia (~2019) Myocardial infarction Wears glasses Surgical History Anesthesia H/O heart artery stent (~2018) S/P placement of cardiac pacemaker Family History Family/Other Hemophilia Father No problems noted. Grandfather Hypertension Social History household members: none Smoking Status: Former smoker Assessment & Plan Assessment & Plan narrative: 1. Acute hypoxemic respiratory failure with pneumonia secondary to Branhamella catarrhalis ?- likely secondary to acute on chronic diastolic heart failure with flash pulmonary edema, combined with bullous disease and pneumonia due to Branhamella given ETT culture. ?- low suspicion for PE, DVT study negative ?- echocardiogram with EF of 50-55%, with hypokinesis, possible NSTEMI contributing to pulmonary edema initially. ?- continued empiric antibiotics for possible pneumonia, stopped all on 11/25. Blood culture positive but only 1/4 bottles and likely contaminant. However sputum cultures with Branhamella (Moraxella) catarrhalis and worsening secretions from ETT on 11/24PM, 11/25 AM. Started on ceftriaxone for presumed pnuemonia given cultures with improvement. Continue for 6 additional days for 7 day course. -on ceftriaxone daily, repeated blood cultures to ensure cleared -were negative. ?- CT chest with no pneumonia or acute pathologies. -currently stable without O2 supplementation 2. Shock, likely hypovolemic, possibly septic ?- likely hypovolemia with anemia along with sedation, possibly septic given pneumonia noted above. ?- Levophed now weaned off. ?- appreciate tele-school curriculum developer consultation ?- s/p 3 U PRBC transfusion, continue to trend h/h. Hg 8.2 today with continued slow decline. Goal will now be 8 given concern for possible NSTEMI. ?- hold home antihypertensives -oral antihypertensives reinitiate this today and due to delay ineffectiveness, patient given a dose of Lopressor 5 mg IV stat now. ?- discussed with general surgery, reconsult after extubation and off pressor support we will reassess with general surgery -this still needs to be done to assess the source of bleeding in the upper GI tract. 3. Anemia, micorcytic, unknown chronicity, probable acute blood loss anemia -suspect secondary to GI bleed, unknown chronicity -ordered for PPI BID -once stabilized consult general surgery as noted above -trend hemoglobin closely, goal >8 -hemoglobin stable today at 9.4 -CT abdomen showed no obvious mass, chronic infrarenal aortic anerysm. 4. CAD s/p stents and s/p pacemaker -no antiplatelets for now given recent bleed 5. Dementia -patient has been declining cognitively for quite some time. He has moved into a house of his son's but then moved. He does have some paranoid behavior or beliefs based on discussion with family, but circumstances are not entirely clear. Per grandson he was admitted to [facility] about 4 years ago, unclear circumstances but was there for ? 1 month. Consider formal cognitive testing after extubation. According to friends near to the patient, he has been decisional and functioning quite well recently. - ordered SLUMS test with OT 6. Possible NSTEMI, improved ?- troponin increased to 0.249, then downtrended. EKG without acute ischemia. Suspect this was related to demand given his prior CAD history, likely in setting of respiratory failure and shock. ?- However, given wall motion abnormalities on TTE, may represent NSTEMI, yet unable to anticoagulate at this time given GI bleeding. Increased Hg goal to 8. 7. Acute metabolic or toxic encephalopathy with underlying chronic dementia ?- Suspect medication related at this time, CVA much less likely as he had no focal deficits when alert previously. CT head negative. ?- CT head, chest, abdomen showed no evidence of acute infectious etiology. 8. Mobility.? Damian to help with mobility.? Ordered physical therapy for assessment and treatment. Nursing reporting weakness of the right upper and lower extremity today. We will order CT head to see if any acute changes. 9. Frequent urination and difficulty voiding completely. Damian placed. Initiate tamsulosin. Follow labs and clinically. DVT prophylaxis:? None at this time due to recent bleeding and low hemoglobin becoming stabilized now. Best to do SCDs. Code: Full, surrogate is patient's Grandson at this time (though patient expressed that he wished to be intubated while in the ER). Patient's son is reportedly not involved with patient's care per grandson. (please see event note regarding ethics committee consultation) Quality VTE Deep Vein Thrombosis/Pulmonary Embolism Present on Admission: No
--- NOTE | 2022-11-29 15:55 | CM.DPC ---
DCP/Continued: Met with patient this AM to discuss d/c planning. Patient seen by therapy and SNF recommended. Patient alert but seemed slightly confused at time of INFORMATION OPERATOR visit. Patient requested INFORMATION OPERATOR come back next week? Received call from giuliana/Serena # [phone] she reports that family has not taken care of patient at all. Patient has been living at her mot for since last year. Serena came in and during her visit patient seemed more alert and oriented. Patient made aware he needs SNF and most likely long-term placement. Serena says patient paid up until December 06. Dio kramer [employer] tuber machine operator came by after Serena left and reports that he thoughf patient was paid up until January 06? Regardless it is clear patient will need SNF. Clinical faxed to [facility], [facility], and [facility]. Received return phone call from Ludmila whom reports that she will start authorization. In addition, she has long-term bed for patient if needed. P: Hopeful patient can go to [facility] when medically stable. Ludmila submitted authorization. Other options would include back to [facility] with home health. PATRICIA
[2022-11-29] MEDS: QUETIAPINE 25 MG TABLET 12.5 MG PO (16:54)
[2022-11-29] MEDS: LATANOPROST 0.005% OPHTH 2.5 ML 1 DROPS EYE-BOTH (21:12)
[2022-11-29] MEDS: MELATONIN 3 MG TABLET 6 MG PO (22:35)
[2022-11-30 04:00] VITALS: BP 160/72; PULSE 67; RESP 24; TEMP 36.7; O2SAT 98
[2022-11-30 04:39] LABS: Basophils Absolute Auto 100 /uL (0-100); Eosinophils Absolute Auto 900 /uL (0-450); Eosinophils Percent Auto 8.6 % (2-4); Hematocrit 31.4 % (41-53); Hemoglobin 9.9 g/dL (13.5-17.5); Lymphocytes Absolute Auto 1700 /uL (1100-4500); Lymphocytes Percent Auto 15.8 % (25-40); Mean Corpuscular HGB Conc 31.4 % (30-36); Mean Corpuscular Hemoglobin 23.2 PG (26-34); Mean Corpuscular Volume 73.9 fL (80-100); Monocytes Absolute Auto 1700 /uL (0-900); Monocytes Percent Auto 15.1 % (3-14); Neutrophils Absolute Auto 6600 /uL (1500-7000); Neutrophils Percent Auto 59.5 % (50-75); Platelet Count 304 X10^3/uL (150-400); Red Blood Cell Count 4.25 X10^6/uL (4.5-5.9)
[2022-11-30 04:42] LABS: Add Manual Diff / Slide Review SLIDE REVIEW
[2022-11-30 04:47] LABS: Alanine Aminotransferase 27 IU/L (<50); Albumin 3.6 g/dL (3.5-5.0); Albumin Globulin Ratio 1.2 (1.0-2.8); Alkaline Phosphatase 98 U/L (38-126); Aspartate Aminotransferase 28 IU/L (17-59); BUN Creatinine Ratio 18.8 (6-22); Bilirubin Total 0.4 mg/dL (0.2-1.3); Blood Urea Nitrogen 16 mg/dL (9-20); Calcium 8.5 mg/dL (8.4-10.2); Carbon Dioxide 24 mmol/L (22-32); Chloride 99 mmol/L (98-107); Estimated Glomerular Filt Rate > 60 mL/min (>60); Globulin 3.1 g/dL (1.7-4.1); Glucose 113 mg/dL (80-110); HEMOLYSIS < 15 (0-50); Potassium 3.3 mmol/L (3.4-5.1); Sodium 132 mmol/L (137-145); Total Protein 6.7 g/dL (6.3-8.2)
[2022-11-30 05:11] LABS: Anisocytosis 3+; Hypochromasia 1+; Microcytosis 2+; Schistocytes 1+
[2022-11-30] MEDS: POTASSIUM CHLORIDE 20 MEQ/15 ML UDC 40 MEQ PO ×2 (07:08→15:06)
[2022-11-30] MEDS: cefTRIAXone 2,000 MG in SODIUM CHLORIDE 0.9% 100 ML 200 MG IV (08:38)
[2022-11-30 08:53] VITALS: BP 133/59; PULSE 63; RESP 19; TEMP 36.6; O2SAT 97
--- NOTE | 2022-11-30 09:13 | CM.DPC ---
Addendum entered by Shani Mayer R.N. 11/30/22 15:59: Attempted to call [address] [facility] [employer] for status of auth, for Ludmila at [facility] has not yet heard back on the auth. Called number on card, was transferred several times. Just found out that [employer] is the contact. Their number is: [phone]. Can attempt to call in the am, Ludmila is also working on this. Will still keep 11:00 spot open for tomorrow. Addendum entered by Shani Mayer R.N. 11/30/22 11:07: Have not yet heard back from Ludmila regarding insurance auth. Did leave her another message. Original Note: DCP Cont: Left Ludmila a message at [facility], for it is noted that she submitted auth for patient, since he did work with P.T, and O.T. yesterday. [facility] has declined patient. P: DCP to continue to work on discharge plan. Ludmila at [facility] is working on insurance auth. Message left for her with update. Shani Mayer, RN/Grocery Manager
[2022-11-30 09:59] LABS: Magnesium 1.9 mg/dL (1.6-2.3)
[2022-11-30] MEDS: FUROSEMIDE 20 MG/2 ML VIAL IV (10:04)
[2022-11-30] MEDS: PANTOPRAZOLE DR 40 MG TABLET PO ×2 (10:05→21:10)
[2022-11-30] MEDS: TAMSULOSIN 0.4 MG CAPSULE PO (10:05)
[2022-11-30] MEDS: AMLODIPINE 5 MG TABLET PO (10:05)
--- NOTE | 2022-11-30 12:10 | PT.IPTN ---
Current Diagnoses Unspecified dementia, unspecified severity, without behavioral disturbance, psychotic disturbance, mood disturbance, and anxiety (11/23/22) Atherosclerotic heart disease of [place] coronary artery without angina pectoris (11/23/22) Abdominal aortic aneurysm, without rupture (11/23/22) Acute respiratory failure with hypoxia (11/23/22) Respiratory failure, unspecified, unspecified whether with hypoxia or hypercapnia (11/23/22) Physical Therapy Treatment Note M2 PT-IP Current Condition Start: 11/29/22 09:27 Freq: NEEDED Status: Active Protocol: Document 11/29/22 12:37 AW (Rec: 11/29/22 15:15 AW [id number]) Physical Therapy Current Condition Current Condition Evaluation Date 11/29/22 Treatment Diagnosis acute respiratory failure, generalized weakness; impaired mobility Onset Date 11/23/22 M3 PT-IP Subjective Start: 11/29/22 09:27 Freq: NEEDED Status: Active Protocol: Document 11/30/22 12:36 TS (Rec: 11/30/22 13:02 TS [id number]) Subjective Physical Therapy Visit Type Type Treatment Note Visit Start Time 12:10 Visit Stop Time 12:33 Total Visit Minutes 23 Physical Therapy Visit Comments Patient Comments Pt confused, not sure why he's in hospital, is a poor historian, thought he was in [facility], agreeable to PT session. M4 PT-IP Mobility and Gait Start: 11/29/22 09:27 Freq: NEEDED Status: Active Protocol: Document 11/30/22 12:36 TS (Rec: 11/30/22 13:02 TS [id number]) PT-Transfer Assessment Sit to and From Stand Sit to and from Stand Contact Guard Assistance, Minimal Assistance,1 Person Assistance Equipment Transfer Assistive Device Gait Belt,Front Wheeled Walker Comments Mobility Comments Pt resting in chair, agreeable to PT session. Pt scooted in chair SBA, provided cues for BUE support on arms of chair. Pt performed sit to stand x2 CGA with BUE support on arms of chair, x2 LOB back in to chair pulling FWW over. Sit to stand x1 Ady, provided cues for upright posture and weight foward, balance improved. Pt ambulated ~100' in room dAy with step thru gait, required cues for staying in FWW and upright posture, no signs of buckling or LOB. Stand to sit x1 Ady, provided cues for BUE support and slow eccentric control into sitting. Pt was left in chair, with lunch, call light nearby and all needs met, RN notified. Gait Assessment Gait Gait Assistance Required: Minimum Assistance,1 Person Assist Distance (Feet) 100 Assistive Devices Assistive Device Gait Belt,Front Wheeled Walker Gait Deviations General Gait Pattern Decreased Stride Length, Decreased Feet Clearance, Flexed Trunk,Wide Based Gait Factors Limiting Gait Function Factors Limiting Gait Function Decreased Activity Tolerance, Decreased Strength,Difficulty Following Directions, Incoordination,Poor Balance, Poor Safety Awareness Comments Gait Comments See mobility comments. PT-Balance Assessment Sitting Balance and Reactions Static Sitting Balance Ability Good Dynamic Sitting Balance Ability Fair Standing Balance and Reactions Static Standing Balance Ability Fair Dynamic Standing Balance Ability Poor Device Used FWW Comments Other Balance Tests/Deviations/Treatment Pt had x2 posterior LOB in : standing with FWW, required Ady and back of legs against chair to keep standing balance x1, balanced improved with cues for upright posture and weight forward. M5 PT-IP Objective Assessments Start: 11/29/22 09:27 Freq: NEEDED Status: Active Protocol: Document 11/29/22 12:37 AW (Rec: 11/29/22 15:15 AW [id number]) Orientation Orientation/Cognition Level of Alertness Confusional State Orientation Name Safety Awareness Decreased Safety Awareness Gross Range of Motion Upper Extremity ROM Assessment Within Functional Limits Lower Extremity ROM Assessment Within Functional Limits Strength Lower Extremity Strength Hip B flexion 4-/5 Knee B ext 5/5; B flex 4-/5 Ankle R DF 3-/5; L DF 4+/5 Comments Strength Comments Pt states he lacks ankle DF strength chronically Coordination Assessment Assessment Finger to Nose Test Minimal Impairment Foot Tapping Test no active DF RLE Sensation Assessment Comments Sensation Comments Pt denies sensation disturbance on exam Muscle Tone Muscle Tone WNL No Comments Muscle Tone Comments Clonus >4 beats at bilateral ankles M6 PT-IP Treatment Start: 11/29/22 09:27 Freq: NEEDED Status: Active Protocol: Document 11/30/22 12:36 TS (Rec: 11/30/22 13:02 TS [id number]) Physical Therapy Treatment Education Education Provided Safety M7 PT-IP Assessment and Plan Start: 11/29/22 09:27 Freq: NEEDED Status: Active Protocol: Document 11/30/22 12:36 TS (Rec: 11/30/22 13:02 TS [id number]) PT Summary Assessment and Plan Potential Rehabilitation Potential Good Status of Condition at Evaluation Evolving Summary Impairments Strength,Balance,Cognition,Bed Mobility,Transfers,Gait, Activity Tolerance Assessment Summary Pt continues to be confused, has poor safety awareness and impulsive to move before therapist is ready. He can follow single step instructions ~90% of the time. Pt performed sit to stands x2 CGA, x2 posterior LOB into chair, sit to stand x1 Ady, balanced improved with increased assist and with cues for upright posture. Pt progressed his ambulation to ~ 100' in room Ady, he required heavy cues for staying in FWW and keeping it close for safe ambulation, no signs of buckling or LOB. PT continues to recommend SNF to improve activity tolerance and balance . Goals Bed Mobility Goal Independent Transfer Goal Standby Assistance,Front Wheeled Walker Gait Goal Standby Assistance,Front Wheel Walker Gait Distance 75 Other Goals - progress transfers and gait to SBA with SPC Days to Meet Goals 10 Frequency of Treatment Frequency Of Treatment Once a Day Treatment Plan Physical Therapy Treatment Plan Bed Mobility Training,Transfer Training,Gait Training, Therapeutic Exercise,Balance Retraining,Discharge Planning, Hot or Cold Pack,Neuromuscular Re-ed,Coordination Retraining Other Recommendations and Next Treatment transfers, gait with FWW as Focus able Precautions Other Precautions falls risk Recommendations To Nursing Amount of Assist Needed 1 Person Assist Discharge Recommendations PT Discharge Recommendations SNF Rehab Transportation Needs at Discharge Wheelchair/Cabulance
--- NOTE | 2022-11-30 12:49 | SLP.IPNOTE ---
Pt refused swallowing evaluation (second attempt). Baseline dementia. Discussed pt in clinical rounds. canceled eval order.
--- NOTE | 2022-11-30 14:33 | PC.NURSE ---
pt transferred at [id number]
--- NOTE | 2022-11-30 16:05 | OT.IP.TRT ---
Current Diagnoses Unspecified dementia, unspecified severity, without behavioral disturbance, psychotic disturbance, mood disturbance, and anxiety (11/23/22) Atherosclerotic heart disease of [place] coronary artery without angina pectoris (11/23/22) Abdominal aortic aneurysm, without rupture (11/23/22) Acute respiratory failure with hypoxia (11/23/22) Respiratory failure, unspecified, unspecified whether with hypoxia or hypercapnia (11/23/22) Occupational Therapy Treatment Note M2 OT-IP Current Condition Start: 11/29/22 13:27 Freq: Status: Active Protocol: Document 11/29/22 13:27 CGR (Rec: 11/29/22 13:54 CGR [id number]) Occupational Therapy Current Condition Current Condition Evaluation Date 11/29/22 Treatment Diagnosis PNA with flash pulmonary edema Diagnosis Onset Date 11/23/22 M3 OT- IP Subjective and Pain Start: 11/29/22 13:27 Freq: Status: Active Protocol: Document 11/30/22 16:07 CCC (Rec: 11/30/22 16:18 CCC [id number]) OT- Subjective Occupational Therapy Visit Type Type Treatment Note Visit Start Time 15:45 Visit Stop Time 16:07 Total Visit Minutes 22 Occupational Therapy Visit Comments Patient Comments Pt sitting in the recliner with his friend in the room. Pt not wanting to shower but agreed to try tomorrow. Patient/Caregiver Goals To go home. OT Pain Assessment Pain When Pain Assessed At Rest Pain Present Pain Present Denied Pain M5 OT- IP IADL's Start: 11/29/22 13:27 Freq: Status: Active Protocol: Document 11/29/22 13:27 CGR (Rec: 11/29/22 13:54 CGR [id number]) OT-Instrumental Activities of Daily Living Deficits IADL Deficits Identified Deficits Home Safety Awareness Awareness of Need for Assistance at Home Decreased Awareness Ability to Problem Solve Emergency Unable to Problem Solve Situations Medication Management Medication Management Comments concerns regarding pt's ability to perform Money Management Money Management Comments concerns regarding pt's ability to perform Meal Preparation Meal Preparation Comments concerns regarding pt's ability to perform Doctor Naturopathic Doctor Naturopathic Comments concerns regarding pt's ability to perform Driving Driving Comments concerns regarding pt's ability to perform M6 OT- IP Functional Cognition Start: 11/29/22 13:27 Freq: Status: Active Protocol: Document 11/30/22 16:07 CCC (Rec: 11/30/22 16:18 [facility] [id number]) Cognitive Factors Limiting Selfcare Function Cognitive Ability Level of Alertness Alert,Confusional State Patient Orientation Name Attention Span Ability Unable to Focus,Unable to Sustain Attention Memory Description Short Term Impaired Cognitive Comments Cognitive Assessment Comments Pt likes to joke around and having trouble to answering home safety questions. Pt having decreased short term memory as forgetting that he was going to try to shower tomorrow for OT session. M8 OT- IP Objective Assessments Start: 11/29/22 13:27 Freq: Status: Active Protocol: Document 11/29/22 13:27 CGR (Rec: 11/29/22 13:54 CGR [id number]) OT Gross Range of Motion Upper Extremity Range of Motion Assessment Within Functional Limits OT Strength Upper Extremity Strength Assessment Within Functional Limits Comments Strength Comments 4-/5 OT- Coordination Assessment Upper Extremity Finger to Nose Test Right UE Impaired Finger Tapping Test Right UE Impaired Comments Coordination Comments Noted RUE coordination not consistent with LUE but still able to use hand effectively, however,movements delayed. OT-Muscle Tone Assessment Muscle Tone WNL Yes OT Sensation Assessment Edema Edema Absent M9 OT- IP Assessment and Plan Start: 11/29/22 13:27 Freq: Status: Active Protocol: Document 11/30/22 16:07 [facility] (Rec: 11/30/22 16:18 [facility] [id number]) OT Summary Assessment and Plan Potential Rehabilitation Potential Good Analytic Complexity at Evaluation High Summary OT Impairments Strength,Balance,Coordination, Functional Cognition, Functional Mobility,Self- Feeding,Grooming,Dressing, Toileting,Bathing,Toilet Transfers,Shower Transfers, Activity Tolerance Progress Towards Goals Slow Progress due to Medical Issues,Slow Progress due to Cognition Assessment Summary Pt's friend in the room and feels that pt is close to his cognitive baseline. Able to assess 9 hole peg and both hand mid 40 seconds which is way below time for his age group. pt however able to brick picker coins with both hands with increased time. Pt insists that he wants to go home, but pending his safety and independence with ADL, mobility , and safety needs may benefit from skilled rehab . Pt agreed to try showering tomorrow for OT session. Goals Self-Feeding Goal Independent Grooming Goal Independent Dressing Goal Independent Toileting Goal Independent Bathing Goal Independent Toilet Transfer Goal Independent Shower Transfer Goal Independent Days to Meet Goals 19 Frequency of Treatment Frequency Of Treatment Once a Day Treatment Plan OT Treatment Plan ADL Training,Functional Cognition Training,Functional Mobility,Therapeutic Exercises ,Patient/Family Education, Discharge Planning Other Treatment Recommendations and Next shower Treatment Focus Discharge Recommendations OT Discharge Recommendations SNF Rehab Transportation Needs at Discharge Wheelchair/Cabulance
[2022-11-30 16:06] VITALS: BP 113/60; PULSE 83; RESP 18; TEMP 36.8; O2SAT 97
--- NOTE | 2022-11-30 18:29 | P.PN_ITS ---
Subjective Subjective Interval history: Patient feeling well and has no complaints. A 20 minute discussion was had about his GOC, given he was full code and 82yo. He said he would not want to have CPR attempted in the future. He also would prefer not to be on a breathing machine if needed, as he required this episode. He therefore would like to be DNR. Exam Vital Signs (past 8 hours): - 11/30/22 16:06 Temperature 98.3 F Pulse Rate 83 Respiratory Rate 18 Blood Pressure 113/60 Pulse Oximetry 97 Oxygen Flow Rate 0 Oxygen Delivery Method Room Air Oxygen Flow Rate 0 Narrative Exam Narrative: GEN:? alert and talking, in no acute medical distress HEENT: moist mucous membranes, PERRL NECK: trachea midline, no JVD PULM: chest clear, no wheezing rhonchi or obvious rales. CV: regular rate and rhythm, no murmurs ABD: soft, nontender, nondistended, no organomegaly EXT: warm and well perfused with no edema NEURO:? Alert and extremities have normal sensation Objective Labs 11/30/22 04:30 11/30/22 04:30 Labs: Laboratory Results - last 24 hr 11/30/22 11/30/22 11/30/22 00:43 04:30 04:30 WBC 11.0 RBC 4.25 L Hgb 9.9 L Hct 31.4 L MCV 73.9 L MCH 23.2 L MCHC 31.4 RDW 23.0 H Plt Count 304 Neut % (Auto) 59.5 Lymph % (Auto) 15.8 L [place] % (Auto) 15.1 H Eos % (Auto) 8.6 H Baso % (Auto) 1.0 Neut # (Auto) 6600 Lymph # (Auto) 1700 [place] # (Auto) 1700 H Eos # (Auto) 900 H Baso # (Auto) 100 RBC Morphology See below Hypochromasia 1+ H Anisocytosis 3+ H Microcytosis 2+ H Schistocytes 1+ H Sodium 132 L Potassium 3.3 L Chloride 99 Carbon Dioxide 24 BUN 16 Creatinine 0.85 Estimated GFR > 60 BUN/Creatinine Ratio 18.8 Glucose 113 H Calcium 8.5 Magnesium 1.9 Total Bilirubin 0.4 AST 28 ALT 27 Alkaline Phosphatase 98 Total Protein 6.7 Albumin 3.6 Globulin 3.1 Albumin/Globulin Ratio 1.2 [facility] Medical History CAD in [place] artery Cataracts, bilateral (~2019) Dementia (~2018) Myocardial infarction Wears glasses Surgical History Anesthesia H/O heart artery stent (~2017) S/P placement of cardiac pacemaker Family History Family/Other Hemophilia Father No problems noted. Grandfather Hypertension Social History household members: none Smoking Status: Former smoker Assessment & Plan Assessment & Plan narrative: 1. Acute hypoxemic respiratory failure with pneumonia secondary to Branhamella catarrhalis, resolved ?- likely secondary to acute on chronic diastolic heart failure with flash pulmonary edema, combined with bullous disease and pneumonia due to Branhamella given ETT culture. ?- low suspicion for PE, DVT study negative ?- echocardiogram with EF of 50-55%, with hypokinesis, possible NSTEMI contributing to pulmonary edema initially. ?- continued empiric antibiotics for possible pneumonia, stopped all on 11/25. Blood culture positive but only 1/4 bottles and likely contaminant. However sputum cultures with Branhamella (Moraxella) catarrhalis and worsening secretions from ETT on 11/24PM, 11/25 AM. Started on ceftriaxone for presumed pnuemonia given cultures with improvement. Continue for 6 additional days for 7 day course. -on ceftriaxone daily, repeated blood cultures to ensure cleared - were negative. ?- CT chest with no pneumonia or acute pathologies. -currently stable without O2 supplementation 2. Shock, likely hypovolemic, possibly septic, resolved ?- likely hypovolemia with anemia along with sedation, possibly septic given pneumonia noted above. ?- Levophed now weaned off. ?- appreciate tele-contact centre supervisor consultation ?- s/p 3 U PRBC transfusion, continue to trend h/h. Hg 8.2 today with continued slow decline. Goal will now be 8 given concern for possible NSTEMI. ?- hold home antihypertensives -oral antihypertensives reinitiate this today and due to delay ineffectiveness, patient given a dose of Lopressor 5 mg IV stat now. ?- discussed with general surgery, reconsult after extubation and off pressor support we will reassess with general surgery -this still needs to be done to assess the source of bleeding in the upper GI tract. 3. Anemia, micorcytic, unknown chronicity, probable acute blood loss anemia -suspect secondary to GI bleed, unknown chronicity -ordered for PPI BID -once stabilized consult general surgery as noted above -trend hemoglobin closely, goal >8 -hemoglobin stable today at 9.4 -CT abdomen showed no obvious mass, chronic infrarenal aortic anerysm. 4. CAD s/p stents and s/p pacemaker -no antiplatelets for now given recent bleed 5. Dementia -patient has been declining cognitively for quite some time. He has moved into a house of his son's but then moved. He does have some paranoid behavior or beliefs based on discussion with family, but circumstances are not entirely clear. Per grandson he was admitted to [facility] about 4 years ago, unclear circumstances but was there for ? 1 month. Consider formal cognitive testing after extubation. According to friends near to the patient, he has been decisional and functioning quite well recently. - ordered SLUMS test with OT 6. Possible NSTEMI, improved ?- troponin increased to 0.249, then downtrended. EKG without acute ischemia. Suspect this was related to demand given his prior CAD history, likely in setting of respiratory failure and shock. ?- However, given wall motion abnormalities on TTE, may represent NSTEMI, yet unable to anticoagulate at this time given GI bleeding. Increased Hg goal to 8. 7. Acute metabolic or toxic encephalopathy with underlying chronic dementia ?- Suspect medication related at this time, CVA much less likely as he had no focal deficits when alert previously. CT head negative. ?- CT head, chest, abdomen showed no evidence of acute infectious etiology. 8. Mobility.? Damian to help with mobility.? Ordered physical therapy for assessment and treatment. Nursing reporting weakness of the right upper and lower extremity today. We will order CT head to see if any acute changes. 9. Frequent urination and difficulty voiding completely. Damian placed. Initiated tamsulosin. DVT prophylaxis:? None at this time due to recent bleeding and low hemoglobin becoming stabilized now. Best to do SCDs. Code: DNR after discussion with the patient himself on 11/30 Dispo: SNF on 12/01. Quality VTE Deep Vein Thrombosis/Pulmonary Embolism Present on Admission: No
--- NOTE | 2022-11-30 19:14 | PC.NURSE ---
pt has had an uneventful shift; he is for discharge tomorrow to [facility] at 1100; he was up in the chair much of the day
[2022-11-30 20:00] VITALS: BP 153/66; PULSE 70; RESP 18; TEMP 36.7; O2SAT 98
[2022-11-30] MEDS: LATANOPROST 0.005% OPHTH 2.5 ML 1 DROPS EYE-BOTH (21:09)
[2022-11-30] MEDS: MELATONIN 3 MG TABLET 6 MG PO (21:09)
[2022-11-30] MEDS: QUETIAPINE 25 MG TABLET 12.5 MG PO (21:10)
[2022-12-01] VITALS: BP 113/58; PULSE 69; RESP 18; TEMP 36.1; O2SAT 96
[2022-12-01 04:00] VITALS: BP 159/70; PULSE 65; RESP 17; TEMP 36.2; O2SAT 97
[2022-12-01 04:59] LABS: COVID19 -Nasal RAPID Negative (Negative)
[2022-12-01 05:20] LABS: Basophils Absolute Auto 100 /uL (0-100); Basophils Percent Auto 1.6 % (0-2); Eosinophils Absolute Auto 600 /uL (0-450); Eosinophils Percent Auto 7.9 % (2-4); Hematocrit 31.1 % (41-53); Lymphocytes Absolute Auto 1300 /uL (1100-4500); Lymphocytes Percent Auto 17.6 % (25-40); Mean Corpuscular HGB Conc 32.2 % (30-36); Mean Corpuscular Hemoglobin 23.4 PG (26-34); Mean Corpuscular Volume 72.7 fL (80-100); Monocytes Absolute Auto 900 /uL (0-900); Monocytes Percent Auto 12.3 % (3-14); Neutrophils Absolute Auto 4600 /uL (1500-7000); Neutrophils Percent Auto 60.6 % (50-75); Platelet Count 288 X10^3/uL (150-400); Red Blood Cell Count 4.28 X10^6/uL (4.5-5.9); Red Cell Distribution Width 23.4 % (11.6-14.8); White Blood Cell Count 7.5 X10^3/uL (4.5-11.0)
[2022-12-01 05:21] LABS: Add Manual Diff / Slide Review SLIDE REVIEW
[2022-12-01 05:28] LABS: Alanine Aminotransferase 23 IU/L (<50); Albumin 3.5 g/dL (3.5-5.0); Albumin Globulin Ratio 1.3 (1.0-2.8); Alkaline Phosphatase 85 U/L (38-126); Aspartate Aminotransferase 22 IU/L (17-59); BUN Creatinine Ratio 13.1 (6-22); Bilirubin Total 0.3 mg/dL (0.2-1.3); Blood Urea Nitrogen 13 mg/dL (9-20); Calcium 8.5 mg/dL (8.4-10.2); Carbon Dioxide 26 mmol/L (22-32); Chloride 102 mmol/L (98-107); Estimated Glomerular Filt Rate > 60 mL/min (>60); Globulin 2.8 g/dL (1.7-4.1); Glucose 95 mg/dL (80-110); HEMOLYSIS < 15 (0-50); Potassium 3.5 mmol/L (3.4-5.1); Sodium 135 mmol/L (137-145); Total Protein 6.3 g/dL (6.3-8.2)
[2022-12-01 07:07] LABS: Anisocytosis 2+; Hypochromasia 1+; Microcytosis 2+; Schistocytes 1+
--- NOTE | 2022-12-01 08:24 | CM.DPC ---
Addendum entered by Shani Mayer R.N. 12/01/22 10:28: Faxed Ludmila over orders, PASSR, DC Summary, confirmed orange picker machine operator time, white board at main nursing station is updated, and updated nurse, Bibiana. Gave her report number for facility. Original Note: DCP Cont: Ludmila at [facility] has received auth. Confirmed that she can orange picker machine operator patient at 11:00.PASSR already completed, COVID was placed yesterday. Updated hospitalist, will let nurse know. P: DCP to continue to follow. Plan is for patient to go to [facility] today. Shani Mayer RN/Student Ambassador
--- NOTE | 2022-12-01 08:29 | P.DS_ITS ---
History of Present Illness History of Present Illness Date Patient Seen: 11/23/22 Time Patient Seen: 04:00 Chief complaint: resp distress Narrative: Mr. Alexander is an 82M with PMH CAD s/p stents, s/p PPM, aortic aneurysm, dementia who presents to the hospital with sudden onset shortness of breath. History is unable to be obtained from patient as he is intubated when I examine him. From previous medical records he has a long period time with no PCP, has been setup only within the last couple years and has had limited visits with the PCP. He has been noted to have dementia, and it appears to be living in a hotel. He has limited family. He has no documented POLST, advanced directive. EMS was called as he woke up severely short of breath. EMS found him with sats in the 80s, tachypneic and agitated. He was not able to provide much history. En route he was placed on NIPPV and continued to have significant work of breathing and low sats in the low 90s. Upon arrival it was decided to intubated him. Prior to intubation per ED physician he was responding by nodding his head to certain questions which included that he felt fever, cough, and had chest tightness. In the ED workup was done, vitals notable for afebrile, respiratory rate in 40s, blood pressure 190s/80s, sats in the 80s on NIPPV. Labs notable for WBC 12.2. hgb 6.5, plts 329. Na 135, cl 19, creatinine 1.10. LFTS normal. Trop 0.01->0.06. BNP 1730. He was intubated and placed on propofol. Once this happened his blood pressure dropped to systolic 80s. Central line right IJ placed and he was star chacha on pressors. OG tube placed with return of coffee ground appearing fluid. He was ordered for protonix, and transfusion. He had walters placed, ordered for lasix and was admitted for further treatment. Discharge Providers Provider Date of admission: 11/23/22 02:40 Discharge Date: 12/01/22 Primary care physician: Dain Laughlin MD Consults: 11/23/22 03:59 Consult to Tele-electronics parts sales representative Routine Comment: Consulting Provider: [employer] Reason for consultation: Loading Rack Supervisor services Has provider been notified: Yes 11/23/22 04:21 Consult to Dietitian, Adult Routine Comment: Reason For Exam: Patient on Ventilator and NPO 11/27/22 15:04 Consult to Speech Therapy Evaluate & Treat Comment: post extubation, asses for diet texture Physician Instructions: Evaluate and treat 11/27/22 15:17 Consult to Occupational Therapy Evaluate & Treat Comment: Please do SLUMS test for cognitive assess Physician Instructions: Evaluate and treat 11/28/22 16:08 Consult to Physical Therapy Evaluate & Treat Comment: Physician Instructions: Evaluate and Treat Discharge provider: Maury Moreau, Summary Hospital Course Discharge Diagnosis: 1. Acute hypoxemic respiratory failure with pneumonia secondary to Branhamella catarrhalis, resolved ?- likely secondary to acute on chronic diastolic heart failure with flash pulmonary edema, combined with bullous disease and pneumonia due to Branhamella given ETT culture. ?- low suspicion for PE, DVT study negative ?- echocardiogram with EF of 50-55%, with hypokinesis, possible NSTEMI contributing to pulmonary edema initially. ?- continued empiric antibiotics for possible pneumonia, stopped all on 11/25. Blood culture positive but only 1/4 bottles and likely contaminant. However sputum cultures with Branhamella (Moraxella) catarrhalis and worsening secretions from ETT on 11/24PM, 11/25 AM. Started on ceftriaxone for presumed pnuemonia given cultures with improvement. Continue for 6 additional days for 7 day course. -on ceftriaxone daily, repeated blood cultures to ensure cleared - were negative. Finished course of abx. ?- CT chest with no pneumonia or acute pathologies. -currently stable without O2 supplementation 2. Shock, likely hypovolemic, possibly septic, resolved ?- likely hypovolemia with anemia along with sedation, possibly septic given pneumonia noted above. ?- Levophed now weaned off. ?- appreciate tele-electronics parts sales representative consultation ?- hold home antihypertensives ?- discussed with general surgery, Hgb now stable 3. Anemia, microcytic, unknown chronicity, probable acute blood loss anemia, stable -suspect secondary to GI bleed, unknown chronicity -ordered for PPI BID -trend hemoglobin closely, goal >8 -hemoglobin stable today at 9.4 -CT abdomen showed no obvious mass, chronic infrarenal aortic anerysm. - s/p 3 U PRBC transfusion, continue to trend h/h. Has now been stable at 10 with no evidence of bleeding 4. CAD s/p stents and s/p pacemaker -no antiplatelets for now given recent bleed 5. Dementia -patient has been declining cognitively for quite some time. He has moved into a house of his son's but then moved. He does have some paranoid behavior or beliefs based on discussion with family, but circumstances are not entirely clear. Per grandson he was admitted to [facility] about 4 years ago, unclear circumstances but was there for ? 1 month. Consider formal cognitive testing after extubation. According to friends near to the patient, he has been decisional and functioning quite well recently. 6. Possible NSTEMI, improved ?- troponin increased to 0.249, then downtrended. EKG without acute ischemia. Suspect this was related to demand given his prior CAD history, likely in setting of respiratory failure and shock. ?- However, given wall motion abnormalities on TTE, may represent NSTEMI, yet unable to anticoagulate at this time given GI bleeding. Increased Hg goal to 8. 7. Acute metabolic or toxic encephalopathy with underlying chronic dementia, resolved ?- Suspect medication related at this time, CVA much less likely as he had no focal deficits when alert previously. CT head negative. ?- CT head, chest, abdomen showed no evidence of acute infectious etiology. 9. Frequent urination and difficulty voiding completely. Initiated tamsulosin. Hospital Course: Admitted for septic shock and hypoxic resp failure from Moraxella pneumonia. Received IV abx and improved and able to wean off the vent. Had anemia down to 6.5 and received 3 units of blood. No evidence of bleeding after and Hgb remained stable. Also had demand ischemia from sepsis with troponin bump which downtrended. Also had EF 45-50% on echo with WMA's. Should have f/u as outpatient with cardiology. Due to concern for possible GIB, not put on antiplatelets. Should see GI as outpatient for colonoscopy. Started metoprolol and losartan low dose on discharge for new CHF. Had difficulty voiding so put on flomax. Discharged to SNF for ongoing rehab. Time Spent with Patient Time spent: Greater than 30 minutes Exam Vital Signs (past 8 hours): - 12/01/22 04:00 Temperature 97.2 F L Pulse Rate 65 Respiratory Rate 17 Blood Pressure 159/70 H Pulse Oximetry 97 Oxygen Delivery Method Room Air Oxygen Flow Rate 0 Narrative Exam Narrative: GEN:? alert and talking, in no acute medical distress HEENT: moist mucous membranes, PERRL NECK: trachea midline, no JVD PULM: chest clear, no wheezing rhonchi or obvious rales. CV: regular rate and rhythm, no murmurs ABD: soft, nontender, nondistended, no organomegaly EXT: warm and well perfused with no edema NEURO:? Alert and extremities have normal sensation Objective Labs 12/01/22 04:38 12/01/22 04:38 Labs: Laboratory Results - last 24 hr 11/30/22 12/01/22 12/01/22 00:43 04:30 04:38 WBC 7.5 RBC 4.28 L Hgb 10.0 L Hct 31.1 L MCV 72.7 L MCH 23.4 L MCHC 32.2 RDW 23.4 H Plt Count 288 Neut % (Auto) 60.6 Lymph % (Auto) 17.6 L [place] % (Auto) 12.3 Eos % (Auto) 7.9 H Baso % (Auto) 1.6 Neut # (Auto) 4600 Lymph # (Auto) 1300 [place] # (Auto) 900 Eos # (Auto) 600 H Baso # (Auto) 100 RBC Morphology See below Hypochromasia 1+ H Anisocytosis 2+ H Microcytosis 2+ H Schistocytes 1+ H Sodium Potassium Chloride Carbon Dioxide BUN Creatinine Estimated GFR BUN/Creatinine Ratio Glucose Calcium Magnesium 1.9 Total Bilirubin AST ALT Alkaline Phosphatase Total Protein Albumin Globulin Albumin/Globulin Ratio SARS-CoV-2 (PCR) Negative 12/01/22 04:38 WBC RBC Hgb Hct MCV MCH MCHC RDW Plt Count Neut % (Auto) Lymph % (Auto) [place] % (Auto) Eos % (Auto) Baso % (Auto) Neut # (Auto) Lymph # (Auto) [place] # (Auto) Eos # (Auto) Baso # (Auto) RBC Morphology Hypochromasia Anisocytosis Microcytosis Schistocytes Sodium 135 L Potassium 3.5 Chloride 102 Carbon Dioxide 26 BUN 13 Creatinine 0.99 Estimated GFR > 60 BUN/Creatinine Ratio 13.1 Glucose 95 Calcium 8.5 Magnesium Total Bilirubin 0.3 AST 22 ALT 23 Alkaline Phosphatase 85 Total Protein 6.3 Albumin 3.5 Globulin 2.8 Albumin/Globulin Ratio 1.3 SARS-CoV-2 (PCR) [facility] Medical History CAD in [place] artery Cataracts, bilateral (~2019) Dementia (~2018) Myocardial infarction Wears glasses Surgical History Anesthesia H/O heart artery stent (~2017) S/P placement of cardiac pacemaker Family History Family/Other Hemophilia Father No problems noted. Grandfather Hypertension Social History household members: none Smoking Status: Former smoker Discharge Plan Discharge Plan Patient Disposition: SNF Discharge orders & Medications Prescriptions: New tamsulosin [Flomax] 0.4 mg Capsule 0.4 mg PO DAILY Qty: 30 0RF metoprolol succinate 25 mg tablet extended release 24 hr 25 mg PO DAILY Qty: 30 0RF losartan 25 mg tablet 25 mg PO DAILY Qty: 30 0RF Continued albuterol sulfate [Proventil HFA] 90 mcg/actuation HFA aerosol inhaler 1 puff INHALATION QIDP PRN (Reason: shortness of breath) Qty: 2 5RF Rx Instructions: Inhale one puff by mouth up to four times as needed for shortness of breath. amlodipine 5 mg tablet 5 mg PO DAILY Qty: 90 3RF Hold Instructions: Waiting on home BP meds fluoxetine 20 mg capsule 20 mg PO QDAY Qty: 90 1RF acetaminophen [Aphen] 325 mg tablet 650 mg PO Q6H PRN (Reason: fever or pain) Qty: 30 0RF mupirocin 2 % ointment 1 applic topical DAILY Qty: 22 0RF latanoprost 0.005 % drops 1 drp EYE-BOTH ONCE HS lidocaine HCl [Lidocaine Viscous] 2 % solution 1 applic mucous membrane DAILY Follow up/Referrals: Dain Laughlin MD [Primary Care Provider] - 2 Weeks Visit Report/Discharge Packet Stand Alone Forms: Patient Portal/API Discharge Data Primary Care Provider: Dain Laughlin Quality VTE Deep Vein Thrombosis/Pulmonary Embolism Present on Admission: No
[2022-12-01 08:40] VITALS: BP 140/78; PULSE 70; RESP 17; TEMP 37.1; O2SAT 97
[2022-12-01] MEDS: TAMSULOSIN 0.4 MG CAPSULE PO (10:08)
[2022-12-01] MEDS: AMLODIPINE 5 MG TABLET PO (10:08)
[2022-12-01] MEDS: PANTOPRAZOLE DR 40 MG TABLET PO (10:08)
[2022-12-01 10:27] VITALS: BP 138/63; PULSE 75; RESP 18; O2SAT 100
== END 2022-12-01 10:33 | DRG 871 ==
LOC: ED 01:10 → AC 02:41 → ICU 03:51
PROVIDERS: Internal Medicine; Internal Medicine Critical Care Medicine; Student in an Organized Health Care Education/Training Program; Admitting Provider Internal Medicine; Emergency Provider Emergency Medicine; PCP Student in an Organized Health Care Education/Training Program; Referring Provider Emergency Medicine; Visit Provider Internal Medicine
DX: A41.89 Other specified sepsis (principal); G92.8 Other toxic encephalopathy; I50.33 Acute on chronic diastolic (congestive) heart failure; J81.0 Acute pulmonary edema; J96.01 Acute respiratory failure with hypoxia; J18.9 Pneumonia, unspecified organism; R65.21 Severe sepsis with septic shock; R57.1 Hypovolemic shock; I21.4 Non-ST elevation (NSTEMI) myocardial infarction; K92.2 Gastrointestinal hemorrhage, unspecified; D62 Acute posthemorrhagic anemia; I25.10 Atherosclerotic heart disease of native coronary artery without angina pectoris; F03.90 Unspecified dementia, unspecified severity, without behavioral disturbance, psychotic disturbance, mood disturbance, and anxiety; B96.89 Other specified bacterial agents as the cause of diseases classified elsewhere; R35.0 Frequency of micturition; Z20.822 Contact with and (suspected) exposure to COVID-19; Z87.891 Personal history of nicotine dependence; Z66 Do not resuscitate; Z95.5 Presence of coronary angioplasty implant and graft; Z95.0 Presence of cardiac pacemaker
CPT/HCPCS: 31500; 36415; 36430; 36592; 36600; 70450; 71045; 71260; 74177; 80048; 80053; 82550; 82805; 82962; 83036; 83690; 83735; 83880; 84145; 84484; 85014; 85018; 85025; 85027; 85379; 85610; 85730; 86850; 86900; 86901; 87040; 87070; 87077; 87147; 87154; 87186; 87205; 87633; 87635; 87797; 93005; 93010; 93306; 93970; 94002; 94003; 94640; 94799; 96365; 96375; 97116; 97163; 97167; 97530; 99233; 99285; 99291; 99292; C9803; P9016; C9113; J0360; J0696; J1720; J1940; J2020; J2405; J2543; J2704; J3010; Q9967